=== PATIENT | male | born 1960 | race Caucasian/White ===

== ENCOUNTER → 2018-03-20 08:41 | Outpatient (CLI) | payer BC, SELFPAY ==
[2018-03-20 13:53] LABS: Alanine Aminotransferase 36 U/L (12-78); Albumin Level 3.4 gm/dL (3.4-5.0); Albumin/Globulin Ratio 1.1 (1.1-1.8); Alkaline Phosphatase 54 U/L (46-116); Anion Gap 14.1 mEq/L (5-15); Aspartate Amino Transferase 16 U/L (15-37); Bilirubin,Total 0.5 mg/dL (0.2-1.0); Blood Urea Nitrogen 12 mg/dL (7-18); C-Reactive Protein 0.8 mg/L (0.0-0.9); Calcium 8.6 mg/dL (8.5-10.1); Carbon Dioxide 27 mmol/L (21.0-32.0); Chloride 105 mmol/L (98-107); Creatinine,Serum 0.99 mg/dL (0.70-1.30); Estimated Glomerular Filt Rate 77 ml/min (>60); GFR (African American) 94 ML/MIN (>60); Globulin 3.1 gm/dl (1.3-3.2); Glucose 113 mg/dL (74-106); Potassium 4.1 mmoL/L (3.5-5.1); Sodium 142 mmol/L (136-145); Total Protein,Serum 6.5 gm/dL (6.4-8.2); Uric Acid 6.7 mg/dL (2.6-7.2)
[2018-03-20 14:36] LABS: Basophils % 0.7 % (0.1-2.0); Eosinophils # 0.2 K/mm3 (0.0-0.4); Eosinophils % 3.6 % (0.1-12.0); Hematocrit 44.6 % (42.0-52.0); Hemoglobin 14.2 g/dL (14.1-18.0); Lymphocytes # 1.6 K/mm3 (0.7-4.5); Mean Corpuscular HGB Conc 31.8 g/dL (31.8-35.4); Mean Corpuscular Hemoglobin 30.5 pg (27.0-31.2); Mean Corpuscular Volume 95.9 fl (80-94); Mean Platelet Volume 8.4 fl (7.4-10.4); Monocytes # 0.4 K/mm3 (0.1-1.0); Monocytes % 8.5 % (1.7-9.3); Neutrophils # 2.8 K/mm3 (1.8-7.8); Neutrophils % 55.3 % (37.0-80.0); Platelet Count 262 K/mm3 (142-424); Red Blood Count 4.65 M/mm3 (4.60-6.20); Red Cell Distribution Width 13.3 % (11.5-17.5)
[2018-03-20 15:29] LABS: Erythrocyte Sedimentation Rate 14 mm/hr (0-20)
[2018-03-22 17:13] LABS: RA Latex Turbid. 16.7 IU/mL (0.0-13.9)
== END ==
PROVIDERS: PCP Internal Medicine Adolescent Medicine; Visit Provider Internal Medicine Rheumatology
DX: E79.0 Hyperuricemia without signs of inflammatory arthritis and tophaceous disease (principal); M79.641 Pain in right hand
CPT/HCPCS: 36415; 80053; 84550; 85025; 85651; 86140; 86431

== ENCOUNTER 2018-04-30 08:00 | Outpatient (RCR) | payer BC, SELFPAY | END 2018-06-03 16:00 | disposition home or self-care (01) | LOC: PT.CARL 08:00 | PROVIDERS: Visit Provider Anesthesiology Pain Medicine | DX: M54.16 Radiculopathy, lumbar region (principal) | CPT/HCPCS: 97012; 97110; 97140; 97163 ==

== ENCOUNTER → 2018-09-04 13:22 | Outpatient (CLI) | payer BC, SELFPAY ==
--- NOTE | 2018-09-04 13:33 | XR_ITS ---
XR sacrum coccyx min 2V CLINICAL INDICATION: ITS.REASON: PAIN DUE TO TRAUMA,COCCYXDYNIA ORDERING PHYSICIAN: Patrick Marmolejo MD PATIENT AGE: 58 years Comparison: None FINDINGS: There is displacement of the second segment of the coccyx posteriorly x 5 mm. No other significant anomalies are evident. IMPRESSION: Posterior displacement of the second coccyx segment
== END ==
PROVIDERS: PCP Internal Medicine Adolescent Medicine; Visit Provider Internal Medicine Adolescent Medicine
DX: M53.3 Sacrococcygeal disorders, not elsewhere classified (principal); G89.11 Acute pain due to trauma
CPT/HCPCS: 72220

== ENCOUNTER → 2019-01-10 07:50 | Outpatient (CLI) | payer BC, SELFPAY ==
--- NOTE | 2019-01-10 08:03 | XR_ITS ---
PROCEDURE: XR CHEST 2V CLINICAL HISTORY: PERISTANT COUGH X 3 WEKKS Productive cough COMPARISON: No exams were available for comparison FINDINGS: There is mild cardiomegaly without failure. The lungs are clear without infiltrates, suspicious nodules, or pleural effusions. No acute bony abnormalities. IMPRESSION: The mild cardiomegaly otherwise negative Dictated by: Charly Lynn MD 01/10/2019 09:20 Electronically signed by Charly Lynn MD in [place] 01/10/2019 09:20
[2019-01-10 08:19] LABS: Hemoglobin A1C 6.1 % (0.0-7.0)
[2019-01-10 08:47] LABS: Alanine Aminotransferase 38 U/L (12-78); Albumin Level 3.5 gm/dL (3.4-5.0); Albumin/Globulin Ratio 1.2 (1.1-1.8); Alkaline Phosphatase 57 U/L (46-116); Anion Gap 8.9 mEq/L (5-15); Aspartate Amino Transferase 21 U/L (15-37); Bilirubin,Total 0.4 mg/dL (0.2-1.0); Blood Urea Nitrogen 10 mg/dL (7-18); Calcium 8.7 mg/dL (8.5-10.1); Carbon Dioxide 30 mmol/L (21.0-32.0); Chloride 104 mmol/L (98-107); Cholesterol 160 mg/dL (140-200); Creatinine,Serum 1.02 mg/dL (0.70-1.30); Estimated Glomerular Filt Rate 74 ml/min (>60); GFR (African American) 90 ML/MIN (>60); Glucose 131 mg/dL (74-106); HDL Cholesterol 40 mg/dL (27-67); LDL Cholesterol 78 mg/dL (0-130); Potassium 4.9 mmoL/L (3.5-5.1); Sodium 138 mmol/L (136-145); Thyroid Stimulating Hormone 2.46 uIU/ml (0.358-3.740); Total Protein,Serum 6.5 gm/dL (6.4-8.2); Triglycerides 212 mg/dL (30-200); VLDL Cholesterol 42 mg/dL (0-40)
[2019-01-11 18:12] LABS: Vitamin D 25 Hydroxy 35.1 ng/mL (30.0-100.0)
== END ==
PROVIDERS: Visit Provider Nurse Practitioner Family
DX: E78.5 Hyperlipidemia, unspecified (principal); E11.9 Type 2 diabetes mellitus without complications; E03.9 Hypothyroidism, unspecified; E55.9 Vitamin D deficiency, unspecified; I10 Essential (primary) hypertension; R05 Cough
CPT/HCPCS: 36415; 71046; 80053; 80061; 82652; 83036; 84443

== ENCOUNTER → 2019-04-24 10:28 | Outpatient (CLI) | payer BC, SELFPAY ==
[2019-04-24 14:08] LABS: Hemoglobin A1C 6.3 % (4.0-6.0)
[2019-04-24 14:12] LABS: Chloride 100 mmol/L (98-107); Potassium 4.4 mmoL/L (3.5-5.1); Sodium 138 mmol/L (136-145)
[2019-04-24 14:14] LABS: Alanine Aminotransferase 33 U/L (12-78); Aspartate Amino Transferase 30 U/L (17-59); Basophils # 0.1 K/mm3 (0-0.2); Basophils % 0.7 % (0.1-2.0); Bilirubin,Total 0.4 mg/dl (0.2-1.3); Blood Urea Nitrogen 8 mg/dl (9-20); Eosinophils # 0.2 K/mm3 (0.0-0.4); Eosinophils % 3.5 % (0.1-12.0); Estimated Glomerular Filt Rate 86 ml/min (>60); GFR (African American) 104 ML/MIN (>60); Hematocrit 41.8 % (42.0-52.0); Hemoglobin 13.9 g/dL (14.1-18.0); Lymphocytes # 1.5 K/mm3 (0.7-4.5); Lymphocytes % 22.5 % (10-50); Mean Corpuscular HGB Conc 33.1 g/dL (31.8-35.4); Mean Corpuscular Volume 93.6 fl (80-94); Mean Platelet Volume 8.5 fl (7.4-10.4); Monocytes # 0.4 K/mm3 (0.1-1.0); Monocytes % 5.7 % (1.7-9.3); Neutrophils # 4.5 K/mm3 (1.8-7.8); Neutrophils % 67.6 % (37.0-80.0); Platelet Count 319 K/mm3 (142-424); Red Blood Count 4.47 M/mm3 (4.60-6.20); Red Cell Distribution Width 12.7 % (11.5-17.5); White Blood Count 6.7 K/mm3 (4.8-10.8)
[2019-04-24 14:15] LABS: Albumin Level 3.9 g/dl (3.5-5.0); Albumin/Globulin Ratio 1.4 (1.1-1.8); Alkaline Phosphatase 54 U/L (38-126); Anion Gap 14.4 mEq/L (5-15); Calcium 8.7 mg/dl (8.4-10.2); Carbon Dioxide 28 mmol/L (22.0-30.0); Chol/HDL Ratio 4.4 (1-3.5); Cholesterol 168 mg/dl (140-200); Globulin 2.7 g/dL (1.3-3.2); Glucose 117 mg/dl (74-100); HDL Cholesterol 38 mg/dl (40-60); Total Protein,Serum 6.6 g/dl (6.3-8.2); Triglycerides 219 mg/dl (30-150); VLDL Cholesterol 44 mg/dL (0-40)
[2019-04-24 14:44] LABS: Thyroid Stimulating Hormone 1.84 uIU/mL (0.465-4.68)
[2019-04-24 14:59] LABS: Activated Partial Thrombo Time 28.8 seconds (23.6-34.0); INR 1.01 (0.9-1.1); Prothrombin Time 10.5 seconds (9.4-11.8)
== END ==
PROVIDERS: Visit Provider Nurse Practitioner Family
DX: Z00.00 Encounter for general adult medical examination without abnormal findings (principal); E78.5 Hyperlipidemia, unspecified; E11.9 Type 2 diabetes mellitus without complications; I10 Essential (primary) hypertension; R23.3 Spontaneous ecchymoses
CPT/HCPCS: 36415; 80053; 80061; 83036; 84443; 85025; 85610; 85730

== ENCOUNTER → 2019-09-18 09:48 | Outpatient (CLI) | payer BC, SELFPAY ==
[2019-09-18 11:30] LABS: Coronavirus 19 IgG Antibody Negative (Negative); Coronavirus 19 IgM Antibody Negative (Negative)
== END ==
PROVIDERS: Visit Provider Internal Medicine Gastroenterology
DX: Z01.818 Encounter for other preprocedural examination (principal); Z12.11 Encounter for screening for malignant neoplasm of colon
CPT/HCPCS: 36415; 86328

== ENCOUNTER 2019-09-19 08:23 | Day surgery (SDC) | payer BC, SELFPAY ==
[2019-09-19] VITALS (7 sets, daily range): BP systolic 117–160; BP diastolic 68–105; PULSE 53–66; RESP 16–18; TEMP 36.4–36.7; O2SAT 91–99; BMI 37.2
[2019-09-19 09:30] LABS: POC Glucose,Bedside 98 (70-110)
--- NOTE | 2019-09-19 09:58 | P.PN_ITS ---
[facility] Anesthesia Checklist - Patient Identification Patient Identification: Arm Band - Structural Data Admitted From: Home Planned Operative Procedure/s: colonoscopy Consent for Planned Operative Procedure(s) Verified: Yes Verified Documents: Surgical Consent, History and Physical - NPO Status Verified Time NPO: 00:00 - Additional verifications Anesthesia Reactions: No - Airway Assessment C-Spine Mobility Assessed: Yes (mp3) TMJ Mobility Assessed: Yes Dentition: Good Dentition - Neurological Assessment Level of Consciousness: Awake, Alert - Anesthesia Plan Anesthesia Risk discussed: Yes Anesthesia Plan: Verified ASA Class: III Anesthesia Type: MAC [facility] History I have reviewed the patient's past medical history: Yes Medical History: Reports:: Diabetes Mellitus Type 2, Hyperlipidemia, Hypertension, Lung Disease (omer-cpap) Denies:: Cancer, Diabetes Mellitus Type 1, Internal Pacemaker, MRSA, Seizures *Have you ever received a pneumonia vaccine?: Yes *Have you received a flu vaccine this season?: No Anesthesia experience/problems:: nac Laterality Cases: Left: Arthroscopy Shoulder, Right: Arthroscopy Knee Other Surgeries: No: Pacemaker Amputation: No Fractures: No - *Social History Last grade of school completed: High school graduate Smoking Status: Never smoker Alcohol Intake: current Alcohol Intake Frequency:: holidays/special occasions only Substance Use Type: denies use *Occupational Status:: other Housing: house Household Members: spouse *Travel in the last 8 weeks: None Family Hx:: Cancer, Coronary Artery Disease, Hypertension, Stroke
--- NOTE | 2019-09-19 10:27 | HMH.PROC ---
[facility] Procedure Note Procedure Note:: Colonoscopy Procedure Report: Colonoscopy with cold snare polypectomy Endoscopist: Andrwe Doll II, MD Referring physician: Patrick Marmolejo M.D. Date of Procedure: September 19, 2019 Equipment: Olympus 180 variable stiffness pediatric colonoscope Sedation: MAC sedation Indication: Mr. Garcia is a 59-year-old gentleman who is here for follow-up screening/surveillance colonoscopy. He does state that he had a colonoscopy 5 years ago and had a polyp removed (hyperplastic polyp). He was not fully prepped well at that time. He reports no abdominal pain, weight loss, change in his bowel habits or rectal bleeding. He reports no family history of colon cancer. His recent lab work was normal including normal hemoglobin 13.6, hematocrit 42.6 and ferritin 44.4. He had normal liver chemistries. Procedure: Prior to the procedure, a history and physical exam was performed, and patient's medications and allergies were reviewed. The risks, benefits and alternatives of the sedation and procedure were discussed with the patient. All questions were answered and informed consent was obtained. The patient was brought to the procedure room. Patient identification and proposed procedure were verified by the physician and the nurse. The patient was placed in a left lateral decubitus position and the scope was passed under direct vision. Throughout the procedure, the patient's blood pressure, pulse, and oxygen saturations were monitored continuously. The colonoscopy was accomplished without difficulty. The patient tolerated the procedure well. Findings: On digital rectal examination there was normal rectal tone. There were no external hemorrhoids. The colonoscope was introduced through the anal canal to the rectum and advanced to the cecum. The ileocecal valve and appendiceal orifice were identified. The scope was advanced a short distance into the ileum which appeared grossly normal. The scope was then withdrawn into the colon. There were 3 diminutive polyps (cecum x1 (4 mm), transverse x1 (3 mm) and rectum x1 (4 mm)) which were all removed via cold snare polypectomy. There were scattered diverticuli throughout the colon but more predominantly in the descending and sigmoid colon (LEFT colon). There were no other mucosal abnormalities. The rectum itself was normal. Upon retroflexion within the rectum there were grade 1-2 internal hemorrhoids. The preparation was excellent throughout with [place] Preparation Score of 9. The cecal time was 12 minutes. Impression: 1. Diminutive colonic polyps x3 2. Mild pandiverticulosis 3. Grade 1-2 internal hemorrhoids Plan: I will follow up the polyp pathology and recommend repeat colonoscopy again in 5-10 years based upon the polyp histology. I would encourage bulk fiber supplementation on a long-term daily maintenance basis.
== END 2019-09-19 11:25 | disposition home or self-care (01) ==
LOC: OUTP 08:26
PROVIDERS: PCP Internal Medicine Adolescent Medicine; Visit Provider Internal Medicine Gastroenterology
PROC: 0DJD8ZZ Inspection of Lower Intestinal Tract, Via Natural or Artificial Opening Endoscopic (ICD-10-PCS; CPT 45378; principal; 2019-09-19 09:30)
DX: Z12.11 Encounter for screening for malignant neoplasm of colon (principal); Z86.010 Personal history of colon polyps; K63.5 Polyp of colon; K57.30 Diverticulosis of large intestine without perforation or abscess without bleeding; K64.0 First degree hemorrhoids; E11.9 Type 2 diabetes mellitus without complications; I10 Essential (primary) hypertension; G47.33 Obstructive sleep apnea (adult) (pediatric); Z87.39 Personal history of other diseases of the musculoskeletal system and connective tissue; Z88.6 Allergy status to analgesic agent; Z79.899 Other long term (current) drug therapy
CPT/HCPCS: 45385; 82962

== ENCOUNTER → 2019-12-10 09:49 | Outpatient (CLI) | payer BC, SELFPAY ==
--- NOTE | 2019-12-10 | XR_ITS ---
PROCEDURE: XR HIP RT 2-3V W/PELVIS CLINICAL INDICATION: PAIN IN RT HIP COMPARISON: No exams were available for comparison FINDINGS: There are mild osteoarthritic changes of the right hip. Along the inferior aspect of the femoral neck there is a curvilinear area of calcification IMPRESSION: 1. No acute finding. 2. Mild osteoarthritis of the right hip with calcification inferior to the femoral neck on the abduction ule view which could be due to an old injury or heterotopic ossification. Dictated by: Charly Lynn MD 12/10/2019 17:17 Charly Lynn MD in [place] 12/10/2019 17:17
--- NOTE | 2019-12-10 | XR_ITS ---
PROCEDURE: XR LUMBAR SPINE MIN 4V CLINICAL INDICATION: LOW BACK PAIN COMPARISON: CR XR CHEST 2V from 01/10/2019 FINDINGS: There is normal alignment. Degenerative disc disease is present at T11-T12 T12-L1. There are small anterior osteophytes from L2-S1. No acute fracture or dislocation. There is wedging at T12 not significantly changed. Facet arthritic changes are present at the lumbosacral junction. Other findings:None. IMPRESSION: Degenerative changes as described above, no acute finding. Dictated by: Charly Lynn MD 12/10/2019 17:15 Charly Lynn MD in [place] 12/10/2019 17:15
--- NOTE | 2019-12-10 | XR_ITS ---
PROCEDURE: XR SHOULDER RT MIN 2V CLINICAL INDICATION: PAIN IN RT SHOULDER COMPARISON: No exams were available for comparison FINDINGS: No fracture or dislocation. No lytic or blastic change. There is normal mineralization. Moderate to severe osteoarthritic changes are present at the acromioclavicular joint and glenohumeral joint. There is severe subacromial stenosis with elevation of the right humeral head. With this degree of subacromial stenosis, would highly suspect a complete rotator cuff tear. This may be confirmed with MRI if clinically warranted. There is some calcification along the humeral head laterally which may indicate calcific tendinitis. Other findings:None. IMPRESSION: Moderate to severe osteoarthritis with severe subacromial stenosis as described above Dictated by: Charly Lynn MD 12/10/2019 17:19 Charly Lynn MD in [place] 12/10/2019 17:19
== END ==
PROVIDERS: PCP Nurse Practitioner Family; Visit Provider Nurse Practitioner Family
DX: M54.5 Low back pain (principal); M25.551 Pain in right hip; M25.511 Pain in right shoulder
CPT/HCPCS: 72110; 73030; 73502

== ENCOUNTER → 2019-12-23 14:02 | Outpatient (CLI) | payer BC, SELFPAY ==
--- NOTE | 2019-12-23 14:07 | CT_ITS ---
PROCEDURE: CT LUMBAR SPINE WO CON CLINICAL HISTORY: LOW BACK PAIN lbp s/p barn falling on him,, injury with pain COMPARISON: CR XR CHEST 2V from 01/10/2019 DX XR LUMBAR SPINE MIN 4V from 12/10/2019 TECHNIQUE: Axial images obtained with sagittal and coronal reformats. All CT scans at the facility use one or more dose reduction, viz: automated exposure control, ma/kV adjustment per patient size (including targeted exams where dose is matched to indication, i.e. head), or iterative reconstruction technique. FINDINGS: There is normal alignment. There is chronic mild wedge compression change of T12 similar to a prior lateral chest radiograph. T11-T12: Degenerate disc disease with mild bulging disc. T12-L1: Anterior osteophytes with mild degenerative disc disease. L1-L2: Minimal retrolisthesis of L1 2 mm with minimal bulging disc. L2-L3: Mild facet hypertrophic change. L3-L4: Minimal bulging disc with mild facet hypertrophic change with mild bilateral foraminal narrowing. L4-5: Broad-based bulging disc eccentric to the right along with facet ligamentum hypertrophy with canal stenosis bilateral lateral recess and foraminal narrowing greater on the right. L5-S1: Degenerative disc disease with bulging disc with facet and ligamentum hypertrophy. There is severe left-sided foraminal narrowing from endplate and facet hypertrophic changes with impingement upon the exiting L5 nerve root. There is moderate right foraminal narrowing. No acute fracture or dislocation is evident. Incidental note is made of mildly prominent left periaortic lymph node at 2.3 by 2 cm. IMPRESSION: 1. Multilevel lumbar spondylosis with degenerative disc disease, bulging disc, and facet and ligamentum hypertrophy with lateral recess and foraminal narrowing. Please see above for detailed description at each level. There is canal stenosis at L4-5 and there is severe left-sided foraminal narrowing at L5-S1 2. No acute fracture. 3. Enlarged left periaortic lymph node. Dictated by: Charly Lynn MD 12/24/2019 11:33 Charly Lynn MD in [place] 12/24/2019 11:33
== END ==
PROVIDERS: PCP Internal Medicine Adolescent Medicine; Visit Provider Nurse Practitioner Family
DX: M54.5 Low back pain (principal)
CPT/HCPCS: 72131

== ENCOUNTER → 2020-02-16 09:27 | Outpatient (CLI) | payer BC, SELFPAY ==
[2020-02-16 14:34] LABS: Blood Urea Nitrogen 5 mg/dl (9-20); Estimated Glomerular Filt Rate 98 ml/min (>60); GFR (African American) 119 ML/MIN (>60)
== END ==
PROVIDERS: Visit Provider Neurological Surgery
DX: Z01.818 Encounter for other preprocedural examination (principal)
CPT/HCPCS: 36415; 82565; 84520

== ENCOUNTER → 2020-02-23 12:47 | Outpatient (CLI) | payer BC, SELFPAY ==
--- NOTE | 2020-02-23 12:50 | MR_ITS ---
PROCEDURE: MR LUMBAR SPINE WO/W CON Referring Doctor: Jack Allen Patient Age:60Y CLINICAL INDICATION: LOW BACK PAIN. Accident October where barn fell on the patient; symptoms right leg-tingling and numbness. COMPARISON: DX XR LUMBAR SPINE MIN 4V from 12/10/[address] LUMBAR SPINE WO CON from 12/23/2019 TECHNIQUE: Precontrast standard multiplanar multiecho sequences are performed without contrast. 3-D MIP and myelographic images are also rendered and reviewed pre postcontrast axial T1 and T2 images performed following 27 mL ProHance FINDINGS: Lumbar vertebral bodies are intact with no compression fracture. Incidental note is made of a benign hemangioma measuring up to 16 mm, partially imaged at the inferior T11 vertebral body L5/S1 disc bulge most evident towards left foramen but of prominent facet hypertrophy most exuberant on the left but these features combine to yield a generous left foraminal and recess stenosis. Only mild foraminal encroachment on right L4/5-severe spinal stenosis due to a combination of prominent facet and ligament flavum hypertrophy along with diffuse spondylitic disc bulge but bilateral recess and foraminal stenosis most pronounced to the right takes bulge most evident to the right L3/4 bilateral facet hypertrophy. Right foraminal disc bulge a with broad-based protrusion at right foramen-yields prominent right foraminal and recess encroachment. The disc bulge continues lateral to the foramen possibly impinge upon the right ganglia. . L2/3-moderate facet hypertrophy on right more so than left L1/2, disc intact mild facet arthropathy/hypertrophy T12/L1 disc intact. Minimal facet hypertrophy Conus ends appropriately at L1 T 11/12 mild disc space narrowing mild disc bulge. Mild facet hypertrophy. Slight narrowing AP dimension of the neural foramen on the left 3D MR myelogram-nicely demonstrates severe spinal stenosis at L4/5 level.. . At L3/4 the prominent facet hypertrophy yields narrowing/tapering of the thecal sac but this feature as well as the rightward disc bulge/protrusion indents the thecal sac more so on right than left. I would also note that the undulating appearance of nerve roots seen on sagittal image also is reflection of the severe stenosis . Would note does have some lipomatosis of the spinal canal which also slightly indents thecal sac anteriorly and to the into the right at L4 level and to less degree L5. Non-specific and less likely to be symptomatic feature Last of all note the postcontrast images spine show no abnormal areas of enhancement. IMPRESSION: L4/5-severe spinal stenosis L4/5 due mainly to the prominent facet hypertrophy, but also the diffuse disc bulge slightly more evident to the right. Resulting pronounced spinal stenosis, along with bilateral foraminal encroachment most pronounced to the right L3/4. Broad-based disc protrusion to the right yields prominent encroachment upon right foramen and continues laterally..; also facet hypertrophy at this level which additionally contributes to right foraminal stenosis, and mild central canal stenosis. Both above features could give rise to right radicular symptoms Dictated by: Edwardo Galvez MD 02/26/2020 19:33 Edwardo Galvez MD in [place] 02/26/2020 19:33
== END ==
PROVIDERS: PCP Internal Medicine Adolescent Medicine; Visit Provider Neurological Surgery
DX: M54.5 Low back pain (principal)
CPT/HCPCS: 72158; 76376; A9576

== ENCOUNTER → 2020-03-19 08:16 | Outpatient (CLI) | payer BC, SELFPAY ==
--- NOTE | 2020-03-19 08:25 | XR_ITS ---
PROCEDURE: XR KNEE LT 3V CLINICAL INDICATION: OSTEOARTHRITIS Pain COMPARISON: No exams were available for comparison FINDINGS: There are moderate osteoarthritic changes of the medial compartment and patellofemoral joint. No acute fracture or dislocation is evident. Mild osteoarthritis noted of the lateral compartment. No lytic or blastic change. Other findings:None. IMPRESSION: Osteoarthritis Dictated by: Charly Lynn MD 03/19/2020 11:42 Charly Lynn MD in [place] 03/19/2020 11:42
--- NOTE | 2020-03-19 08:25 | XR_ITS ---
PROCEDURE: XR KNEE RT 3V CLINICAL INDICATION: OSTEOARTHRITIS COMPARISON: No exams were available for comparison FINDINGS: Moderate osteoarthritic changes are present at the medial compartment with mild osteoarthritis of the lateral compartment and patellofemoral joint. No fracture or dislocation. No lytic or blastic change. Other findings:None. IMPRESSION: Osteoarthritis Dictated by: Charly Lynn MD 03/19/2020 11:41 Charly Lynn MD in [place] 03/19/2020 11:41
== END ==
PROVIDERS: PCP Internal Medicine Adolescent Medicine; Visit Provider Anesthesiology Pain Medicine
DX: M17.0 Bilateral primary osteoarthritis of knee (principal)
CPT/HCPCS: 73562

== ENCOUNTER → 2020-05-17 07:47 | Outpatient (CLI) | payer BC, SELFPAY ==
[2020-05-19 09:31] LABS: Hep A Ab, IgM Negative (Negative); Hepatitis B Core Antibody IgM Negative (Negative); Hepatitis B Surface Antigen Negative (Negative)
[2020-05-19 11:20] LABS: Hepatitis C Antibody <0.1 s/co ratio (0.0-0.9)
[2020-05-21 14:00] LABS: QuantiFERON-TB Gold Plus Negative (Negative)
== END ==
PROVIDERS: Visit Provider Internal Medicine Rheumatology
DX: E79.0 Hyperuricemia without signs of inflammatory arthritis and tophaceous disease (principal); M25.50 Pain in unspecified joint; M51.36 Other intervertebral disc degeneration, lumbar region; Z68.41 Body mass index [BMI] 40.0-44.9, adult; Z79.899 Other long term (current) drug therapy
CPT/HCPCS: 36415; 80074; 86480

== ENCOUNTER → 2020-06-25 08:45 | Outpatient (CLI) | payer BC, SELFPAY ==
[2020-06-25 09:53] LABS: Blood Urea Nitrogen 11 mg/dl (9-20); Estimated Glomerular Filt Rate 98 ml/min (>60); GFR (African American) 119 ML/MIN (>60)
== END ==
PROVIDERS: Visit Provider Neurological Surgery
DX: M54.5 Low back pain (principal)
CPT/HCPCS: 36415; 82565; 84520

== ENCOUNTER → 2020-06-28 08:38 | Outpatient (CLI) | payer BC, SELFPAY ==
--- NOTE | 2020-06-28 08:41 | MR_ITS ---
PROCEDURE: MR LUMBAR SPINE WO/W CON CLINICAL INDICATION: LOW BACK PAIN Prior hx back surgery 04/18. Bilateral lbp. Intermittent rt leg pain, numbness, and tingling. COMPARISON: MR MR LUMBAR SPINE WO/W CON from 02/23/2020 TECHNIQUE: Standard multiplanar multiecho sequences are performed without and with contrast. 3-D MIP and myelographic images are also rendered and reviewed FINDINGS: There is normal alignment. The spinal cord ends at the L1 level. T12-L1: Minimal bulging disc anteriorly. Mild facet and ligamentum hypertrophy. L1-L2: Minimal anterior bulging disc. Mild facet and ligamentum hypertrophy. L2-L3: Mild facet and ligamentum hypertrophy as before. L3-L4: No change in the right lateral disc osteophyte complex with some mild impingement upon the exiting L3 nerve root. Small amount of fluid is present between the spinous processes at L3-L4 and posterior to the spinous processes extending into the soft tissues with some surrounding decrease in T 1 and T2 signal around the small linear area of fluid. The small fluid collection posterior to the L3-L4 spinous processes measures 2.6 cm in length and 0.9 cm and thickness. This region shows mild diffuse contrast enhancement. L4-5: Concentric bulging disc along with moderate facet and ligamentum hypertrophic change. Status post right-sided laminectomy. The bulging disc appears somewhat less prominent and there has been some improvement in the degree of canal stenosis and lateral recess and foraminal narrowing. There is mild anterior epidural enhancement and mild posterior disc enhancement as well as mild enhancement of the ligamentum flavum bilaterally at this level. Enhancing posterior soft tissues from the prior surgery is noted. L5-S1: Degenerative disc disease with moderate facet and ligamentum hypertrophic change. There is severe left-sided foraminal narrowing from the facet hypertrophy not significantly changed. There is mild diffuse subcutaneous edema. IMPRESSION: 1. Generalized lumbar spondylosis with bulging discs, facet ligamentum hypertrophy, lateral recess and foraminal narrowing as described above. Please see above for detailed description at each level. 2. No change right lateral disc osteophyte complex at L3-L4 with mild impingement upon the exiting L3 nerve root. There is a small amount fluid between the L3 and L4 spinous processes extending into the paraspinal soft tissues which may be due to postsurgical with seroma or hematoma 3. Postsurgical changes at L4-L5 with improvement and canal stenosis lateral recess and foraminal narrowing. There postsurgical changes at this level and within the posterior paraspinal soft tissues with some mild enhancement not uncommon for postsurgical changes. There is mild epidural and ligamentum flavum enhancement which may be post inflammatory from the surgery. Developing epidural fibrosis is also consideration. Infectious changes are not excluded at L3-L4 or L4-5. Correlation with patient's clinical status is needed. 4. No change in the severe left-sided foraminal narrowing at L5-S1. Dictated by: Charly Lynn MD 06/29/2020 12:09 Charly Lynn MD in [place] 06/29/2020 12:09
== END ==
PROVIDERS: PCP Internal Medicine Adolescent Medicine; Visit Provider Neurological Surgery
DX: M54.5 Low back pain (principal)
CPT/HCPCS: 72158; 76376; A9576

== ENCOUNTER → 2020-07-29 10:28 | Outpatient (CLI) | payer BC, SELFPAY ==
[2020-07-29 13:08] LABS: Basophils % 0.8 % (0.1-2.0); Eosinophils # 0.3 K/mm3 (0.0-0.4); Hematocrit 42.2 % (42.0-52.0); Hemoglobin 13.8 g/dL (14.1-18.0); Lymphocytes # 1.8 K/mm3 (0.7-4.5); Lymphocytes % 33.6 % (10-50); Mean Corpuscular HGB Conc 32.6 g/dL (31.8-35.4); Mean Corpuscular Hemoglobin 32.6 pg (27.0-31.2); Mean Platelet Volume 8.1 fl (7.4-10.4); Monocytes # 0.4 K/mm3 (0.1-1.0); Monocytes % 8.1 % (1.7-9.3); Neutrophils # 2.8 K/mm3 (1.8-7.8); Neutrophils % 52.5 % (37.0-80.0); Platelet Count 206 K/mm3 (142-424); Red Blood Count 4.22 M/mm3 (4.60-6.20); Red Cell Distribution Width 14.1 % (11.5-17.5); White Blood Count 5.4 K/mm3 (4.8-10.8)
[2020-07-29 13:48] LABS: Erythrocyte Sedimentation Rate 6 mm/hr (0-20)
[2020-07-30 11:16] LABS: C-Reactive Protein, Cardiac 4.05 mg/L (0.00-3.00)
[2020-08-04 10:43] LABS: Uric Acid 4.1 mg/dl (3.5-8.5)
== END ==
PROVIDERS: Internal Medicine Adolescent Medicine; Visit Provider Neurological Surgery
DX: Z76.89 Persons encountering health services in other specified circumstances (principal)
CPT/HCPCS: 36415; 84550; 85025; 85651; 86141

== ENCOUNTER → 2020-08-26 09:28 | Outpatient (CLI) | payer BC, SELFPAY ==
[2020-08-26 13:48] LABS: Basophils % 0.8 % (0.1-2.0); Eosinophils # 0.2 K/mm3 (0.0-0.4); Eosinophils % 3.2 % (0.1-12.0); Hematocrit 42.2 % (42.0-52.0); Hemoglobin 13.5 g/dL (14.1-18.0); Lymphocytes # 1.4 K/mm3 (0.7-4.5); Lymphocytes % 26.4 % (10-50); Mean Corpuscular HGB Conc 31.9 g/dL (31.8-35.4); Mean Corpuscular Hemoglobin 32.1 pg (27.0-31.2); Mean Corpuscular Volume 100.5 fl (80-94); Mean Platelet Volume 8.2 fl (7.4-10.4); Monocytes # 0.3 K/mm3 (0.1-1.0); Monocytes % 6.5 % (1.7-9.3); Neutrophils # 3.3 K/mm3 (1.8-7.8); Neutrophils % 63.1 % (37.0-80.0); Platelet Count 214 K/mm3 (142-424); Red Cell Distribution Width 12.5 % (11.5-17.5); White Blood Count 5.1 K/mm3 (4.8-10.8)
[2020-08-26 14:08] LABS: Alanine Aminotransferase 24 U/L (12-78); Albumin Level 3.9 g/dl (3.5-5.0); Albumin/Globulin Ratio 1.7 (1.1-1.8); Alkaline Phosphatase 62 U/L (38-126); Anion Gap 14.3 mEq/L (5-15); Aspartate Amino Transferase 27 U/L (17-59); Bilirubin,Total 0.6 mg/dl (0.2-1.3); Blood Urea Nitrogen 8 mg/dl (9-20); Calcium 8.7 mg/dl (8.4-10.2); Carbon Dioxide 25 mmol/L (22.0-30.0); Chloride 106 mmol/L (98-107); Estimated Glomerular Filt Rate 98 ml/min (>60); GFR (African American) 119 ML/MIN (>60); Globulin 2.3 g/dL (1.3-3.2); Glucose 100 mg/dl (74-100); Potassium 4.3 mmoL/L (3.5-5.1); Sodium 141 mmol/L (136-145); Total Protein,Serum 6.2 g/dl (6.3-8.2)
[2020-08-26 14:23] LABS: C-Reactive Protein 4.6 mg/L (0-4)
[2020-08-26 16:16] LABS: Erythrocyte Sedimentation Rate 8 mm/hr (0-20)
== END ==
PROVIDERS: Visit Provider Internal Medicine Rheumatology
DX: M06.9 Rheumatoid arthritis, unspecified (principal); E79.0 Hyperuricemia without signs of inflammatory arthritis and tophaceous disease; M51.36 Other intervertebral disc degeneration, lumbar region; Z68.1 Body mass index [BMI] 19.9 or less, adult; Z79.899 Other long term (current) drug therapy
CPT/HCPCS: 36415; 80053; 85025; 85651; 86140

== ENCOUNTER → 2020-12-28 08:07 | Outpatient (CLI) | payer BC, SELFPAY ==
[2020-12-28 08:10] LABS: Microscopic, Urine URINE MICROSCOPIC (MICROSCOPIC)
[2020-12-28 14:14] LABS: Basophils % 0.6 % (0.1-2.0); Eosinophils # 0.2 K/mm3 (0.0-0.4); Eosinophils % 4.1 % (0.1-12.0); Hematocrit 44.2 % (42.0-52.0); Hemoglobin 13.8 g/dL (14.1-18.0); Lymphocytes # 2.1 K/mm3 (0.7-4.5); Lymphocytes % 35.7 % (10-50); Mean Corpuscular HGB Conc 31.3 g/dL (31.8-35.4); Mean Corpuscular Hemoglobin 33.3 pg (27.0-31.2); Mean Corpuscular Volume 106.4 fl (80-94); Mean Platelet Volume 8.9 fl (7.4-10.4); Monocytes # 0.4 K/mm3 (0.1-1.0); Monocytes % 6.8 % (1.7-9.3); Neutrophils # 3.1 K/mm3 (1.8-7.8); Neutrophils % 52.8 % (37.0-80.0); Platelet Count 217 K/mm3 (142-424); Red Blood Count 4.15 M/mm3 (4.60-6.20); Red Cell Distribution Width 13.6 % (11.5-17.5); White Blood Count 5.8 K/mm3 (4.8-10.8)
[2020-12-28 14:17] LABS: Appearance,Urine CLEAR (Clear); Bilirubin,Urine Negative (Negative); Blood, Urine Negative (Negative); Color,Urine YELLOW (Yellow); Glucose,Urine (UA) Negative (Negative); Ketones,Urine Negative (Negative); Leukocyte Esterase,Urine Negative (Negative); Nitrate,Urine Negative (Negative); Protein,Urine Negative (Negative); Urobilinogen,Urine 0.2 EU/dl (0.2)
[2020-12-28 14:18] LABS: Alanine Aminotransferase 26 U/L (12-78); Albumin Level 3.6 g/dl (3.5-5.0); Albumin/Globulin Ratio 1.5 (1.1-1.8); Alkaline Phosphatase 50 U/L (38-126); Anion Gap 12.1 mEq/L (5-15); Aspartate Amino Transferase 30 U/L (17-59); Bilirubin,Total 0.3 mg/dl (0.2-1.3); Blood Urea Nitrogen 9 mg/dl (9-20); Calcium 8.6 mg/dl (8.4-10.2); Carbon Dioxide 26 mmol/L (22.0-30.0); Chloride 107 mmol/L (98-107); Estimated Glomerular Filt Rate 137 ml/min (>60); GFR (African American) 166 ML/MIN (>60); Globulin 2.4 g/dL (1.3-3.2); Glucose 99 mg/dl (74-100); Potassium 4.1 mmoL/L (3.5-5.1); Sodium 141 mmol/L (136-145)
== END ==
PROVIDERS: Visit Provider Internal Medicine Rheumatology
DX: M06.9 Rheumatoid arthritis, unspecified (principal); Z79.899 Other long term (current) drug therapy
CPT/HCPCS: 36415; 80053; 81001; 85025

== ENCOUNTER → 2021-01-11 07:19 | Outpatient (CLI) | payer BC, SELFPAY ==
--- NOTE | 2021-01-11 07:23 | MR_ITS ---
PROCEDURE: MR LUMBAR SPINE WO CON CLINICAL INDICATION: SPINAL STENOSIS Low back pain COMPARISON: MR MR LUMBAR SPINE WO/W CON from 06/28/2020 TECHNIQUE: Standard multiplanar multiecho sequences are performed without contrast. 3-D MIP and myelographic images are also rendered and reviewed FINDINGS: Normal alignment. The spinal cord ends at the L1 level. T12-L1: Circumferential bulging disc L1-L2: Mild concentric bulging disc. L2-L3: Concentric bulging disc with facet and ligamentum hypertrophy with mild right lateral recess narrowing L3-L4: Concentric bulging disc with. Right foraminal and lateral disc osteophyte complex with some mild impingement upon the exiting L3 nerve root not significantly changed.. Prominent facet and ligamentum hypertrophic change with bilateral foraminal narrowing right greater than left. Previously noted fluid collection between the spinous processes of L3 and L4 extending into the adjacent soft tissues is once again noted. Borderline canal stenosis. L4-5: Concentric bulging disc with facet and ligamentum hypertrophy with bilateral foraminal narrowing. Borderline canal stenosis. Fluid is present in the soft tissues. This is not significantly changed. Postsurgical changes in the right lamina region L5-S1: Concentric bulging disc with severe left-sided facet hypertrophic change impinging upon the left exiting L5 nerve root not significantly changed. IMPRESSION: Multilevel lumbar spondylosis with postsurgical changes. Please see above for detailed description. Overall no significant change from the previous exam. Dictated by: Charly Lynn MD 01/15/2021 09:05 Charly Lynn MD in [place] 01/15/2021 09:05
== END ==
PROVIDERS: PCP Internal Medicine Adolescent Medicine; Visit Provider Nurse Practitioner Family
DX: M48.062 Spinal stenosis, lumbar region with neurogenic claudication (principal)
CPT/HCPCS: 72148; 76376

== ENCOUNTER → 2021-01-12 18:24 | Outpatient (CLI) | payer BC, SELFPAY ==
[2021-01-12 18:56] LABS: Basophils % 0.9 % (0.1-2.0); Eosinophils # 0.1 K/mm3 (0.0-0.4); Eosinophils % 2.3 % (0.1-12.0); Lymphocytes # 1.6 K/mm3 (0.7-4.5); Mean Corpuscular HGB Conc 31.9 g/dL (31.8-35.4); Mean Corpuscular Volume 106.6 fl (80-94); Mean Platelet Volume 10.3 fl (7.4-10.4); Monocytes # 0.4 K/mm3 (0.1-1.0); Monocytes % 8.8 % (1.7-9.3); Neutrophils # 2.7 K/mm3 (1.8-7.8); Platelet Count 216 K/mm3 (142-424); Red Blood Count 4.41 M/mm3 (4.60-6.20); Red Cell Distribution Width 13.8 % (11.5-17.5); White Blood Count 4.9 K/mm3 (4.8-10.8)
[2021-01-12 19:02] LABS: Chloride 102 mmol/L (98-107); Potassium 4.3 mmoL/L (3.5-5.1); Sodium 137 mmol/L (136-145)
[2021-01-12 19:04] LABS: Blood Urea Nitrogen 8 mg/dl (9-20); Estimated Glomerular Filt Rate 98 ml/min (>60); GFR (African American) 119 ML/MIN (>60)
[2021-01-12 19:05] LABS: Alanine Aminotransferase 26 U/L (12-78); Albumin/Globulin Ratio 1.7 (1.1-1.8); Alkaline Phosphatase 51 U/L (38-126); Anion Gap 11.3 mEq/L (5-15); Aspartate Amino Transferase 31 U/L (17-59); Bilirubin,Total 0.4 mg/dl (0.2-1.3); Calcium 8.5 mg/dl (8.4-10.2); Carbon Dioxide 28 mmol/L (22.0-30.0); Chol/HDL Ratio 2.9 (1-3.5); Cholesterol 156 mg/dl (140-200); Globulin 2.4 g/dL (1.3-3.2); Glucose 106 mg/dl (74-100); HDL Cholesterol 54 mg/dl (40-60); Total Protein,Serum 6.4 g/dl (6.3-8.2); Triglycerides 123 mg/dl (30-150); VLDL Cholesterol 25 mg/dL (0-40)
[2021-01-12 19:16] LABS: Direct LDL Cholesterol 86.87 mg/dL (100-129)
[2021-01-12 19:36] LABS: Thyroid Stimulating Hormone 3.75 uIU/mL (0.465-4.68)
[2021-01-12 19:48] LABS: Uric Acid 3.6 mg/dl (3.5-8.5)
[2021-01-12 20:20] LABS: Prostate Specific Ag Screen 0.3 ng/ml (0.0-4.0)
[2021-01-12 23:35] LABS: Hemoglobin A1C 4.8 % (4.0-6.0)
== END ==
PROVIDERS: Visit Provider Nurse Practitioner Family
DX: E11.9 Type 2 diabetes mellitus without complications (principal); E03.8 Other specified hypothyroidism; M10.9 Gout, unspecified; N40.0 Benign prostatic hyperplasia without lower urinary tract symptoms; Z86.2 Personal history of diseases of the blood and blood-forming organs and certain disorders involving the immune mechanism; Z12.5 Encounter for screening for malignant neoplasm of prostate; Z79.84 Long term (current) use of oral hypoglycemic drugs
CPT/HCPCS: 80053; 80061; 83036; 84443; 84550; 85025; G0103

== ENCOUNTER → 2021-04-07 08:39 | Outpatient (CLI) | payer BC, SELFPAY ==
--- NOTE | 2021-04-07 08:42 | MR_ITS ---
FINAL REPORT CLINICAL HISTORY: POST LAMINECTOMY SYNDROME. ASSESSING FOR STENOSIS PRIOR TO SCS TRAIL. MID BACK PAIN WORSE ON LT SIDE. NO PRIOR. FINDINGS: Multiplanar MR imaging of the thoracic spine was performed without contrast. On the sagittal T2-weighted images, disc degeneration is seen throughout. There is a mass in the T11 vertebral body posteriorly measuring 18 mm in maximum dimension which does not have the appearance of a typical hemangioma, may represent atypical hemangioma or other neoplasm. There is a 4 mm mass in the T5 vertebral body with similar imaging characteristics. There is no evidence of fracture. The vertebral alignment is normal. The thoracic spinal cord has an unremarkable appearance without evidence of mass, edema or syrinx. There is no evidence of significant canal stenosis or cord compression. On the axial images, mild disc bulges and small osteophytes are seen at multiple levels. There is a small central T7-8 disc protrusion. There is no evidence of significant canal stenosis or cord compression. No paraspinous soft tissue abnormality is identified. IMPRESSION: Masses in the T5 and T 11 vertebral bodies, may represent atypical hemangiomas or other neoplasm. These could be further evaluated with follow-up MRI in 3-6 months or bone scan. Small central T7-8 disc protrusion. Reviewed, Interpreted and Dictated by Rl Oleary III, MD Transcribed by Britney Lemus Authenticated by Rl Oleary III, MD on 04/07/2021 01:48:[address] [facility]
== END ==
PROVIDERS: PCP Internal Medicine Adolescent Medicine; Visit Provider Anesthesiology Pain Medicine
DX: M96.1 Postlaminectomy syndrome, not elsewhere classified (principal)
CPT/HCPCS: 72146

== ENCOUNTER → 2021-04-20 08:51 | Outpatient (CLI) | payer BC, SELFPAY ==
--- NOTE | 2021-04-20 08:55 | NM_ITS ---
FINAL REPORT CLINICAL HISTORY: NEOPLASM OF BONE AND ARTICULAR CARTILAGE 9:05am 26.6mci tc mdp COMPARISON: MRI of the thoracic spine dated April 07, 2021 FINDINGS: Nuclear medicine limited bone scan. There is no evidence of abnormal uptake on limited bone scan. There is no abnormal activity corresponding to the signal abnormality in the thoracic vertebral bodies on recent MRI. IMPRESSION: No abnormal uptake. No abnormal activity corresponding disc signal abnormalities on recent MRI in the thoracic vertebral bodies. These lesions remain atypical, and a six-month follow-up MRI is recommended. Reviewed, Interpreted and Dictated by Efrain Pierce MD Transcribed by ENA Lewis Authenticated by Efrain Pierce MD on 04/20/2021 03:53:29 PM [facility]
[2021-04-20 09:42] LABS: Hemoglobin A1C 5.1 % (4.0-6.0)
== END ==
PROVIDERS: Anesthesiology Pain Medicine; PCP Internal Medicine Adolescent Medicine; Visit Provider Nurse Practitioner Family
DX: D48.0 Neoplasm of uncertain behavior of bone and articular cartilage (principal)
CPT/HCPCS: 36415; 78300; 83036; 87081; A9503

== ENCOUNTER → 2021-07-14 07:36 | Outpatient (CLI) | payer BC, SELFPAY ==
[2021-07-14 14:29] LABS: Basophils # 0.1 K/mm3 (0-0.2); Basophils % 1.1 % (0.1-2.0); Eosinophils # 0.2 K/mm3 (0.0-0.4); Eosinophils % 4.2 % (0.1-12.0); Hematocrit 38.5 % (42.0-52.0); Hemoglobin 12.6 g/dL (14.1-18.0); Lymphocytes # 2.3 K/mm3 (0.7-4.5); Lymphocytes % 40.3 % (10-50); Mean Corpuscular HGB Conc 32.8 g/dL (31.8-35.4); Mean Corpuscular Hemoglobin 35.1 pg (27.0-31.2); Mean Platelet Volume 9.9 fl (7.4-10.4); Monocytes # 0.5 K/mm3 (0.1-1.0); Neutrophils # 2.6 K/mm3 (1.8-7.8); Neutrophils % 45.4 % (37.0-80.0); Platelet Count 235 K/mm3 (142-424); Red Cell Distribution Width 12.9 % (11.5-17.5); White Blood Count 5.7 K/mm3 (4.8-10.8)
[2021-07-14 14:50] LABS: Chloride 108 mmol/L (98-107); Potassium 4.5 mmoL/L (3.5-5.1); Sodium 139 mmol/L (136-145)
[2021-07-14 14:53] LABS: Alanine Aminotransferase 25 U/L (12-78); Albumin Level 3.5 g/dl (3.5-5.0); Albumin/Globulin Ratio 1.6 (1.1-1.8); Alkaline Phosphatase 51 U/L (38-126); Anion Gap 10.5 mEq/L (5-15); Aspartate Amino Transferase 29 U/L (17-59); Bilirubin,Total 0.4 mg/dl (0.2-1.3); Blood Urea Nitrogen 14 mg/dl (9-20); Calcium 8.5 mg/dl (8.4-10.2); Carbon Dioxide 25 mmol/L (22.0-30.0); Estimated Glomerular Filt Rate 98 ml/min (>60); GFR (African American) 119 ML/MIN (>60); Globulin 2.2 g/dL (1.3-3.2); Glucose 107 mg/dl (74-100); Total Protein,Serum 5.7 g/dl (6.3-8.2)
[2021-07-14 15:35] LABS: Hemoglobin A1C 4.9 % (4.0-6.0)
[2021-07-14 17:17] LABS: Uric Acid 4.1 mg/dl (3.5-8.5)
== END ==
PROVIDERS: PCP Internal Medicine Adolescent Medicine; Visit Provider Internal Medicine Rheumatology
DX: E79.0 Hyperuricemia without signs of inflammatory arthritis and tophaceous disease (principal); M06.9 Rheumatoid arthritis, unspecified; M51.36 Other intervertebral disc degeneration, lumbar region; E11.9 Type 2 diabetes mellitus without complications; E66.9 Obesity, unspecified; Z79.84 Long term (current) use of oral hypoglycemic drugs; Z68.36 Body mass index [BMI] 36.0-36.9, adult; Z79.899 Other long term (current) drug therapy
CPT/HCPCS: 36415; 80053; 83036; 84550; 85025

== ENCOUNTER → 2021-07-19 08:46 | Outpatient (CLI) | payer BC, SELFPAY ==
--- NOTE | 2021-07-19 | CA_ITS ---
FINAL REPORT CLINICAL HISTORY: HT 6 WT 305 LLE EDEMA FOR 2 WEEKS FINDINGS: DUPLEX VENOUS SONOGRAPHY OF THE BILATERAL LOWER EXTREMITIES Multiple transverse and longitudinal scans were performed of the femoropopliteal deep venous systems, with augmentation and compression maneuvers. FINDINGS: Normal phasic flow was noted in the visualized deep venous systems. No intraluminal increased echogenicity is noted to suggest thrombus. There is normal compression and augmentation of the venous structures. No abnormal venous collaterals are seen. IMPRESSION: No evidence of deep venous thrombosis of the bilateral lower extremities. Reviewed, Interpreted and Dictated by Marcelina Hobbs MD Transcribed by Shree Villafuerte Authenticated by Marcelina Hobbs MD on 07/19/2021 11:53:[address] [facility]
== END ==
PROVIDERS: PCP Internal Medicine Adolescent Medicine; Visit Provider Nurse Practitioner Family
DX: M79.662 Pain in left lower leg (principal)
CPT/HCPCS: 93970

== ENCOUNTER 2021-10-17 11:00 | Outpatient (RCR) | payer BC, SELFPAY ==
--- NOTE | 2021-10-05 15:12 | HMH.PTOPWND ---
Rehab Outpt Wound Evaluation Rehab OP Wound Evaluation Start: 10/05/21 15:04 Freq: Status: Active Protocol: Document 10/05/21 15:04 OJ (Rec: 10/05/21 15:11 OJ [id number]) Electronically Signed By George Beltre, PT 10/05/21 15:04 Subjective/History History History Pt is 61 yowm who presents with c/o B LE edema with insidious onset of symptoms, L worse than R, x ~ 2 mos. He reports he had L3-5 PLIF performed ~ 1 mo ago, but the edema began well before that. He reports no increased pain with edema, but B feet are painful most of the time, with numbness and tingling as well . He reports hx of kidney dysfunction or heart trouble, only HTN for significant PMH. Subjective Subjective He reports pain 5/10 in B feet currently with signficant tingling/numbness. He reports palpation tenderness to B LE in gaitor area 2/4. 2+ pitting edema noted to L lower leg, 1 + pitting edema noted to R ankle. Lymphedema Eval Classification of Lymphedema Secondary Lymphedema Yes: Likely CVI. Stemmer's sign Stemmer's Sign no Stage of Lymphedema Lymphedema stages Stage I (Pitting edema, reduces w/ elevation, no fibrosis) Skin Changes Dry Skin Yes Redness Yes Other Changes Yes Pain Scale Pain Scale (0-10) 5 Affected Extremities Areas Affected by Lymphedema/Edema Right Lower Extremity,Left Lower Extremity Manual Lymphatic Drainage Treatment Area MLD Treatment Area Right Lower Extremity,Left Lower Extremity Wound Problems/Impairments Impairments Problems/Impairmments Palpation Tenderness,Impaired Walking,Impaired Standing, Increased Edema,Lymphedema Present,Subjective C/O Pain, Impaired Self Care/Self Management Prognosis Rehab Potential Good Clinical Impression Consistent with Diagnosis Yes Short Term Goals Number of Weeks 2 Decreased Palpation Tenderness Yes:
== END 2021-10-17 11:05 | disposition home or self-care (01) ==
LOC: PT 11:00
PROVIDERS: PCP Internal Medicine Adolescent Medicine; Visit Provider Internal Medicine Adolescent Medicine
DX: I89.0 Lymphedema, not elsewhere classified (principal); M79.662 Pain in left lower leg
CPT/HCPCS: 97140; 97162

== ENCOUNTER → 2021-10-17 12:03 | Outpatient (CLI) | payer BC, SELFPAY ==
[2021-10-17 12:19] LABS: Microscopic, Urine URINE MICROSCOPIC (MICROSCOPIC)
[2021-10-17 12:55] LABS: Appearance,Urine CLEAR (Clear); Bilirubin,Urine Negative (Negative); Blood, Urine Negative (Negative); Color,Urine YELLOW (Yellow); Glucose,Urine (UA) Negative (Negative); Ketones,Urine Negative (Negative); Leukocyte Esterase,Urine Negative (Negative); Nitrate,Urine Negative (Negative); Protein,Urine Negative (Negative); Urobilinogen,Urine 0.2 EU/dl (0.2)
[2021-10-17 13:01] LABS: Basophils # 0.1 K/mm3 (0-0.2); Basophils % 0.7 % (0.1-2.0); Eosinophils # 0.1 K/mm3 (0.0-0.4); Hematocrit 38.1 % (42.0-52.0); Hemoglobin 11.2 g/dL (14.1-18.0); Lymphocytes % 20.9 % (10-50); Mean Corpuscular HGB Conc 29.3 g/dL (31.8-35.4); Mean Corpuscular Hemoglobin 31.8 pg (27.0-31.2); Mean Corpuscular Volume 108.4 fl (80-94); Mean Platelet Volume 8.3 fl (7.4-10.4); Monocytes # 0.8 K/mm3 (0.1-1.0); Neutrophils # 6.6 K/mm3 (1.8-7.8); Neutrophils % 69.4 % (37.0-80.0); Platelet Count 306 K/mm3 (142-424); Red Blood Count 3.52 M/mm3 (4.60-6.20); Red Cell Distribution Width 14.4 % (11.5-17.5); White Blood Count 9.5 K/mm3 (4.8-10.8)
[2021-10-17 13:17] LABS: Alanine Aminotransferase 23 U/L (12-78); Albumin Level 3.7 g/dl (3.5-5.0); Albumin/Globulin Ratio 1.6 (1.1-1.8); Alkaline Phosphatase 74 U/L (38-126); Anion Gap 10.4 mEq/L (5-15); Aspartate Amino Transferase 26 U/L (17-59); Blood Urea Nitrogen 10 mg/dl (9-20); Calcium 8.4 mg/dl (8.4-10.2); Carbon Dioxide 25 mmol/L (22.0-30.0); Chloride 107 mmol/L (98-107); Estimated Glomerular Filt Rate 98 ml/min (>60); GFR (African American) 119 ML/MIN (>60); Globulin 2.3 g/dL (1.3-3.2); Glucose 64 mg/dl (74-100); Potassium 4.4 mmoL/L (3.5-5.1); Sodium 138 mmol/L (136-145); Uric Acid 3.3 mg/dl (3.5-8.5)
[2021-10-17 13:20] LABS: Bacteria,Urine Trace /lpf
[2021-10-17 13:21] LABS: Bilirubin,Total < 0.1 mg/dl (0.2-1.3)
[2021-10-17 13:22] LABS: C-Reactive Protein 2.7 mg/L (0-4)
--- NOTE | 2021-10-17 14:00 | XR_ITS ---
FINAL REPORT TECHNIQUE: Chest PA & Lateral CLINICAL HISTORY: DYSPNEA FINDINGS: Two views of the chest were performed. The heart size is normal. The mediastinum is within normal limits. There is no acute cardiopulmonary process. There are no pleural effusions. There is no pneumothorax. The bony thorax appears intact. IMPRESSION: No acute cardiopulmonary process. Reviewed, Interpreted and Dictated by Efrain Pierce MD Transcribed by Karolyn Gunter Authenticated and [facility]
[2021-10-17 15:16] LABS: Erythrocyte Sedimentation Rate 11 mm/hr (0-20)
[2021-10-20 18:09] LABS: QuantiFERON-TB Gold Plus Negative (Negative)
[2021-10-22 19:24] LABS: Hep A Ab, IgM Negative; Hepatitis B Core Antibody IgM Negative; Hepatitis B Surface Antigen Negative
[2021-10-22 19:25] LABS: Hepatitis C Antibody <0.1
== END ==
PROVIDERS: Nurse Practitioner Family; PCP Internal Medicine Adolescent Medicine; Visit Provider Nurse Practitioner Family
DX: R06.00 Dyspnea, unspecified (principal); M06.9 Rheumatoid arthritis, unspecified; E79.0 Hyperuricemia without signs of inflammatory arthritis and tophaceous disease; M51.36 Other intervertebral disc degeneration, lumbar region; R53.83 Other fatigue; E66.9 Obesity, unspecified; Z68.36 Body mass index [BMI] 36.0-36.9, adult
CPT/HCPCS: 36415; 71046; 80053; 80074; 81001; 84550; 85025; 85651; 86140; 86480; 93306

== ENCOUNTER 2023-03-29 10:00 | Outpatient (RCR) | payer BC, SELFPAY | END 2023-04-26 15:52 | disposition home or self-care (01) | LOC: PT 10:00 | PROVIDERS: PCP Internal Medicine Adolescent Medicine; Visit Provider Podiatrist Foot & Ankle Surgery | DX: M76.811 Anterior tibial syndrome, right leg (principal) | CPT/HCPCS: 20560; 97010; 97014; 97035; 97110; 97163; G0283 ==

== ENCOUNTER 2024-05-26 10:00 | Outpatient (RCR) | payer MEDICARE, SELFPAY | END 2024-05-26 23:59 | disposition home or self-care (01) | LOC: PT 10:00 | PROVIDERS: Visit Provider Orthopaedic Surgery | DX: Z96.652 Presence of left artificial knee joint (principal) | CPT/HCPCS: 97014; 97110; 97140; 97163; 97530; G0283 ==

== ENCOUNTER 2024-06-03 13:43 | Outpatient (RCR) | payer MEDICARE, SELFPAY | END 2024-06-10 11:10 | disposition home or self-care (01) | LOC: PT 13:43 | PROVIDERS: Visit Provider Orthopaedic Surgery | DX: Z96.652 Presence of left artificial knee joint (principal) | CPT/HCPCS: 97110 ==

== ENCOUNTER 2024-06-10 12:29 | Outpatient (CLI) | payer MEDICARE, SELFPAY ==
--- OUTSIDE RECORDS SUMMARY | 2024-06-10 12:31 | XMS_ITS | Data Portability ---
Author Organization [place] - Mark riley MD, Main Office Address [address], [address] [place] [address] Care Team Providers Care Acid Changer Name Role Phone BRENDA STEWART Primary Care Provider [phone] Assessment No assessment recorded. Plan of Treatment Reminders Order Date Submit Date Provider Last Modified By Organization Details Last Modified Time Details Appointments None recorded. Lab None recorded. Referral None recorded. Procedures nerve conduction study/EMG (PROC) 2017 018 MICHELLE Castellanos MD, [address], [address], [place], [address], 8 15:29:16 Surgeries None recorded. Imaging MRI, lumbar spine, w/o contrast 2017 018 [facility], [address], [address], [place], [address], 8 13:11:45 Medication Orders gabapentin 300 mg capsule 2017 018 [facility], [address] [place], [address], 8 12:40:27 Voltaren 1 % topical gel 2017 018 [facility], [address] [place], [address], 8 12:47:07 Patient TargetsNo targets recorded. Patient Instructions Encounter Date Encounter Id Patient Instructions Last Modified By Organization Details Last Modified Time 06/13/[id number] back care and preventing injuries: care instructions Not available 06/13/2017 12:40:21 getting back to normal after low back pain: care instructions Not available 06/13/2017 12:40:21 learning about relief for back pain Not available 06/13/2017 12:40:21 Finding has been discussed with the patient and his in detail. EMG/NCV of both legs. MRI scan of the lumbar spine. Discontinue Lyrica. Increase gabapentin to 300 mg 1 capsule twice a day and 2 capsules at bedtime. Voltaren gel to be applied to his right middle toe and right foot. I will see him back in follow-up. Not available 06/13/2017 12:52:33 Reason for Referral None Reported. Results Created Date Observation Date Name Description Value Unit Range Abnormal Flag Note LastModifiedBy Organization Detail LastModifiedTime 06/14/19 18 06/13/2017 nerve condu ction study /EMG (PROC ) No observ ation record ed. BARCODE Mark Castellanos MD [address] [facility] [address], [place], [address], 06/13/2017 15:29:16 06/28/19 18 06/26/2017 MRI, lumba r spine , w/o contr ast No observ ation record ed. [email or web address] [facility] [address] [facility] [address], [place], [address], 06/27/2017 15:02:31 07/19/19 18 07/17/2017 CT, abdom en, w/wo contr ast No observ ation record ed. [facility] [address] [facility] [address], [place], [address], 07/18/2017 12:00:36 Result Notes None recorded. Problems Name Problem SNOMED Code Status Onset Date Resolution Date Notes Provider Name and Address Organization Details Recorded Time Foot pain 29721192 Active 06/14/19 [place] - Mark Castellanos MD 06/13/2017 12:10:45 Problem Notes None recorded. Procedures Surgical History Date Name Laterality Status Provider Name and Address Organization Details Recorded Time 8 NCV/EMG completed Sam Castellanos MD 06/13/2017 15:21:41 Back Surgery completed Tamara Castellanos MD 06/13/2017 12:13:41 Knee Surgery completed Tamara Castellanos MD 06/13/2017 12:13:47 Imaging Results Imaging Date Name Status LastModified by Organiz ation Details LastModified Time 06/13/2017 nerve conduction study/EMG (PROC) completed MARC Castellanos MD [address], [place], [address], 06/13/2017 15:29:16 06/26/2017 MRI, lumbar spine, w/o contrast completed [email or web address] [facility] [address], [place], [address], 06/27/2017 15:02:31 07/17/2017 CT, abdomen, w/wo contrast completed [facility] [address], [place], [address], 07/18/2017 12:00:36 Procedure Notes None recorded. Medical Equipment None Reported. Allergies Allergen ID Allergen Name Allergen Category Reaction Reaction Severity Criticality Documentation Date Start Date Code Code System Note Provider Name and Address Organization Details Recorded Time 901 acetamino phen / oxycodone medicatio n Not available Not available Not available 06/13/2017 54925 3 RxNorm Not Available Not Available Not Available Medications Name Sig Start Date Stop Date Status Note LastModified by Organization Details LastModified Time Singulair 10 mg tablet Take 1 tablet every day by oral route. active Not Available Not Available No t Available losartan 50 mg tablet Take 1 tablet every day by oral route. active Not Available Not Available No t Available Glucophage 500 mg tablet Take 1 tablet twice a day by oral route. active Not Available Not Available No t Available Bisoprolol Fumarate-HC TZ 10 mg-6.25 mg tablet Take 1 tablet every day by oral route. active Not Available Not Available No t Available Synthroid 50 mcg tablet Take 1 tablet every day by oral route. active Not Available Not Available No t Available gabapentin 300 mg capsule 1 capsule twice a day and 2 capsules at bedtime active Not Available Not Available No t Available allopurinol 300 mg tablet Take 1 tablet every day by oral route. active Not Available Not Available No t Available Lodine 400 mg tablet Take 1 tablet twice a day by oral route. active Not Available Not Available No t Available Lyrica 300 mg capsule Take 1 capsule twice a day by oral route. 06/27 completed Not Available Not Available Not Available Vitamin D active Not Available Not July ilable Not Available Prilosec active Not Available Not Avai lable Not Available Voltaren 1 % topical gel APPLY 2 GRAM TO THE AFFECTED AREA(S) BY TOPICAL ROUTE 4 TIMES PER DAY 2017 active Not Available Not Available Not Avai lable Zyrtec 10 mg capsule Take by oral route. active Not Available Not Available No t Available Vitals Date Recorded Body height Body mass index (BMI) Body weight Heart rate Respiratory rate Systolic blood pressure Diastolic blood pressure Provider Name and Address Organization Details Last Updated DateTime 8 187.96 cm 39.8 kg/m2 891579. 63 g 82 /min 17 /min 132 mm[Hg] 77 mm[Hg] Mark Castellanos MD [address] [facility], [address], [address], [place] - Mark Castellanos MD 8 12:46:06 Social History Question Answer Notes LastModified by Organizat ion Details LastModified Time Tobacco Smoking Status Never Smoker Not Available [email or web address] 12/30/2019 03:34:29 What Is Your Level Of Alcohol Consumption? None [id number] Information not available 12/30/2019 Live Alone Or With Others? With Others [email or web address] Information not available 06/13/2017 What Was The Date Of Your Most Recent Tobacco Screening? 06/13/2017 [id number] Information not available 12/30/2019 Sex: Unknown Functional Status None recorded. Mental Status None recorded. Family History Relationship Description Onset Age of this Age Resolved Age Notes LastModified by Organization Details LastModified Time Father Hypertensive disorder [email or web address] Not available 2017 12:13:18 Father Family history of stroke [email or web address] Not available 2017 12:13:27 Medical History Condition Response Diabetes Y Hypertension Y Past Encounters Encounter ID Performer Location Encounter Start Date Encounter Closed Date Diagnosis/Indication Diagnosis SNOMED-CT Code Diagnosis ICD10 Code Diagnosis Note [id number] Mark Castellanos MD Main Office [address] [facility] [address] [place] [address] 06/13/2017 11:51:45 06/13/2017 13:09:32 Idiopathic peripheral neuropathy 26593791 G60.9 The patient is a 57-year-ol d white male who presented with right foot pain and numbness. He has finding on examinatio n suggestive of a peripheral neuropathy . CMT needed to be excluded. He is a borderline diabetic. Low back pain 859797997 M54.5 I cannot exclude superimpos ed lumbosacra l radiculopa thy [id number] Samgwendolyn Parks Main Office [address], [facility] [address] [place] [address] 06/13/2017 12:44:51 06/13/2017 14:45:21 Lumbar radiculopathy 817902208 M54.16 Mild chronic right L5 radiculopa thy. Health Concerns Section Related Observation LastModified by Organization Detai ls LastModified Time None Recorded Concern Status LastModified by Organization Details LastModified Time None Recorded Advance Directives Directive None Recorded Payers Encounter Date Sequence Insurance Name Policy Number Policy Daly Covered Member ID Daly Member ID Guarantor Name 06/13/2017 1 [place] [employer] [employer] ([facility]) [id number] Karolyn Garcia [id number] Kirit Garcia 06/13/2017 1 [place] ACCESS (O) [id number] Karolyn Garcia [id number] Kirit Garcia Notes Date Note Type Note Provider Name a [place] Address Organization Details Recorded Time 06/13/2017 text/html Mr. Garcia is a 57-year-old white male carranza. He is here today with his for consultation of a one-year history of right foot pain and numbness. He had 2 MRI scan of his right foot that was unremarkable. He has been to Dr. Mendoza, non morse intercept technician. He was seen by Dr. Dianne Nichols and he was given allopurinol for gout. He reported no improvement. More recently, he was seen by Dr. Tom, orthopedic surgeon, she suspected peripheral neuropathy versus Ucsnpbe-Pqriz-Yyzu h syndrome. Pain is localized to his right middle toe and the bottom of his right foot. Pain is worse at 3 PM after he was on the tractor for a while. He describes shooting pain. He also described tingling and numbness and hot sensation in the bottom of his right foot. He was given low-dose gabapentin 100 mg 2 tablets twice a day with marginal improvement. He was switched to Lyrica 300 mg twice a day with no improvement. He denies any weakness. He was noted to have weakness with dorsiflexion of his right foot. He had a history of diabetes. He has mild numbness in his left foot. He denies any significant low back pain. Mark Castellanos MD [address] [facility], [address] [address], [place], [address], [facility] - Mark Castellanos MD 06/13/2017 12:55:30
--- OUTSIDE RECORDS SUMMARY | 2024-06-10 12:31 | XMS_ITS | Continuity of Care Document ---
Author Organization [facility], SURGERY SCHEDULE Address [address] [place] [address] Care Team Providers Care Sole Leveler Machine Name Role Phone JING CID Commodity Management Specialist BRENDA STEWART Primary Care Provider KHANH FIELD Primary Care Provider TONY FROST Marketing Services Specialist CHELLY ROGERS Referring Provider [phone] Assessment Encounter Date Assessment Date Assessment LastModified by Organization Details LastModified Time 04/11/2024 04/11/2024 Pre op diagnosis : osteoarthritis LEFT knee Post op diagnosis: same Procedure: LEFT total knee arthroplasty, robotic assisted Surgeon: Gary First Asst:Rebeca Nava PA-C Second Asst: Quincy Yonug CSA Justification for surgical services manager: A surgical scrub technician was required for this case to assist with positioning of the patient, prepping, draping, retraction with protection of vital structures throughout the case, as well as suctioning, to keep the surgical field clear of blood and other debris. Additionally, the surgical scrub technician provided necessary services including wound closure, dressing application, as well as transfer of the patient from the operating table, onto a stretcher. Anesthesia: GETA, adductor canal and sciatic nerve blocks EBL: 50 cc Complications: none Abx: Ancef 3 g Implants: Denis Persona cementless PPS femoral component: 12 standard CR Denis persona cementless OsseoTi tibial baseplate: H tibial insert: 10 mm MC patellar button: none Pre-resection alignment: 10 to 123 degrees flexion 7 degrees varus Implant position: Femur: 3 degrees flexion, 1 degree varus, 4 degrees external rotation Tibia: 5 degrees posterior slope, neutral Releases: none Initial extension gap: 19 mm Gap Balanced flexion gap: 19 mm Final alignment: 1 to 123 degrees flexion 2 degrees varus Stability: 0- 1 mm lateral 20- mm 90- 1.5 mm lateral Patellar tracking: normal Lateral release: no patellar preparation: lateral facetectomy patella denervated: yes pre-reconstructed thickness: post-reconstructed thickness: Tourniquet time: not applicable Other intraoperative findings: none Indications: The patient has end-stage osteoarthritis of the above-mentioned knee. They have otherwise failed conservative measures and now presents for total knee arthroplasty. Risks, benefits, and alternatives have been explained in detail, and they have voiced their agreement. Procedure in detail: Patient identified in the preoperative holding and appropriate lower extremity was marked. Patient was transferred to operating theater, general anesthesia induced by attending anesthesia staff. Patient was given appropriate preop antibiotic prophylaxis as well as 1 g intravenous tranexamic acid. Tourniquet placed to the proximal aspect of the operative thigh. The operative leg prepped and draped in usual sterile fashion. Time-out was performed. Appropriate patient and operative extremity were confirmed. If a tourniquet was used, it was inflated to 250 mmHg at this point. Standard midline incision and medial parapatellar arthrotomy were performed. Standard medial release. Synovium, fat pad, and other soft tissues were resected. Osteophytes removed from the periphery of the femur as well as the intercondylar notch. Cruciates were resected. Next, we placed tracker pins within the distal femur, and proximal tibia. Registration points were captured, in preparation to use the NIMO robotic surgical scrub technician. Once intraoperative registration was complete, the digital surgical plan was adjusted appropriately, for adequate deformity correction, and balance. Next, the robot was used to set the distal femoral cut, which was completed using the robotic arm cut guide. Proximal tibia was exposed. Again, the robotic arm cut guide was used to place the tibial pins in the appropriate alignment and slope, and resection level. Standard tibial guide was then placed over the pins, and the proximal tibia was cut. Paddles were placed in extension, in order to check balance. Releases were performed, if appropriate. Knee was flexed up and epicondylar axis marked with a Bovie. Femur was sized . The [employer] Scientist was used to set femoral rotation. This was confirmed using the robotic arm, and templated femoral rotation software tool. Drill holes made through the robotic arm, and the appropriately sized four-in-one block placed in those holes. Anterior, posterior, and chamfer cuts were then made. Balance rechecked at 90 and 0 degrees, both of which were appropriate. Knee was flexed to 90 degrees. Laminar spreaders were placed. Meniscus and posterior condylar osteophytes were removed. The posterior capsule, collateral ligaments, and popliteus were then infiltrated with a pain cocktail Next the proximal tibia was exposed and sized. The guide pinned to appropriate amount of external rotation centered over the medial third of the tibial tubercle. Keel was drilled and punched. Peg holes were drilled. Trials were placed. Overhanging osteophytes were removed. Final coronal plane alignment, range of motion, as well as gapping throughout the range of motion with varus/valgus stress were tested and recorded on the NIMO. Next, patella was everted, measured, and inspected. It was found to have minimal chondrosis, so we elected to leave it unresurfaced. Tracking was assessed. Lateral release performed at this point if necessary. At this point, all trials were removed. Sclerotic bone perforated with a drill. The cementless tibial baseplate was then impacted with excellent circuferential bony contact. The final cementless femoral component was then impacted into place. Care was taken to ensure excellent circumferential bony contact, without evidence of intraoperative fracture. Base plate was irrigated. Final poly impacted into place. If resurfaced, the patellar button was cemented and clamped at this point. Knee was held in extension to complete cement curing. Following complete cement curing, the knee was tested for stability, throughout the range of motion, and this was recorded with the NIMO. Tracker pins were then removed. The wound was thoroughly irrigated with dilute Betadine lavage and normal saline. 1 g of vancomycin powder was then placed within the joint. The arthrotomy closed with #1 Stratafix. 2 g topical tranexamic acid then injected in the joint. Skin closed in layers with Vicryl, Stratafix, and Dermabond. Wound was covered with an Aquacel dressing. Next, drapes removed, patient carefully transferred to a stretcher. Operative extremity placed in a compression stocking as well as a Cryo/Cuff. The patient was then transferred to a stretcher, arisen from anesthesia without incident, and taken to PACU in stable condition. All instruments, sponge, needle counts correct at the end of the case. [email or web address] Not available 04/11/2024 16:10:06 Plan of Treatment Reminders Order Date Submit Date Provider Last Modified By Organization Details Last Modified Time Details Appointments RECHECK 2024 01:30P M REBECA NAVA PA-C Not available Not available Not available RECHECK 2024 11:00A M CHELLY ROGERS PA-C Not available Not available Not available RECHECK 2024 02:00P M TONY FROST MD Not available Not available Not available Lab None recorded . Referral None recorded . Procedures None recorded . Surgeries None recorded . Imaging None recorded . Medication Orders None recorded . Patient TargetsNo targets recorded. Patient InstructionsNo instructions recorded. Reason for Referral None Reported. Results Created Date Observation Date Name Description Value Unit Range Abnormal Flag Note LastModifiedBy Organization Detail LastModifiedTime 04/04/19 25 03/31/2024 elect vadim diogr am No observ ation record ed. BARCODE Not Available 2024 16:13:06 05/02/19 25 05/01/2024 XR, knee, [address] [facility] [address] Eda t Name: KIRIT villafana : [address]59 E[address] villafana 53 Orderi ng Provid er: REBECA NAVA EXAM DATE: 2024 EXAM: XR LT KNEE 3 VIEWS COMPAR PRESLEY: 02/28/19 24 HISTOR Y: Follow -up of prior surger yEva VAUGHAN GS: There has been interv al placem ent of a left knee total arthro plasty . There is no eviden ce of loosen ing. No fractu re is identi fied. Contra latera l knee: There are severe degene rative change s. IMPRES SHERI: 1. There is a left total knee arthro plasty in place withou t eviden ce of loosen ing. Interp reted By: Anastasiya tompkins MD Electr onical ly Signed By: Anastasiya tompkins MD on 05/02/19 25 9:[address] [facility] [address] , [place], [address], 05/01/2024 09:43:36 05/29/19 25 05/28/2024 XR, knee, 3 view [facility] [place] [address] [address] Patien t Name: KIRIT villafana : [address] 53 Orderi ng Provid er: REBECA HERNANDEZLEE ANN EXAM DATE: 2024 EXAM: XR LT KNEE 3 VIEWS COMPAR PRESLEY: 05/02/19 25 HISTOR Y: Follow -up of prior surger sonia VAUGHAN GS: Again seen is a left knee total arthro plasty . There is no eviden ce of loosen ing. No fractu re is identi fied. Contra latera l knee: There are severe degene rative change s. IMPRES SHERI: 1. There is a left total knee arthro plasty in place withou t eviden ce of loosen ing. Interp reted By: Anastasiya tompkins MD Electr onical ly Signed By: Anastasiya tompkins MD on 05/29/19 1:[address] [facility] [address] , [place], [address], 05/28/2024 14:02:15 Result Notes None recorded. Problems No Known Problems Procedures Surgical History Date Name Laterality Status Provider Name and Address Organization Details Recorded Time 04/11/19 Total knee arthroplasty completed Ankita Alicea [facility] 05/01/2024 08:55:00 04/01/19 25 PCM Visit completed Ankita Alicea [facility] 04/18/2024 09:34:52 03/31/19 25 EKG completed Noy Cornell [facility] 03/31/2024 10:56:15 03/26/19 25 PT Evaluation - Low Complexity completed MILKA FORDE, PT, DPT [address], [place], [phone], [facility] 03/26/2024 07:53:14 03/26/19 25 PT Therapeutic Exercise completed MILKA FORDE, PT, DPT [address] [place] [address], [phone], [facility] 03/26/2024 11:37:59 10/09/19 24 Lumbar Epidural Steroid Injection - Shukri completed FRANCISCO KENDRICK MD [address] [place] [address], [phone], [facility] 10/09/2023 16:41:54 06/29/19 24 Lumbar Epidural Steroid Injection - Shukri completed FRANCISCO KENDRICK MD [address] [place] [address], [phone], [facility] 06/29/2023 15:05:18 06/01/19 24 Joint Injection, Knee - Shukri completed FRANCISCO KENDRICK MD [address] [place] [address], [phone], [facility] 06/01/2023 14:04:44 03/05/19 24 Lumbar Epidural Steroid Injection - Shukri completed FRANCISCO KENDRICK MD [address] [place] [address], [phone], [facility] 03/05/2023 15:24:53 02/14/20 23 Joint Injection, Knee - Shukri completed FRANCISCO KENDRICK MD [address] [place] [address], [phone], [facility] 02/13/2023 16:36:13 12/15/19 23 Joint Injection, Knee - Shukri completed FRANCISCO KENDRICK MD [address] [place] [address], [phone], [facility] 12/14/2022 09:44:07 12/09/19 23 EKG completed TONY FROST MD [address] [place] [address], [phone], [facility] 12/08/2022 15:51:17 10/28/19 23 Joint Injection, Knee - Shukri completed FRANCISCO KENDRICK MD [address] [place] [address], [phone], [facility] 10/27/2022 15:15:34 08/27/19 22 Back Surgery completed Edyta Amador [facility] 12/08/2022 14:25:01 04/18/19 22 Stress Test - Nuclear Lexiscan completed TONY FROST MD [address] [place], [phone], [facility] 04/18/2021 14:45:48 04/04/19 22 EKG completed Kelsea Cunningham [facility] 04/04/2021 15:00:19 04/09/19 21 LAMINOTOMY (HEMILAMINECTOMY) , DECOMPRESSION OF NERVE ROOTS, PARTIAL FACECTOTOMY, FORAMINOTOMY AND/OR DISC REMOVAL, LUMBAR (SURG) completed Erinn Springer [facility] 04/21/2020 14:47:01 03/31/19 21 Echocardiogram completed TONY FROST MD [address] [place], [phone], [facility] 03/31/2020 16:29:29 Knee arthroscopy/surge ry completed [facility] 10/26/2016 10:56:59 Unlisted px hands/fingers completed [facility] 10/26/2016 10:56:55 Back Surgery completed [facility] 10/26/2016 10:56:48 Back Surgery completed Kelsea Octavio [facility] 04/04/2021 15:27:39 Imaging Results None recorded. Procedure Notes None recorded. Medical Equipment None Reported. Allergies Allergen ID Allergen Name Allergen Category Reaction Reaction Severity Criticality Documentation Date Start Date Code Code System Note Provider Name and Address Organization Details Recorded Time [id number] acetamino phen / oxycodone medicatio n itching Not available Not available 10/26/2016 09077 3 RxNorm Edyat Amador [facility] 14:21:12 Medications Name Sig Start Date Stop Date Status Note LastModified by Organization Details LastModified Time Compound Gentamyci n (120 mg/ 1000 mL normal saline) Thomas's Solution 120 mg in 1 liter of normal saline. Use as nasal lavage 1oz in each nostril BID? 2019 active Not Available Not Available Not Avai lable Compound Gentamyci n (120 mg/ 1000 mL normal saline) Thomas's Solution 120 mg in 1 liter of normal saline. Use as nasal lavage 1oz in each nostril BID??? 03/31 completed Not Available Not Available Not Available Prescript ion - New 03/31 completed Not Available Not Available Not Available Prescript ion - Prior Authoriza tion Request active Not Available Not Available Not Available Compound Rx Alternati ves Neuropath ic Pain Cream Apply 1-2 grams to the affected area 3-4 times daily 03/31 completed Not using - JW Not Available Not Available Not Available celecoxib 200 mg capsule TAKE 1 CAPSULE BY MOUTH DAILY NEEDED 03/31 completed Not Available Not Available Not Available cyclobenz aprine 10 mg tablet TAKE 1 TABLET 1 TIME EACH DAY AT BEDTIME NEEDED FOR BACK PAIN 03/31 completed Not Available Not Available Not Available amoxicill in 500 mg capsule 12/08 completed Not Available Not Available Not Available metformin 500 mg tablet TAKE 1 TABLET BY MOUTH TWICE DAILY 12/08 completed on hold till next A1C Not Available Not Available Not Available neomycin- polymyxin -hydrocor t 3.5 mg/mL-10, 000 unit/mL-1 % ear solution 03/31 completed Not Available Not Available Not Available Colace 100 mg capsule Take 1 capsule twice a day by oral route for 14 days, for constipa tion. 2024 active Not Available Not Available Not Avai lable ketoprofe n ER 200 mg 24 hr capsule,e xtended release TAKE ONE CAPSULE BY MOUTH EVERY DAY 02/28 completed Not Available Not Available Not Available ropinirol e 1 mg tablet TAKE 1 TABLET BY MOUTH AT BEDTIME 02/09 completed Not Available Not Available Not Available sulfasala zine 500 mg tablet take 2 tablet by oral route 2 times every day after meals active Not Available Not Available No t Available clindamyc in HCl 300 mg capsule 10/26 completed Not Available Not Available Not Available sildenafi l 50 mg tablet take 1-2 tablets by mouth once daily as needed approxim ately 1 hour before sexual activity active Not Available Not Available No t Available azithromy caden 250 mg tablet 02/17 completed Not Available Not Available Not Available ibuprofen 800 mg tablet TAKE ONE TABLET BY MOUTH THREE TIMES DAILY 11/27 completed Not Available Not Available Not Available tizanidin e 4 mg tablet TAKE 2 TABLETS BY MOUTH EVERY 8 HOURS 03/31 completed Not Available Not Available Not Available Claritin 10 mg tablet Take 1 tablet every day by oral route. 03/31 completed Not Available Not Available Not Available meloxicam 15 mg tablet Take 1 tablet every day by oral route, for inflamma tion. 2024 active Not Available Not Available Not Avai lable ondansetr on HCl 4 mg tablet Take 1 tablet every 8 hours by oral route as needed, for nausea. 2024 active Not Available Not Available Not Avai lable prednison e 20 mg tablet 02/17 completed Not Available Not Available Not Available bisoprolo l 5 mg-hydroc hlorothia zide 6.25 mg tablet 02/17 completed Not Available Not Available Not Available penicilli n V potassium 500 mg tablet 02/17 completed Not Available Not Available Not Available acetamino phen 300 mg-codein e 30 mg tablet 03/31 completed Not Available Not Available Not Available hydrocodo ne 10 mg-acetam inophen 325 mg tablet TAKE 1 TABLET BY MOUTH FOUR TIMES DAILY 04/18 completed Not Available Not Available Not Available omeprazol e 40 mg capsule,d elayed release TAKE ONE CAPSULE BY MOUTH EVERY DAY active Not Available Not Available No t Available aspirin 81 mg tablet,de layed release Take 1 tablet twice a day by oral route for 30 days, for preventi on of blood clots. 2024 active Not Available Not Available Not Avai lable tramadol 50 mg tablet 03/31 completed Not Available Not Available Not Available spironola ctone 25 mg tablet TAKE ONE TABLET BY MOUTH EVERY DAY in THE morning FOR blood pressure 12/08 completed Not Available Not Available Not Available levothyro xine 75 mcg tablet TAKE 1 TABLET by mouth ONCE DAILY ON AN EMPTY STOMACH 30 MINUTES BEFORE BREAKFAS T active Not Available Not Available No t Available bisoprolo l fumarate 5 mg tablet 03/31 completed Not Available Not Available Not Available prednison e 10 mg tablets in a dose pack Take 1 dose pk by oral route. 08/28 completed Not Available Not Available Not Available nortripty line 25 mg capsule 02/17 completed Not Available Not Available Not Available cefadroxi l 500 mg capsule Take 1 capsule twice a day by oral route for 7 days, for infectio n preventi on. 2024 active Not Available Not Available Not Avai lable meloxicam 7.5 mg tablet TAKE ONE TABLET BY MOUTH EVERY DAY NEEDED 12/08 completed Not Available Not Available Not Available sodium chloride 0.9 % irrigatio n solution 03/31 completed Not Available Not Available Not Available propranol ol 10 mg tablet TAKE ONE TABLET BY MOUTH TWICE DAILY active Not Available Not Available No t Available amoxicill in 875 mg tablet 04/04 completed Not Available Not Available Not Available doxazosin 8 mg tablet TAKE 1 TABLET BY MOUTH EVERY DAY AT BEDTIME 04/18 completed Not Available Not Available Not Available potassium chloride ER 20 mEq tablet,ex tended release(p art/cryst ) Take one tab by oral route every day with Bumex active Not Available Not Available No t Available prednisol one acetate 1 % eye drops,shaina pension 03/31 completed Not Available Not Available Not Available methocarb tamara 750 mg tablet 03/26 completed Not taking - JW Not Available Not Available Not Available oxycodone -acetamin ophen 10 mg-325 mg tablet TAKE 1 TABLET EVERY 6 HOURS BY ORAL ROUTE NEEDED FOR 30 DAYS. 10/11 completed Not Available Not Available Not Available tamsulosi n 0.4 mg capsule take 1 capsule by mouth once daily 1/2 hour followin g the same meal each day active Not Available Not Available No t Available gabapenti n 800 mg tablet Take 1 tablet 4 times a day by oral route for 30 days. 2024 active Pt is taking 2 tabs twice a day. Not Available Not Available Not Available amlodipin e 10 mg tablet TAKE ONE TABLET BY MOUTH EVERY DAY 01/16 completed Not Available Not Available Not Available doxycycli ne monohydra te 100 mg capsule TAKE 1 CAPSULE 2 TIMES EACH DAY FOR 10 DAYS. 04/18 completed Not Available Not Available Not Available dexametha sone 2 mg tablet TAKE 1 TABLET 3 TIMES A DAY BY ORAL ROUTE. 04/04 completed Not Available Not Available Not Available levothyro xine 50 mcg tablet TAKE 1 TABLET BY MOUTH ONCE DAILY 11/27 completed Not Available Not Available Not Available cephalexi n 500 mg capsule take 4 tablets one hour before dental procedur e. 2024 active Not Available Not Available Not Avai lable pantopraz ole 40 mg tablet,de layed release TAKE 1 TABLET BY MOUTH EVERY DAY 04/04 completed Not Available Not Available Not Available erythromy caden 5 mg/gram (0.5 %) eye ointment 02/28 completed Not Available Not Available Not Available indometha caden 50 mg capsule 10/26 completed Not Available Not Available Not Available gabapenti n 300 mg capsule 02/17 completed Not Available Not Available Not Available doxazosin 4 mg tablet TAKE 1 TABLET BY MOUTH EVERY DAY FOR BLOOD PRESSURE 04/04 completed Not Available Not Available Not Available bumetanid e 1 mg tablet Take 1 tablet every day by oral route in the morning. active Not Available Not Available No t Available etodolac 400 mg tablet active Not Available Not Available Not Available monteluka st 10 mg tablet TAKE ONE TABLET BY MOUTH EVERY DAY in THE evening active Not Available Not Available No t Available allopurin ol 300 mg tablet TAKE ONE TABLET BY MOUTH EVERY DAY active Not Available Not Available No t Available zinc 50 mg tablet Take 1 tablet every day by oral route. 12/08 completed Not Available Not Available Not Available hydralazi ne 50 mg tablet TAKE ONE TABLET BY MOUTH TWICE DAILY with food active Not Available Not Available No t Available mupirocin 2 % topical ointment 04/18 completed Not Available Not Available Not Available zolpidem 5 mg tablet Take 1 tablet by mouth At Night As Needed for Sleep. 03/31 completed Not taking - JW Not Available Not Available Not Available furosemid e 20 mg tablet Take 1 tablet every day by oral route in the morning. 02/28 completed Not Available Not Available Not Available azelastin e 137 mcg (0.1 %) nasal spray [place] 2 sprays twice a day by intranas al route. 03/31 completed Not Available Not Available Not Available zolpidem 10 mg tablet TAKE 1 TABLET BY MOUTH AT BEDTIME NEEDED 12/08 completed Not Available Not Available Not Available methylpre dnisolone 4 mg tablets in a dose pack take by oral route as directed per package instruct ions 01/26 completed Not Available Not Available Not Available Vitamin D2 1,250 mcg (50,000 unit) capsule Take on capsule by mouth once weekly active Not Available Not Available No t Available colchicin e 0.6 mg tablet TAKE 2 TABLETS BY MOUTH TODAY AND THEN 1 TABLET ONCE DAILY 03/31 completed Not Available Not Available Not Available Percocet 5 mg-325 mg tablet Take 1 tablet every 6 hours by oral route as needed. 2024 active Not Available Not Available Not Avai lable atropine 1 % eye drops 02/28 completed Not Available Not Available Not Available losartan 100 mg tablet TAKE ONE TABLET BY MOUTH EVERY DAY active Not Available Not Available No t Available fluoxetin e 20 mg capsule TAKE ONE CAPSULE BY MOUTH EVERY DAY in THE morning active Not Available Not Available No t Available nortripty line 50 mg capsule 03/31 completed Not Available Not Available Not Available spironola ctone 50 mg tablet Take 1 tablet every day by oral route in the morning. active Not Available Not Available No t Available diazepam 5 mg tablet Take 2 tablets as needed by oral route. 02/09 completed [facility]: [id number] Not Available Not Available Not Available amoxicill in 875 mg-potass ium clavulana te 125 mg tablet TAKE 1 TABLET BY ORAL ROUTE EVERY 12 HOURS FOR 10 DAYS FOR SINUS 04/04 completed Not Available Not Available Not Available cyclobenz aprine 5 mg tablet TAKE 1-2 TABLETS BY MOUTH TWICE DAILY NEEDED FOR MUSCLE SPASM 04/04 completed Not Available Not Available Not Available tadalafil 20 mg tablet Take 1 tablet by mouth every day as needed. active Not Available Not Available No t Available Lyrica 75 mg capsule Take 1 capsule every day by oral route. 2024 active Not Available Not Available Not Avai lable Lyrica 300 mg capsule 02/17 completed Not Available Not Available Not Available Requip active Not Available Not Availa ble Not Available Vitamin D 04/18 completed Not Available Not Available Not Available Keflex 03/31 completed Not Available Not Available Not Available Culturell e 1 tablet 4 days a week 04/18 completed Not Available Not Available Not Available Super B Complex-V itamin C 12/08 completed Not Available Not Available Not Available FeroSul 325 mg (65 mg iron) tablet TAKE ONE TABLET BY MOUTH EVERY DAY active Not Available Not Available No t Available Uloric 80 mg tablet 10/26 completed Not Available Not Available Not Available Nucynta 50 mg tablet 02/17 completed Not Available Not Available Not Available azelastin e 205.5 mcg (0.15 %) nasal spray 03/31 completed Not Available Not Available Not Available krill oil 1,000 mg-om3 130 mg-dha 40 mg-epa 80 mg-om6-li p-astax cap Take 1 capsule every day by oral route. 12/08 completed Not Available Not Available Not Available Zyrtec 10 mg capsule Take by oral route. 02/17 completed Not Available Not Available Not Available Dexilant 60 mg capsule, delayed release TAKE 1 CAPSULE BY MOUTH EVERY DAY 12/08 completed Not Available Not Available Not Available tranexami c acid 650 mg tablet Take 1 tablet 3 times a day by oral route for 3 days, for minimizi ng post operativ e bleeding . 2024 active Not Available Not Available Not Avai lable Suprep Bowel Prep Kit 17.5 gram-3.13 gram-1.6 gram oral solution 03/31 completed Not Available Not Available Not Available Humira(CF ) Pen 40 mg/0.4 mL subcutane ous kit 08/28 completed Not Available Not Available Not Available Ozempic 0.25 mg or 0.5 mg (2 mg/3 mL) subcutane ous pen injector pt is currenlt y taking 1 mgs weekly 03/26 completed done - JW Not Available Not Available Not Available Hadlima PushTouch 40 mg/0.8 mL subcutane ous auto-inje ctor Inject 0.8 mL every 2 weeks by subcutan eous route. 03/26 completed pt is currentl y taking weekly - not taking - JW Not Available Not Available Not Available Vitals None Recorded Social History Question Answer Notes LastModified by Organizat ion Details LastModified Time Tobacco Smoking Status Never Smoker Jessica longo [facility] 10/26/2016 10:55:42 What Is Your Level Of Alcohol Consumption? Moderate [email or web address] Information not available 10/26/2016 Are You Currently Employed? No [email or web address] Information not available 02/01/2024 What Was The Date Of Your Most Recent Tobacco Screening? 05/01/2024 [email or web address] Information not available 05/01/2024 What Is Your Relationship Status? [email or web address] Information not available 02/28/2023 Do You Use Any Illicit Or Recreational Drugs? No [email or web address] Information not available 02/28/2023 Has Tobacco Cessation Counseling Been Provided? No [email or web address] Information not available 04/18/2021 Do You Or Have You Ever Used Any Other Forms Of Tobacco Or Nicotine? No Information not available 02/28/2023 Sex: Male Functional Status None recorded. Mental Status None recorded. Family History Relationship Description Onset Age of this Age Resolved Age Notes LastModified by Organization Details LastModified Time Father Hypertensive disorder [email or web address] Not available 10/26 10:55:25 Father Family history of stroke [email or web address] Not available 10/26 10:55:33 Unspecified Relation Cerebrovascu lar accident [email or web address] Not available 09/2019 13:59:06 Medical History Condition Response Coronary Artery Disease N Other N Gout Y Atrial Fibrillation N Kidney Stones N Hyperthyroidism N Blood Transfusion N Heart Arrhythmia N Head Trauma/Injury N Emphysema N Sexually Transmitted Disease N Depression N COPD N Pneumonia N Peripheral Arterial Disease N Edema N Nervous Illness N Anxiety Disorder N Muscle, Joint, or Bone Problems Y Arthritis Y Hiatal hernia N Blood Clot N Acid Reflux (GERD) N Cancer N Stroke N Leg or Foot Ulcers N Neck Injury N Neurologic Disorder N Arrhythmia N Rheumatoid Arthritis Y Headaches N Fibromyalgia N Endocrine Disorder N Kidney Disease N Heart Problems N Heart Conditions N Implanted Cardiac Device N Black Lung N Migraines N Carpel Tunnel N Skin Problems N Meningitis N Ulcers N Rheumatic Fever N Bleeding Disorder N Tuberculosis N Genetic Disorder N AIDS/HIV N Asthma N Cardiac Disease N Peripheral Vascular Disease N Jaundice N Sleep Disorder Y Thyroid Disorder N GERD/Reflux N Hepatitis N Included as Review of Systems N Neuropathy N Pulmonary Embolism N Restless leg syndrome N Anxiety/Depression N Thyroid Disease N Hernia N Colon/Rectal Disorders N Glaucoma N Lung Disease N Hypothyroidism N Pacemaker N Measles Y Vascular Disease N Anesthesia Complications N Attempted Suicide N Varicose Veins N Hearing Loss N Serious Illness or Injuries N History of Blood Thinners N Radiation Therapy N Blood Thinners N Shortness of Breath N Alcohol Overuse/Alcohol Abuse N High Cholesterol N Liver Disease N Organ Transplant N Allergies/Hayfever N Thyroid Problems Y Anemia N Chest Pain N Immune System Disorder N Heart Attack (SC) N Mental Illness N Neurological Problems N Diabetes N Cardiomyopathy N Seizures/Epilepsy N Heart Murmur Y Congestive Heart Failure (CHF) N Hyperlipidemia N Epilepsy/Seizures N Reflux/GERD N Sleep Apnea Y Warfarin Management N Heart Disease N Hypertension Y Osteoporosis N Immunizations Vaccine Type Date Status Note Provider Nam e and Address Organization Details Recorded Time Influenza, recombinant, quadrivalent, PF [facility] COVID-19 vaccine, vector-nr, rS-Ad26, PF, 0.5 mL 1 [facility]:12:05 COVID-19 vaccine, vector-nr, rS-Ad26, PF, 0.5 mL 1 completed Karolyn Cartwright [facility] 02/28/2023 10:12:05 pneumococcal polysaccharide PPV23 0 completed Karolyn Cartwright [facility] 02/28/2023 10:12:05 Past Encounters Encounter ID Performer Location Encounter Start Date Encounter Closed Date Diagnosis/Indication Diagnosis SNOMED-CT Code Diagnosis ICD10 Code Diagnosis Note [id number] SHELLI NGUYEN PA-C [facility] [address] [place] [address] 03/26/2024 10:45:26 03/29/2024 05:07:09 Pre-surgery evaluation 026172488 Z01.818 Chronic conditions appear stable. Preoperati ve lab work reviewed with the patient. Any modifiable risk factors discussed. No indication for any additional labs or testing at this time. Continue with planned joint arthroplas ty. Discussed postoperat sammy plan for physical therapy. All questions answered to the best of my ability. Essential hypertension 68920802 I10 Currently managed with Bumex, hydralazin e, losartan, spironolac tone, propranolo l. Hold Bumex, spironolac tone, losartan the day of surgery. Hypothyroidism 86838520 E03.9 Controlled with current regimen of levothyrox ine Gastroesop hageal reflux disease without esophagitis 037281163 K21.9 On omeprazole daily, can continue throughout perioperat sammy course. Lower urin elke tract symptoms due to benign prostatic hypertrophy 6067646088 9101 N40.1 Continue with current regimen Aortic lucia ve regurgitation 93302050 I35.1 Last echo 1 year ago. Clinically asymptomat ic. Has follow-up withcardio logy Dr. Bennett 03/31/2024. Will defer to them for any further workup. [id number] JEN Harris MD [facility] [address] [place] [address] 03/26/2024 10:44:09 03/27/2024 04:24:53 Pain of left knee joint 9631392396 67508 M25.562 Osteoarthr itis of left knee joint [id number] 75868 M17.12 [id number] TONY FROST MD CARDIOLOG Y [address] [place] [address] 03/31/2024 10:42:25 03/31/2024 11:23:02 Essential hypertension 30199944 I10 Aortic lucia ve regurgitation 88358176 I35.1 Obesity 385495309 E66.9 Preoperati ve cardiovascular examination 384569737 Z01.810 He is planning to undergo LEFT TKA on 04/11/2024. Surgeon: Dr. Lopez nSurgery setting: ASCCurrent exercise level: Ambulatory High risk surgery: NoHistory of ischemic heart disease: NoHistory of CHF: NoHistory of TIA/stroke : NoAdvanced renal dysfunctio n (creatinin e >2): NoPreopera tive treatment with insulin: No ECHO 03/28/2023: Normal LV size with concentric LV remodeling . EF 60-65%. Mild LAE. Mild AI. EKG today: Sinus bradycardi a. Voltage criteria for LVH.Ventri cular Rate: 49bpm.QRS duration 90 and QTc 406ms. He has a low estimated risk for perioperat sammy Myocardial Infarction or Cardiac Arrest (0.6% *). Per current ACC/AHA recommenda tions, no further testing is required for patients that are at low risk for cardiovasc ular complicati ons. * Eloina sorensen al, Circulatio n. 2010Sep 20;124(4): 381-7. [id number] Ankita Alicea [facility] [address] [place] [address] 04/01/2024 12:06:12 04/14/2024 13:13:05 Osteoarthritis of knee [id number] M17.12 Peng was seen by Dr Jessica harris where surgical plan was discussed and finalized for left total knee arthroplas ty on 04/11/24. [id number] JEN Harris MD SURGERY SCHEDULE [address] [place] [address] 04/11/2024 09:16:10 04/11/2024 09:17:05 Health Concerns Section Related Observation LastModified by Organization Detai ls LastModified Time None Recorded Concern Status LastModified by Organization Details LastModified Time None Recorded Payers Encounter Date Sequence Insurance Name Policy Number Policy Daly Covered Member ID Daly Member ID Guarantor Name 04/11/2024 1 [facility] (MEDICARE REPLACEMENT/A DVANTAGE - PPO) [id number] Peng Garcia [id number] Kirit Garcia
--- OUTSIDE RECORDS SUMMARY | 2024-06-10 12:31 | XMS_ITS ---
Author Organization Unknown Medications Medication Instructions Effective Dates (start - stop) Status dexlansoprazole 60 MG Delaye d Release Oral Capsule [id number]:00:00.000+00:0 0 - Completed losartan potassium 100 MG Or al Tablet 8754-18-69A72:00:00.000+00:0 0 - Completed montelukast 10 MG Oral Tablet 17-10-18:00:00.000+00:0 0 - Completed spironolactone 25 MG Oral Tablet 4218-50-29O07:00:00.000+00:0 0 - Completed hydralazine hydrochloride 50 MG Oral Tablet 0847-44-53W38:00:00.000+00:0 0 - Completed gabapentin 800 MG Oral Tablet 16-09-25:00:00.000+00:0 0 - Completed sulfasalazine 500 MG Oral Tablet 0620-59-12Y01:00:00.000+00:0 0 - Completed amlodipine 10 MG Oral Tablet 04-05-09:00:00.000+00:0 0 - Completed ropinirole 1 MG Oral Tablet 2021:00:00.000+00:0 0 - Completed meloxicam 15 MG Oral Tablet 2021:00:00.000+00:0 0 - Completed amoxicillin 500 MG Oral Capsule 0916-59-90D80:00:00.000+00:0 0 - Completed {21 (methylprednisolone 4 MG Oral Tablet) } Pack [id number]:00:00.000+00:0 0 - Completed allopurinol 300 MG Oral Tablet 486-99-44Z16:00:00.000+00:0 0 - Completed 0.4 ML adalimumab 100 MG/ML Auto-Injector [Humira] 2858-64-31Z18:00:00.000+00:0 0 - Completed levothyroxine sodium 0.075 M G Oral Tablet [id number]:00:00.000+00:0 0 - Completed 24 HR ketoprofen 200 MG Exte nded Release Oral Capsule [id number]:00:00.000+00:0 0 - Completed ergocalciferol 1.25 MG Oral Capsule 2638-11-97V48:00:00.000+00:0 0 - Completed acetaminophen 325 MG / oxyco done hydrochloride 10 MG Oral Tablet [id number]:00:00.00 0+00:0 0 - Completed Patient Care team information Name Category Status Period Participants - - Proposed period not known -
--- NOTE | 2024-06-10 12:32 | MR_ITS ---
FINAL REPORT TECHNIQUE: Multiplanar and multisequence imaging of the lumbar spine was obtained without contrast. CLINICAL HISTORY: RADICULOPATHY-HAS SCREWS AND PLATES IN LOW BACK. hx back surgery 4 years ago. right sided low back pain and hip pain. COMPARISON: 01/11/2021 FINDINGS: There is normal alignment of the lumbar vertebral bodies. There has been interval posterior fusion from L3-L5. No lumbar fracture is identified. There is very mild compression deformity of T12 which is unchanged and chronic. The spinal cord ends at the level of L1. There is normal signal intensity within the substance of the distal spinal cord. There is an incompletely imaged T2 hyperintense lesion of the T11 vertebral body. No acute paraspinal abnormality is identified. L1-2: An annular disc bulge is present with degenerative endplate changes and facet osteoarthropathy. There is mild bilateral neuroforaminal narrowing, stable. L2-3: An annular disc bulge is present with degenerative endplate changes and facet osteoarthropathy. Mild central stenosis. There is moderate right and mild left neuroforaminal narrowing, progressed. L3-4: This level is fused. There is no central stenosis or foraminal narrowing. L4-5: This level is fused. There is no central stenosis. Evaluation of the foramina is limited by artifact. L5-S1: An annular disc bulge is present with degenerative endplate changes and facet osteoarthropathy. There is moderate to severe left and mild right neuroforaminal narrowing, unchanged. IMPRESSION: Interval postoperative fusion. Degenerative disc disease, progressed at L2-3. The other levels have not significantly changed. Incompletely imaged lesion of T11 which could represent atypical hemangioma but incompletely evaluated. If indicated, consider bone scan. Reviewed, Interpreted and Dictated by Marcelina Hobbs MD Transcribed by Britney Lemus Authenticated and [facility]
--- OUTSIDE RECORDS SUMMARY | 2024-06-10 12:32 | XMS_ITS | Data Portability ---
Author Organization LEE ANN Asif pate, FREDAS [place] CLOSED Address [address] [place] [address] Care Team Providers Care Wood Pile Driver Operator Name Role Phone JING CID Clinical Data Analyst BRENDA STEWART Primary Care Provider [phone] KHANH FIELD Primary Care Provider [phone] TONY FROST Examination Grader CHELLY ROGERS Referring Provider Assessment Encounter Date Assessment Date Assessment LastModified by Organization Details LastModified Time 03/31/2024 03/31/2024 Impression: 1. Hypertension: Chronic problem, stable. Stopped doxazosin due to complaints of lightheadedness Stopped amlodipine due to lower extremity swelling 2. Mild Aortic Insufficiency: Chronic problem, stable ECHO 03/28/2023 3. Obstructive sleep apnea on BiPAP 4. Type 2 Diabetes Plan: Mr Garcia appears to be stable from a cardiovascular standpoint. As noted below, he is planning to undergo left knee replacement on 04/11/2024. Surgical risk was reviewed. Medication changes: We discussed holding spironolactone, Bumex and hydralazine on the day of surgery. RTC: I will plan to see him back in the office in about 6 months, or sooner if needed. [email or web address] Not available 04/02/2024 20:28:24 04/11/2024 04/11/2024 Pre op diagnosis : osteoarthritis LEFT knee Post op diagnosis: same Procedure: LEFT total knee arthroplasty, robotic assisted Surgeon: Gary First Asst:Lawrence Nava PA-C Second Asst: Quincy Young CSA Justification for neurosurgical nurse: A surgical services director was required for this case to assist with positioning of the patient, prepping, draping, retraction with protection of vital structures throughout the case, as well as suctioning, to keep the surgical field clear of blood and other debris. Additionally, the surgical services director provided necessary services including wound closure, dressing [...] preparation to use the NIMO robotic surgical services director. Once intraoperative registration was complete, the digital [...] a Bovie. Femur was sized . The Heekya Third Hand was used to set femoral rotation. This [...] correct at the end of the case. [email or web address] Not available 04/11/2024 16:10:06 05/01/2024 05/01/2024 This is a 64-year-old gentleman prevents today for follow-up evaluation of knee OA and lumbar radiculopathy. He reports gabapentin continues to aid in pain relief overall with out side effects. Patient is now status post left TKA with Dr. Alexis [facility]: PSHx: Left L5-S1 foraminotomy (Jonathan, 2005), laminectomy (), L3-5 fusion ([place]), failed SCS trial, left TKA 04/17/2024, Dr. Vega 1. X-ray lumbar spine from 2020 demonstrated moderate disc space narrowing diffusely. No instability. 2. X-ray of bilateral feet show bilateral hammertoe, mild degeneration. 3. Bilateral knee x-ray demonstrates bilateral severe arthritis, left 4. Lumbar MRI performed 01/24/2023 demonstrates severe left L5-S1 foraminal narrowing. mild to moderate L2-3 spinal canal stenosis. There appears to be a facet cyst at right L2-3 facet joint protruding into the foramen with unclear impingement. The above image findings were discussed with the patient. Previous injection therapy has included: 10/09/2023 L1-2 ILESI with 50% x 4 weeks. no ongoing 06/29/2023 L1-2 ILESI with 75% ongoing 06/01/2023 bilateral IA injection of knees (triamcinolone) with minimal benefit 03/05/2023 L1-21 ILESI 50% benefit 02/13/2023 bilateral knee Zilretta injection 12/14/2022 bilateral tarsometatarsal joint complex injection with 50% pain relief. 10/27/2022 bilateral Zilretta injection with 80% benefit x 3 months Lumbar TFESI SCS trial less than 50% relief He is currently prescribed Gabapentin 800g QID He also has received hydrocodone from Dr. Willian Harding. LUCIO report was reviewed today and appropriate. Based upon the above I would consider the patient to beLow risk.Controlled substance agreement signed 09/27/2023. Urine drug screen appropriate 09/27/2023. Presentation is consistent with bilateral osteoarthritis of the knees and ankles, lumbar stenosis and spondylosis. I recommend: 1. Continue gabapentin 800mg QID. Risks reviewed 2. Continue PT per ortho 3. 3 month follow up I had an in-depth discussion with the patient regarding the risks of the procedure including bleeding, infection, damage to surrounding structures, paralysis and even . We discussed the potential adverse effects of corticosteroid injection including flushing of the face, lipodystrophy, skin discoloration, elevated blood glucose, increased blood pressure. Risks of frequent steroid administration include weight gain, hormonal changes, mood changes, osteoporosis. External records were reviewed and discussed as above, including imaging, clinical notes, and relevant labs. [email or web address] Not available 05/01/2024 12:06:59 Plan of Treatment Reminders Order Date Submit Date Provider Last Modified By Organization Details Last Modified Time Details Appointments RECHECK 2024 01:30P M LAWRENCE NAVA PA-C Not available Not available Not available RECHECK 2024 11:00A M CHELLY ROGERS PA-C Not available Not available Not available RECHECK 2024 02:00P M TONY FROST MD Not available Not available Not available Lab None recorded. Referral physical therapist referral - TKA protocol, AROM/PROM , extension exercises , prone hangs, gait training, quad/hams tring stretchin g/strengt hening, balance/p ropriocep tion. Wean from walker per therapist discretio n. 2024 025 [facility], [address], [place], [address], 05/01/2024 10:42:17 Procedures None recorded. Surgeries None recorded. Imaging None recorded. Medication Orders gabapenti n 800 mg tablet 2024 025 [facility], [address], [place], [address], 05/01/2024 12:11:48 Patient TargetsNo targets recorded. Patient Instructions Encounter Date Encounter Id Patient Instructions Last Modified By Organization Details Last Modified Time 03/31/2024 [id number] body mass index: care instructions [email or web address] Not available 04/02/2024 20:28:55 Reason for Referral Physical Therapist Referral for History of total knee arthroplasty L TKA 04/11/24 TKA protocol, AROM/PROM, extension exercises, prone hangs, gait training, quad/hamstring stretching/strengthening, balance/proprioception. Wean from walker per therapist discretion. Referring Physician: Lawrence Nava, Orthopedic Surgery, Encounter Date: 05/01/2024 Results Created Date Observation Date Name Description Value Unit Range Abnormal Flag Note LastModifiedBy Organization Detail LastModifiedTime 03/24/1903/24/2024 GLYCO HEMOG LOBIN A1C glyco HGB A1C 4.6 % 0.0-5. 6 normal Not Available [facility] [address] [place] [address], [address], 03/24/2024 11:47:00 03/24/19 25 03/24/2024 GLYCO HEMOG LOBIN A1C estimated avg. glucose 85 mg/dL _(dara c) normal A1c value s betwe en 5.7% to 6.4% indic ate predi abete s. Resul ts 6.5% or great er is diagn ostic of diabe isabela. Ameri can Diabe isabela Assoc iatio n (diab etes. org) Not Available [facility] [address] [place] [address], [phone], 03/24/2024 11:47:00 03/24/19 25 03/24/2024 COMPL ETE BLOOD COUNT white blood cells 7.7 10*3/ uL 3.8-10 .8 normal Not Available [facility] [address] [place] [address], [phone], 03/24/2024 11:50:32 03/24/19 25 03/24/2024 COMPL ETE BLOOD COUNT red blood cells 4.20 10*6/ uL 4.20-5 .80 normal Not Available [facility] [address] [place] [address], [address], 03/24/2024 11:50:32 03/24/19 25 03/24/2024 COMPL ETE BLOOD COUNT hemoglobin 14.3 g/dL 14.0-1 8.0 normal Not Available [facility] [address] [place] [address], [address], 03/24/2024 11:50:32 03/24/19 25 03/24/2024 COMPL ETE BLOOD COUNT hematocrit 43.6 % 40.0-5 2.0 normal Not Available [facility] [address] [place] [address], [address], 03/24/2024 11:50:32 03/24/19 25 03/24/2024 COMPL ETE BLOOD COUNT MCV 104 fL 80-100 high Not Available [facility] [address] [place] [address], [address], 03/24/2024 11:50:32 03/24/19 25 03/24/2024 COMPL ETE BLOOD COUNT MCH 34 pg 26-35 normal Not Available [facility] [address] [place] [address], [address], 03/24/2024 11:50:32 03/24/19 25 03/24/2024 COMPL ETE BLOOD COUNT MCHC 33 g/dL 32-36 normal Not Available [facility] [address] [place] [address], [address], 03/24/2024 11:50:32 03/24/19 25 03/24/2024 COMPL ETE BLOOD COUNT RDW 13.6 % 11.0-1 5.0 normal Not Available [facility] [address] [place] [address], [address], 03/24/2024 11:50:32 03/24/19 25 03/24/2024 COMPL ETE BLOOD COUNT MPV 8.4 fL 6.2-10 .5 normal Not Available [facility] [address] [place] [address], [address], 03/24/2024 11:50:32 03/24/19 25 03/24/2024 COMPL ETE BLOOD COUNT platelet count 180 10*3/ uL 150-40 0 normal Not Available [facility] [address] [place] [address], [address], 03/24/2024 11:50:32 03/24/19 25 03/24/2024 COMPL ETE BLOOD COUNT neutrophil,a bsolute 4.9 10*3/ uL 1.6-8. 4 normal Not Available [facility] [address] [place] [address], [address], 03/24/2024 11:50:32 03/24/19 25 03/24/2024 COMPL ETE BLOOD COUNT lymphocyte,a bsolute 1.8 10*3/ uL 0.4-5. 1 normal Not Available [facility] [address] [place] [address], [address], 03/24/2024 11:50:32 03/24/19 25 03/24/2024 COMPL ETE BLOOD COUNT monocyte,abs olute 1.0 10*3/ uL 0.0-1. 2 normal Not Available [facility] [address] [place] [address], [address], 03/24/2024 11:50:32 03/24/19 25 03/24/2024 COMPL ETE BLOOD COUNT eosinophil,a bsolute 0.1 10*3/ uL 0.0-0. 8 normal Not Available [facility] [address] [place] [address], [address], 03/24/2024 11:50:32 03/24/19 25 03/24/2024 COMPL ETE BLOOD COUNT basophil,abs olute 0.0 10*3/ uL 0.0-0. 3 normal Not Available [facility] [address] [place] [address], [address], 03/24/2024 11:50:32 03/24/19 25 03/24/2024 COMPL ETE BLOOD COUNT % neutrophils 63.0 % 42.0-7 8.0 normal Not Available [facility] [address] [place] [address], [address], 03/24/2024 11:50:32 03/24/19 25 03/24/2024 COMPL ETE BLOOD COUNT % lymphocytes 23.2 % 11.0-4 7.0 normal Not Available [facility] [address] [place] [address], [address], 03/24/2024 11:50:32 03/24/19 25 03/24/2024 COMPL ETE BLOOD COUNT % monocytes 12.5 % 0.0-11 .0 high Not Available [facility] [address] [place] [address], [address], 03/24/2024 11:50:32 03/24/19 25 03/24/2024 COMPL ETE BLOOD COUNT % eosinophils 0.8 % 0.0-7. 0 normal Not Available [facility] [address] [place] [address], [address], 03/24/2024 11:50:32 03/24/19 25 03/24/2024 COMPL ETE BLOOD COUNT % basophils 0.5 % 0.0-3. 0 normal Not Available [facility] [address] [place] [address], [address], 03/24/2024 11:50:32 03/24/19 25 03/24/2024 COMPL ETE BLOOD COUNT nucleated red cells 0.1 % 0.0-0. 9 normal Not Available [facility] [address] [place] [address], [address], 03/24/2024 11:50:32 03/24/19 25 03/24/2024 COMPL ETE BLOOD COUNT nucleated RBCs, absolute 0.01 10*3/ uL not estab. normal Not Available [facility] [address] [place] [address], [address], 03/24/2024 11:50:32 03/24/19 25 03/24/2024 BASIC METAB OLIC PANEL glucose 111 mg/dL 74-100 high Not Available [facility] [address] [place] [address], [address], 03/24/2024 12:05:27 03/24/19 25 03/24/2024 BASIC METAB OLIC PANEL blood urea nitrogen 20 mg/dL 6-20 normal Not Available [facility] [address] [place] [address], [address], 03/24/2024 12:05:27 03/24/19 25 03/24/2024 BASIC METAB OLIC PANEL creatinine 1.04 mg/dL 0.70-1 .28 normal Not Available [facility] [address] [place] [address], [address], 03/24/2024 12:05:27 03/24/19 25 03/24/2024 BASIC METAB OLIC PANEL BUN/creatini ne ratio 19 (calc ) 10-20 normal Not Available [facility] [address] [place] [address], [address], 03/24/2024 12:05:27 03/24/19 25 03/24/2024 BASIC METAB OLIC PANEL sodium 139 mmol/ L 136-14 5 normal Not Available [facility] [address] [place] [address], [address], 03/24/2024 12:05:27 03/24/19 25 03/24/2024 BASIC METAB OLIC PANEL potassium 4.9 mmol/ L 3.4-5. 0 normal Not Available [facility] [address] [place] [address], [address], 03/24/2024 12:05:27 03/24/19 25 03/24/2024 BASIC METAB OLIC PANEL chloride 103 mmol/ L 98-107 normal Not Available [facility] [address] [place] [address], [address], 03/24/2024 12:05:27 03/24/19 25 03/24/2024 BASIC METAB OLIC PANEL carbon dioxide 23 mmol/ L 22-31 normal Not Available [facility] [address] [place] [address], [address], 03/24/2024 12:05:27 03/24/19 25 03/24/2024 BASIC METAB OLIC PANEL anion gap 13 (calc ) 7-25 normal Not Available [facility] [address] [place] [address], [address], 03/24/2024 12:05:27 03/24/19 25 03/24/2024 BASIC METAB OLIC PANEL calcium 8.8 mg/dL 8.6-10 .2 normal Not Available [facility] [address] [place] [address], [address], 03/24/2024 12:05:27 03/24/19 25 03/24/2024 BASIC METAB OLIC PANEL GFR 80 >= 60 normal NOT E New calcu latio n for GFR (CKD- EPI 2020) is formu lated witho ut race adjus tment facto rs at the recom menda tion of the [facility] [place] [facility] of Nephr ology . This calcu latio n has not been valid ated in pregn ant women . For pedia tric patie nts refer to https ://kamryn delacruz.o rg/pr ofess ional s/KDO QI/gf r_cal culat orPed Not Available [facility] [address] [place], [address], 03/24/2024 12:05:27 03/24/19 25 03/24/2024 PTT (APTT ) PTT (APTT) 30.0 secon ds 21.9-2 9.9 high Not Available [facility] [address] [place] [address], [address], 03/24/2024 12:08:22 03/24/19 25 03/24/2024 PROTH ROMBI N TIME prothrombin time 9.9 secon ds 9.2-11 .0 normal Not Available [facility] [address] [place] [address], [address], 03/24/2024 12:08:23 03/24/19 25 03/24/2024 PROTH ROMBI N TIME INR 1.0 2.0-3. 0 low INR OF 2.0 TO 3.0 RECOM JHONNY D FOR: PROPH YLAXI S AND TREAT MENT OF VENOU S THROM BOSIS TREAT MENT OF PULMO NARY EMBOL ISM PREVE NTION OF SYSTE ANGELA EMBOL ISM TISSU E HEART VALVE S, VALVU LAR HEART DISEA SE ACUTE MYOCA RDIAL INFAR CTION , ATRIA L FIBRI LLATI ON INR OF 2.5 TO 3.5 RECOM JHONNY D FOR: RECUR RENT SYSTE ANGELA EMBOL ISM MECHA NICAL PROST HETIC VALVE S Not Available [facility] [address] [place] [address], [address], 03/24/2024 12:08:23 03/24/19 25 03/26/2024 MRSA CULTU RE SCREE N MRSA culture screen NO MRSA ISOLAT ED Not Available [facility] [address] [place], [address], 03/26/2024 14:38:48 03/24/19 25 03/27/2024 FRUCT OSAMI NE fructosamine 242 umol/ L 205-28 5 normal Not Available [facility] [place], [address], 03/27/2024 03:21:30 04/04/19 25 03/31/2024 elect vadim dela cruz am No observ ation record ed. BARCODE Not Available 2024 16:13:06 05/02/19 25 05/01/2024 XR, knee, 3 view [place] [address] [place] [address] [phone] Eda villafana Name: WHITNEY villafana : Eda villafana 53 Orderi ng Provid er: LAWRENCE NAVA EXAM DATE: 2024 EXAM: XR LT [...] Signed By: Anastasiya tompkins MD on 05/02/19 9:06 AM [email or web address] [facility] [address] , [place], [address], 05/01/2024 09:43:36 05/29/1905/28/2024 XR, knee, 3 view Melba garvin [facility] [address] [address] Eda villafana Name: WHITNEY villafana : Eda villafana 53 Orderi ng Provid er: LAWRENCE NAVA EXAM DATE: 2024 EXAM: XR LT KNEE 3 VIEWS COMPAR PRESLEY: 05/02/19 25 HISTOR Y: Follow -up of prior surger [email or web address] FINDCHAYA GS: Again seen is a left knee [...] Signed By: Anastasiya tompkins MD on 05/29/19 25 1:53 PM [email or web address] [facility] [place] [address] , [place], [address], 05/28/2024 14:02:15 Result Notes None recorded. Problems No Known Problems Procedures Surgical History Date Name Laterality Status Provider Name and Address Organization Details Recorded Time 04/11/19 25 Total knee arthroplasty completed Ankita Alicea [facility] 05/01/2024 08:55:00 04/01/19 25 PCM Visit completed Ankita Alicea [facility] 04/18/2024 09:34:52 03/31/19 25 EKG completed Noy Cornell [facility] 03/31/2024 10:56:15 03/26/19 25 PT Evaluation - Low Complexity completed MILKA FORDE, PT, DPT [facility] [place], [address], [facility] 03/26/2024 07:53:14 03/26/19 25 PT Therapeutic Exercise completed MILKA FORDE, PT, DPT [address] [place], [address], [facility] 03/26/2024 11:37:59 10/09/19 24 Lumbar Epidural Steroid Injection - Shukri completed FRANCISCO WATT MD [facility] [place], [address], [facility] 10/09/2023 16:41:54 06/29/19 24 Lumbar Epidural Steroid Injection - Shukri completed FRANCISCO WATT MD [address] [place] [address], [phone], [facility] 06/29/2023 15:05:18 06/01/19 24 Joint Injection, Knee - Shukri completed FRANCISCO WATT MD [address] [place], [address], [facility] 06/01/2023 14:04:44 03/05/19 24 Lumbar Epidural Steroid Injection - Shukri completed FRANCISCO WATT MD [address] [place], [address], [facility] 03/05/2023 15:24:53 02/14/20 23 Joint Injection, Knee - Shukri completed FRANCISCO WATT MD [address] [place], [address], [facility] 02/13/2023 16:36:13 12/15/19 23 Joint Injection, Knee - Shukri completed FRANCISCO WATT MD [address] [place], [address], [facility] 12/14/2022 09:44:07 12/09/19 23 EKG completed TONY FROST MD [address] [place], [address], [facility] 12/08/2022 15:51:17 10/28/19 23 Joint Injection, Knee - Shukri completed FRANCISCO WATT MD [address] [place], [address], [facility] 10/27/2022 15:15:34 08/27/19 22 Back Surgery completed Edyta Amador [facility] 12/08/2022 14:25:01 04/18/19 22 Stress Test - Nuclear Lexiscan completed TONY FROST MD [address] [place], [address], [facility] 04/18/2021 14:45:48 04/04/19 22 EKG completed Kelsea Cunningham [facility] 04/04/2021 15:00:19 04/09/19 21 LAMINOTOMY (HEMILAMINECTOMY) , DECOMPRESSION OF NERVE ROOTS, PARTIAL FACECTOTOMY, FORAMINOTOMY AND/OR DISC REMOVAL, LUMBAR (SURG) completed Erinn Springer [facility] 04/21/2020 14:47:01 03/31/19 21 Echocardiogram completed TONY FROST MD [address] [place] [address], [address], [facility] 03/31/2020 16:29:29 Knee arthroscopy/surge ry completed [facility] 10/26/2016 10:56:59 Unlisted px hands/fingers completed [facility] 10/26/2016 10:56:55 Back Surgery completed [facility] 10/26/2016 10:56:48 Back Surgery completed Kelsea Short [facility] 04/04/2021 15:27:39 Imaging Results Imaging Date Name Status LastModified by Organization Details LastModified Time 03/31/2024 electrocardiogram completed BARCODE Informa tion not available 04/04/2024 16:13:06 05/01/2024 XR, knee, 3 view completed [address] [facility] [address] , [place], [address], 05/01/2024 09:43:36 05/28/2024 XR, knee, 3 view completed [address] [facility] [place] [address] , [place], [address], 05/28/2024 14:02:15 Procedure Notes None recorded. Medical Equipment None Reported. Allergies Allergen ID Allergen Name Allergen Category Reaction Reaction Severity Criticality Documentation Date Start Date Code Code System Note Provider Name and Address Organization Details Recorded Time 856953 acetamino phen / oxycodone medicatio n itching Not available Not available 10/26/2016 34427 3 [facility] 14:21:12 Medications Name Sig Start Date Stop [...] e 137 mcg (0.1 %) nasal spray [place] 2 sprays twice a day by intranas [...] as needed by oral route. 02/09 completed [facility]: 0904-588 0-61 Not Available Not [...] Not Available Not Available Not Available Vitals Date Recorded Body height Body mass index (BMI) Body weight Oxygen saturation Oxygen saturation in Arterial blood by Pulse oximetry Heart rate Systolic blood pressure Diastolic blood pressure Provider Name and Address Organization Details Last Updated DateTime 5 187.96 cm 39 kg/m2 946916. 93 g 95 % 95 % 54 /min 122 mm[Hg] 70 mm[Hg] Noy Cornell [facility] 5 10:56:07 Date Recorded Body height Body mass index (BMI) Body weight Pain severity - 0-10 verbal numeric rating [Score] - Reported Systolic blood pressure Diastolic blood pressure Provider Name and Address Organization Details Last Updated DateTime 5 187.96 cm 38.9 kg/m2 723005. 49 g 4 125 mm[Hg] 70 mm[Hg] Ankita Alicea [facility] 5 08:54:33 Date Recorded Body height Body temperature Heart rate Oxygen saturation Oxygen saturation in Arterial blood by Pulse oximetry Systolic blood pressure Diastolic blood pressure Provider Name and Address Organization Details Last Updated DateTime 5 187.96 cm 97.3 [degF] 58 /min 95 % 95 % 126 mm[Hg] 68 mm[Hg] Elise Danny [facility] 5 11:15:55 Date Recorded Body height Body mass index (BMI) Body weight Pain severity - 0-10 verbal numeric rating [Score] - Reported Systolic blood pressure Diastolic blood pressure Provider Name and Address Organization Details Last Updated DateTime 5 187.96 cm 38.9 kg/m2 596594. 49 g 3 135 mm[Hg] 75 mm[Hg] Ankita Alicea [facility] 5 13:23:57 Social History Question Answer Notes LastModified by Organizat ion Details LastModified Time Tobacco Smoking Status Never Smoker Jessica Danny [facility] 10/26/2016 10:55:42 What Is Your Level Of Alcohol Consumption? Moderate [email or web address] Information not available 10/26/2016 Are You Currently Employed? No [email or web address] Information not available 02/01/2024 What Was The Date Of Your Most Recent Tobacco Screening? 05/01/2024 [email or web address] Information not available 05/01/2024 What Is Your Relationship Status? Information not available 02/28/2023 Do You Use Any Illicit Or Recreational Drugs? No [email or web address] Information not available 02/28/2023 Has Tobacco Cessation Counseling Been Provided? No [email or web address] Information not available 04/18/2021 Do You Or Have You Ever Used Any Other Forms Of Tobacco Or Nicotine? No [email or web address] Information not available 02/28/2023 Sex: Male Functional [...] N Blood Transfusion N Heart Arrhythmia N Emphysema N Head Trauma/Injury N Sexually Transmitted Disease N COPD N Depression N Pneumonia N Peripheral Arterial Disease N Nervous Illness N Edema N Anxiety Disorder N Muscle, Joint, or Bone Problems Y Hiatal hernia N Arthritis Y Blood Clot N Acid Reflux (GERD) N Cancer N Stroke N Neck Injury N Leg or Foot Ulcers N Neurologic Disorder N Rheumatoid Arthritis Y Arrhythmia N Fibromyalgia N Headaches N Kidney Disease N Endocrine Disorder N Heart Problems N Heart Conditions N Implanted Cardiac Device N Black Lung N Migraines N Carpel Tunnel N Skin Problems N Meningitis N Ulcers N Rheumatic Fever N Bleeding Disorder N Tuberculosis N Genetic Disorder N AIDS/HIV N Asthma N Cardiac Disease N Peripheral Vascular Disease N Jaundice N Thyroid Disorder N Sleep Disorder Y GERD/Reflux N Hepatitis N Neuropathy N Included as Review of Systems N Restless leg syndrome N Pulmonary Embolism N Anxiety/Depression N Thyroid Disease N Hernia N Colon/Rectal Disorders N Glaucoma N Hypothyroidism N Lung Disease N Pacemaker N Measles Y Vascular Disease N Anesthesia Complications N Varicose Veins N Attempted Suicide N Hearing Loss N Serious Illness or Injuries N History of Blood Thinners N Radiation Therapy N Blood Thinners N Shortness of Breath N Alcohol Overuse/Alcohol Abuse N High Cholesterol N Liver Disease N Organ Transplant N Allergies/Hayfever N Thyroid Problems Y Anemia N Chest Pain N Immune System Disorder N Heart Attack ([place]) N Mental Illness N Neurological Problems N Diabetes N Cardiomyopathy N Seizures/Epilepsy N Heart Murmur Y Congestive Heart Failure (CHF) N Hyperlipidemia N Epilepsy/Seizures N Reflux/GERD N Sleep Apnea Y Warfarin Management N Heart Disease N Hypertension Y Osteoporosis N Immunizations Vaccine Type Date Status Note Provider Nam e and Address Organization Details Recorded Time Influenza, recombinant, quadrivalent, PF 11/17/202 1 completed Karolyn Cartwright [facility] 02/28/2023 10:12:05 COVID-19 vaccine, vector-nr, rS-Ad26, PF, 0.5 mL 1 completed Karolyn Cartwright [facility] 02/28/2023 10:12:05 COVID-19 vaccine, vector-nr, rS-Ad26, PF, 0.5 mL 1 completed Karolyn Cartwright [facility], [facility] 02/28/2023 10:12:05 pneumococcal polysaccharide PPV23 0 completed Karolyn Chay [facility] 02/28/2023 10:12:05 Past Encounters Encounter ID Performer Location Encounter Start Date Encounter Closed Date Diagnosis/Indication Diagnosis SNOMED-CT Code Diagnosis ICD10 Code Diagnosis Note [id number] MD LEE ANN JOHNS E[facility] [address] [facility],[address] [place] [address] 10/26/2016 10:09:33 10/26/2016 13:15:51 Cellulitis of face 017414130 L03.211 right sided extending from right buccal cheek down over the mandible and all the way down into the neck almost to the clavicles; there is a 2 x 2 centimeter inflamed lymph node over the body of the right mandibletr eated in [place] [facility] from 10/22-10/24- taking Augmentin, Clindamyci n, Prednisone , Tylenol #3CT neck showed cellulitis , no obvious abscess; labs showed elevated WBC Dental abscess 113744975 K04.7 over right mandibular buccal and 1st molar(#29, #30) - is likely the source of infection/ cellulitis /facial pain Deviated nasal septum 12 0479289 J34.2 [id number] MD LEE ANN JOHNS E[facility] [address] [facility] [facility],[address] [place] [address] 11/09/2016 12:45:10 11/09/2016 15:35:32 Cellulitis of face 166214531 L03.211 right sided extending from right buccal cheek down over the mandible and all the way down into the neck almost to the clavicles; there is a 2 x 2 centimeter inflamed lymph node over the body of the right mandibletr eated in [facility] ER from 10/22-10/24- Augmentin, Clindamyci n, Prednisone , Tylenol #3CT neck showed cellulitis , no obvious abscess; labs showed elevated WBC 18,000 today's exam shows 90% resolution of the cellulitis with only minimal lymphadeni tis in the right jugular digastric area Dental abscess 234802810 K04.7 over right mandibular buccal and 1st molar(#29, #30) - is likely the source of infection/ cellulitis /facial pain - seen both oral surgery and an endodontis t for a possible root canal Deviated nasal septum 12 3340641 J34.2 Cervical lymphadenitis 8648624 I88.9 [id number] MD LEE ANN JOHNS ENT [address] [place] [address] 02/17/2019 12:44:02 02/20/2019 08:48:50 Cellulitis of face 559057190 L03.211 right sided extending from right buccal cheek down over the mandible and all the way down into the neck almost to the clavicles; there is a 2 x 2 centimeter inflamed lymph node over the body of the right mandibletr eated in [facility] ER from 10/22-10/24- Augmentin, Clindamyci n, Prednisone , Tylenol #3CT neck showed cellulitis , no obvious abscess; labs showed elevated WBC 18,000 today's exam shows 90% resolution of the cellulitis with only minimal lymphadeni tis in the right jugular digastric area- Resolved; did have a root canal performed Dental abscess 336735306 K04.7 over right mandibular buccal and 1st molar(#29, #30) - is likely the source of infection/ cellulitis /facial pain - seen both oral surgery and an endodontis t for a possible root canal - Resolved; did have a root canal performed Deviated nasal septum 12 0230592 J34.2 - To the right inferiorly Cervical lymphadenitis 6909680 I88.9 Chronic cough 55467732 R 05 Gastroesop hageal reflux disease without esophagitis 145411983 K21.9 - Currently taking Omeprazole 20mg daily Posterior rhinorrhea 758 01019 R09.82 [id number] MD LEE ANN JOHNS ENT [address] [place] [address] 03/27/2019 15:35:36 04/01/2019 16:13:41 Chronic cough 28567285 R05 Gastroesop hageal reflux disease without esophagitis 350939580 K21.9 - Currently taking Omeprazole 20mg daily Deviated nasal septum 12 3784785 J34.2 - To the right inferiorly Cellulitis of face 2001 L03.211 right sided extending from right buccal cheek down over the mandible and all the way down into the neck almost to the clavicles; there is a 2 x 2 centimeter inflamed lymph node over the body of the right mandibletr eated in [facility] ER from 10/22-10/24- Augmentin, Clindamyci n, Prednisone , Tylenol #3CT neck showed cellulitis , no obvious abscess; labs showed elevated WBC 18,000 today's exam shows 90% resolution of the cellulitis with only minimal lymphadeni tis in the right jugular digastric area- Resolved; did have a root canal performed Dental abscess 948712368 K04.7 over right mandibular buccal and 1st molar(#29, #30) - is likely the source of infection/ cellulitis /facial pain - seen both oral surgery and an endodontis t for a possible root canal - Resolved; did have a root canal performed Obstructiv e sleep apnea syndrome 18183036 G47.33 - BiPAP use for the past 4-5 years Vasomotor rhinitis 76592 03 J30.0 Xerostomia 93404735 R68. 2 [id number] RUDY MEJÍA MD [facility] [address] [place] [address] 02/03/2020 13:44:00 02/03/2020 14:46:30 Lumbar radiculopathy 224365446 M54.16 [id number] RDUY MEJÍA MD [facility] [address] [place] [address] 03/16/2020 15:15:21 03/19/2020 16:17:26 Lumbar radiculopathy 176594793 M54.16 [id number] TONY FROST MD CARDIOLOG Y [address] ,[address] [place] [address] 03/31/2020 13:27:44 03/31/2020 14:42:25 Essential hypertension 43199435 I10 Blood pressure 152/80 in the office today. No changes. Well contr olled type 2 diabetes mellitus 805988041 E11.9 Most recent A1c 5.5% Obstructiv e sleep apnea syndrome 27988133 G47.33 Advised to continue with BiPAP through the perioperat sammy period. He was advised to bring his device to his surgery in case he requires overnight admission. Preoperati ve cardiovascular examination 719582029 Z01.810 He has an estimated 0.32% risk for Perioperat sammy Myocardial Infarction or Cardiac Arrest. (Duvall et al, Circulatio n. 2010Sep 20;124(4): 381-7) No further preoperati ve testing is recommende d. Continue with current antihypert ensives and bring his BiPAP device in case he requires overnight admission. Aortic lucia ve regurgitation 86356668 I35.1 PLAN: Office follow-up in one year. Periodic Echo surveillan ce [id number] TONY FROST MD [facility] [address] [place] [address] 03/31/2020 14:42:01 04/01/2020 06:58:40 Aortic valve stenosis 11270325 I35.0 [id number] [facility] SURGERY SCHEDULE [address] [place] [address] 04/20/2020 16:44:12 04/20/2020 17:06:40 [id number] [facility] NE[facility]OSURG [facility] [address] [place] [address] 04/27/2020 14:31:35 04/27/2020 15:58:37 [id number] RUDY MEJÍA [facility] [address] [place] [address] 05/11/2020 14:36:53 05/13/2020 09:38:57 Lumbar spondylosis 366164905 M47.517 [id number] RUDY MEJÍA MD NEUROSURG [facility] [address] [place] [address] 06/17/2020 12:54:51 06/18/2020 12:59:41 Lumbar radiculopathy 655759375 M54.16 [id number] RUDY MEJÍA MD [facility] [address] [place] [address] 08/19/2020 12:53:46 08/23/2020 11:55:03 Postoperative care 593032219 Z48.89 Patient is a 60-year-ol d male status post right L4-L5 microlumba r foraminoto my on 04/09/20. Presents for another follow-up. The patient initially did very well from the surgery but very shortly after continued to have continued right radicular symptoms. Pain is diffuse across lumbar spine and down bilateral lower extremitie s on the posterior aspect of the thigh and leg going all way to the foot. Right side worse than left side.Patie nt is on gabapentin Percocet given to him by Dr. Watt. Patient has not done physical therapy postoperat ively. He has had 1 transforam inal injection at L4-5 which did not help. Has also trialed a Medrol Dosepak which did not help. Patient does receive Humira shots for arthritis but was told to hold off until he sees us because he did have lab work earlier this month that was suspicious for infection. Reviewed the case and imaging with Dr. mejía.Again we did not see anything on the imaging that should be causing the patient's symptoms. Patient does have rheumatoid arthritis and we do believe that this could be a huge factor in his pain. We would like to send him back to try a different injection what he had previously . Would like him to get an L4-L5 facet injection with Dr. Watt this time. We also gave him clearance to begin Humira injections back as well. We will be setting him up for the referral today and patient can follow up with us as needed after that. If he is doing well with injections we can discuss other treatment options at that time. AP/lateral /flexion /extension lumbar x-rays performed today at the [facility]? Do not show any instabilit y were signs of infectionL umbar MRI from 06/28/20[facility]. These are scanned into our PACS system? Does not show any acute process or stenosis. Not concerning for infection. [id number] TONY FROST MD CARDIOLOG Y [address],[facility] FLOOR [place] [address] 04/04/2021 14:55:15 04/04/2021 16:04:55 Aortic valve regurgitation 29225694 I35.1 Essential hypertension 22847740 I10 Medication adjustment as noted above Well contr olled type 2 diabetes mellitus 742721259 E11.9 Obstructiv e sleep apnea syndrome 34120516 G47.33 Advised to continue with BiPAP Obesity 399315541 E66.9 [id number] TONY FROST MD CARDIOLOG Y [address],[facility] FLOOR [place] [address] 04/18/2021 11:59:10 04/19/2021 15:27:09 Aortic valve regurgitation 77922559 I35.1 Essential hypertension 39822159 I10 Well contr olled type 2 diabetes mellitus 732664388 E11.9 Obstructiv e sleep apnea syndrome 13127845 G47.33 Obesity 218388204 E66.9 [id number] TONY FROST MD [facility] [address],[facility] FLOOR [place] [address] 04/18/2021 11:58:22 04/18/2021 14:52:32 [id number] FRANCISCO WATT MD PAIN MEDICINE [address] [place] [address] 10/11/2022 15:23:58 10/12/2022 04:33:15 Pain in both feet 8697469833 9071144 M79.671 M79.672 Pain of bi lateral knee joints 1103046842 34782 M25.561 M25.562 Lumbar post-laminectomy syndrome 478056758 M96.1 Bilateral osteoarthritis of knees 7384469290 38171 M17.0 [id number] FRANCISCO WATT MD [facility] [address] [facility], [address] [place] [address] 10/27/2022 13:59:03 11/02/2022 08:12:30 Bilateral osteoarthritis of knees 6535090670 30481 M17.0 [id number] CHELLY ROGERS PA-C PAIN MEDICINE [address] [place] [address] 1 11/27/2022 08:54:18 11/27/2022 11:27:11 Bilateral osteoarthritis of knees 9000489370 87362 M17.0 Lumbar post-laminectomy syndrome 740649846 M96.1 Pain in both feet 614012 6945 7149312 M79.671 M79.672 [id number] TONY FROST MD CARDIOLOG Y [address] [place] [place] [address] 12/08/2022 14:12:12 12/08/2022 15:13:17 Aortic valve regurgitation 85273068 I35.1 Essential hypertension 55852379 I10 Well contr olled type 2 diabetes mellitus 504181179 E11.9 Obstructiv e sleep apnea syndrome 42069396 G47.33 Obesity 393411455 E66.9 Edema of l ower extremity 489804574 R60.0 12/08/2022 : Discontinu e amlodipine . Continue furosemide 20 mg pending review of labwork. [id number] FRANCISCO WATT MD [facility] [address] [facility] [facility], [address] [place] [address] 12/14/2022 09:18:10 12/14/2022 14:42:00 Arthralgia of the ankle and/or foot 182484421 M25.579 [id number] CHELLY ROGERS PA-C PAIN MEDICINE [address] [place] [address] 1 01/16/2023 12:55:00 01/16/2023 14:59:43 Bilateral osteoarthritis of knees 1952821867 98589 M17.0 Lumbar post-laminectomy syndrome 449003988 M96.1 Pain in both feet 789651 1103 7472534 M79.671 M79.672 Osteoarthr itis of knee 609308333 M17.9 [id number] CHELLY ROGERS PA-C PAIN MEDICINE [address] [place] [address] 01/26/2023 09:41:03 01/26/2023 13:06:29 Bilateral osteoarthritis of knees 2662868461 40892 M17.0 Lumbar post-laminectomy syndrome 928383690 M96.1 Pain in both feet 305937 1874 7887391 M79.671 M79.672 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 65032635 M47.9 Lumbar radiculopathy 128 911559 M54.16 [id number] CHELLY ROGERS PA-C PAIN MEDICINE [address] [place] [address] 02/09/2023 10:48:03 02/09/2023 12:39:17 Bilateral osteoarthritis of knees 6058167022 35128 M17.0 Lumbar radiculopathy 128 994025 M54.16 Lumbar post-laminectomy syndrome 508710970 M96.1 Pain in both feet 485634 0165 2263058 M79.671 M79.672 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 Garcia is here today to discuss possible treatment options regarding bilateral knee osteoarthr itis. He has been under the care of Dr. Watt where he received bilateral knee injections with his last being on 02/13/2023 with no relief. The patient has end stage osteoarthr itis of bilateralT knees. The patient has failed >3 months of conservati ve measures including NSAIDs, activity modificati on, etc. The patient has pain daily, affecting his/her activities of daily living. We had a lengthy discussion today in regards to possible treatment options going forward. He has requested to see Dr. Jessica harris to discuss further recommenda tions going forward. There is no urgency to this. I had a lengthy discussion with him as well about exercise and low impact activity to work on weight loss in the interim. He is currently on Ozempic where he notes that he is lost some weight over the past month or so. He will need cardiac clearance before pursuing any type of surgical interventi on. He and his are aware of this. I will have him set up to see Dr. Jessica harris. All questions were answered to the best of my ability. [id number] TONY FROST MD CARDIOLOG Y [facility] [address] [place] [address],[address] [place] [address] 02/28/2023 13:36:38 02/28/2023 14:22:59 Aortic valve regurgitation 90477682 I35.1 Essential hypertension 95451647 I10 Well contr olled type 2 diabetes mellitus 954700876 E11.9 Obstructiv e sleep apnea syndrome 64546068 G47.33 Obesity 285868989 E66.9 Edema of l ower extremity 697950445 R60.0 12/08/2022 : Discontinu e amlodipine . Continue furosemide 20 mg pending review of labwork.02/28/2023: Edema has resolved. Blood pressure remained stable, 134/75 in office. [id number] FRANCISCO WATT MD [facility] [address] [address] [facility] [address] [address], [address] [place] [address] 03/05/2023 13:53:30 03/05/2023 15:40:01 Lumbar radiculopathy 747927947 M54.16 [id number] LUZMARIA LILLY DPM ORTHOPEDI [facility] [address] [place] [address] 03/09/2023 10:28:46 03/09/2023 11:12:25 Foot pain 64904414 M79.671 M79.672 Bilateral gastrocnemius muscle tightness 2463799164 6784551 R29.898 Tibialis a nterior tendinitis 668594984 M76.811 Patient presents today chronic bilateral foot pain of several years that has worsened over the past 1-2 weeks; right foot is worse than left. He states he was seen by Dr. Watt recently and received a shot in his back, which alleviated his pain. Patient has also tried custom orthotics with appropriat e shoes.-[facility] oming knee replacemen t with Dr. Alexis.Reviewed imaging and clinical exam findings with him. On clinical exam, he is classicall y symptomati c of tendinitis of his tibialis anterior.C onservativ e treatment options were considered today including walker boot, ankle brace and PT. 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 Recommende d PT for strengthen ing and ROM and ankle brace for during his work day.We discussed that that he has a significan t cavus foot, but his most important issue and pain are his bilateral knees-Refe rral for PT was sent on his behalf and patient was provided with an ankle brace in clinic today.All of his questions were answered today; he demonstrat ed understand ing of this and is agreeable to the plan.Jo w up in 8 weeks for recheck of tibialis anterior tendinitis . 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 12526761 M47.9 [id number] Mata Temple PAIN MEDICINE [address] [place] [address] 04/05/2023 10:38:15 04/06/2023 04:50:11 Bilateral osteoarthritis of knees 5312453141 42754 M17.0 Lumbar radiculopathy 128 497195 M54.16 Lumbar post-laminectomy syndrome 271956088 M96.1 Pain in both feet 717606 5214 2704400 M79.671 M79.672 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 He is continued to stay painful over calf and anterior extensor EHL and tibialis anterior. On exam patient has noted cavus foot with severe equinus and contractur e of the first MPJ. Patient has many comorbidit ies. Due to this we discussed soft tissue work versus osteotomie s. After lengthy discussion patient would like to proceed with gastroc lengthenin g and EHL lengthenin g in hopes of taking strain of the anterior ankle and calf muscle. I am in agreement that this should be low risk and could provide him with significan t relief, patient understand s that if this does not work he may require bone work due to his deformitie s. However I am in agreement that with his comorbidit ies I would proceed with soft tissue work first. Will see patient for surgery in a few weeks when he has 6 weeks to be off work. Bilateral gastrocnemius muscle tightness 8401670137 9501117 R29.898 Foot pain 04315422 M79.6 71 M79.672 Contractur e of joint of right foot 8621109543 73997 M24.574 [id number] FRANCISCO WATT MD [facility] [address] [place] [address], [address] [address] 06/01/2023 13:43:55 06/01/2023 16:21:43 Bilateral osteoarthritis of knees 6831023465 47867 M17.0 [id number] FRANCISCO WATT MD [facility] [facility] [facility], [address] [address] 06/29/2023 14:07:02 07/03/2023 15:43:06 Lumbar radiculopathy 753069433 M54.16 [id number] CHELLY ROGERS PA-C PAIN MEDICINE [address] [place] [address] 07/18/2023 10:31:40 07/18/2023 15:51:42 Bilateral osteoarthritis of knees 9531545825 16813 M17.0 Lumbar radiculopathy 128 455582 M54.16 Lumbar post-laminectomy syndrome 461811406 M96.1 Pain in both feet 454636 4175 3043687 M79.671 M79.672 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 38734714 M47.9 [id number] TONY FROST MD CARDIOLOG [address] ,[address] [place] [address] 08/29/2023 13:29:59 08/29/2023 14:20:20 Aortic valve regurgitation 23418392 I35.1 Essential hypertension 09803345 I10 Obesity 495713457 E66.9 [id number] CHELLY ROGERS PA-C PAIN MEDICINE [address] [place], [place] [address] 09/27/2023 10:36:23 09/27/2023 14:45:08 Bilateral osteoarthritis of knees 2340832718 09973 M17.0 Lumbar radiculopathy 128 129452 M54.16 Lumbar post-laminectomy syndrome 630159222 M96.1 Pain in both feet 614351 9562 1100970 M79.671 M79.672 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 Secondary diagnosis of popliteal cyst. Reviewed diagnosis of both knee OA and popliteal cyst Discussed anatomy and causes of popliteal cyst I believe most of his posterior knee pain is from his osteoarthr itis. 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 The patient has failed > 3 months of conservati ve measures including NSAIDs, activity modificati on, corticoste roid injections , etc. The patient has pain daily, affecting his/her activities of daily living, and interferin g with sleep. They wish to proceed with total knee arthroplas ty, which I believe to be reasonable . Per ACR/AAHKS guidelines , arthroplas ty in patients with moderate to severe arthritis should not be delayed simply to engage in additional nonoperati ve treatment options. We reviewed the risks, benefits, and alternativ es to knee replacemen t surgery. We discussed the risk of infection, fracture, neurovascu lar injury, chronic pain, stiffness, instabilit y, aseptic loosening, and component wear. We discussed the risk of medical complicati ons, including but not limited to, VTE, pulmonary complicati ons, cardiac complicati ons, and stroke. All questions were answered to the best of my ability. The patient expresses understand ing and awareness of PCM services, including but not limited to potential cost sharing responsibi lities; only one [facility] er can furnish and bill for PCM services during a calendar month, and the patient can stop these services at any time. The patient understand s and has verbally consented to accept PCM services and has been provided a copy of a written explanatio n of this service today. Surgery date: {{ 04-10-24 #}}Surgery location: {{[facility]* [facility]}}S pecial equipment: {{ [employer], press-fit# }}Pre-op clearance: {{PASS LC labs PCP Wilber Maravilla PA-C*}}Ot er medical clearance: {{none}}DV T prophylaxi s: ASA, TEDAdmissi on status: {{INPATIEN T OUTPATIE NT* NONE}} Discharge plan: {{no/SDS o vernight* 2 night > 2 night}} admissionP T: {{home health* SN F direct to outpatient [facility]}} Allergies: {{none* PC N other}}S kin testing: {{Yes No*} } [id number] CHELLY ROGERS PA-C PAIN MEDICINE [address] [place], [place] [address] 11/30/2023 13:37:45 11/30/2023 16:11:20 Lumbar radiculopathy 873441885 M54.16 Lumbar post-laminectomy syndrome 968274538 M96.1 Bilateral osteoarthritis of knees [id number] 73498 M17.0 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 Preoperati ve lab work reviewed with the patient. Any modifiable risk factors discussed. No indication for any additional labs or testing at this time. Continue with planned joint arthroplas ty. Discussed postoperat sammy plan for physical therapy. All questions answered to the best of my ability. Essential hypertension 72966788 I10 Currently managed with Bumex, hydralazin e, losartan, spironolac tone, propranolo l. Hold Bumex, spironolac tone, losartan the day of surgery. Hypothyroidism 56838116 E03.9 Controlled with current regimen of levothyrox ine Gastroesop hageal reflux disease without esophagitis 516142606 K21.9 On omeprazole daily, can continue throughout perioperat sammy course. Lower urin elke tract symptoms due to benign prostatic hypertrophy 5253590882 9101 N40.1 Continue with current regimen Aortic lucia ve regurgitation 27240933 I35.1 Last echo 1 year ago. Clinically asymptomat ic. Has follow-up withcardio logy Dr. Bennett 03/31/2024. Will defer to them for any further workup. [id number] JEN Harris MD PHYSICAL THERAPY / HAND THERAPY [facility] [address] [place] [address] 03/26/2024 10:44:09 03/27/2024 04:24:53 Pain of left knee joint 1594793621 85532 M25.562 Osteoarthr itis of left knee joint 0160861445 20294 M17.12 [id number] TONY FROST MD CARDIOLOG Y [address] [place] [address] 03/31/2024 10:42:25 03/31/2024 11:23:02 Essential hypertension 67059994 I10 Aortic lucia ve regurgitation 68105549 I35.1 Obesity 410358206 E66.9 Preoperati ve cardiovascular examination 252496528 Z01.810 He is planning to undergo LEFT [...] for cardiovasc ular complicati ons. * Eloina et al, Circulatio n. 2010Sep 20;124(4): 381-7. [id number] Ankita Alicea ORTHOPEDI [facility] [address] [place] [address] 04/01/2024 12:06:12 04/14/2024 13:13:05 Osteoarthritis of knee 607726000 M17.12 Peng was seen by Dr Jessica harris where surgical plan was discussed and finalized for left total knee arthroplas ty on 04/11/24. [id number] JEN Harris MD SURGERY SCHEDULE [address] [place] [address] 04/11/2024 09:16:10 04/11/2024 09:17:05 [id number] LAWRENCE NAVA PA-C ORTHOPEDI [address] [place] [address] 05/01/2024 08:50:19 05/01/2024 10:42:17 History of total knee arthroplasty 1243715140 105 Z96.659 Mr.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
== END 2024-06-10 23:59 | disposition home or self-care (01) ==
LOC: RAD 12:29
PROVIDERS: PCP Internal Medicine Adolescent Medicine; Visit Provider Anesthesiology
DX: M54.16 Radiculopathy, lumbar region (principal)
CPT/HCPCS: 72148

== ENCOUNTER 2024-09-15 12:02 | Outpatient (CLI) | payer MEDICARE, SELFPAY ==
--- OUTSIDE RECORDS SUMMARY | 2024-05-31 17:30 | XMS_ITS ---
Author Organization [facility] PE D JEANNETTE Address [address] [place] [address] Care Team Providers Care Avp Name Role Phone Patrick Marmolejo Primary Care Provider Migration, Provider Unavailable Unavailable Allergies Allergen (clinical drug ingredient) Drug/Non Drug Allergy documented on EMR Reaction Allergy Type Onset Date Status acetaminophen / oxycodone Percocet itch Drug Allergy Active Mustard Mustard swelling Allergy Active REASON FOR VISIT [facility] To [facility] Conversion Encounter Medications Medication SIG (Take, Route, Frequency, Duration) Notes Start Date End Date Status Singulair 10 MG 1 tab(s) orally once a day (in the evening); Duration: 30 days Active Synthroid 50 MCG 1 tab(s) orally once a day; Duration: 30 Active Losartan Potassium 100 MG 1 tab(s) orally once a day; Duration: 30 days Active Allopurinol 300 MG 1 tab(s) orally once a day; Duration: 90 days Active FeroSul 325 (65 Fe) MG TAKE 1 TABLET BY MOUTH ONCE DAILY; Duration: 30 Active metFORMIN HCl 500 MG 1 tab(s) orally twi ce a day; Duration: 30 Active rOPINIRole HCl 1 MG 1 tab(s) orally once a day; Duration: 30 day(s) Active Dexilant 60 MG TAKE 1 CAPSULE BY MOUTH EVERY DAY; Duration: 30 Active HUMIRA 40 MG/0.8 ML DIRECTED SUBCUTANEOUSLY EVERY WEEK *Please review for potential replacement for e-prescription and drug interaction check* 01/17/2021 Active amLODIPine Besylate 10 MG 1 tab(s) orally once a day; Duration: 30 Active Vitamin D (Ergocalciferol) 1.25 MG (95156 UT) TAKE 1 CAPSULE BY MOUTH ONCE A WEEK; Duration: 28 Active Krill Oil 100MG 1 PO QD *Please review and pick correct strength-formulat ion from [employer] options. If intended option is not shown, discontinue and re-order from Quick Search* Active Ambien 10 MG 1 tab(s) orally once a day (at bedtime)prn Active Culturelle Digestive Health - 1 cap(s) orally 4x weekly Active sulfaSALAzine 500 MG 2 tab(s) orally 2 times a day; Duration: 30 day(s) Active Super B-Complex - 1 tab(s) orally once a day; Duration: 30 day(s) Active Tamsulosin HCl 0.4 MG 1 cap(s) orally once a day; Duration: 30 Active Doxazosin Mesylate 8 MG 1 tab(s) orally once a day Active Vitamin B Complex QD *Please review and pick correct strength-formulat ion from [employer] options. If intended option is not shown, discontinue and re-order from Quick Search* Active Gabapentin 800 MG 1 tab(s) orally 4 times a day Active oxyCODONE-Acetaminop hen 10-325 MG 1 tab(s) orally 4 times a day Active Encounters Encounter Location Date Provider Diagnosis [facility] [place] [address] [facility] [address] [place] [address] 05/31/2024 Provider Migration Plan Of Treatment Medication Medication Name Sig Start Date Stop Date Notes Singulair 10 MG 1 tab(s) orally once a day (in the evening); Duration: 30 days Synthroid 50 MCG 1 tab(s) orally once a day; Duration: 30 Losartan Potassium 100 MG 1 tab(s) orally once a day; Duration: 30 days Allopurinol 300 MG 1 tab(s) orally once a day; Duration: 90 days FeroSul 325 (65 Fe) MG TAKE 1 TABLET BY MOUTH ONCE DAILY; Duration: 30 rOPINIRole HCl 1 MG 1 tab(s) orally once a day; Duration: 30 day(s) Dexilant 60 MG TAKE 1 CAPSULE BY MO UTH EVERY DAY; Duration: 30 HUMIRA 40 MG/0.8 ML DIRECTED SUBCUTANEOUSLY EVERY WEEK 01/17/2021 *Please review for potential replacement for e-prescription and drug interaction check* amLODIPine Besylate 10 MG 1 tab(s) orally once a day; Duration: 30 Vitamin D (Ergocalciferol) 1.25 MG (93709 UT) TAKE 1 CAPSULE BY MOUTH ONCE A WEEK; Duration: 28 Tamsulosin HCl 0.4 MG 1 cap(s) orally on ce a day; Duration: 30 Progress Notes * Kirit HULL LDOB:1960 (64 yo M)Acc No.[id number]:05/31/2024 Patient: Kirit WILKINSON Provider: Pascual Stovall :1960 A ge:64 Y S ex:Male Date:05/31/2024 Address:[address] [place] [address], [place], [id number] Pcp:Patrick Marmolejo Subjective: * Chief Complaints: * [facility] . [facility] * Medical History: * Medications: T aking oxyCODONE-Acetaminophen 10-325 MG Tablet 1 tab(s) orally 4 times a day , Taking Super B-Complex - Tablet 1 tab(s) orally once a day , Taking Gabapentin 800 MG Tablet 1 tab(s) orally 4 times a day , Taking Vitamin B Complex QD , Notes to Pharmacist: *Please review and pick correct strength-formulation from [facility]. If intended option is not shown, discontinue and re-order from Quick Search*, Taking Doxazosin Mesylate 8 MG Tablet 1 tab(s) orally once a day , Taking sulfaSALAzine 500 MG Tablet 2 tab(s) orally 2 times a day , Taking Culturelle Digestive Health - Capsule 1 cap(s) orally 4x weekly , Taking Ambien 10 MG Tablet 1 tab(s) orally once a day (at bedtime)prn , Taking Krill Oil 100MG CAPSULE 1 PO QD , Notes to Pharmacist: *Please review and pick correct strength-formulation from [facility]. If intended option is not shown, discontinue and re-order from Quick Search*, Taking metFORMIN HCl 500 MG Tablet 1 tab(s) orally twice a day * Allergies: P ercocet: itch - Side Effects, Mustard: swelling. Objective: * Vitals: Assessment: Plan: * Treatment: * * Electronic signature of Hema verdugo Migration on 09/15/2024 at 12:05 PM EDT Sign off status: Pending * Provider: Pascual medellin Migration Date: 0 05/31/2024 Generated for Mart chun/Staci/Jhon on: 0 09/15/2024 12:05 PM EDT
--- OUTSIDE RECORDS SUMMARY | 2024-09-15 12:04 | XMS_ITS | Data Portability ---
Author Organization LEE ANN FREDA HarmonS KENDRICK CLOSED Address [address] [facility] [facility] [address] [place] [address] Care Team Providers Care Adventure Education Teacher Name Role Phone JING CID Alum Operator BRENDA STEWART Primary Care Provider [phone] KHANH FIELD Primary Care Provider TONY FROST Architect CHELLY ROGERS Referring Provider JEN ROSA Orthopedic Surgeon [phone] Assessment Encounter Date Assessment Date Assessment LastModified by Organization Details LastModified Time 07/23/2024 07/23/2024 This is a 64-year-old gentleman prevents today for follow-up evaluation of knee OA and lumbar radiculopathy. He reports gabapentin continues to aid in pain relief overall with out side effects. He continues to work with orthopedics status post left TKA with Dr. Alexis and right knee pain. Right knee intra-articular injection was given today. They are pursuing gel injections. He endorses antalgic gait, limp and lumbosacral pain. Pao finger sign +, thigh thrust +, sacral thrust +, RANDALL + PMH: PSHx: Left L5-S1 foraminotomy (Jonathan, 2006), laminectomy (), L3-5 fusion ([place]), failed SCS trial, left TKA 04/17/2024, Dr. Rosa 1. X-ray lumbar spine from 2020 demonstrated [...] the patient. Previous injection therapy has included: 07/15/2024 right intra-articular knee injection (Ortho) 10/09/2023 L1-2 ILESI with 50% x 4 [...] screen appropriate 09/27/2023. Presentation is consistent with sacroiliitis, bilateral osteoarthritis of the knees and ankles, lumbar stenosis and spondylosis. I recommend: 1. Continue gabapentin 800mg QID. Risks reviewed 2. Bilateral SI joint injection 3. Discussed the value of rehabilitation including physical therapy and home exercise program focusing on SI joint rehabilitation and postoperative PT. This is encouraged. I had an in-depth discussion with the [...] including imaging, clinical notes, and relevant labs. [email or web address] Not available 07/23/2024 14:51:18 09/03/2024 09/03/2024 This is a 64-year-old gentleman prevents today for follow-up evaluation of knee OA, sacroiliitis and lumbar radiculopathy. Recent SI joint injection not provide benefit. He endorses ongoing low back pain, pain with standing and ambulation and transitioning from sitting to standing. He points to the right lumbosacral region as area of pain. He continues gabapentin with some efficacy. PMH: PSHx: Left L5-S1 foraminotomy (Jonathan, 2005), laminectomy (), L3-5 fusion ([place]), failed SCS trial, left TKA 04/17/2024, Dr. Rosa 1. X-ray lumbar spine from 2020 demonstrated [...] the patient. Previous injection therapy has included: 08/27/2024 right knee Synvisc injection (Ortho) 08/04/2024 bilateral SI joint injection with out relief 07/15/2024 right intra-articular knee injection (Ortho) 10/09/2023 L1-2 ILESI with 50% x 4 weeks. no ongoing 06/29/2023 L1-2 ILESI with 75% 06/01/2023 bilateral IA injection of knees (triamcinolone) [...] recommend: 1. Continue gabapentin 800mg QID. Risks reviewed. Refill not needed today 2. Update lumbar flexion-extension x-ray 3. Lumbar MRI 4. Unfortunately pain is persistent despite multiple attempts at pain relief, injection. I am hopeful that updating imaging may reveal new findings and direct toward additional workup, potential SANTA I had an in-depth discussion with the [...] notes, and relevant labs. [email or web address] Not available 09/03/2024 11:18:56 Plan of Treatment Reminders Order Date Submit Date Provider Last Modified By Organization Details Last Modified Time Details Appointments MRI 2024 03:20P M MRI Not available Not available Not available RECHEC K 2024 02:00P M TONY FROST MD Not available Not available Not available DERM VISIT 2024 10:40A M JOSE GHOSH NP Not available Not available Not available Lab None record ed. Referral None record ed. Procedures sacroi liac joint inject ion (PROC) 2024 025 [email or web address] [facility] Of Service Professional Charges, [address] [facility] [facility], [place], [address], 07/29/2024 11:49:08 Surgeries None record ed. Imaging XR, lumbos acral spine, 4 or more view 2024 025 [email or web address] [facility] [address] [place], [address], 09/03/2024 16:25:09 MRI, lumbar spine, w/o contra st 2024 025 [email or web address] [facility] [address] [place], [address], 09/10/2024 15:17:44 XR, hip, bilate ral, 2 view 2024 025 sarah [facility] [address] [place], [address], 07/23/2024 16:28:48 Medication Orders meloxi cam 15 mg tablet 2024 025 [facility], [address] [place] [address], [id number], 08/27/2024 10:58:16 gabape ntin 800 mg tablet 2024 025 [facility], [address] [place] [address], [address], 07/23/2024 14:52:08 Patient TargetsNo targets recorded. Patient InstructionsNo instructions recorded. Reason for Referral None Reported. Results Created Date Observation Date Name Description Value Unit Range Abnormal Flag Note LastModifiedBy Organization Detail LastModifiedTime 07/24/1907/23/2024 XR, joint , multi ple, 1 view [facility] [address] [place] [address] [phone] Eda villafana Name: WHITNEY villafana : 959 Eda villafana 53 Orderi [facility] ER er: REBECA HERNANDEZ EXAM DATE: 2024 EXAM: XR LONG LEG LEFT/ JOINT SURVEY COMPAR PRESLEY: 05/29/19 25 HISTOR Y: Follow -up of prior surger y. FINDIN GS: There is a left total knee arthro plasty in place. There is no eviden ce of loosen ing or compli cation . There is mild valgus angula tion. No fractu re is identi fied. There are mild degene rative change s in the left hip and mild degene rative change s in the ankle. IMPRES SHERI: 1. There is a left knee arthro plasty in place with mild valgus angula tion. Interp reted By: Anastasiya tompkins MD [facility] onical ly Signed By: Anastasiya tompkins MD on 025 1:58 PM [email or web address] [facility] [address] [place], [address], 07/23/2024 14:09:41 07/24/19 25 07/23/2024 XR, hip, bilat eral, 2 view [facility] [address] [facility] [place], [place] [id number] Patick t Name: WHITNEY villafana : 959 Eda villafana 53 Orderi ng Provid er: CHELLY MILLAY EXAM DATE: 2024 EXAM: XR EDDIE HIPS, 2 VWS COMPAR PRESLEY: None. HISTOR Y: Bilate ral hip pain. FINDIN GS: There are mild degene rative change s in both hips. There is mild margin al spurri ng. The joint space is minima lly narrow ed. There are mild degene rative change s in the SI joints . There is no acute fractu re. IMPRES SHERI: 1. There are mild degene rative change s in the hips and pelvis . Interp reted By: Anastasiya tompkins MD [facility] onical ly Signed By: Anastasiya tompkins MD on 025 3:06 PM MICHELLE [facility] [address] [place], [address], 07/24/2024 21:06:34 09/04/19 25 09/03/2024 XR, lumbo sacra l spine , 4 or more view [facility] [address] [facility] [place], [place] [id number] [phone] Patick t Name: WHITNEY villafana : 959 Eda villafana 54 Orderi ng Provid er: CHELLY MILLAY EXAM DATE: 2024 EXAM: XR LUMBAR SPINE AP/LAT /FLEX/ EXT CLINIC AL INFORM ATION: Back pain. IMAGES PROVID ED: AP, latera l and coned- down views of the lumbar spine with additi onal latera l views in flexio n and extens ion. COMPAR PRESLEY: 2022 FINDIN GS: Mild wedge compre ssion of T12. Previo us L3-L5 infrastructure solutions architect ior fixati on and interb xavi fusion . No hardwa re loosen ing or hardwa re fractu re is detect ed. Slight infrastructure solutions architect ior listhe sis of L2 relati ve to L3. No instab ility is seen on flexio n or extens ion. No radiog raphic eviden ce of injury is noted. IMPRES SHERI: 1. Uncomp licate d appear ing L3-L5 fusion 2. Mild malali gnment noted at L2-3. 3. Mild wedge compre ssion of T12. Stable Interp reted By: Armani Figueroa MD Electr onical ly Signed By: Armani Figueroa MD on 09/04/19 11:37 AM [email or web address] [facility] [address] [place], [address], 09/03/2024 12:19:36 Result Notes Documentation Provider Name and Address Organization Details Recorded Time Xr, Joint, Multiple, 1 View : [facility] [address] [place] [address] Patient Name: WHITNEY HULL Patient : 1960 Patient Ordering Provider: REBECA HERNANDEZ EXAM DATE: 07/23/2024 EXAM: XR LONG LEG LEFT/ JOINT SURVEY COMPARISON: 05/28/2024 HISTORY: Follow-up of prior surgery. FINDINGS: There is a left total knee arthroplasty in place. There is no evidence of loosening or complication. There is mild valgus angulation. No fracture is identified. There are mild degenerative changes in the left hip and mild degenerative changes in the ankle. IMPRESSION: 1. There is a left knee arthroplasty in place with mild valgus angulation. Interpreted By: Doc Schmitz MD CA HERNANDEZ PA-C [address] [place], [address], [facility] 07/23/2024 14:09:42 Xr, Hip, Bilateral, 2 View : [place] [address] [place] [address] Patient Name: WHITNEY HULL Patient : 1960 Patient Ordering Provider: CHELLY ROGERS EXAM DATE: 07/23/2024 EXAM: XR EDDIE HIPS, 2 VWS COMPARISON: None. HISTORY: Bilateral hip pain. FINDINGS: There are mild degenerative changes in both hips. There is mild marginal spurring. The joint space is minimally narrowed. There are mild degenerative changes in the SI joints. There is no acute fracture. IMPRESSION: 1. There are mild degenerative changes in the hips and pelvis. Interpreted By: Doc Schmitz MD LY ROGERS PA-C [address] [place], [address], [facility] 07/23/2024 15:47:18 Xr, Lumbosacral Spine, 4 Or More View : [address] [place] [address] Patient Name: WHITNEY HULL Patient : 1960 Patient Ordering Provider: CHELLY ROGERS EXAM DATE: 09/03/2024 EXAM: XR LUMBAR SPINE AP/LAT/FLEX/EXT CLINICAL INFORMATION: Back pain. IMAGES PROVIDED: AP, lateral and coned-down views of the lumbar spine with additional lateral views in flexion and extension. COMPARISON: 01/23/2023 FINDINGS: Mild wedge compression of T12. Previous L3-L5 posterior fixation and interbody fusion. No hardware loosening or hardware fracture is detected. Slight posterior listhesis of L2 relative to L3. No instability is seen on flexion or extension. No radiographic evidence of injury is noted. IMPRESSION: 1. Uncomplicated appearing L3-L5 fusion 2. Mild malalignment noted at L2-3. 3. Mild wedge compression of T12. Stable Interpreted By: Armani Figueroa MD LY ROGERS PA-C [address] [place] [address], [phone], [facility] 09/03/2024 12:19:36 Problems No Known Problems Procedures Surgical History Date Name Laterality Status Provider Name and Address Organization Details Recorded Time 09/02/19 25 Eye Surgery completed Heraclio Neely [facility] 09/03/2024 10:51:05 08/28/19 25 Synvisc One Injection completed GAURANG COBOS PA-C [address] [place] [address], [phone], [facility] 08/27/2024 10:54:41 08/05/19 25 Sacroiliac Joint Injection - Shukri completed FRANCISCO WATT MD [address] [place] [address], [address], [facility] 08/04/2024 15:32:16 07/24/19 25 Injection Joint/Bursa, Major completed Karolyn Cartwright [facility] 07/23/2024 14:22:59 04/11/19 25 Total knee arthroplasty completed Ankita Alicea [facility] 05/01/2024 08:55:00 04/01/19 25 PCM Visit completed Ankita Alicea [facility] 04/18/2024 09:34:52 03/31/19 25 EKG completed Noy Cornell [facility] 03/31/2024 10:56:15 03/26/19 25 PT Evaluation - Low Complexity completed MILKA FORDE, PT, DPT [address] [place], [address], [facility] 03/26/2024 07:53:14 03/26/19 25 PT Therapeutic Exercise completed MILKA FORDE, PT, DPT [address] [place], [address], [facility] 03/26/2024 11:37:59 10/09/19 24 Lumbar Epidural Steroid Injection - Shukri completed FRANCISCO WATT MD [address] [place] [address], [phone], [facility] 10/09/2023 16:41:54 06/29/19 24 Lumbar Epidural Steroid Injection - Shukri completed FRANCISCO WATT MD [address] [place], [address], [facility] 06/29/2023 15:05:18 06/01/19 24 Joint Injection, Knee - Shukri completed FRANCISCO WATT MD [address] [place], [address], [facility] 06/01/2023 14:04:44 03/05/19 24 Lumbar Epidural Steroid Injection - Shukri completed FRANCISCO WATT MD [facility] [place], [address], [facility] 03/05/2023 15:24:53 02/14/20 23 Joint Injection, Knee - Shukri completed FRANCISCO WATT MD [address] [place], [address], [facility] 02/13/2023 16:36:13 12/15/19 23 Joint Injection, Knee - Shukri completed FRANCISCO WATT MD [address] [place], [address], [facility] 12/14/2022 09:44:07 12/09/19 23 EKG completed TONY FROST MD [address] [place], [address], [facility] 12/08/2022 15:51:17 10/28/19 23 Joint Injection, Knee - Shukri completed FRANCISCO WATT MD [address] [place], [address], [facility] 10/27/2022 15:15:34 08/27/19 22 Back Surgery completed Edyta Amador [facility] 12/08/2022 14:25:01 04/18/19 22 Stress Test - Nuclear Lexiscan completed TONY FROST MD [address] [place], [address], [facility] 04/18/2021 14:45:48 04/04/19 22 EKG completed Kelsea Cunningham [facility] 04/04/2021 15:00:19 04/09/19 21 LAMINOTOMY (HEMILAMINECTOMY) , DECOMPRESSION OF NERVE ROOTS, PARTIAL FACECTOTOMY, FORAMINOTOMY AND/OR DISC REMOVAL, LUMBAR (SURG) completed Erinn Springer [facility] 04/21/2020 14:47:01 03/31/19 21 Echocardiogram completed TONY FROST MD [address] [place] [address], [phone] 03/31/2020 16:29:29 Knee arthroscopy/surge ry completed [facility] [place] 10/26/2016 10:56:59 Unlisted px hands/fingers completed [facility], [place] 10/26/2016 10:56:55 Back Surgery completed [facility], [place] 10/26/2016 10:56:48 Back Surgery completed Kelsea [facility] 04/04/2021 15:27:39 Imaging Results None recorded. Procedure Notes None recorded. Medical Equipment None Reported. Allergies Allergen ID Allergen Name Allergen Category Reaction Reaction Severity Criticality Documentation Date Start Date Code Code System Note Provider Name and Address Organization Details Recorded Time 765617 acetamino phen / oxycodone medicatio n itching Not available Not available 10/26/2016 05184 3 [facility] 14:[facility]12 Medications Name Sig Start Date Stop Date Status Note LastModified by Organization Details LastModified Time Compound Gentamyci n (120 mg/ 1000 mL normal saline) Thomas's Solution 120 mg in 1 liter of normal saline. Use as nasal lavage 1oz in each nostril BID 2019 active Not Available Not Available Not Avai lable Compound Gentamyci n (120 mg/ 1000 mL normal saline) Thomas's Solution 120 mg in 1 liter of normal saline. Use as nasal lavage 1oz in each nostril BID 03/31 completed Not Available Not Available Not [...] route for 14 days, for constipa tion. 07/23 completed Not Available Not Available Not Available ketoprofe n ER 200 mg 24 hr [...] completed Not Available Not Available Not Available trazodone 50 mg tablet Take 1 tablet every day by oral route. active Not Available Not Available No t Available sildenafi l 50 mg tablet take [...] Not Available tizanidin e 4 mg tablet Take 2 tablets every day by oral route at bedtime. active Not Available Not Available No t Available Claritin 10 mg tablet Take 1 tablet every day by oral route. 03/31 completed Not Available Not Available Not Available meloxicam 15 mg tablet Take 1 tablet every day by oral route with meal(s) for 30 days, for inflamma tion. 2024 active Not Available Not Available Not Avai lable ondansetr on HCl 4 mg tablet Take 1 tablet every 8 hours by oral route as needed, for nausea. 07/23 completed Not Available Not Available Not Available prednison e 20 mg tablet 02/17 completed [...] days, for preventi on of blood clots. 07/23 completed Not Available Not Available Not Available tramadol 50 mg tablet 03/31 completed Not [...] 7 days, for infectio n preventi on. 07/23 completed Not Available Not Available Not Available meloxicam 7.5 mg tablet TAKE ONE TABLET [...] tablets one hour before dental procedur e. 07/23 completed Not Available Not Available Not Available pantopraz ole 40 mg tablet,de layed release [...] e 137 mcg (0.1 %) nasal spray Pe Ell 2 sprays twice a day by intranas [...] 6 hours by oral route as needed. 07/23 completed Not Available Not Available Not Available atropine 1 % eye drops 02/28 completed [...] as needed by oral route. 02/09 completed [facility]: [id number] 0-61 Not Available Not Available Not [...] 1 capsule every day by oral route. 07/23 completed Not Available Not Available Not Available Lyrica 300 mg capsule 02/17 completed Not Available Not Available Not Available Requip active Not Available Not Availa ble Not Available Vitamin D 04/18 completed Not Available Not Available Not Available Keflex 03/31 completed Not Available Not Available Not Available Culturell e 1 tablet 4 days a week 04/18 completed Not Available Not Available Not Available Humira once every 2 wks active Not Available Not Available No t Available Super B Complex-V itamin C 12/08 [...] minimizi ng post operativ e bleeding . 07/23 completed Not Available Not Available Not Available Suprep Bowel Prep Kit 17.5 gram-3.13 gram-1.6 gram oral solution 03/31 completed Not Available Not Available Not Available magnesium 400 mg (as magnesium aspartate ,citrate, oxide) capsule Take 1 capsule every day by oral route. active Not Available Not Available No t Available Humira(CF ) Pen 40 mg/0.4 mL [...] JW Not Available Not Available Not Available One A Day Men Complete active Not Available Not Available Not Available Eye Health AREDS-2 active Not Available Not Available Not Available Vitals Date Recorded Body height Body mass index (BMI) Body weight Body temperature Heart rate Oxygen saturation Oxygen saturation in Arterial blood by Pulse oximetry Systolic And Diastolic Provider Name and Address Organization Details Last Updated DateTime 187.96 cm 39.7 kg/m2 447713. 44 g 98.1 [degF] 65 /min 92 % 92 % 128/74 mm[Hg] Kati Lares [facility] 14:31:36 Date Recorded Body height Body mass index (BMI) Body weight Provider Name and Address Organization Details Last Updated DateTime 07/23/2024 187.96 cm 38.5 kg/m2 837043.71 g Karolyn Cartwright [facility] 07/23/2024 13:54:06 Date Recorded Body height Body mass index (BMI) Body weight Provider Name and Address Organization Details Last Updated DateTime 08/27/2024 187.96 cm 39.7 kg/m2 938604.04 g Isaac Jackson [facility] 08/27/2024 10:26:16 Date Recorded Body height Body mass index (BMI) Body weight Oxygen saturation Oxygen saturation in Arterial blood by Pulse oximetry Heart rate Systolic And Diastolic Provider Name and Address Organization Details Last Updated DateTime 187.96 cm 39.7 kg/m2 867437. 04 g 94 % 94 % 54 /min 138/78 mm[Hg] Heraclio Chin [facility] 10:52:56 Social History Question Answer Notes LastModified by [employer] Details LastModified Time Tobacco Smoking Status Never Smoker Jessica Delgado [facility] 10/26/2016 10:55:42 What Was The Date Of Your Most Recent Tobacco Screening? 09/03/2024 [email or web address] Information not available 09/03/2024 What Is Your Relationship Status? Information not available 02/28/2023 Has Tobacco Cessation Counseling Been Provided? No [email or web address] Information not available 04/18/2021 Sex: Male Functional Status Question Answer Note LastModified by [employer] Details LastModified Time Do you use any illicit or recreational drugs? No Information not available 02/28/2023 Do you or have you ever used any other forms of tobacco or nicotine? No [email or web address] Information not available 02/28/2023 What is your level of alcohol consumption? Moderate [email or web address] Information not available 10/26/2016 Are you currently employed? No [email or web address] Information not available 02/01/2024 Mental Status None recorded. Family History Relationship [...] Disease N Hernia N Colon/Rectal Disorders N Hypothyroidism N Lung Disease N Glaucoma N Pacemaker N Measles Y Vascular Disease N Anesthesia Complications N Varicose Veins N Attempted Suicide N Hearing Loss N Serious Illness or Injuries N Radiation Therapy N History of Blood Thinners N Blood Thinners N Shortness of Breath N Alcohol Overuse/Alcohol Abuse N High Cholesterol N Liver Disease N Organ Transplant N Allergies/Hayfever N Thyroid Problems Y Anemia N Immune System Disorder N Chest Pain N Heart Attack (NH) N Mental Illness N Neurological Problems N Diabetes N Cardiomyopathy N Seizures/Epilepsy N Heart Murmur Y Congestive Heart Failure (CHF) N Hyperlipidemia N Epilepsy/Seizures N Reflux/GERD N Sleep Apnea Y Warfarin Management N Heart Disease N Hypertension Y Osteoporosis N Immunizations Vaccine Type Date Status Note Provider Nam e and Address Organization Details Recorded Time Influenza, recombinant, quadrivalent, PF 1 completed Karolyn Cartwright [facility] 02/28/2023 10:12:05 COVID-19 vaccine, vector-nr, rS-Ad26, PF, 0.5 mL 1 completed Karolyn Cartwright [facility] 02/28/2023 10:12:05 COVID-19 vaccine, vector-nr, rS-Ad26, PF, 0.5 mL 1 completed Karolyn Chay [facility] 02/28/2023 10:12:05 pneumococcal polysaccharide PPV23 0 completed Karolyn Chay [facility] 02/28/2023 10:12:05 Past Encounters Encounter ID Performer Location Encounter Start Date Encounter Closed Date Diagnosis/Indication Diagnosis SNOMED-CT Code Diagnosis ICD10 Code Diagnosis Note [id number] MD LEE ANN JOH[facility] [address] [place] [address] 10/26/2016 10:09:33 10/26/2016 13:15:51 Cellulitis of face [id number] L03.211 right sided extending from right buccal cheek down over the mandible and all the way down into the neck almost to the clavicles; there is a 2 x 2 centimeter inflamed lymph node over the body of the right mandibletr eated in [place] from 10/22-10/24- taking Augmentin, Clindamyci n, Prednisone , Tylenol #3CT neck showed cellulitis , no obvious abscess; labs showed elevated WBC Dental abscess [id number] K04.7 over right mandibular buccal and 1st molar(#29, #30) - is likely the source of infection/ cellulitis /facial pain Deviated nasal septum 12 [id number] J34.2 [id number] JING CID MD [facility] [address] [facility] [place] [address] 11/09/2016 12:45:10 11/09/2016 15:35:32 Cellulitis of face [id number] L03.211 right sided extending from right buccal cheek down over the mandible and all the way down into the neck almost to the clavicles; there is a 2 x 2 centimeter inflamed lymph node over the body of the right mandibletr eated in [place] from 10/22-10/24- Augmentin, Clindamyci n, Prednisone , Tylenol #3CT neck showed cellulitis , no obvious abscess; labs showed elevated WBC 18,000 today's exam shows 90% resolution of the cellulitis with only minimal lymphadeni tis in the right jugular digastric area Dental abscess [id number] K04.7 over right mandibular buccal and 1st molar(#29, #30) - is likely the source of infection/ cellulitis /facial pain - seen both oral surgery and an endodontis t for a possible root canal Deviated nasal septum 12 5797906 J34.2 Cervical lymphadenitis 3279570 I88.9 [id number] MD LEE ANN J[facility]NS [facility] [address] [address] [place] [address] 02/17/2019 12:44:02 02/20/2019 08:48:50 Cellulitis of face 101884768 L03.211 right sided extending from right buccal cheek down over the mandible and all the way down into the neck almost to the clavicles; there is a 2 x 2 centimeter inflamed lymph node over the body of the right mandibletr eated in [facility] from 10/22-10/24- Augmentin, Clindamyci n, Prednisone , Tylenol #3CT neck showed cellulitis , no obvious abscess; labs showed elevated WBC 18,000 today's exam shows 90% resolution of the cellulitis with only minimal lymphadeni tis in the right jugular digastric area- Resolved; did have a root canal performed Dental abscess 982847123 K04.7 over right mandibular buccal and 1st molar(#29, #30) - is likely the source of infection/ cellulitis /facial pain - seen both oral surgery and an endodontis t for a possible root canal - Resolved; did have a root canal performed Deviated nasal septum 12 0001412 J34.2 - To the right inferiorly Cervical lymphadenitis 9616786 I88.9 Chronic cough 77783629 R 05 Gastroesop hageal reflux disease without esophagitis 007111860 K21.9 - Currently taking Omeprazole 20mg daily Posterior rhinorrhea 758 85864 R09.82 [id number] MD LEE ANN JOHNS E[facility] [address] [place] [address] 03/27/2019 15:35:36 04/01/2019 16:13:41 Chronic cough 25724524 R05 Gastroesop hageal reflux disease without esophagitis 131907344 K21.9 - Currently taking Omeprazole 20mg daily Deviated nasal septum 12 4932574 J34.2 - To the right inferiorly Cellulitis of face 2001 L03.211 right sided extending from right buccal cheek down over the mandible and all the way down into the neck almost to the clavicles; there is a 2 x 2 centimeter inflamed lymph node over the body of the right mandibletr eated in [facility] from 10/22-10/24- Augmentin, Clindamyci n, Prednisone , Tylenol #3CT neck showed cellulitis , no obvious abscess; labs showed elevated WBC 18,000 today's exam shows 90% resolution of the cellulitis with only minimal lymphadeni tis in the right jugular digastric area- Resolved; did have a root canal performed Dental abscess 190502136 K04.7 over right mandibular buccal and 1st molar(#29, #30) - is likely the source of infection/ cellulitis /facial pain - seen both oral surgery and an endodontis t for a possible root canal - Resolved; did have a root canal performed Obstructiv e sleep apnea syndrome 15020661 G47.33 - BiPAP use for the past 4-5 years Vasomotor rhinitis 04004 03 J30.0 Xerostomia 08721674 R68. 2 [id number] HELEN HESTER PA-C [facility] CLOS[facility] [address] [place] [address] 02/03/2020 13:44:00 02/03/2020 14:46:30 Lumbar radiculopathy 242970041 M54.16 [id number] HELEN HESTER PA-C [facility] CL[facility] [address] [place] [address] 03/16/2020 15:15:21 03/19/2020 16:17:26 Lumbar radiculopathy 301781607 M54.16 [id number] TONY FROST MD CARDIOLOG Y [address] ,[address]LO[address] [place] [address] 03/31/2020 13:27:44 03/31/2020 14:42:25 Essential hypertension 52316280 I10 Blood pressure 152/80 in the office today. No changes. Well contr olled type 2 diabetes mellitus 257617175 E11.9 Most recent A1c 5.5% Obstructiv e sleep apnea syndrome 27766563 G47.33 Advised to continue with BiPAP through the perioperat sammy period. He was advised to bring his device to his surgery in case he requires overnight admission. Preoperati ve cardiovascular examination 023652806 Z01.810 He has an estimated 0.32% risk for Perioperat sammy Myocardial Infarction or Cardiac Arrest. (Duvall et al, Circulatio n. 2010Sep 20;124(4): 381-7) No further preoperati ve testing is recommende d. Continue with current antihypert ensives and bring his BiPAP device in case he requires overnight admission. Aortic lucia ve regurgitation 74372384 I35.1 PLAN: Office follow-up in one year. Periodic Echo surveillan ce [id number] TONY FROST MD ECHO VASCULAR LAB [address] [place] [address] 03/31/2020 14:42:01 04/01/2020 06:58:40 Aortic valve stenosis 17042385 I35.0 [id number] RUDY MEJÍA MD SURGERY SCHEDULE [address] [place] [address] 04/20/2020 16:44:12 04/20/2020 17:06:40 [id number] RUDY MEJÍA MD [facility] [address] [place] [address] 04/27/2020 14:31:35 04/27/2020 15:58:37 [id number] RUDY MEJÍA MD [facility] [address] [place] [address] 05/11/2020 14:36:53 05/13/2020 09:38:57 Lumbar spondylosis 270954317 M47.611 [id number] HELEN SIEGRIST, PA-C [facility] CL[facility] [address] [place] [address] 06/17/2020 12:54:51 06/18/2020 12:59:41 Lumbar radiculopathy 727351407 M54.16 [id number] JENNIE LYNCH PA-C [facility] CL[facility] [address] [place] [address] 08/19/2020 12:53:46 08/23/2020 11:55:03 Postoperative care 534887142 Z48.89 Patient is a 60-year-ol d male [...] /extension lumbar x-rays performed today at the [facility] Do not show any instabilit y were signs of infectionL umbar MRI from 06/28/20At [facility]. These are scanned into our PACS system Does not show any acute process or stenosis. Not concerning for infection. [id number] TONY FROST MD CARDIOLOG Y [address],[facility] FLOOR [place] [address] 04/04/2021 14:55:15 04/04/2021 16:04:55 Aortic valve regurgitation 92381119 I35.1 Essential hypertension 04306976 I10 Medication adjustment as noted above Well contr olled type 2 diabetes mellitus 857715570 E11.9 Obstructiv e sleep apnea syndrome 00665783 G47.33 Advised to continue with BiPAP Obesity 107498010 E66.9 [id number] TONY FROST MD CARDIOLOG Y [address],[facility] FLOOR [place] [address] 5 04/18/2021 11:59:10 04/19/2021 15:27:09 Aortic valve regurgitation 20217034 I35.1 Essential hypertension 92057613 I10 Well contr olled type 2 diabetes mellitus 590836179 E11.9 Obstructiv e sleep apnea syndrome 67522526 G47.33 Obesity 607338676 E66.9 [id number] TONY FROST MD [facility] [address] [place] [address] 5 04/18/2021 11:58:22 04/18/2021 14:52:32 [id number] FRANCISCO WATT MD PAIN MEDICINE CLOSED [address] [place] [address] 10/11/2022 15:23:58 10/12/2022 04:33:15 Pain in both feet 8353562179 9746403 M79.671 M79.672 Pain of bi lateral knee joints 0401905353 92387 M25.561 M25.562 Lumbar post-laminectomy syndrome 103144486 M96.1 Bilateral osteoarthritis of knees 9713190317 25831 M17.0 [id number] FRANCISCO WATT MD [facility] OF [facility] PROFESSIO NAL [facility]ARGES [address] [facility], [address] [place] [address] 10/27/2022 13:59:03 11/02/2022 08:12:30 Bilateral osteoarthritis of knees 0089918783 43304 M17.0 [id number] CHELLY ROGERS PA-C PAIN MEDICINE CLOSED [address] [place] [address] 11/27/2022 08:54:18 11/27/2022 11:27:11 Bilateral osteoarthritis of knees 2797303020 45559 M17.0 Lumbar post-laminectomy syndrome 425822630 M96.1 Pain in both feet 693532 9580 7306821 M79.671 M79.672 [id number] TONY FROST MD CARDIOLOG Y [address] [place] [address] 12/08/2022 14:12:12 12/08/2022 15:13:17 Aortic valve regurgitation 51858819 I35.1 Essential hypertension 57082771 I10 Well contr olled type 2 diabetes mellitus 819007275 E11.9 Obstructiv e sleep apnea syndrome 51033656 G47.33 Obesity 553584146 E66.9 Edema of l ower extremity 510542226 R60.0 12/08/2022 : Discontinu e amlodipine . Continue furosemide 20 mg pending review of labwork. [id number] FRANCISCO WATT MD [facility] OF [facility] PROF[address] N[address] [facility], [address] [place] [address] 12/14/2022 09:18:10 12/14/2022 14:42:00 Pain of joint of ankle and/or foot 684284709 M25.579 [id number] CHELLY ROGERS PA-C PAIN MEDICINE CLOSED [address] [place] [address] 01/16/2023 12:55:00 01/16/2023 14:59:43 Bilateral osteoarthritis of knees 9137614618 74551 M17.0 Lumbar post-laminectomy syndrome 312548938 M96.1 Pain in both feet 257866 0686 0261625 M79.671 M79.672 Osteoarthr itis of knee 815202886 M17.9 [id number] CHELLY ROGERS PA-C PAIN MEDICINE CLOSED [address] [place] [address] 01/26/2023 09:41:03 01/26/2023 13:06:29 Bilateral osteoarthritis of knees 9120616003 17188 M17.0 Lumbar post-laminectomy syndrome 875252206 M96.1 Pain in both feet 744871 5144 7853541 M79.671 M79.672 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 23509276 M47.9 Lumbar radiculopathy 128 363305 M54.16 [id number] CHELLY ROGERS PA-C PAIN MEDICINE CLOSED [address] [place] [address] 02/09/2023 10:48:03 02/09/2023 12:39:17 Bilateral osteoarthritis of knees 1127955397 65083 M17.0 Lumbar radiculopathy 128 435369 M54.16 Lumbar post-laminectomy syndrome 743291651 M96.1 Pain in both feet 996530 6599 7699970 M79.671 M79.672 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 Hull is here today to discuss possible treatment [...] answered to the best of my ability. [id number] TONY FROST MD CARDIOLOG Y [address] [place] [address] 02/28/2023 13:36:38 02/28/2023 14:22:59 Aortic valve regurgitation 86343225 I35.1 Essential hypertension 02243400 I10 Well contr olled type 2 diabetes mellitus 925225659 E11.9 Obstructiv e sleep apnea syndrome 78721011 G47.33 Obesity 144472282 E66.9 Edema of l ower extremity 418227047 R60.0 12/08/2022 : Discontinu e amlodipine . Continue furosemide 20 mg pending review of labwork.02/28/2023: Edema has resolved. Blood pressure remained stable, 134/75 in office. [id number] FRANCISCO WATT MD [facility] OF [facility] HOLLI NAL [address]ARG[address] [facility], [address] [place] [address] 03/05/2023 13:53:30 03/05/2023 15:40:01 Lumbar radiculopathy 140019917 M54.16 [id number] LUZMARIA LILLY DPM ORTHOPEDI CS [facility] CLOSED [address] [place] [address] 03/09/2023 10:28:46 03/09/2023 11:12:25 Foot pain 30947503 M79.671 M79.672 Bilateral gastrocnemius muscle tightness 5456294027 2983866 R29.898 Tibialis a nterior tendinitis 956878579 M76.811 Patient presents today chronic bilateral foot pain of several years that has worsened over the past 1-2 weeks; right foot is worse than left. He states he was seen by Dr. Watt recently and received a shot in his back, which alleviated his pain. Patient has also tried custom orthotics with appropriat e shoes.-[facility] replacemen t with Dr. JacobsenReviewed imaging and clinical exam findings with him. [...] for recheck of tibialis anterior tendinitis . 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 30278764 M47.9 [id number] CHELLY ROGERS PA-C PAIN MEDICINE CLOSED [address] [place] [address] 04/05/2023 10:38:15 04/06/2023 04:50:11 Bilateral osteoarthritis of knees 6194110341 12834 M17.0 Lumbar radiculopathy 128 422307 M54.16 Lumbar post-laminectomy syndrome 114142345 M96.1 Pain in both feet 838260 6653 8738860 M79.671 M79.672 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 Bilateral gastrocnemius muscle tightness 6776099155 5887234 R29.898 Foot pain 05531453 M79.6 71 M79.672 Contractur e of joint of right foot 6325325727 71518 M24.574 [id number] FRANCISCO WATT MD [facility] OF [facility] PROFESSIO NAL CHARGES [address] [place] [address], [address] [place] [address] 06/01/2023 13:43:55 06/01/2023 16:21:43 Bilateral osteoarthritis of knees 5175086539 61386 M17.0 [id number] FRANCISCO WATT MD [facility] [address] [facility] PROF[address] N[address]ARG[address] [facility], [address] [place] [address] 06/29/2023 14:07:02 07/03/2023 15:43:06 Lumbar radiculopathy 906550725 M54.16 [id number] CHELLY ROGERS PA-C PAIN MEDICINE CLOSED [address] [place] [address] 07/18/2023 10:31:40 07/18/2023 15:51:42 Bilateral osteoarthritis of knees 1734547690 65897 M17.0 Lumbar radiculopathy 128 582380 M54.16 Lumbar post-laminectomy syndrome 924423354 M96.1 Pain in both feet 474409 7334 4829007 M79.671 M79.672 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 92036600 M47.9 [id number] TONY FROST MD CARDIOLOG Y [address]LO[address] [place] [address] 08/29/2023 13:29:59 08/29/2023 14:20:20 Aortic valve regurgitation 42840015 I35.1 Essential hypertension 28924388 I10 Obesity 803177435 E66.9 [id number] CHELLY ROGERS PA-C PAIN MEDICINE CLOSED [address] [place] [address] 09/27/2023 10:36:23 09/27/2023 14:45:08 Bilateral osteoarthritis of knees 0475375708 94023 M17.0 Lumbar radiculopathy 128 625601 M54.16 Lumbar post-laminectomy syndrome 540786306 M96.1 Pain in both feet 181139 5206 6114724 M79.671 M79.672 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 52757711 M47.9 Long-term drug therapy 683736435 Z79.899 Synovial cyst of knee 24 0977636 M71.20 [id number] FRANCISCO WATT MD [facility] OF SERV[address] PROFESSIO NAL CHARGES [address] [facility], [address] [place] [address] 10/09/2023 15:40:17 10/10/2023 15:50:12 Lumbar radiculopathy 543851048 M54.16 [id number] ANGE CASEY MD ORTHOPEDI CS [facility] CLOSED [address] [place] [address] 10/25/2023 15:05:51 10/25/2023 16:24:28 Osteoarthritis of knee 209024786 M17.9 63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 The patient has failed > 3 [...] potential cost sharing responsibi lities; only one [facility] er can furnish and bill for PCM services during a calendar month, and the patient can stop these services at any time. The patient understand s and has verbally consented to accept PCM services and has been provided a copy of a written explanatio n of this service today. 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 Preoperati ve lab work reviewed with the patient. Any modifiable risk factors discussed. No indication for any additional labs or testing at this time. Continue with planned joint arthroplas ty. Discussed postoperat sammy plan for physical therapy. All questions answered to the best of my ability. Essential hypertension 80798741 I10 Currently managed with Bumex, hydralazin e, losartan, spironolac tone, propranolo l. Hold Bumex, spironolac tone, losartan the day of surgery. Hypothyroidism 29235240 E03.9 Controlled with current regimen of levothyrox ine Gastroesop hageal reflux disease without esophagitis 044229357 K21.9 On omeprazole daily, can continue throughout perioperat sammy course. Lower urin ekle tract symptoms due to benign prostatic hypertrophy 0035626393 9101 N40.1 Continue with current regimen Aortic lucia ve regurgitation 61275319 I35.1 Last echo 1 year ago. Clinically asymptomat ic. Has follow-up withcardio logy Dr. Bennett 03/31/2024. Will defer to them for any further workup. [id number] MILKA FORDE, PT, DPT PHYSICAL THERAPY / HAND THERAPY [facility] CLOSED [address] [place] [address] 03/26/2024 10:44:09 03/27/2024 04:24:53 Pain of left knee joint 9663130993 97117 M25.562 Osteoarthr itis of left knee joint 7815271530 74649 M17.12 [id number] TONY FROST MD CARDIOLOG Y [address] [place] [address] 03/31/2024 10:42:25 03/31/2024 11:23:02 Essential hypertension 76319763 I10 Aortic lucia ve regurgitation 87349767 I35.1 Obesity 060625920 E66.9 Preoperati ve cardiovascular examination 570779943 Z01.810 He is planning to undergo LEFT [...] et al, Circulatio n. 2010Sep 20;124(4): 381-7. [id number] JEN Harris MD ORTHOPEDI CS [facility] CLOSED [address] [address] 04/01/2024 12:06:12 04/14/2024 13:13:05 Osteoarthritis of knee 305021895 M17.12 Peng was seen by Dr Jessica harris where surgical plan was discussed and finalized for left total knee arthroplas ty on 04/11/24. [id number] JEN Harris MD SURGERY SCHEDULE [address] [place] [address] 04/11/2024 09:16:10 04/11/2024 09:17:05 [id number] REBECA HERNANDEZ PA-C [facility] [address] [place] [address] [place] [address] 05/01/2024 08:50:19 05/01/2024 10:42:17 History of total knee arthroplasty 7468776957 105 Z96.659 Mr. Hull is now 3 weeks s/p L TKA, [...] post op follow up with radiograph s. 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 Hull is now 6 weeks s/p L TKA. [...] post op follow up with radiograph s. [id number] REBECA HERNANDEZ PA-C ORTHOPEDI [address] [place] [address] 07/23/2024 13:29:06 07/23/2024 14:26:13 Osteoarthritis of right knee joint 3446574838 23590 M17.11 I discussed the risk and benefits of CSI to the patient which included the risk of elevated blood sugar, elevated blood pressure. We also discussed the risks of chondrotox ic effect of the medication with repeated injection as well as the risks of infection. The patient voiced understand ing of these risks and wished to proceed with the injection. Right knee CSI tolerated well. History of total knee arthroplasty 5721974747 105 Z96.659 Peng is now 3 months status post left TKA, doing fairly well at this time. He does have some occasional lateral knee pain near the distal IT band that causes him some discomfort when ambulating but otherwise very tolerable at this juncture. No functional restrictio ns. He has completed physical therapy. Continue with NSAIDs/Tyl enol for any residual pain or swelling. Dental prophylaxi s reviewed. Radiograph s obtained today reveal intact TKA implants in good positionin g andalignme nt. Physical exam reveals good ROM without pain and a well-heale d surgical incision.W e reviewed the expected progressio n of recovery and rehabilita tion. At this time,the patient is encouraged to continue all activities of daily living as comfortabl e. The patientsho uld continue maintainin g strength bilateral legs with HEP.Patien t will return to clinic in 1 year or sooner if symptoms warrant. 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 We discussed the importance of weight loss, and low-impact aerobic activity. We discussed judicious use of NSAIDs, if possible, or Tylenol. We discussed corticoste roid injections and viscosuppl ementation . We discussed bracing, physical therapy, activity modificati on, and use of assistive ambulatory devices. 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 09359191 M47.9 Health Concerns Section Related Observation LastModified by Organization Detai ls LastModified Time None Recorded Concern Status LastModified by Organization Details LastModified Time None Recorded Advance Directives Directive None Recorded Payers Insurance Date Sequence Insurance Name Policy Number Policy Daly Covered Member ID Daly Member ID Guarantor Name 08/22/2024 2 [place] Whitney Hull [id number] Whitney Hull 09/01/2024 1 [facility] (MEDICARE REPLACEMENT/A DVANTAGE - PPO) [id number] Peng Hull [id number] Whitney Hull 02/01/2024 1 [place] [id number] Karolyn Hull [id number] Whitney Hull Notes Date Note Type Note Provider Name and Address Organization Details Recorded Time 07/23/2024 text/html 07/23/24Patient is 14.5 weeks s/p L TKA. surgical date 04/11/24Pain is worse 2/10 pain level with walking.Currently taking no doses per day of narcotic.Ambulating with no assistive devicePT: HEP stationary foot pedal exercise mini bike Denies fevers, chills, or wound drainage.They do not request a refill of pain medicine. 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 Alleviating Factors:sitting; lying down; heat; PT/OT; rn acute care Aggravating Factors:standing; walking; getting out of bed; going from sit to stand; upstairs; downstairs; daytime Associated Symptoms:numbness;swell ing(toes) Previous Surgery:date: (04/11/24 Total Lt knee with Dr Jacobsen) Prior Imaging:none Previous Injections:helped temporarily; Bilateral tarsometatarsal joint complex injection 12/14/[address] Watt Previous PT:none (Starting PT soon) Work Related:yes Working:no Peng Hull is a 64 yo male here today for 3 mth med RF. Pt reports he still has some relief w/ the gabapentin. Pt states he is having increased pain in right hip. CHELLY ROGERS PA-C [address] [place], [address], [facility] 07/23/2024 14:52:03 08/27/2024 text/html 08/27/24Right KNEE injection synvisc one [id number] knee CSI 07/23/24Patient is 14.5 weeks s/p L TKA. surgical date 04/11/24Pain is worse 2/10 pain level with walking.Currently taking no doses per day of narcotic.Ambulating with no assistive devicePT: HEP stationary foot pedal exercise mini bike Denies fevers, chills, or wound drainage.They do not request a refill of pain medicine. 05/28/24 Patient is 6 weeks s/p L TKA. Surgery date 04/11/24Pain is improvingCurrently taking doses per day of narcotic.Ambulating with no assistive devicePT: outpatient Denies fevers, chills, or wound drainage.They request a refill of pain medicine. 0-2-65Kqpxpzb is 3 weeks s/p L TKA.Pain is improvingCurrently taking doses per day of narcotic.Ambulating with no assistive device[facility] Denies fevers, chills, or wound drainage.They request a refill of pain medicine. GAURANG COBOS PA-C [address] [place], [address], [facility] 08/27/2024 11:06:21 09/03/2024 text/html Injection follow upReported bypatient.Most recent procedures:joint injection (bilateral SI joint); date: (08/04/24) % of reliefpain relief 0% Duration of relief:ongoing Severity:same; worsening; current pain 7/10; average pain 7/10 Woundinjection site healed well; no fever; no bleeding CHELLY ROGERS PA-C [address] [place], [address], [facility] 09/03/2024 11:19:19
--- OUTSIDE RECORDS SUMMARY | 2024-09-15 12:04 | XMS_ITS | Continuity of Care Document ---
Author Organization [facility], ORTHOPEDICS [address] [place] [address] Care Team Providers Care Nutrition Intern Name Role Phone JING CID Record Filing Clerk BRENDA STEWART Primary Care Provider [phone] KHANH FIELD Primary Care Provider TONY FROST [place] Historian CHELLY ROGERS Referring Provider [phone] JEN ROSA Orthopedic Surgeon Assessment No assessment recorded. Plan of Treatment [...] record ed. Referral None record ed. Procedures None record ed. Surgeries None record ed. Imaging None record ed. Medication Orders meloxi cam 15 mg tablet 2024 07/ 025 [facility], [facility]5 [facility], [place], [address], 08/27/2024 10:58:16 Patient TargetsNo targets recorded. Patient InstructionsNo instructions recorded. Reason for Referral None Reported. Results Created Date Observation Date Name Description Value Unit Range Abnormal Flag Note LastModifiedBy Organization Detail LastModifiedTime 09/04/19 25 09/03/2024 XR, lumbo sacra l spine , 4 or more view [facility] [address] [place] [address] Eda villafana Name: KIRIT villafana : 95Cristin villafana 53 Orderi ng Provid er: CHELLY ROGERS EXAM DATE: 2024 EXAM: XR LUMBAR SPINE AP/LAT /FLEX/ EXT CLINIC AL INFORM ATION: Back pain. IMAGES PROVID ED: AP, latera l and coned- down views of the lumbar spine with additi onal latera l views in flexio n and extens ion. COMPAR PRESLEY: 2022 FINDIN GS: Mild wedge compre ssion of T12. 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 No hardwa re loosen ing or hardwa re fractu re is detect ed. Slight balloon seller ior listhe sis of L2 relati ve [...] Armani Figueroa MD on 09/04/19 11:37 AM [facility]iology [address] [place], [address], 09/03/2024 12:19:36 Result Notes None recorded. Problems No Known Problems Procedures Surgical History Date Name Laterality Status Provider Name and Address Organization Details Recorded Time 09/02/19 Eye Surgery completed Heraclio Neely [facility] 09/03/2024 10:51:05 08/28/19 25 Synvisc One Injection completed GAURANG COBOS PA-C [address] [place], [address], [facility] 08/27/2024 10:54:41 08/05/19 25 Sacroiliac Joint Injection - Shukri completed FRANCISCO KENDRICK MD [address] [place], [address], [facility] 08/04/2024 15:32:16 07/24/19 25 Injection Joint/Bursa, Major completed Karolyn Cadeon [facility] 07/23/2024 14:22:59 04/11/19 25 Total knee arthroplasty completed Ankita Alicea [facility] 05/01/2024 08:55:00 04/01/19 25 PCM Visit completed Ankita Alicea [facility] 04/18/2024 09:34:52 03/31/19 25 EKG completed Noy Cornell [facility] 03/31/2024 10:56:15 03/26/19 25 PT Evaluation - Low Complexity completed MILKA FORDE, PT, DPT [address] [place] [address], [address], [facility] 03/26/2024 07:53:14 03/26/19 25 PT Therapeutic Exercise completed MILKA FORDE, PT, DPT [address] [place] [address], [address], [facility] 03/26/2024 11:37:59 10/09/19 24 Lumbar Epidural Steroid Injection - Shukri completed FRANCISCO KENDRICK MD [address] [place] [address], [address], [facility] 10/09/2023 16:41:54 06/29/19 24 Lumbar Epidural Steroid Injection - Shukri completed FRANCISCO KENDRICK MD [address] [place] [address], [address], [facility] 06/29/2023 15:05:18 06/01/19 24 Joint Injection, Knee - Shukri completed FRANCISCO KENDRICK MD [address] [place] [address], [address], [facility] 06/01/2023 14:04:44 03/05/19 24 Lumbar Epidural Steroid Injection - Shukri completed FRANCISCO KENDRICK MD [address] [place] [address], [address], [facility] 03/05/2023 15:24:53 02/14/20 23 Joint Injection, Knee - Shukri completed FRANCISCO KENDRICK MD [address] [place], [address], [facility] 02/13/2023 16:36:13 12/15/19 23 Joint Injection, Knee - Shukri completed FRANCISCO KENDRICK MD [address] [place], [address], [facility] 12/14/2022 09:44:07 12/09/19 23 EKG completed TONY FROST MD [address] [place] [address] [place], [address], [facility] 12/08/2022 15:51:17 10/28/19 23 Joint Injection, Knee - Shukri completed FRANCISCO KENDRICK MD [address] [place], [address], [facility] 10/27/2022 15:15:34 08/27/19 22 Back Surgery completed Edyta Amador [facility] 12/08/2022 14:25:01 04/18/19 22 Stress Test - Nuclear Lexiscan completed TONY FROST MD [address] [place] [address], [phone], [facility] 04/18/2021 14:45:48 04/04/19 22 EKG completed Kelsea Cunningham [facility] 04/04/2021 15:00:19 04/09/19 21 LAMINOTOMY (HEMILAMINECTOMY) , DECOMPRESSION OF NERVE ROOTS, PARTIAL FACECTOTOMY, FORAMINOTOMY AND/OR DISC REMOVAL, LUMBAR (SURG) completed Erinn Springer [facility] 04/21/2020 14:47:01 03/31/19 21 Echocardiogram completed TONY FROST MD [address] [place] [address], [phone], [facility] 03/31/2020 16:29:29 Knee arthroscopy/surge ry completed [facility] 10/26/2016 10:56:59 Unlisted px hands/fingers completed [facility] 10/26/2016 10:56:55 Back Surgery completed Jessica Delgado [facility] 10/26/2016 10:56:48 Back Surgery completed Kelsea Octavio [facility] 04/04/2021 15:27:39 Imaging Results None recorded. Procedure Notes None recorded. Medical Equipment None Reported. Allergies Allergen ID Allergen Name Allergen Category Reaction Reaction Severity Criticality Documentation Date Start Date Code Code System Note Provider Name and Address Organization Details Recorded Time 258567 acetamino phen / oxycodone medicatio n itching Not available Not available 10/26/2016 36184 3 RxNorm Edyta Amador [facility] 14:21:12 Medications Name Sig Start Date Stop [...] e 137 mcg (0.1 %) nasal spray [place] 2 sprays twice a day by intranas [...] as needed by oral route. 02/[address] [facility]: 0904-588 0-61 Not Available Not [...] by oral route for 3 days, for minimjareti ng post operativ e bleeding . 07/23 [...] Updated DateTime 08/27/2024 187.96 cm 39.7 kg/m2 016060.04 g Isaac Jackson [facility] 08/27/2024 10:26:16 Social History Question Answer Notes LastModified by [employer] Details LastModified Time Tobacco Smoking Status [facility] 10/26/2016 10:55:42 What Was The Date Of Your Most Recent Tobacco Screening? 09/03/2024 [email or web address] Information not available 09/03/2024 What Is Your Relationship Status? [email or web address] Information not available 02/28/2023 Has Tobacco Cessation Counseling Been Provided? No [email or web address] Information not available 04/18/2021 Sex: Male Functional Status Question Answer Note LastModified by [employer] Details LastModified Time Do you use any illicit or recreational drugs? No [email or web address] Information not available 02/28/2023 Do you or have you ever used any other forms of tobacco or nicotine? No [email or web address] Information not available 02/28/2023 What is your level of alcohol consumption? Moderate [email or web address] Information not available 10/26/2016 Are you currently employed? No [email or web address] Information not available 02/01/2024 Mental Status None [...] N Immune System Disorder N Heart Attack ([place]) N Mental Illness N Neurological Problems N Diabetes N Cardiomyopathy N Seizures/Epilepsy N Heart Murmur Y Congestive Heart Failure (CHF) N Hyperlipidemia N Epilepsy/Seizures N Reflux/GERD N Sleep Apnea Y Warfarin Management N Heart Disease N Hypertension Y Osteoporosis N Immunizations Vaccine Type Date Status Note Provider Nam e and Address Organization Details Recorded Time Influenza, recombinant, quadrivalent, PF 1 completed Karolyn Cartwright [facility] 02/28/2023 10:12:05 COVID-19 vaccine, vector-nr, rS-Ad26, PF, 0.5 mL 1 completed Karolyn Chay [facility] 02/28/2023 10:12:05 COVID-19 vaccine, vector-nr, rS-Ad26, PF, 0.5 mL 1 completed Karolyn Chay [facility] 02/28/2023 10:12:05 pneumococcal polysaccharide PPV23 0 completed Karolyn Chay [facility] 02/28/2023 10:12:05 Past Encounters Encounter ID Performer Location Encounter Start Date Encounter Closed Date Diagnosis/Indication Diagnosis SNOMED-CT Code Diagnosis ICD10 Code Diagnosis Note [id number] FRANCISCO KENDRICK MD [facility] [address] [facility] [address] PROFESSIO NAL CHARGES [address] [facility], [address] [place] [address] 08/04/2024 14:10:26 08/08/2024 13:33:15 Inflammation of sacroiliac joint 27470359 M46.1 [id number] GAURANG COBOS PA-C ORTHOPEDI [address] [place] [address] 08/27/2024 10:22:05 08/27/2024 11:18:15 Osteoarthritis of right knee joint 2519487964 73336 M17.11 ASSESSMENT : DJD RIGHT knee PLAN: [...] is for viscosuppl ementation Follow up prn Health Concerns Section Related Observation LastModified by Organization Detai ls LastModified Time None Recorded Concern Status LastModified by Organization Details LastModified Time None Recorded Payers Encounter Date Sequence Insurance Name Policy Number Policy Daly Covered Member ID Dlay Member ID Guarantor Name 08/27/2024 1 [facility] (MEDICARE REPLACEMENT/A DVANTAGE - PPO) [id number] Peng Garcia [id number] Kirit Garcia Notes Date Note Type Note Provider Name and Address Organization Details Recorded Time 08/27/2024 text/html 08/27/24Right KNEE injection synvisc one 10-39-3837Nd knee CSI 07/23/24Patient is 14.5 weeks s/p [...] drainage.They request a refill of pain medicine. 0-3-70Ieqyipg is 3 weeks s/p L TKA.Pain is improvingCurrently taking doses per day of narcotic.Ambulating with no assistive devicePT[facility] Denies fevers, chills, or wound drainage.They request a refill of pain medicine. GAURANG COBOS PA-C [address] [place], [address], [facility] 08/27/2024 11:06:21
--- OUTSIDE RECORDS SUMMARY | 2024-09-15 12:04 | XMS_ITS | Continuity of Care Document ---
Author Organization [facility], [address] [facility] PROFESSIONAL CHARGES Address [address] [facility] [address] [place] [address] Care Team Providers Care Cylinder Checker Name Role Phone JING CID Luggage Maker [phone] BRENDA STEWART Primary Care Provider KHANH FIELD Primary Care Provider [phone] TONY FROST Communications Equipment Supervisor CHELLY ROGERS Referring Provider JEN ROSA Orthopedic Surgeon [phone] Assessment No assessment recorded. Plan of Treatment [...] ed. Imaging None record ed. Medication Orders None record ed. Patient TargetsNo targets recorded. Patient InstructionsNo instructions recorded. Reason for Referral None Reported. Results Created Date Observation Date Name Description Value Unit Range Abnormal Flag Note LastModifiedBy Organization Detail LastModifiedTime 07/24/19 25 07/23/2024 XR, joint , multi ple, 1 view [facility] [address] [place] [address] Eda villafana Name: KIRIT Mcgrath VICE Eda villafana : 959 Eda villafana 53 Orderi ng Provid er: REBECA HERNANDEZ EXAM DATE: 2024 EXAM: [...] tion. Interp reted By: Anastasiya tompkins MD Electr onical ly Signed By: Anastasiya tompkins MD on 025 1:58 PM [email or web address] [facility] Radiology [address] [place], [address], 07/23/2024 14:09:41 07/24/19 25 07/23/2024 XR, hip, bilat eral, 2 view [facility] [address] [place], [place] [id number] [phone] Eda villafana Name: KIRIT villafana : 959 Eda villafana 53 Orderi ng Provid er: CHELLY ROGERS EXAM DATE: 2024 EXAM: XR EDDIE HIPS, [...] . Interp reted By: Anastasiya tompkins MD Electr onical ly Signed By: Anastasiya tompkins MD on 025 3:06 PM MICHELLE [facility] Radiology [address] [place], [address], 07/24/2024 21:06:34 09/04/1909/03/2024 XR, lumbo sacra l spine , 4 or more view [facility] [address] [place] [address] Eda villafana Name: KIRIT villafana : 959 Eda villafana [...] compre ssion of T12. 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 No hardwa re loosen ing or hardwa re fractu re is detect ed. Slight estimator printing ior listhe sis of L2 relati ve [...] Armani Figueroa MD on 09/04/19 11:37 [email or web address] [address] [place], [address], 09/03/2024 12:19:36 Result Notes None recorded. Problems No Known Problems Procedures Surgical History Date Name Laterality Status Provider Name and Address Organization Details Recorded Time 09/02/19 Eye Surgery completed Heraclio Neely [facility] 09/03/2024 10:51:05 07/02/20 25 Synvisc One Injection completed GAURANG COBOS PA-C [address] [place], [address], [facility] 08/27/2024 10:54:41 08/05/19 25 Sacroiliac Joint Injection - Shukri completed FRANCISCO KENDRICK MD [address] [place] [address], [address], [facility] 08/04/2024 15:32:16 07/24/19 25 Injection Joint/Bursa, Major completed Karolyn Cartwright [facility] 07/23/2024 14:22:59 04/11/19 25 Total knee arthroplasty completed Ankita Alicea [facility] 05/01/2024 08:55:00 04/01/19 25 PCM Visit completed Ankita Alicea [facility] 04/18/2024 09:34:52 03/31/19 25 EKG completed Noy Cornell [facility] 03/31/2024 10:56:15 03/26/19 25 PT Evaluation - Low Complexity completed MILKA FORDE, PT, DPT [address] [place], [address], [facility] 03/26/2024 07:53:14 03/26/19 25 PT Therapeutic Exercise completed MILKA FORDE, PT, DPT [address] [place], [address], [facility] 03/26/2024 11:37:59 10/09/19 24 Lumbar Epidural Steroid Injection - Shukri completed FRANCISCO KENDRICK MD [address] [place], [address], [facility] 10/09/2023 16:41:54 06/29/19 24 Lumbar Epidural Steroid Injection - Shukri completed FRANCISCO KENDRICK MD [address] [place], [address], [facility] 06/29/2023 15:05:18 06/01/19 24 Joint Injection, Knee - Shukri completed FRANCISCO KENDRICK MD [address] [place] [address], [address], [facility] 06/01/2023 14:04:44 03/05/19 24 Lumbar Epidural Steroid Injection - Shukri completed FRANCISCO KENDRICK MD [address] [place] [address], [address], [facility] 03/05/2023 15:24:53 02/14/20 23 Joint Injection, Knee - Shukri completed FRANCISCO KENDRICK MD [address] [place] [address], [address], [facility] 02/13/2023 16:36:13 12/15/19 23 Joint Injection, Knee - Shukri completed FRANCISCO KENDRICK MD [address] [place] [address], [address], [facility] 12/14/2022 09:44:07 12/09/19 23 EKG completed TONY FROST MD [address] [place] [address], [address], [facility] 12/08/2022 15:51:17 10/28/19 23 Joint Injection, Knee - Shukri completed FRANCISCO KENDRICK MD [address] [place] [address], [address], [facility] 10/27/2022 15:15:34 08/27/19 22 Back Surgery completed Edyta Amador [facility] 12/08/2022 14:25:01 04/18/19 22 Stress Test - Nuclear Lexiscan completed TONY FROST MD [address] [place] [address], [address], [facility] 04/18/2021 14:45:48 04/04/19 22 EKG completed Kelsea Cunningham [facility] 04/04/2021 15:00:19 04/09/19 21 LAMINOTOMY (HEMILAMINECTOMY) , DECOMPRESSION OF NERVE ROOTS, PARTIAL FACECTOTOMY, FORAMINOTOMY AND/OR DISC REMOVAL, LUMBAR (SURG) completed Erinn Springer [facility] 04/21/2020 14:47:01 03/31/19 21 Echocardiogram completed TONY FROST MD [address] [place] [address], [address], [facility] 03/31/2020 16:29:29 Knee arthroscopy/surge ry completed [facility] [place] 10/26/2016 10:56:59 Unlisted px hands/fingers completed [facility] [place] 10/26/2016 10:56:55 Back Surgery completed [facility] [place] 10/26/2016 10:56:48 Back Surgery completed Kelsea Short [facility] 04/04/2021 15:27:39 Imaging Results None recorded. Procedure Notes None recorded. Medical Equipment None Reported. Allergies Allergen ID Allergen Name Allergen Category Reaction Reaction Severity Criticality Documentation Date Start Date Code Code System Note Provider Name and Address Organization Details Recorded Time 865561 acetamino phen / oxycodone medicatio n itching Not available Not available 10/26/2016 49118 3 RxNorm Edyta Amador [facility] 14:21:12 Medications Name Sig Start Date [...] e 137 mcg (0.1 %) nasal spray [place] 2 sprays twice a day by intranas [...] as needed by oral route. 02/09 completed [facility]: 0904-588 0-61 Not Available Not [...] Tobacco Smoking Status Never Smoker Jessica longo [facility] 10/26/2016 10:55:42 What Was The Date Of Your Most Recent Tobacco Screening? 09/03/2024 [email or web address] Information not available 09/03/2024 What Is Your Relationship Status? [email or web address] Information not available 02/28/2023 Has Tobacco Cessation Counseling Been Provided? No [email or web address] Information not available 04/18/2021 Sex: Male Functional Status Question Answer Note LastModified by Organizat ion Details LastModified Time Do you use any illicit or recreational drugs? No [email or web address] Information not available 02/28/2023 Do you or have you ever used any other forms of tobacco or nicotine? No [email or web address] Information not available 02/28/2023 What is your level of alcohol consumption? Moderate [email or web address] Information not available 10/26/2016 Are you currently employed? No [email or web address] Information not available 02/01/2024 Mental Status None [...] N Immune System Disorder N Heart Attack ([place]) N Mental Illness N Neurological Problems N Diabetes N Cardiomyopathy N Seizures/Epilepsy N Heart Murmur Y Congestive Heart Failure (CHF) N Hyperlipidemia N Epilepsy/Seizures N Reflux/GERD N Sleep Apnea Y Warfarin Management N Heart Disease N Hypertension Y Osteoporosis N Immunizations Vaccine Type Date Status Note Provider Chuck fonseca and Address Organization Details Recorded Time Influenza, recombinant, quadrivalent, PF 1 completed Karolynlanre Cartwright [facility] 02/28/2023 10:12:05 COVID-19 vaccine, vector-nr, rS-Ad26, PF, 0.5 mL 1 completed Karolyn Cartwright [facility] 02/28/2023 10:12:05 COVID-19 vaccine, vector-nr, rS-Ad26, PF, 0.5 mL 1 completed Karolyn Chay [facility] 02/28/2023 10:12:05 pneumococcal polysaccharide PPV23 0 completed Karolyn Chay [facility] 02/28/2023 10:12:05 Past Encounters Encounter ID Performer Location Encounter Start Date Encounter Closed Date Diagnosis/Indication Diagnosis SNOMED-CT Code Diagnosis ICD10 Code Diagnosis Note [id number] REBECA HERNANDEZ PA-C [facility] [address] [place] [address] 07/23/2024 13:29:06 07/23/2024 14:26:13 Osteoarthritis of right knee joint 1086431859 13496 M17.11 I discussed the risk and benefits [...] tolerated well. History of total knee arthroplasty 9367241165 105 Z96.659 Peng is now 3 months [...] 1 year or sooner if symptoms warrant. 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 63324116 M47.9 Bilateral sacroiliitis 3208685739 M46.1 [id number] FRANCISCO KENDRICK MD [facility] [facility] SERV[address] PROFESSIO NAL CHARGES [address] [facility], [address] [place] [address] 08/04/2024 14:10:26 08/08/2024 13:33:15 Inflammation of sacroiliac joint 07136584 M46.1 Health Concerns Section Related Observation LastModified by Organization Detai ls LastModified Time None Recorded Concern Status LastModified by Organization Details LastModified Time None Recorded Payers Encounter Date Sequence Insurance Name Policy Number Policy Daly Covered Member ID Daly Member ID Guarantor Name 08/04/2024 1 [facility] (MEDICARE REPLACEMENT/A DVANTAGE - PPO) [id number] Peng Garcia [id number] Kirit Garcia
--- OUTSIDE RECORDS SUMMARY | 2024-09-15 12:04 | XMS_ITS | Data Portability ---
Author Organization [facility] [employer], [employer] [facility] Address [address] [place] [address] Assessment Encounter Date Assessment Date Assessment LastModified by Organization Details LastModified Time 04/09/2024 04/09/2024 body mass [email or web address] Not available 03/29 19:51:23 Plan of Treatment Reminders Order Date Submit Date Provider Last Modified By Organization Details Last Modified Time Details Appointments ANNUAL EXAM 2024 11:00A Ashley Barraza APRN Not available Not available Not available Lab HbA1c (hemoglob in A1c), blood [address], [address], 04/09/2024 11:40:38 HbA1c (hemoglob in A1c), blood [address], [address], 12/14/2023 14:08:04 TSH + free T4, serum 2023 024 [facility] ([facility], [address] [place] [address], [id number], 01/01/2024 22:06:12 testoster one, free + total, serum 2023 024 [facility] ([facility], [address] [place] [address], [id number], 01/01/2024 22:06:12 Referral None recorded. Procedures None recorded. Surgeries None recorded. Imaging None recorded. Medication Orders Depo-Medr ol 80 mg/mL suspensio n for injection 2024 025 [email or web address] [facility], [address] [place] [address], [id number], 06/10/2024 15:14:34 neomycin- polymyxin -hydrocor t 3.5 mg-10,000 unit/mL-1 % ear drops,shaina p 2024 025 [facility], [address] [place] [address], [id number], 05/21/2024 15:44:33 cyclobenz aprine 10 mg tablet 2024 025 [facility], [address] [place] [address], [id number], 05/21/2024 15:44:31 azithromy caden 250 mg tablet 2024 025 [facility], [address] [place] [address], [id number], 04/09/2024 11:46:08 albuterol sulfate HFA 90 mcg/actua tion aerosol inhaler 2024 025 [facility], [address] [place] [address], [id number], 04/02/2024 12:53:42 triamcino lone acetonide 40 mg/mL suspensio n for injection 2024 025 [email or web address] Not available 04/09/2024 11:26:42 Ozempic 2 mg/dose (8 mg/3 mL) subcutane ous pen injector 2023 025 [facility], [address] [place] [address], [id number], 04/09/2024 11:46:08 Patient TargetsNo targets recorded. Patient InstructionsNo instructions recorded. Reason for Referral None Reported. Results Created Date Observation Date Name Description Value Unit Range Abnormal Flag Note LastModifiedBy Organization Detail LastModifiedTime 12/14/1912/14/2023 HbA1c (hemo globi n A1c), blood HbA1c 4.7 Not Available [address], [address], 12/14/2023 14:00:57 12/27/1912/28/2023 TSH+F REE T4 TSH 4.160 uIU/m L 0.450- 4.500 normal Not Available [facility] ([facility]) [address] [place], [address], 01/01/2024 22:06:12 12/27/19 24 12/28/2023 TSH+F REE T4 T4,free(dire ct) 1.06 NG/dL 0.82-1 .77 normal Not Available [facility] ([facility]) [address] [place], [address], 01/01/2024 22:06:12 12/27/19 24 12/28/2023 TESTO STERO NE,FR EE AND TOTAL testosterone 595 NG/dL 264-91 6 normal Adult male refer ence inter lucia is based on a popul ation of healt hy nonob marty males (BMI <30) betwe en 19 and 39 years old. Nya pantoja et.al . JCEM 2017, 102;1 161-1 173. PMID: 66978 103. Not Available [facility] ([facility]) [address] [place], [address], 01/01/2024 22:06:12 12/27/19 24 01/01/2024 TESTO STERO NE,FR EE AND TOTAL free testosterone (direct) 9.9 pg/mL 6.6-18 .1 Not Available [facility] ([facility]) [address] [facility], [place], [address], 01/01/2024 22:06:12 04/09/19 25 04/09/2024 HbA1c (hemo globi n A1c), blood HbA1c 4.8 Not Available [address], [place], [address], 04/09/2024 11:05:44 06/19/19 25 06/10/2024 XR, lumba r spine No observ ation record ed. [address] (Med Record) [address], [place], [address], 07/17/2024 16:58:16 06/19/19 25 06/10/2024 XR, lumba r spine No observ ation record ed. [address] (Med Record) [address], [place], [address], 07/17/2024 16:58:01 Result Notes None recorded. Problems Name Problem SNOMED Code Status Onset Date Resolution Date Notes Provider Name and Address Organization Details Recorded Time Erectile dysfunct ion 280095602 Active 2019 Problem Code: N52.9; Problem Code Type: ICD-10; Not Available [facility] 2 22:44:48 Hyperten sive disorder 59177196 Active 2019 Problem Code: I10; Problem Code Type: ICD-10; Not Available [facility] 2 22:44:47 Spinal stenosis of lumbar region 52414935 Active 2019 Problem Code: M48.062; Problem Code Type: ICD-10; Not Available [facility] 2 22:44:48 Hypothyr oidism 01501314 Active 2020 Not Available [facility] 2 22:44:47 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 839848674 Active 2020 Problem Code: E11.41; Problem Code Type: ICD-10; Not Available [facility] 2 22:44:47 Chronic gout without tophus 327462577 Active 2020 Problem Code: M1A.9XX0 ; Problem Code Type: ICD-10; Not Available [facility] 2 22:44:48 Iron deficien cy anemia 30197339 Active 2020 Problem Code: D50.9; Problem Code Type: ICD-10; Not Available [facility] 2 22:44:47 Vitamin D deficien cy 49824493 Active 2020 Problem Code: E55.9; Problem Code Type: ICD-10; Not Available [facility] 2 22:44:47 Body mass index 30+ - obesity 579962068 Completed 202012/01/2020 Problem Code: Z68.38; Problem Code Type: ICD-10; Not Available [facility] 2 22:44:49 Finding related to ability to pass urine 406889945 Active 2021 Not Available [facility] 2 22:44:48 [facility] hyperten arie 27314062 Active 2023 Nadja Barraza, DAT [address] [place], [address] , [facility]. 4 10:35:13 Benign prostati c hyperpla leila 992676798 Active 2023 Teresa Munson NP [address] [place], [address] , [employer] 4 09:25:16 Rheumato id arthriti s of multiple joints 039763482 Active 2024 Nadja Barraza, DAT [address] [place], [address] , [employer]. 5 13:13:20 Notes:*Problem Name: Encount er for general adult medical examination *ICD-10 Codes: Z00.00 *Problem Status: Chronic *Comments: [id number]: 'Z00.0'; *Problem Code: Z00.0 *Problem Code Type: ICD-10 *Note Date: 09/03/2020 Problem Notes None recorded. Procedures Surgical History Date Name Laterality Status Provider Name and Address Organization Details Recorded Time 3 Cerumen Removal completed Zara Espinosay [facility]. 01/19/2023 11:44:32 Imaging Results None recorded. Procedure Notes None recorded. Medical Equipment None Reported. Allergies Allergen ID Allergen Name Allergen Category Reaction Reaction Severity Criticality Documentation Date Start Date Code Code System Note Provider Name and Address Organization Details Recorded Time 55159 acetamino phen / oxycodone medicatio n Not available Not available Not available 11/01/2021 09010 3 RxNorm Jen Bean qing [facility] 3 10:55:10 Medications Name Sig Start Date Stop Date Status Note LastModified by Organization Details LastModified Time amantadine HCl 100 mg tablet 04/09 completed Not Available Not Available Not Available celecoxib 200 mg capsule take 1 capsule daily 01/06 completed Not Available Not Available Not Available cyclobenzap rine 10 mg tablet TAKE ONE TABLET BY MOUTH TWICE DAILY NEEDED FOR MUSCLE SPASMS active Not Available Not Available No t Available amoxicillin 500 mg capsule take 1 capsule (500 mg) by oral route 3 times per day active Not Available Not Available No t Available metformin 500 mg tablet take 1 tablet (500 mg) by oral route 2 times per day with morning andevenin g meals 09/22 completed Not Available Not Available Not Available ketoprofen ER 200 mg 24 hr capsule,ext ended release TAKE ONE CAPSULE BY MOUTH EVERY DAY 08/16 completed Not Available Not Available Not Available ropinirole 1 mg tablet Take 1 tablet by mouth every night at bedtime. active Not Available Not Available No t Available sulfasalazi ne 500 mg tablet TAKE TWO TABLETS BY MOUTH TWICE DAILY active Not Available Not Available No t Available trazodone 50 mg tablet TAKE ONE TABLET BY MOUTH AT BEDTIME active Not Available Not Available No t Available sildenafil 50 mg tablet TAKE ONE TO TWO TABLETS BY MOUTH EVERY DAY NEEDED approxima tely 1 hour prior to sexual activity active Not Available Not Available No t Available azithromyci n 250 mg tablet TAKE 2 TABLETS BY MOUTH ON DAY 1, THEN TAKE 1 TABLET DAILY ON DAYS 2-5 04/09 completed Not Available Not Available Not Available ibuprofen 800 mg tablet TAKE ONE TABLET BY MOUTH THREE TIMES DAILY active Not Available Not Available No t Available tizanidine 4 mg tablet take 1 to 2 tablets by mouth every night active Not Available Not Available No t Available hydrocodone 5 mg-acetamin ophen 325 mg tablet TAKE 1 TABLET EVERY 8 HOURS active Not Available Not Available No t Available meloxicam 15 mg tablet TAKE 1 TABLET 1 TIME EACH DAY FOR INFLAMMAT ION active Not Available Not Available No t Available ondansetron HCl 4 mg tablet Take 1 tabletby mouth every 8 hours as needed, for nausea. active Not Available Not Available No t Available prednisone 20 mg tablet Take 2 tablets every day by oral route with meal(s) for 7 days. 04/23 completed Not Available Not Available Not Available prednisone 5 mg tablet Take 4 tablets by mouth Daily for 3 days, THEN 3 tablets Daily for 3 days, THEN 2 tablets Daily for 3 days, THEN 1 tablet Daily for 3 days. 04/09 completed Not Available Not Available Not Available oxcarbazepi ne 300 mg tablet Take 1 tablet twice a day by oral route. 09/22 completed Not Available Not Available Not Available hydrocodone 10 mg-acetamin ophen 325 mg tablet take 1 tablet by oral route every 4 hours as needed for pain 09/03 completed Not Available Not Available Not Available omeprazole 40 mg capsule,del ayed release TAKE ONE CAPSULE BY MOUTH EVERY DAY active Not Available Not Available No t Available aspirin 81 mg tablet,amita yed release Take 1 tablet by mouth twice a day for 30 days, for preventio n of blood clots. active Not Available Not Available No t Available spironolact one 25 mg tablet TAKE ONE TABLET BY MOUTH EVERY DAY in THE morning FOR blood pressure 10/20 completed Not Available Not Available Not Available Depo-Medrol 80 mg/mL suspension for injection Take 1 mL by injection route. 2024 active Not Available Not Available Not Avai lable levothyroxi ne 75 mcg tablet TAKE 1 TABLET (75 MCG) BY ORAL ROUTE ONCE DAILY ON AN EMPTY STOMACH 30 MINUTES BEFORE BREAKFAST active Not Available Not Available No t Available prednisone 10 mg tablets in a dose pack take by MOUTH as directed ON pack FOR SIX DAYS active Not Available Not Available No t Available cefadroxil 500 mg capsule Take 1 capsule by mouth twice a day for 7 days, for infection preventio n. active Not Available Not Available No t Available meloxicam 7.5 mg tablet TAKE ONE TABLET BY MOUTH EVERY DAY NEEDED 08/16 completed Not Available Not Available Not Available oxycodone-a cetaminophe n 5 mg-325 mg tablet TAKE 1 TABLET EVERY 6 HOURS NEEDED active Not Available Not Available No t Available propranolol 10 mg tablet TAKE ONE TABLET BY MOUTH TWICE DAILY 04/09 completed Not Available Not Available Not Available doxazosin 8 mg tablet TAKE 1 TABLET BY MOUTH AT BEDTIME 09/22 completed Not Available Not Available Not Available potassium chloride ER 20 mEq tablet,exte nded release(par t/cryst) TAKE ONE TABLET BY MOUTH EVERY DAY with bumex active Not Available Not Available No t Available prednisolon e acetate 1 % eye drops,suspe nsion Instill 1 drop into both eyes four times a day active Not Available Not Available No t Available magnesium oxide 400 mg (241.3 mg magnesium) tablet TAKE ONE TABLET BY MOUTH NIGHTLY AT BEDTIME active Not Available Not Available No t Available methocarbam ol 750 mg tablet TAKE ONE TABLET BY MOUTH THREE TIMES DAILY 04/09 completed Not Available Not Available Not Available gentamicin 0.3 % eye drops instill ONE drop into LEFT eye EVERY 4 HOURS 08/16 completed Not Available Not Available Not Available oxycodone-a cetaminophe n 10 mg-325 mg tablet take 1 tablet by oral route every 4 hours as needed for pain 09/22 completed Not Available Not Available Not Available tamsulosin 0.4 mg capsule TAKE ONE CAPSULE BY MOUTH EVERY DAY take ONE-HALF hour following THE same MEAL each DAY active Not Available Not Available No t Available gabapentin 800 mg tablet TAKE ONE TABLET BY MOUTH FOUR times a DAY FOR 30 DAYS active Not Available Not Available No t Available amlodipine 10 mg tablet TAKE ONE TABLET BY MOUTH EVERY DAY 01/19 completed Not Available Not Available Not Available doxycycline monohydrate 100 mg capsule take 1 capsule (100 mg) by oral route 2 times per day for 10 days 09/22 completed Not Available Not Available Not Available triamcinolo ne acetonide 40 mg/mL suspension for injection Take 1 mL by injection route. 04/09 completed Not Available Not Available Not Available levothyroxi ne 50 mcg tablet take 1 tablet (50 mcg) by oral route once daily 09/13 completed Not Available Not Available Not Available hydrocodone 7.5 mg-acetamin ophen 325 mg tablet TAKE ONE TABLET BY MOUTH EVERY 6 HOURS NEEDED FOR PAIN 08/16 completed Not Available Not Available Not Available cephalexin 500 mg capsule TAKE FOUR CAPSULES BY MOUTH 1 hour before dental procedure active Not Available Not Available No t Available erythromyci n 5 mg/gram (0.5 %) eye ointment apply a 1/4 inch thin strip twice a day 3 days before but not day of surgery 01/19 completed Not Available Not Available Not Available ferrous sulfate 325 mg (65 mg iron) tablet TAKE ONE TABLET BY MOUTH EVERY DAY active Not Available Not Available No t Available neomycin-po lymyxin-dex ameth 3.5 mg/mL-10,00 0 unit/mL-0.1 % eye drops INSTILL 1 DROP INTO AFFECTED EYE(S) BY OPHTHALMI C ROUTE EVERY 3-4 HOURS 12/13 completed Not Available Not Available Not Available olopatadine 0.1 % eye drops INSTILL 1 DROP INTO AFFECTED EYE(S) BY OPHTHALMI C ROUTE 2 TIMES PER DAY AT AN INTERVAL OF 6 TO 8 HOURS 12/13 completed Not Available Not Available Not Available docusate sodium 100 mg capsule Take 1 capsule by mouth twice a day for 14 days, for constipat ion. active Not Available Not Available No t Available doxazosin 4 mg tablet take 1 tablet (4 mg) by oral route once daily for BP 01/06 completed Not Available Not Available Not Available bumetanide 1 mg tablet TAKE ONE TABLET BY MOUTH EVERY DAY IN THE MORNING 2024 active Not Available Not Available Not Avai lable etodolac 400 mg tablet TAKE ONE TABLET BY MOUTH TWICE DAILY with food active Not Available Not Available No t Available montelukast 10 mg tablet TAKE ONE TABLET BY MOUTH EVERY EVENING 2024 active Not Available Not Available Not Avai lable allopurinol 300 mg tablet TAKE ONE TABLET BY MOUTH ONCE DAILY active Not Available Not Available No t Available hydralazine 50 mg tablet TAKE ONE TABLET BY MOUTH TWICE DAILY WITH A MEAL active Not Available Not Available No t Available zolpidem 5 mg tablet Take 1 tablet by mouth At Night As Needed for Sleep. 08/16 completed Not Available Not Available Not Available furosemide 20 mg tablet Take 1 tablet every day by oral route in the morning. 01/19 completed Not Available Not Available Not Available zolpidem 10 mg tablet take 1 tablet (10 mg) by oral route once daily at bedtime 09/22 completed Not Available Not Available Not Available methylpredn isolone 4 mg tablets in a dose pack take by oral route as directed per package instructi ons 04/23 completed Not Available Not Available Not Available albuterol sulfate HFA 90 mcg/actuati on aerosol inhaler INHALE TWO PUFFS BY MOUTH FOUR TIMES DAILY active Not Available Not Available No t Available ferrous sulfate 325 mg (65 mg iron) tablet,amita yed release Take 1 tablet every day by oral route. 2023 active Not Available Not Available Not Avai lable Vitamin D2 1,250 mcg (50,000 unit) capsule Take one capsule by mouth once weekly active Not Available Not Available No t Available propranolol 20 mg tablet TAKE 1/2 TABLET BY MOUTH TWICE DAILY active Not Available Not Available No t Available Lactobacill us rhamnosus GG 10 billion cell capsule 4 weekly 09/22 completed Not Available Not Available Not Available atropine 1 % eye drops 08/16 completed Not Available Not Available Not Available losartan 100 mg tablet TAKE ONE TABLET BY MOUTH ONCE DAILY active Not Available Not Available No t Available neomycin 3.5 mg-polymyxi n 10,000 unit-hydroc ort 10 mg/mL eye drop,susp INSTILL 4 DROPS INTO AFFECTED EAR(S) BY OTIC ROUTE 3 TIMES PER DAY active Not Available Not Available No t Available fluoxetine 20 mg capsule TAKE ONE CAPSULE BY MOUTH EVERY MORNING active Not Available Not Available No t Available spironolact one 50 mg tablet TAKE ONE TABLET BY MOUTH EVERY DAY IN THE MORNING active Not Available Not Available No t Available diazepam 5 mg tablet Take one tab by oral route one hour before MRI 04/23 completed Not Available Not Available Not Available amoxicillin 875 mg-potassiu m clavulanate 125 mg tablet TAKE ONE TABLET BY MOUTH EVERY TWELVE HOURS with food for 10 days for sinus 04/09 completed Not Available Not Available Not Available neomycin-po lymyxin-hyd rocort 3.5 mg-10,000 unit/mL-1 % ear drops,susp INSTILL 4 DROPS INTO AFFECTED EAR(S) BY OTIC ROUTE 3 TIMES PER DAY 2024 active Not Available Not Available Not Avai lable tadalafil 20 mg tablet Take 1 tablet by mouth every day as needed. 08/16 completed Not Available Not Available Not Available pregabalin 75 mg capsule TAKE 1 CAPSULE 1 TIME EACH DAY active Not Available Not Available No t Available dexlansopra zole 60 mg capsule,bip hase delayed release TAKE ONE CAPSULE BY MOUTH EVERY DAY 08/16 completed Not Available Not Available Not Available tranexamic acid 650 mg tablet Take 1 tablet by mouth 3 times a day for 3 days, for minimizin g post operative bleeding. active Not Available Not Available No t Available krill oil 500 mg capsule 1 po daily 09/22 completed Not Available Not Available Not Available potassium chloride ER 20 mEq tablet,exte nded release Take one tab by oral route every day with Bumex 2022 active Not Available Not Available Not Avai lable Ozempic 0.25 mg or 0.5 mg (2 mg/1.5 mL) subcutaneou s pen injector Inject 0.25 mg every week by subcutane ous route. 01/19 completed Not Available Not Available Not Available Humira(CF) Pen 40 mg/0.4 mL subcutaneou s kit 12/13 completed Not Available Not Available Not Available Ozempic 1 mg/dose (4 mg/3 mL) subcutaneou s pen injector INJECT ONE MG SUBCUTANE OUSLY WEEKLY 04/09 completed Not Available Not Available Not Available Ozempic 2 mg/dose (8 mg/3 mL) subcutaneou s pen injector Inject 2 mg every week by subcutane ous route. 04/09 completed Not Available Not Available Not Available Ozempic 0.25 mg or 0.5 mg (2 mg/3 mL) subcutaneou s pen injector Inject 0.5 mg under the skin every week 08/16 completed Not Available Not Available Not Available Hadlima(CF) PushTouch 40 mg/0.4 mL subcutaneou s auto-inject or 04/09 completed Not Available Not Available Not Available Vitals Date Recorded Body height Body mass index (BMI) Body weight Body temperature Heart rate Oxygen saturation Oxygen saturation in Arterial blood by Pulse oximetry Systolic And Diastolic Provider Name and Address Organization Details Last Updated DateTime 5 185.42 cm 41.6 kg/m2 053929. 6 g 98 [degF] 60 /min 92 % 92 % 121/71 mm[Hg] [employer] 5 11:06:20 Date Recorded Body height Body mass index (BMI) Body weight Heart rate Oxygen saturation Oxygen saturation in Arterial blood by Pulse oximetry Systolic And Diastolic Systolic And Diastolic Systolic And Diastolic Provider Name and Address Organization Details Last Updated DateTime 5 185.42 cm 40.7 kg/m2 780815. 15 g 61 /min 94 % 94 % 149/65 mm[Hg] 142/75 mm[Hg] 118/68 mm[Hg] Portia James [facility] 5 11:36:03 Date Recorded Body height Body mass index (BMI) Body weight Body temperature Heart rate Oxygen saturation Oxygen saturation in Arterial blood by Pulse oximetry Systolic And Diastolic Systolic And Diastolic Systolic And Diastolic Provider Name and Address Organization Details Last Updated DateTime 5 185.42 cm 41.1 kg/m2 030638. 38 g 98.2 [degF] 66 /min 95 % 95 % 149/71 mm[Hg] 149/67 mm[Hg] 149/70 mm[Hg] [employer] 5 14:47:25 Date Recorded Body height Body mass index (BMI) Body weight Body temperature Heart rate Oxygen saturation Oxygen saturation in Arterial blood by Pulse oximetry Systolic And Diastolic Provider Name and Address Organization Details Last Updated DateTime 4 185.42 cm 40.2 kg/m2 941528. 67 g 97.7 [degF] 79 /min 89 % 89 % 111/66 mm[Hg] [employer] 4 14:00:37 Social History Question Answer Notes LastModified by Organizat ion Details LastModified Time Tobacco Smoking Status Never Smoker Maida longo, [facility] [employer] 05/02/2022 09:16:21 Is Your Home Air Conditioned? Yes Information not available 09/22/2022 Are You Blind Or Do You Have Difficulty Seeing? No Information n ot available 09/22/2022 What Is Your Level Of Caffeine Consumption? Occasional Information not available 09/22/2022 In The 14 Days Before Symptom Onset, Have You Had Close Contact With A Laboratory-confirm ed COVID-19 While That Case Was Ill? No Information n ot available 09/22/2022 In The 14 Days Before Symptom Onset, Have You Had Close Contact With A Person Who Is Under Investigation For COVID-19 While That Person Was Ill? No Information not available 09/22/2022 Have You Been To An Area Known To Be High Risk For COVID-19? No Information not available 09/22/2022 Are You Deaf Or Do You Have Serious Difficulty Hearing? No Information not available 09/22/2022 What Type Of Diet Are You Following? 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 Right Information n ot available 09/22/2022 What Was The Date Of Your Most Recent Tobacco Screening? 05/21/2024 Information not available 05/21/2024 Do You Have Any Pets? No Information not available 09/22/2022 What Is Your Relationship Status? Information not available 09/22/2022 Do You Use Your Seat Belt Or Car Seat Routinely? Yes Information not available 10/20/2022 Are You Passively Exposed To Smoke? No Information no t available 09/22/2022 Are There Any Smokers In Your House? No Information not available 09/22/2022 Do You Use Sunscreen Routinely? Yes Information not available 09/22/2022 Has Tobacco Cessation Counseling Been Provided? No [email or web address] Information not available 01/19/2023 On What Date Was Tobacco Cessation Counseling Provided? 04/09/2024 [email or web address] Information not available 04/09/2024 Have You Recently Traveled Abroad? No Information not available 09/22/2022 Do You Have Difficulty Walking Or Climbing Stairs? No Information not available 09/22/2022 Are You Currently In School? No Information not available 09/22/2022 Do You Have Any Dietary Restrictions? Yes Information not available 10/20/2022 Sex: Male Functional Status Question Answer Note LastModified by Organizat ion Details LastModified Time Do you use any illicit or recreational drugs? No Information not available 09/22/2022 Do you or have you ever used any other forms of tobacco or nicotine? Yes Information not available 05/21/2024 What is your level of alcohol consumption? None Information not available 09/22/2022 Are you currently employed? Yes Information not available 09/22/2022 Do you have transportation difficulties? No Information not available 09/22/2022 Are you able to walk? [employer]ORE[employer] Information not available 09/22/2022 Do you have difficulty doing errands alone? No Information not available 09/22/2022 Are you able to care for yourself? 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 No Information not available 09/22/2022 Mental Status Question Answer Note LastModified by Organization D etails LastModified Time Do you have difficulty concentrating, remembering or making decisions? No Information no t available 09/22/2022 Family History Relationship Description Onset Age of this Age Resolved Age Notes LastModified by Organization Details LastModified Time Unspecified Relation Family history of Hypertension [email or web address] Not available 08/2022 09:16:10 Medical History Condition Response Allergies (Food, seasonal, environmental ) Y Gout Y Emergency room visit since last appointm ent. N Hypothyroidism Y Acid Reflux (GERD) Y Rheumatoid Arthritis Y Hospitalizations N Diabetes Y Hypertension Y Immunizations Vaccine Type Date Status Note Provider Nam e and Address Organization Details Recorded Time COVID-19 vaccine,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
--- NOTE | 2024-09-15 12:05 | MR_ITS ---
FINAL REPORT TECHNIQUE: Multiplanar MR without contrast CLINICAL HISTORY: HARDWARE IN BACK AND LEFT KNEE THORACIC PAIN mid back pain worse on right side no injury / trauma COMPARISON: 04/07/2021 FINDINGS: Thoracic spinal cord shows a normal MR appearance. There is a stable lesion of the T11 vertebral body and a small lesion of the posterior T5 vertebral body compatible with atypical hemangiomas. No new bone lesions identified. No fracture or malalignment. There is a small to moderate central disc protrusion at T7-8 without central canal stenosis. Moderate annular disc bulge at T11-12 with borderline central canal stenosis is noted. There are a few other scattered levels of mild degenerative disease noted. 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 Stable [id number] degenerative disease without cord compression or high-grade central canal stenosis. Reviewed, Interpreted and Dictated by Linda Lisa MD Transcribed by Di Young Authenticated and [facility]
--- OUTSIDE RECORDS SUMMARY | 2024-09-15 12:05 | XMS_ITS | Encounter Summary ---
Author Organization [facility] Address [address] [place] [address] Care Team Providers Care News Operations Manager Name Role Phone BarrazaNadja manning DAT Primary Care Provider [phone] Encounter Details Date Type Department Care Team (Late st Contact Info) Description 05/11/2024 Results Follow-Up [facility] [address] [facility] [address] [place] [id number] Sigrid Barr APRN [address] [facility] [address] [place] [address] Social History Tobacco Use Types Packs/Day Years Used Date Smoking Tobacco: Never Passive Smoke Exposure: Past Smokeless Tobacco: Never Alcohol Use Standard Drinks/Week Comments Yes 5 (1 standard drink = 0.6 oz pur e alcohol) 30-40 cans beer week AUDIT-C Answer Date Recorded Q1: How often do you have a drink containing alcohol? 4 or more times a week 09/05/2021 Q2: How many drinks containi ng alcohol do you have on a typical day when you are drinking? 10 or more Q3: How often do you have si x or more drinks on one occasion? Weekly 09/05/2021 Sex and Gender Information Value Date Recorded Sex Assigned at Not on file Legal Sex Male 12:26 PM EDT Gender Identity Not on file Sexual Orientation Not on file documented as of this encounter Plan of Treatment Upcoming Encounters Date Type Department Care Team (Late st Contact Info) Description 09/24/2024 1:15 PM EDT Office Visit [facility] [address] [place] [phone] Sigrid Barr APRN [address] [place] [address] 10/28/2024 10:15 AM EDT Office Visit [facility] [address] [place] [phone] Eduardo Clark MD [address] [place] [address] documented as of this encounter Visit Diagnoses Not on filedocumented in this encounter Care Teams News Operations Manager Relationship Specialty Start Date End Date Nadja Barraza APRN [address] [place], [place] [id number] PCP - General Nurse Practitioner 01/28/24 documented as of this encounter
--- OUTSIDE RECORDS SUMMARY | 2024-09-15 12:05 | XMS_ITS | Continuity of Care Document ---
Author Organization [facility], PAIN MEDICINE [address] [place] [address] Care Team Providers Care Ultrasound Spec Name Role Phone JING CID Trading Analyst [phone] BRENDA STEWART Primary Care Provider KHANH FIELD Primary Care Provider TONY FROST Automation Test Developer CHELLY ROGERS Referring Provider JEN ROSA Orthopedic Surgeon Assessment Encounter Date Assessment Date Assessment LastModified by Organization Details LastModified Time 09/03/2024 09/03/2024 This is a 64-year-old gentleman [...] efficacy. PMH: PSHx: Left L5-S1 foraminotomy (Jonathan, 2006), [...] including imaging, clinical notes, and relevant labs. luiza Not available 09/03/2024 11:18:56 Plan of Treatment [...] record ed. Surgeries None record ed. Imaging XR, lumbos acral spine, 4 or more view 2024 025 [email or web address] [facility] [address] [place], [address], 09/03/2024 16:25:09 MRI, lumbar spine, w/o contra st 2024 025 [email or web address] [facility] [address] [place], [address], 09/10/2024 15:17:44 Medication Orders None record ed. Patient TargetsNo targets recorded. Patient InstructionsNo instructions recorded. Reason for Referral None Reported. Results Created Date Observation Date Name Description Value Unit Range Abnormal Flag Note LastModifiedBy Organization Detail LastModifiedTime 09/04/1909/03/2024 XR, lumbo sacra l spine , 4 or more view [facility] [address] [place] [address] [phone] Eda villafana Name: KIRIT villafana : 89 [...] compre ssion of T12. Previo us L3-L5 mechanical equipment test engineer ior fixati on and interb xavi fusion . No hardwa re loosen ing or hardwa re fractu re is detect ed. Slight mechanical equipment test engineer ior listhe sis of L2 relati ve [...] Armani Figueroa MD on 09/04/19 11:37 AM [facility] [address] [place], [address], 09/03/2024 12:19:36 Result Notes Documentation Provider Name and Address Organization Details Recorded Time Xr, Lumbosacral Spine, 4 Or More View : [facility] [address] [place] [address] Patient Name: KIRIT HULL Patient : 1960 Patient Ordering Provider: [...] By: Armani Figueroa MD LY ROGERS PA-C [address] [place] [address], [phone], [facility] [place] [facility] 09/03/2024 12:19:36 Problems No Known Problems Procedures Surgical History Date Name Laterality Status Provider Name and Address Organization Details Recorded Time 09/02/19 25 Eye Surgery completed Heraclio Ramírezgiancarlo [facility] 09/03/2024 10:51:05 08/28/19 25 Synvisc One Injection completed GAURANG COBOS PA-C [address] [place], [address], [facility] 08/27/2024 10:54:41 08/05/19 25 Sacroiliac Joint Injection - Shukri completed FRANCISCO KENDRICK MD [address] [place] [address], [address], [facility] 08/04/2024 15:32:16 07/24/19 25 Injection Joint/Bursa, Major completed Karolyn Cartwright [facility] 07/23/2024 14:22:59 04/11/19 25 Total knee arthroplasty completed Ankita Alicea [facility] 05/01/2024 08:55:00 04/01/19 25 PCM Visit completed Ankita Alicea [facility] 04/18/2024 09:34:52 03/31/19 25 EKG completed Noy Cornell [facility] 03/31/2024 10:56:15 03/26/19 25 PT Evaluation - Low Complexity completed MILKA FORDE, PT, DPT [address] [place], [address], [facility] 03/26/2024 07:53:14 03/26/19 25 PT Therapeutic Exercise completed MILKA FORDE, PT, DPT [address] [place], [address], [facility] 03/26/2024 11:37:59 10/09/19 24 Lumbar Epidural Steroid Injection - Shukri completed FRANCISCO KENDRICK MD [address] [place], [address], [facility] 10/09/2023 16:41:54 06/29/19 24 Lumbar Epidural Steroid Injection - Shukri completed FRANCISCO KENDRICK MD [address] [place], [address], [facility] [place] [facility] 06/29/2023 15:05:18 06/01/19 24 Joint Injection, Knee - Shukri completed FRANCISCO KENDRICK MD [address] [place], [address], [facility] 06/01/2023 14:04:44 03/05/19 24 Lumbar Epidural Steroid Injection - Shukri completed FRANCISCO KENDRICK MD [address] [place], [address], [facility] 03/05/2023 15:24:53 02/14/20 23 Joint Injection, Knee - Shukri completed FRANCISCO KENDRICK MD [address] [place], [address], [facility] 02/13/2023 16:36:13 12/15/19 23 Joint Injection, Knee - Shukri completed FRANCISCO KENDRICK MD [address] [place], [address], [facility] 12/14/2022 09:44:07 12/09/19 23 EKG completed TONY FROST MD [address] [place], [address], [facility] 12/08/2022 15:51:17 10/28/19 23 Joint Injection, Knee - [place] [address] [place] [address], [address], [facility] 10/27/2022 15:15:34 08/27/19 22 Back Surgery completed Edyta Amador [facility] 12/08/2022 14:25:01 04/18/19 22 Stress Test - Nuclear Lexiscan completed TONY FROST MD [address] [place], [address], [facility] 04/18/2021 14:45:48 04/04/19 22 EKG completed Kelsea Cunningham [facility] 04/04/2021 15:00:19 04/09/19 21 LAMINOTOMY (HEMILAMINECTOMY) , DECOMPRESSION OF NERVE ROOTS, PARTIAL FACECTOTOMY, FORAMINOTOMY AND/OR DISC REMOVAL, LUMBAR (SURG) completed Erinn Springer [facility] 04/21/2020 14:47:01 03/31/19 21 Echocardiogram completed TONY FROST MD [address] [place] [address], [address], [facility] [place] [facility] 03/31/2020 16:29:29 Knee arthroscopy/surge ry completed [facility] 10/26/2016 10:56:59 Unlisted px hands/fingers completed [facility] 10/26/2016 10:56:55 Back Surgery completed [facility] 10/26/2016 10:56:48 Back Surgery completed Kelsea Short [facility] 04/04/2021 15:27:39 Imaging Results None recorded. Procedure Notes None recorded. Medical Equipment None Reported. Allergies Allergen ID Allergen Name Allergen Category Reaction Reaction Severity Criticality Documentation Date Start Date Code Code System Note Provider Name and Address Organization Details Recorded Time 930374 acetamino phen / oxycodone medicatio n itching Not available Not available 10/26/2016 25236 3 RxNorm Edyta Amador [facility] 14:21:12 Medications Name Sig Start Date [...] e 137 mcg (0.1 %) nasal spray [place] 2 sprays twice a day by intranas [...] Details Last Updated DateTime 5 187.96 cm 39.7 kg/m2 019524. 04 g 94 % 94 % 54 /min 138/78 mm[Hg] Heraclio Neely [facility] 5 10:52:56 Social History Question Answer Notes LastModified by Organizat ion Details LastModified Time Tobacco Smoking Status Never Smoker Jessica Danny [facility] 10/26/2016 10:55:42 What Was The Date Of Your Most Recent Tobacco Screening? 09/03/2024 [email or web address] Information not available 09/03/2024 What Is Your Relationship Status? [email or web address] Information not available 02/28/2023 Has Tobacco Cessation Counseling Been Provided? No [email or web address] Information not available 04/18/2021 Sex: Male Functional Status Question Answer Note LastModified by [employer] Details LastModified Time Do you use any illicit or recreational drugs? No [email or web address] Information not available 02/28/2023 Do you or have you ever used any other forms of tobacco or nicotine? No [email or web address] Information not available 02/28/2023 What is your level of alcohol consumption? Moderate [email or web address] Information not available 10/26/2016 Are you currently employed? No [email or web address] Information not available 02/01/2024 Mental Status None [...] N Immune System Disorder N Heart Attack ([place]) N Mental Illness N Neurological Problems N Diabetes N Cardiomyopathy N Seizures/Epilepsy N Heart Murmur Y Congestive Heart Failure (CHF) N Hyperlipidemia N Epilepsy/Seizures N Reflux/GERD N Sleep Apnea Y Warfarin Management N Heart Disease N Hypertension Y Osteoporosis N Immunizations Vaccine Type Date Status Note Provider Nam e and Address Organization Details Recorded Time Influenza, recombinant, quadrivalent, PF 1 [facility] 10:12:05 COVID-19 vaccine, vector-nr, rS-Ad26, PF, 0.5 mL 1 completed Karolyn longo [facility] 02/28/2023 10:12:05 COVID-19 vaccine, vector-nr, rS-Ad26, PF, 0.5 mL 1 [facility]28[facility]23 10:12:05 pneumococcal polysaccharide PPV23 0 completed Karolyn Cartwright [facility] 02/28/2023 10:12:05 Past Encounters Encounter ID Performer Location Encounter Start Date Encounter Closed Date Diagnosis/Indication Diagnosis SNOMED-CT Code Diagnosis ICD10 Code Diagnosis Note [id number] FRANCISCO KENDRICK MD [facility] PROFESSIO NAL CHARGES [address] [facility], [address] [place] [address] 08/04/2024 14:10:26 08/08/2024 13:33:15 Inflammation of sacroiliac joint 19220189 M46.1 [id number] GAURANG COBOS PA-C [facility] [address] [place] [address] 08/27/2024 10:22:05 08/27/2024 11:18:15 Osteoarthritis of right knee joint 9443380826 05568 M17.11 ASSESSMENT : DJD RIGHT knee PLAN: [...] is for viscosuppl ementation Follow up prn [id number] CHELLY ROGERS PA-C PAIN MEDICINE [address] [place] [address] 09/03/2024 10:41:12 09/03/2024 16:25:09 Lumbar post-laminectomy syndrome 765728489 M96.1 Bilateral sacroiliitis 6845297686 M46.1 Lumbar radiculopathy 128 846229 M54.16 Bilateral osteoarthritis of knees 3523706910 52986 M17.0 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 57135236 M47.9 Health Concerns Section Related Observation LastModified by Organization Detai ls LastModified Time None Recorded Concern Status LastModified by Organization Details LastModified Time None Recorded Payers Encounter Date Sequence Insurance Name Policy Number Policy Daly Covered Member ID Daly Member ID Guarantor Name 09/03/2024 1 [facility] (MEDICARE REPLACEMENT/A DVANTAGE - PPO) [id number] Peng Hull [id number] Kirit Hull Notes Date Note Type Note Provider Name and Address Organization Details Recorded Time 09/03/2024 text/html Injection follow upReported bypatient.Most recent procedures:joint injection (bilateral SI joint); date: (08/04/24) % of reliefpain relief 0% Duration of relief:ongoing Severity:same; worsening; current pain 7/10; average pain 7/10 Woundinjection site healed well; no fever; no bleeding CHELLY ROGERS PA-C [address] [place], [address], [facility] 09/03/2024 11:19:19
--- OUTSIDE RECORDS SUMMARY | 2024-09-15 12:05 | XMS_ITS | Encounter Summary ---
Author Organization [facility] Address [address] [place] [address] Care Team Providers Care Skin Pass Operator Name Role Phone BarrazaNadja manning DAT Primary Care Provider [phone] Reason for Visit * Reason Comments Med Refill Encounter Details Date Type Department Care Team (Late Contact Info) Description 09/01/2024 Refill [facility] RHE[facility]OLOG[facility] [address] [address] Sigrid Barr APRN [address] [address] Social History Tobacco Use Types Packs/Day Years [...] Description 09/24/2024 1:15 PM EDT Office Visit [facility]OLOG[facility] [address] [facility] [address] [place] [address] Sigrid Barr APRN 330 [facility] [address] [place] [address] 10/28/2024 10:15 AM EDT Office Visit [facility] SLEEP MEDICINE [address] [place] [address] Eduardo Clark MD [address] [place] [address] documented as of this encounter Visit Diagnoses Not on filedocumented in this encounter Care Teams Skin Pass Operator Relationship Specialty Start Date End Date Nadja Barraza APRN [address] [place] [address] PCP - General Nurse Practitioner 01/28/24 documented as of this encounter
--- OUTSIDE RECORDS SUMMARY | 2024-09-15 12:05 | XMS_ITS ---
Author Organization Unknown Medications Medication Instructions Effective Dates (start - stop) Status acetaminophen 325 MG / oxyco done hydrochloride 10 MG Oral Tablet 8173-73-84H57:00:00.00 0+00:0 0 - Completed 24 HR ketoprofen 200 MG Exte nded Release Oral Capsule 6923-02-40X03:00:00.000+00:0 0 - Completed 0.4 ML adalimumab 100 MG/ML Auto-Injector [Humira] 4828-92-39F20:00:00.000+00:0 0 - Completed meloxicam 15 MG Oral Tablet 2021:00:00.000+00:0 0 - Completed amlodipine 10 MG Oral Tablet 04-05-09:00:00.000+00:0 0 - Completed spironolactone 25 MG Oral Tablet 6828-73-16S84:00:00.000+00:0 0 - Completed gabapentin 800 MG Oral Tablet 16-09-25:00:00.000+00:0 0 - Completed losartan potassium 100 MG Or al Tablet 0690-50-74G84:00:00.000+00:0 0 - Completed ergocalciferol 1.25 MG Oral Capsule 0962-49-43H74:00:00.000+00:0 0 - Completed sulfasalazine 500 MG Oral Tablet 1313-35-36A24:00:00.000+00:0 0 - Completed {21 (methylprednisolone 4 MG Oral Tablet) } Pack 7369-95-60E88:00:00.000+00:0 0 - Completed allopurinol 300 MG Oral Tablet 000-29-59A57:00:00.000+00:0 0 - Completed levothyroxine sodium 0.075 M G Oral Tablet 6809-41-68P03:00:00.000+00:0 0 - Completed ropinirole 1 MG Oral Tablet 2022 -08-10T00:00:00.000+00:0 0 - Completed dexlansoprazole 60 MG Delaye d Release Oral Capsule 0482-46-65F05:00:00.000+00:0 0 - Completed hydralazine hydrochloride 50 MG Oral Tablet 6289-43-98J46:00:00.000+00:0 0 - Completed montelukast 10 MG Oral Tablet 17-10-18:00:00.000+00:0 0 - Completed amoxicillin 500 MG Oral Capsule 3105-08-05M78:00:00.000+00:0 0 - Completed Patient Care team information Name Category Status Period Participants - - Proposed period not known -
--- OUTSIDE RECORDS SUMMARY | 2024-09-15 12:05 | XMS_ITS | Encounter Summary ---
[facility] Organization [facility] Address [address] [place] [address] Care Team Providers Care Potato Pancake Frier Name Role Phone BarrazaNadja manning DAT Primary Care Provider [phone] Encounter Details Date Type Department Care Team (Late Contact Info) Description 05/09/2024 Results Follow-Up [facility] RHEUMATOLOGY [address] [facility] [address] [place] [address] Usama Parks APRN [address] [phone] Social History Tobacco Use Types Packs/Day Years [...] Encounters Date Type Department Care Team (Late Contact Info) Description 09/24/2024 1:15 PM EDT Office Visit [facility] RHEUMATOLOGY [address] [place] [address] Sigrid Barr APRN 330 [facility] 100 [place], [place] [phone] 10/28/2024 10:15 AM EDT Office Visit [facility] SLEEP MEDICINE [address] [place] [address] Eduardo Clark MD [address] [place] [address] documented as of this encounter Visit Diagnoses Not on filedocumented in this encounter Care Teams Potato Pancake Frier Relationship Specialty Start Date End Date Nadja Barraza APRN [address] [place], [place] [phone] PCP - General Nurse Practitioner 01/28/24 documented as of this encounter
--- OUTSIDE RECORDS SUMMARY | 2024-09-15 12:05 | XMS_ITS | Continuity of Care Document ---
Author Organization [facility], ORTHOPEDICS [address] [place] [address] Care Team Providers Care Gluing Machine Operator Name Role Phone JING CID Clinical Appeals Reviewer BRENDA STEWART Primary Care Provider [phone] KHANH FIELD Primary Care Provider TONY FROST Professor Of Communication CHELLY ROGERS Referring Provider JEN ROSA Orthopedic Surgeon [phone] Assessment No assessment recorded. Plan of Treatment [...] XR, joint , multi ple, [facility] [address] [place] [address] Patick villafana Name: KIRITCK villafana : [phone] Eda villafana 53 Orderi [...] tompkins MD on 025 1:58 PM [email or web address] [facility] [address] [place], [address], 07/23/2024 14:09:41 07/24/19 25 07/23/2024 XR, hip, bilat eral, 2 view [facility] [address] [place], [place] [id number] [phone] Eda villafana Name: KIRIT villafana : [phone] [...] tompkins MD on 025 3:06 PM MICHELLE [facility] [address] [place], [address], 07/24/2024 21:06:34 09/04/1909/03/2024 XR, lumbo sacra l spine , 4 or more view [facility] [address] [place] [address] [phone] Eda villafana Name: KIRIT villafana : [phone] [...] compre ssion of T12. Previo us L3-L5 gyroscopic instrument tester ior fixati on and interb xavi fusion . No hardwa re loosen ing or hardwa re fractu re is detect ed. Slight gyroscopic instrument tester ior listhe sis of L2 relati ve [...] Armani Figueroa MD on 09/04/19 11:37 AM luiza [facility] [address] [place], [address], 09/03/2024 12:19:36 Result Notes Documentation Provider Name and Address Organization Details Recorded Time Xr, Joint, Multiple, 1 View : [facility] [address] [place] [address] Patient Name: KIRIT GARCIA Patient : 1960 Patient Ordering Provider: REBECA [...] By: Doc Schmitz MD CA HERNANDEZ PA-C [address] [place] [address], [phone], [facility] 07/23/2024 14:09:42 Xr, Hip, Bilateral, 2 View : [facility] [address] [facility] [place] [address] Patient Name: KIRIT GARCIA Patient : 1960 Patient Ordering Provider: CHELLY [...] By: Doc Schmitz MD LY ROGERS PA-C [address] [place] [address], [phone], [facility] 07/23/2024 15:47:18 Problems No Known Problems Procedures Surgical History Date Name Laterality Status Provider Name and Address Organization Details Recorded Time 09/02/19 25 Eye Surgery completed Heraclio Neely [facility] 09/03/2024 10:51:05 08/28/19 25 Synvisc One Injection completed GAURANG COBOS PA-C [address] [place], [address], [facility] 08/27/2024 10:54:41 08/05/19 25 Sacroiliac Joint Injection - Shukri completed FRANCISCO WATT MD [address] [place], [address], [facility] 08/04/2024 15:32:16 07/24/19 25 Injection Joint/Bursa, Major completed Karolyn Cartwright [facility] 07/23/2024 14:22:59 04/11/19 25 Total knee arthroplasty completed Ankita Alicea [facility] 05/01/2024 08:55:00 04/01/19 25 PCM Visit completed Ankita Alicea [facility] 04/18/2024 09:34:52 03/31/19 25 EKG completed Noy Cornell [facility] 03/31/2024 10:56:15 03/26/19 25 PT Evaluation - Low Complexity completed MILKA FORDE, PT, DPT [address] [place], [address], [facility] 03/26/2024 07:53:14 03/26/19 25 PT Therapeutic Exercise completed MILKA FORDE, PT, DPT [address] [place], [address], [facility] 03/26/2024 11:37:59 10/09/19 24 Lumbar Epidural Steroid Injection - Shukri completed FRANCISCO WATT MD [address] [place], [address], [facility] 10/09/2023 16:41:54 06/29/19 24 Lumbar Epidural Steroid Injection - Shukri completed FRANCISCO WATT MD [address] [place] [address], [phone], [facility] 06/29/2023 15:05:18 06/01/19 24 Joint Injection, Knee - Shukri completed FRANCISCO WATT MD [address] [place], [address], [facility] 06/01/2023 14:04:44 03/05/19 24 Lumbar Epidural Steroid Injection - Shukri completed FRANCISCO WATT MD [address] [place], [address], [facility] 03/05/2023 15:24:53 02/14/20 23 Joint Injection, Knee - Shukri completed FRANCISCO WATT MD [address] [place], [address], [facility] 02/13/2023 16:36:13 12/15/19 23 Joint Injection, Knee - Sh[place] [address] [place] [address], [address], [facility] 12/14/2022 09:44:07 12/09/19 23 EKG [place]OST [place] [address] [place] [address], [phone], [facility] 12/08/2022 15:51:17 10/28/19 23 Joint Injection, Knee - Shukri [place] [address] [place] [address], [address], [facility] 10/27/2022 15:15:34 08/27/19 22 Back Surgery completed Edyta Amador [facility] 12/08/2022 14:25:01 04/18/19 22 Stress Test - Nuclear Lexiscan completed TONY FROST MD [address] [place] [address], [address], [facility] 04/18/2021 14:45:48 04/04/19 22 EKG completed Kelsea Cunningham [facility] 04/04/2021 15:00:19 04/09/19 21 LAMINOTOMY (HEMILAMINECTOMY) , DECOMPRESSION OF NERVE ROOTS, PARTIAL FACECTOTOMY, FORAMINOTOMY AND/OR DISC REMOVAL, LUMBAR (SURG) completed Erinn Springer [facility] 04/21/2020 14:47:01 03/31/19 21 Echocardiogram [place] [address] [place] [address], [phone], [facility] 03/31/2020 16:29:29 Knee arthroscopy/surge ry completed [facility] 10/26/2016 10:56:59 Unlisted px hands/fingers completed [facility] 10/26/2016 10:56:55 Back Surgery completed [facility] 10/26/2016 10:56:48 Back Surgery completed Kelsea Short [facility] 04/04/2021 15:27:39 Imaging Results None recorded. Procedure Notes None recorded. Medical Equipment None Reported. Allergies Allergen ID Allergen Name Allergen Category Reaction Reaction Severity Criticality Documentation Date Start Date Code Code System Note Provider Name and Address Organization Details Recorded Time 765873 acetamino phen / oxycodone medicatio n itching Not available Not available 10/26/2016 06514 3 RxNorm Edyta Amador [facility] 14:21:12 Medications Name Sig Start Date Stop [...] completed Not Available Not Available Not Available Compound Rx Alternati ves Neuropath ic Pain Cream Apply 1-2 grams to the affected area 3-4 times daily 03/31 completed Not using - JW Not Available Not Available Not Available Compound Gentamyci n (120 mg/ 1000 mL normal saline) Thomas's Solution 120 mg in 1 liter of normal saline. Use as nasal lavage 1oz in each nostril BID 2019 active Not Available Not Available Not Avai lable Prescript ion - Prior Authoriza tion Request active Not Available Not Available Not Available celecoxib [...] e 137 mcg (0.1 %) nasal spray [place] 2 sprays twice a day by intranas [...] as needed by oral route. 02/09 completed [facility]: 0904-588 0-61 Not Available Not Available Not [...] Last Updated DateTime 187.96 cm 39.7 kg/m2 700389. 44 g 98.1 [degF] 65 /min 92 % 92 % 128/74 mm[Hg] Kati Lares [facility] 14:31:36 Date Recorded Body height Body mass index (BMI) Body weight Provider Name and Address Organization Details Last Updated DateTime 07/23/2024 187.96 cm 38.5 kg/m2 440097.71 g Karolyn Cartwright [facility] 07/23/2024 13:54:06 Social History Question Answer Notes LastModified by Organizat ion Details LastModified Time Tobacco Smoking Status Never [facility]oker [facility]/26/2016 10:55:42 What Was The Date Of Your Most Recent Tobacco Screening? 09/03/2024 [email or web address] Information not available 09/03/2024 What Is Your Relationship Status? [email or web address] Information not available 02/28/2023 Has Tobacco Cessation Counseling Been Provided? No [email or web address] Information not available 04/18/2021 Sex: Male Functional Status Question Answer Note LastModified by Organizat ion Details LastModified Time Do you use any illicit or recreational drugs? No [email or web address] Information not available 02/28/2023 Do you or have you ever used any other forms of tobacco or nicotine? No [email or web address] Information not available 02/28/2023 What is your level of alcohol consumption? Moderate [email or web address] Information not available 10/26/2016 Are you currently employed? No [email or web address] Information not available 02/01/2024 Mental Status None [...] N Immune System Disorder N Heart Attack ([place]) N Mental Illness N Neurological Problems N Diabetes N Cardiomyopathy N Seizures/Epilepsy N Heart Murmur Y Congestive Heart Failure (CHF) N Hyperlipidemia N Epilepsy/Seizures N Reflux/GERD N Sleep Apnea Y Warfarin Management N Heart Disease N Hypertension Y Osteoporosis N Immunizations Vaccine Type Date Status Note Provider Nam e and Address Organization Details Recorded Time Influenza, recombinant, quadrivalent, PF 1 completed Karolyn Cartwright [facility] 02/28/2023 10:12:05 COVID-19 vaccine, vector-nr, rS-Ad26, PF, 0.5 mL 1 completed Karolyn Cartwright [facility] 02/28/2023 10:12:05 COVID-19 vaccine, vector-nr, rS-Ad26, PF, 0.5 mL 1 completed Karolyn Cartwright [facility] 02/28/2023 10:12:05 pneumococcal polysaccharide PPV23 0 completed Karolyn Cartwright [facility] 02/28/2023 10:12:05 Past Encounters Encounter ID Performer Location Encounter Start Date Encounter Closed Date Diagnosis/Indication Diagnosis SNOMED-CT Code Diagnosis ICD10 Code Diagnosis Note [id number] REBECA HERNANDEZ PA-C ORTHOPEDI [address] [place] [address] 07/23/2024 13:29:06 07/23/2024 14:26:13 Osteoarthritis of right knee joint 0685841225 95195 M17.11 I discussed the risk and benefits [...] tolerated well. History of total knee arthroplasty 7256363996 105 Z96.659 Peng is now 3 months [...] 1 year or sooner if symptoms warrant. 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 Watt Previous PT:none (Starting PT soon) Work Related:yes Working:no Pneg Garcia is a 64 yo male here today for 3 mth med RF. Pt reports he still has some relief w/ the gabapentin. Pt states he is having increased pain in right hip. CHELLY ROGERS PA-C [address] [place], [address], [facility] 07/23/2024 14:52:03
--- OUTSIDE RECORDS SUMMARY | 2024-09-15 12:06 | XMS_ITS | Encounter Summary ---
Author Organization [employer] ([place], [place], [place]) Address [address] [place] [address] Care Team Providers Care Customer Operations Specialist Name Role Phone Unavailable Primary Care Provider Unavailabl e Encounter Details Date Type Department Care Team (Late st Contact Info) Description 04/09/2020 Transcribed Document [facility] Family [place] [address] ProviderSabine [place] [address] Social History Tobacco Use Types Packs/Day Years Used Date Smoking Tobacco: Never Assessed Sex and Gender Information Value Date Recorded Sex Assigned at Male 08/23/2021 8:49 PM CDT Legal Sex Male 8:49 PM CDT Gender Identity Male 08/23/2021 8:49 PM CDT Sexual Orientation Not on file documented as of this encounter Miscellaneous Notes * Cerner Conversion Note - Sabine Vivas MD - 04/09/2020 11:32 AM CABLE PULLER [facility] Main OR PACU Summary Primary Physician: RUDY DACOSTA MD-CHERYL Finalized Date/Time: 04/09/20 14:37:05 Pt. Name: CODI HULL/Sex: 1960 Male Med Rec #: [id number] Physician: RUDY DACOSTA MD-SN Financial #: [id number] Pt. Type: O Room/Bed: /7 Admit/Disch: 04/09/20 12:51:00 - Institution: [facility] Main OR PACU I Case Times Entry 1 In PACU I 04/09/20 12:37:00 Ready for PACU 04/09/20 13:55:00 Discharge Discharge from PACU 04/09/20 13:55:00 I Last Modified By: Conner Ley RN 04/09/20 14:01:23 Finalized By: Conner Ley RN Document Signatures Signed By: Conner Ley RN 04/09/20 14:02 Conner Ley RN 04/09/20 14:37 Electronically signed by [facility] Conversion Business Process Associate Cerner at 06/16/2022 7:18 PM CDT documented in this encounter Plan of Treatment Not on file documented as of this encounter Visit Diagnoses Not on filedocumented in this encounter
--- OUTSIDE RECORDS SUMMARY | 2024-09-15 12:06 | XMS_ITS | Encounter Summary ---
Author Organization [employer] ([place], [place], [place], [place]) Address [address] [place] [address] Care Team Providers Care Manager Mortgage Name Role Phone Unavailable Primary Care Provider Unavailabl e Encounter Details Date Type Department Care Team (Late st Contact Info) Description 04/09/[address] [facility] [address] [facility] [address] [place] [address] Rudy Dacosta Jr., MD [address] [place] [address] Social History Tobacco Use Types Packs/Day Years Used Date Smoking Tobacco: Never Assessed Sex and Gender Information Value Date Recorded Sex Assigned at Male 08/23/2021 8:49 PM CDT Legal Sex Male 8:49 PM CDT Gender Identity Male 08/23/2021 8:49 PM CDT Sexual Orientation Not on file documented as of this encounter Miscellaneous Notes * Cerner Conversion Note - Rudy Dacosta Jr., MD - 04/09/2020 1:41 PM EST Patient: CODI HULL Age: 60 Years Sex: Male : 1960 *Operation right L4-5 microlumbar foraminotomy Anesthesia Type General SUNIL BURLESON MD-ANS (Anesthesiologist of Record) *Preoperative Diagnosis LUMBAR RADICULOPATHY *Postoperative Diagnosis SEE MD POST OP NOTE *Surgeon(s) Primary Surgeon RUDY DACOSTA MD-SNU (Surgeon/Proceduralist, First) *Estimated Blood Loss <50 ml *Findings expected *Specimen(s) none Complications none Date of Service Date/Time of Service SN - Proc - Start Time: 04/09/20 11:32:00 (04/09/20 11:42:36) documented in this encounter Plan of Treatment Not on file documented as of this encounter Visit Diagnoses Not on filedocumented in this encounter
--- OUTSIDE RECORDS SUMMARY | 2024-09-15 12:06 | XMS_ITS | Clinical Summary ---
Author Organization Healthcare Address [address] [place] [address] Care Team Providers Care Senior C Software Developer Name Role Phone Unavailable Primary Care Provider Unavailabl e Social History Tobacco Use Types Packs/Day Years Used Date Smoking Tobacco: Never Assessed Sex and Gender Information Value Date Recorded Sex Assigned at Not on file Legal Sex Male 6:34 PM EDT Gender Identity Not on file Sexual Orientation Not on file Plan of Treatment Health Maintenance Due Date Last Done Comments [facility]-Depression Screening 1960 [facility]-/Child/Adol SDOH Screenings 1960 [facility]- SDOH Screenings 1977 [facility]-Adult SDOH Screenings 1977 CT Colonography 01/05/2004 Colonoscopy 01/05/2004 FIT-DNA 01/05/2004 FIT 01/05/2004 FOBT 01/05/2004 Sigmoidoscopy 01/05/2004 [facility]-Colorectal Cancer Screening 01/05/2004 [facility]-Zoster Vaccines (1 of 2) 2009 [facility]-Pneumococcal Vaccine: 50 + Years (2 of 2 - PCV) 08/25/2020 08/26/2019 [id number] Vaccine ( season) 2023 01/27/2021, 07/01/2020 [facility]-Influenza Vaccine (#1) 2024 01/12/2021 [facility]-DTaP,Tdap,and Td Vaccine s (2 - Td or Tdap) 06/23/2025 06/24/2015 [facility]-RSV Vaccine: 60+ Years o r (1 - 1-dose 75+ series) 2034 HPV Vaccines Aged Out No longer eligi ble based on patient's age to complete this topic [facility]-HIB Vaccines Aged Out No longer e ligible based on patient's age to complete this topic [facility]-Hepatitis A Vaccines Aged Out No longer eligible based on patient's age to complete this topic [facility]-IPV Vaccines Aged Out No longer e ligible based on patient's age to complete this topic [facility]-Rotavirus Vaccines Aged Out No lo nger eligible based on patient's age to complete this topic Insurance MIKA
--- OUTSIDE RECORDS SUMMARY | 2024-09-15 12:06 | XMS_ITS | Encounter Summary ---
Author Organization [employer] ([place], [place], [place], [place]) Address [address] [place] [address] Care Team Providers Care Lockstitch Collar Setter Name Role Phone Unavailable Primary Care Provider Unavailabl e Encounter Details Date Type Department Care Team (Late st Contact Info) Description 04/09/2020 Transcribed Document [facility] [address] [address] [facility] [address] [place] [id number] Jack Allen Jr., MD [address] [place], [place] [id number] Social History Tobacco Use Types Packs/Day Years Used Date Smoking Tobacco: Never Assessed Sex and Gender Information Value Date Recorded Sex Assigned at Male 08/23/2021 8:49 PM CDT Legal Sex Male 8:49 PM CDT Gender Identity Male 08/23/2021 8:49 PM CDT Sexual Orientation Not on file documented as of this encounter Miscellaneous Notes * Cerner Conversion Note - Jack Allen Jr., MD - 04/09/2020 1:45 PM EST DATE OF PROCEDURE: 04/09/2020 SURGEON: Jack Allen Jr, MD PREOPERATIVE DIAGNOSIS: Lumbar spondylosis with radiculopathy. POSTOPERATIVE DIAGNOSIS: Lumbar spondylosis with radiculopathy. PROCEDURE PERFORMED: Right L4-5 microlumbar foraminotomy. PICKUP DRIVER: Paola Zelaya PA-C. ANESTHESIA: General endotracheal. BLOOD LOSS: Less than 50 mL. COMPLICATIONS: None. SPECIMEN: None. CONDITION: Stable to PACU. INDICATION FOR PROCEDURE: Mr. Garcia is 60 years old. He is remotely status post lumbar surgery at [facility]. He has had progressive right lower extremity pain. He describes a classical L5 radiculopathy. He had severe lateral recess stenosis on the right. Compression of the L5 nerve root was noted. He failed conservative treatment. I thought he was a candidate for surgery. Indications, risks, and benefits were explained. I met with him prior to the operation and confirmed that his symptomatology persisted. I answered all questions, and consent was signed for this procedure. DESCRIPTION OF PROCEDURE: After informed consent was obtained, the patient was brought to the operating room and general endotracheal anesthesia was induced. He was carefully turned prone on the Maxx spine table using the chest, hip, and thigh pads. Arms were abducted and flexed. All pressure points were padded and protected, and he was secured to the bed with straps per routine. Lateral fluoroscopy was brought in. We marked the skin overlying the L4-5 disk space in the midline, this was just above the prior incision. The prior incision was about 2 inches long. I planned an incision about an inch and a half long. The back was prepped and draped in usual fashion. Prophylactic antibiotics were given. The skin incision was opened with scalpel, Bovie cautery used to dissect down the fascia, and a subperiosteal dissection was undertaken initially. I was at the L3-4 interlaminar space and dissected inferiorly. I confirmed we were right over the L4-5 disk space. Barrett retractors were placed. The microscope was brought in. A hemilaminotomy was started at the inferior aspect of the L4 lamina with a matchstick drill bit. It was completed with Kerrison punches. Mesial portion of facet was very deep and clearly had a deep osteophytic spur compressing the dorsal aspect of ligamentum flavum. Ligamentum flavum was reflected inferiorly and laterally resected with Kerrison punches. I came to the shoulder of the L5 nerve root, and it was flattened out from the overlying osteophyte and thickened ligamentum flavum. I dorsally decompressed it along the medial border of the pedicle. I found the disk space. There was a mild disk protrusion, but with the dorsal decompression, the nerve root was nice and free. I could easily advance the ball probe out the foramen. I was happy with the decompression. I was careful not to perform much of the facetectomy. I was careful to limit the facetectomy and certainly did not come across the pars interarticularis. Epidural hemostasis was obtained with bipolar cautery throughout. Bone edges were waxed. There was no CSF leakage. I elected to leave a piece of Gelfoam over the laminotomy site. Meticulous soft tissue hemostasis was obtained. The fascia was closed with running Vicryl suture. Nora's layer and the dermis were closed with interrupted Vicryl sutures and the skin closed with maty. Dressing was applied. The patient went to the recovery room in good condition. Paola Zelaya PA-C, assisted through the entire operation with tasks such as suctioning, soft tissue retraction, laminotomy/foraminotomy, wound closure. /[id number] Jack Allen Jr, MD RDO/AQ / RDO / MODL /[id number] documented in this encounter Plan of Treatment Not on file documented as of this encounter Visit Diagnoses Not on filedocumented in this encounter
--- OUTSIDE RECORDS SUMMARY | 2024-09-15 12:06 | XMS_ITS | Clinical Summary ---
[facility] Organization [facility] Address [address] [place] [address] Care Team Providers Care Corn Picker Name Role Phone Nadja Barraza APRN Primary Care Provider [phone] Allergies Active Allergy Reactions Criticality Noted Date Comments Ibuprofen Other (See Comments) 09/05/2021 Contraindicated Mustard Anaphylaxis High 02/14/2021 Medications montelukast (SINGULAIR) 10 MG tablet Take 1 tablet by mouth Every Night. Active vitamin D (ERGOCALCIFEROL) 03672 units capsule capsule Take 1 capsule by mouth Every 7 (Seven) Days. Sundays 018 Active gabapentin (NEURONTIN) 800 MG tablet Take 1 tablet by mouth 4 (Four) Times a Day. Active losartan (COZAAR) 100 MG tablet Take 1 tablet by mouth Daily. Active allopurinol (ZYLOPRIM) 300 MG tablet Take 1 tablet by mouth Daily. Active amLODIPine (NORVASC) 10 MG tablet Take 1 tablet by mouth Daily. Active tamsulosin (FLOMAX) 0.4 MG capsule 24 hr capsule Take 1 capsule by mouth Daily. Active ferrous sulfate 325 (65 FE) MG tablet Take 1 tablet by mouth Daily With Breakfast. Active spironolactone (ALDACTONE) 25 MG tablet Take 2 tablets by mouth Daily. 022 Active HYDRALAZINE HCL PO Take 50 mg by mouth 2 (Two) Times a Day. Active levothyroxine (SYNTHROID, LEVOTHROID) 75 MCG tablet Take 1 tablet by mouth Daily. Active propranolol (INDERAL) 10 MG tablet Take 1 tablet by mouth Every 12 (Twelve) Hours. Active sildenafil (VIAGRA) 50 MG tablet Take 1 tablet by mouth. Active doxazosin (CARDURA) 8 MG tablet Take 1 tablet by mouth Daily. Active potassium chloride (KLOR-CON M20) 20 MEQ CR tablet Take 1 tablet by mouth Daily. WITH FOOD Active omeprazole (priLOSEC) 40 MG capsule Take 1 capsule by mouth Daily. BEFORE A MEAL Active bumetanide (BUMEX) 1 MG tablet Take 1 tablet by mouth Daily. Active FLUoxetine (PROzac) 20 MG capsule Take 1 capsule by mouth Every Morning. Active rOPINIRole (REQUIP) 1 MG tablet Take 1 tablet by mouth every night at bedtime. 30 tablet 11 Active traZODone (DESYREL) 50 MG tabletIndications :Psychophysiologi dara insomnia Take 1 tablet by mouth Every Night. 30 tablet 2 Active Additional Information Patient not taking.Reported on 05/08/2024 Aspirin Low Dose 81 MG EC tablet Take 1 tablet by mouth twice a day for 30 days, for prevention of blood clots. Active cefadroxil (DURICEF) 500 MG capsule Take 1 capsule by mouth twice a day for 7 days, for infection prevention. Active HYDROcodone-aceta minophen (NORCO) 5-325 MG per tablet Active ondansetron (ZOFRAN) 4 MG tablet Take 1 tabletby mouth every 8 hours as needed, for nausea. Active oxyCODONE-acetami nophen (PERCOCET) 5-325 MG per tablet Take 1 tablet by mouth Every 6 (Six) Hours As Needed. Active sulfaSALAzine (AZULFIDINE) 500 MG tabletIndications :Rheumatoid arthritis involving multiple sites with positive rheumatoid factor Take 2 tablets by mouth 2 (Two) Times a Day. 360 tablet 1 Active etodolac (LODINE) 400 MG tabletIndications :Primary osteoarthritis involving multiple joints Take 1 tablet by mouth 2 (Two) Times a Day. WITH FOOD 180 tablet 1 025 Active tiZANidine (ZANAFLEX) 4 MG tablet Take 1-2 tablets by mouth Every Night. 60 tablet 3 Active Adalimumab (Humira, 2 Pen,) 40 MG/0.4ML Auto-injector Kit Inject 40 mg under the skin into the appropriate area as directed Every 14 (Fourteen) Days. 2 each 5 025 Active magnesium oxide (MAG-OX) 400 MG tablet TAKE ONE TABLET BY MOUTH NIGHTLY AT BEDTIME 90 tablet 025 Active magnesium oxide (MAG-OX) 400 MG tablet Take 1 tablet by mouth every night at bedtime. 90 tablet 1 025 2024 Discontinued Active Problems Problem Noted Date Diagnosed Date Primary osteoarthritis involving multiple joints 10/08/2023 Assessment & Plan (05/08/2024 3:08 PM EDT): Severe knee arthritis L>R per 10/18 films. Left knee replacement 04/11/24 Dr. Alexis He still struggles with posterior left knee pain s/p replacement with Dr. Alexis 04/11/24 Continue to follow up with ortho Previously on Percocet. He is now on [place] as needed. Continue etodolac Assessment & Plan (10/09/2023 12:37 PM EDT): Knees. Severe pain with standing or walking. He has had short acting steroids before. They could not get Zilretta through pain clinic. Severe knee arthritis L>R per 10/18 films. Large Dong's cyst behind left knee. He is having an ultrasound on this Sunday. Ordered by Dr Watt. His insurance will not cover a trial of gel injections. Insurance denied genicular block. This would cost 5000.00 Knee pain is severe and he has issues walking. Previously on Percocet, but new pain clinic does not prescribe these. He is unable to do knee replacements at present because his just had a stem cell transplant. Per Dr. Kim's last note patient was to be referred to pain management for medication management as patient used to take Percocet. Referral sent for Dr. Harding. We did discuss that I did not know if Dr. Harding will accept him as he still sees Dr. Watt for injections. Prednisone taper sent to assist in knee pain after ultrasound. Hyperuricemia 10/08/2023 Assessment & Plan (05/08/2024 3:09 PM EDT): No gout flares in interim. He is on allopurinol. Recheck uric acid Assessment & Plan (10/09/2023 12:38 PM EDT): 6.7 in 03/16 Uric acid normal 6.8 02/2019 Uric acid 4.1 07/14/21 No gout. Osteoarthritis of lumbar spine 10/08/2023 Assessment & Plan (05/06/2024 12:21 PM EDT): He has an injection today with Dr. Watt. Trial tizanidine as robaxin is not working. Assessment & Plan (10/09/2023 12:11 PM EDT): He has an injection today with Dr. Watt. Trial tizanidine as robaxin is not working. High risk medication use 10/08/2023 Assessment & Plan (05/08/2024 3:09 PM EDT): SSZ well tolerated and seems to be effective. QTB negative 10/08/23 Hepatitis panel neg 09/2022 CBC CMP, UA every 4 months- 09/2023 reviewed. Labs ordered today Would hold biologic for any infection or illness, Seek treatment and when well and illness is resolved you may restart medication. Assessment & Plan (10/08/2023 1:03 PM EDT): Humira/SSZ well tolerated and seems to be effective. QFN and Hep panel negative 10/18 COVID Vaccination UTD + booster. CBC CMP, UA every 4 months- 04/21 Would hold Humira for any infection or illness, Seek treatment and when well and illness is resolved you may restart medication. Fatigue 10/08/2023 Assessment & Plan (10/08/2023 1:03 PM EDT): Q TB and hepatitis panel with next lab draw Rheumatoid arthritis 10/05/2023 Assessment & Plan (05/08/2024 3:07 PM EDT): 09/13 RF IGM + 34 (25) IGG/IGA negative. 2016 CCP and Amarilis by IFA negative. Initially severe pain started R first mtp joint with thickening of the joint. Evaluated by Dr. Mendoza and Travis. Eval negative for gout. Subsequently developed MCP swelling and pain that improved with injection by Dr. Powers. Started on SSZ and Celebrex with some improvement. Based on recent XR findings with erosion and positive RF I think this is most consistent with RA. He has had am stiffness up to two hours as well as joint pain and swelling. Plan to avoid MTX/Arava in view of ETOH use. Foot films OA of R first mtp joint and bilateral heel spurs in 11/2019- OA of DIP, Narrowing of L 2nd and R 2nd and 3rd mcp consistent with inflammatory arthritis + small ulnar styloid erosion on L. S/p ketoprofen, meloxicam, naproxen, celebrex Hand films 02/17 - negative for erosions Humira biosimilar seems to take care of the inflammatory arthritis in his hands. He has been off Humira biosimilar since 03/29/2024 due to surgery. He has also been told his insurance will no longer cover it. We will look into another Humira biosimilar or Rinvoq. Continue SSZ. Continue etodolac 400mg bid with food. Check labs today Return to clinic 4 months Assessment & Plan (10/09/2023 12:01 PM EDT): 09/13 RF IGM + 34 (25) IGG/IGA negative. 2016 CCP and Amarilis by IFA negative. Initially severe pain started R first mtp joint with thickening of the joint. Evaluated by . Eval negative for gout. Subsequently developed MCP swelling and pain that improved with injection by Dr. Crain. Started on SSZ and Celebrex with some improvement. Based on recent XR findings with erosion and positive RF I think this is most consistent with RA. He has had am stiffness up to two hours as well as joint pain and swelling. Plan to avoid MTX/Arava in view of ETOH use. Foot films Oa of R first mtp join , bilateral heel spurs in 11/2019Oa of DIP , Narrowing of L 2nd and R 2nd and 3rd mcp consistent with inflammatory arthritis + small ulnar styloid erosion on L. S/p ketoprofen, meloxicam, naproxen, celebrex Hand films 02/17 - negative for erosions Humira biosimilar seems to take care of the inflammatory arthritis in his hands. Continue Humira biosimilar. He feels like this works for his inflammatory arthritis. We do have alternatives if he feels like this stops working. Continue SSZ. His pain is 10/10 today. A lot of pain is coming from his large Dong's cyst of the left knee. Continue etodolac 400mg bid with food. If BP is greater than 150/90 stop nsaid and see PCP for treatment. Foot pain 10/03/2023 S/P lumbar fusion 10/19/2021 Lumbar stenosis with neurogenic claudication 02/2021 Trigger finger of both hands 03/17/2021 Iron deficiency anemia 09/03/2020 Overview (05/08/2024): Problem Code: D50.9; Problem Code Type: ICD-10; Vitamin D deficiency 09/03/2020 Overview (05/08/2024): Problem Code: E55.9; Problem Code Type: ICD-10; Long-term current use of opiate analgesic 2020 Osteoarthritis of knee 03/20/2020 Chronic gout without tophus 03/03/2020 Overview (05/08/2024): Problem Code: M1A.9XX0; Problem Code Type: ICD-10; Hypothyroidism 03/03/2020 Mononeuropathy due to type 2 diabetes mellitus 0 03/03/2020 Overview (05/08/2024): Problem Code: E11.41; Problem Code Type: ICD-10; Erectile dysfunction 12/10/2019 Overview (05/08/2024): Problem Code: N52.9; Problem Code Type: ICD-10; Encounter for long-term (current) use of insulin 11/22/2019 Pain in joint involving ankle and foot 0 Lumbar post-laminectomy syndrome 05/15/2018 Degenerative disc disease, lumbar 10/23/2017 Assessment & Plan (05/08/2024 3:08 PM EDT): Severe of Lumbar spine. Saw Dr Manley who did not recommend surgery. Has had Epidurals with Dr Watt one of which caused him to be pain free in the leg and foot. HLA B27 negative. S/p Surgery Mar 2020 - Dr. Allen. Continues to have pain on opposite side. Per Dr. Allen he does not think he is a candidate for another surgery. Eval for infection negative. Spinal stimulator trial was not helpful Dismissed by Dr. Paris. Lumbar MRI 01/18 - mild diffuse curvature to the L of the L spine. Currently seeing Dr. Watt with [facility]. Continue Toledo per pain clinic He has had back injections He continues on gabapentin 800mg four times daily. Increase tizanidine to 4-8 mg nightly as needed Assessment & Plan (10/08/2023 1:02 PM EDT): Severe of Lumbar spine. Saw Dr Manley who did not recommend surgery. Has had Epidurals with Dr Watt one of which caused him to be pain free in the leg and foot. HLA B27 negative. S/p Surgery Mar 2020 - Dr. Allen. Continues to have pain on opposite side. Per Dr. Allen he does not think he is a candidate for another surgery. Eval for infection negative. Spinal stimulator trial was not helpful Dismissed by Dr. Paris. Lumbar MRI 01/18 - mild diffuse curvature to the L of the L spine. Currently seeing Dr. Watt with [facility]. They do not prescribe pain meds there, so he is no longer on Percocet. He has back injection pending. He continues on gabapentin 800mg four times daily. Continue methocarbamol. He has only been taking this at bedtime. Increase to three times daily as needed. Bulging lumbar disc 10/23/2017 Chronic pain disorder 09/27/2017 Diabetes mellitus 08/03/2017 Hypertensive disorder 08/03/2017 Sleep apnea 08/03/2017 Neuropathy 05/30/2017 Venous stasis 05/30/2017 Encounters Date Type Department Care Team Description 09/01/2024 Refill [facility] [address] [address] Sigrid Barr APRN from Last 3 Months Immunizations Immunization Administration Dates Next Due Flublok 18+yrs 01/12/2021 Pneumococcal Polysaccharide (PPSV23) 08/26/2019 Family History Medical History Relation Name Comments Cancer Father Gucci Hypertension Father Gucci Osteoarthritis Father Gucci Stroke Father Gucci Arthritis Mother Delmy Meme Bustillo's palsy Mother Delmy Valentine Aneurysm Sister NIR'S SYNDROME Son Tremor Son HAND Relation Name Status Comments Father Gucci Mother Delmy Meme Sister Son Social History Tobacco Use Types Packs/Day Years Used Date Smoking Tobacco: Never Passive Smoke Exposure: Past Smokeless Tobacco: Never Tobacco Cessation:Counseling Given: Not Answered Alcohol Use Standard Drinks/Week Comments Yes 5 [...] on file Sexual Orientation Not on file Last Filed Vital Signs Vital Sign Reading Time Taken Comments Blood Pressure 122/74 05/08/2024 2:33 PM EDT Pulse 54 05/08/2024 2:33 PM EDT Temperature 36.5 C (97.7 F) 05/08/2024 2:33 PM EDT Respiratory Rate 20 09/08/2021 11:35 AM EDT Oxygen Saturation 95% 10/25/2023 1:08 PM EDT Inhaled Oxygen Concentration - - Weight 143 kg (315 lb) 05/08/2024 2:33 PM EDT Height 188 cm (6' 2.02 ) 05/08/2024 2:33 PM EDT Body Mass Index 40.42 05/08/2024 2:33 PM EDT Plan of Treatment Upcoming Encounters Date Type Department Care Team (Late st Contact Info) Description 09/24/2024 1:15 PM EDT Office Visit [facility] [address] [place] [address] Sigrid Barr APRN [address] [place], [place] [id number] 10/28/2024 10:15 AM EDT Office Visit [facility] [address] [place] [address] Eduardo Clark MD [address] [place], [place] [id number] Health Maintenance Due Date Last Done Comments DIABETIC EYE EXAM 1969 DIABETIC FOOT EXAM 1969 URINE MICROALBUMIN-CREATININE RATIO (uACR) 1969 TDAP/TD VACCINES (1 - Tdap) 1978 COLOGUARD 01/05/2004 COLON CANCER SCREENING 5 YEA R SIGMOIDOSCOPY 01/05/2004 COLONOSCOPY 01/05/2004 COLORECTAL CANCER SCREENING 01/05/2004 CT COLONOGRAPHY 01/05/2004 FECAL OCCULT BLOOD TEST 01/05/2004 FIT Testing (1 year) 01/05/2004 ZOSTER VACCINE (1 of 2) 2009 ANNUAL WELLNESS VISIT 05/30/2017 HEPATITIS C SCREENING 05/30/2017 Pneumococcal Vaccine 50+ (2 of 2 - PCV) 08/25/2020 0 08/26/2019 HEMOGLOBIN A1C 03/05/2022 09/02/2021 COVID-19 Vaccine (3 season) 10/28/202303/2020, 07/01/2020 INFLUENZA VACCINE 11/26/2024 01/12/2021 Medical Devices Implanted Type Area Rural Health Consultant Device Identifier Shelf Expiration Date Model / Serial / Lot Kt Seal Hemos Abs Floseal Matrx Fast/Prep 10ml - [id number] Implanted:Qty : 3 on 09/05/2021 by Kirit Paris MD at [facility] Implant N/A: Spine Lumbar [employer]AMARR[employer] [id number] / / . Hemost Abs Surgifoam Sz100 8x12 10mm - [id number] Implanted:Qty : 1 on 09/05/2021 by Kriit Paris MD at [facility] Implant N/A: Spine Lumbar ETH[employer] J AND J 1973 / / . Orthoblend Dbm Maria Ines 5cc - [id number] - [id number] Implanted:Qty : 1 on 09/05/2021 by Kirit Paris MD at [facility] Implant N/A: Spine Lumbar [employer] [id number] 07/01/2023 [id number] / [id number] / . Spacr Vbs Capstone Ptc [id number] - [id number] Implanted:Qty : 2 on 09/05/2021 by Kirit Paris MD at [facility] Implant N/A: Spine Lumbar [employer] [id number] 11/15/2026 [id number] / / [id number] Spacr Vbs Capstone Ptc [id number] - [id number] Implanted:Qty : 2 on 09/05/2021 by Kirit Paris MD at [facility] Implant N/A: Spine Lumbar [employer] 06/28/2026 [id number] / / [id number] Scrw Bessy Solera Mas 6.5x55mm - [id number] Implanted:Qty : 6 on 09/05/2021 by Kirit Paris MD at [facility] Implant N/A: Spine Lumbar [employer] [id number] / / N/A Eliseo Solera Crv Cocr 5.5cm 70mm - [id number] Implanted:Qty : 2 on 09/05/2021 by Kirit Paris MD at [facility] Implant N/A: Spine Lumbar [employer] [id number] / / N/A Scrw St Solera Brkoff Ti 5.5mm - [id number] Implanted:Qty : 6 on 09/05/2021 by Kirit Paris MD at [facility] Implant N/A: Spine Lumbar [employer] [id number] / / N/A Procedures Procedure Name Priority Date/Time Associated Diagnosis Comments HEMOGLOBIN A1C Routine 09/02/2021 10:13 AM EDT from Last 3 Months or Most Recently Relevant to Health Maintenance Results * Hemoglobin A1c (09/02/2021 10:13 AM EDT) Hemoglobin A1C 4.90 4.80 - 5.60 % 09/02/2021 10:58 AM EDT LABORATORY Blood Venipuncture / Unknown 09/02/2021 10:13 AM EDT 09/02/2021 10:30 AM EDT Narrative LABORATORY - 09/02/2021 10:58 AM EDT Hemoglobin A1C Ranges: Increased Risk for Diabetes 5.7% to 6.4% Diabetes >= 6.5% Diabetic Goal < 7.0% us Cecille Yoo MD LAB BLOOD ORDERABLES [facility] LABORATORY
[address] [place] [address], from Last 3 Months or Most Recently Relevant to Health Maintenance Insurance [employer] PPO Advance Directives Documents on File Type Date Recorded Patient Price Checker Expl anation LIVING WILL - SCAN 09/02/2021 9:58 AM [facility], [facility], 08/31/2021 POWER OF TRAFFIC OFFICER - SCAN 09/02/2021 9:58 AM [facility] D[facility]ABLE [facility]ICAL, [facility], 08/31/2021 * CPR (Attempt to Resuscitate) (Latest Code Status on File) Date Activated Date Inactivated Comments 09/05/2021 12:03 PM 09/08/2021 3:23 PM Question Answer Comments Code Status (Patient has no pulse and is not breathing): CPR (Attempt to Resuscitate) Medical Interventions (Patie nt has pulse or is breathing): Full Care Teams Corn Picker Relationship Specialty Start Date End Date Nadja Barraza APRN [address] [place] [address] PCP - General Nurse Practitioner 01/28/24
--- OUTSIDE RECORDS SUMMARY | 2024-09-15 12:06 | XMS_ITS | Encounter Summary ---
Author Organization [facility] ([place], [place], [place], [place]) Address [address] [place] [address] Care Team Providers Care Public Safety Officer Name Role Phone Unavailable Primary Care Provider Unavailabl e Encounter Details Date Type Department Care Team (Late st Contact Info) Description 04/06/2020 Transcribed Document [facility] Family Medicine [facility] [place] [address] ProviderSabine [place] [address] Social History Tobacco Use Types Packs/Day Years Used Date Smoking Tobacco: Never Assessed Sex and Gender Information Value Date Recorded Sex Assigned at Male 08/23/2021 8:49 PM CDT Legal Sex Male 8:49 PM CDT Gender Identity Male 08/23/2021 8:49 PM CDT Sexual Orientation Not on file documented as of this encounter Miscellaneous Notes * Cerner Conversion Note - Sabine ProviderMD - 04/06/2020 11:05 AM ACRYLIC FABRICATOR PAT Adult Entered On: 04/06/2020 11:08 EST Performed On: 04/06/2020 11:05 EST by Scot Carlson Rn Vital Measurements Temperature Source : Temporal artery scanning Temperature, Fahrenheit : 97.9 Deg F Clinical Temperature, C : 36.6 Deg C Pulse Method : Pulse Oximetry Peripheral Pulse Rate : 63 bpm Respiratory Rate : 18 Breaths/Min Blood Pressure Location : Arm, left upper Systolic Blood Pressure : 147 mmHg (HI) Diastolic Blood Pressure : 86 mmHg Oxygen Saturation : 97 % Oxygen Therapy Mode : Room air Noy Daugherty Rn - 04/07/2020 13:51 EST Pain Assessment Pain Assessment : Initial assessment Pain Scale Goal : 3 Noy Daugherty Rn - 04/07/2020 13:51 EST Height and Weight, Clinical Dosing Height Source : Measured Height Entry Format : [place] Height, Feet : 6 ft(Converted to: 183 cm, 72 Inch) Height, Inches : 2 Inch(Converted to: 0 ft 2 Inch, 5.08 cm) Clinical Height : 187.96 cm Weight Source : Standing scale Weight Entry Format : [place] Clinical Dosing Weight : 134.55 kg Weight, Pounds : 296 lb Body Surface Area (BSA) : 2.57 m2 Body Mass Index : 38.1 kg/m2 (HI) [place] Body Weight : 81 kg Noy Daugherty Rn - 04/07/2020 13:51 EST Health Histories Smoking Status : Never (less than 100 in lifetime; none in last 30 days) Smokeless Tobacco Status : Never Implant/Device Type, Expanded Duty Dental Assistant and Model : NA Scot Carlson Rn - 04/06/2020 11:05 EST Social History (As Of: 04/06/2020 11:08:43 EST) Tobacco: Never (less than 100 in lifetime) Smoking Status. Never Smokeless Tobacco Status. None Smokeless Tobacco Use History. (Last Updated: 04/06/2020 11:05:33 EST by Scot Carlson Rn) Alcohol: Alcohol Use History Yes. Days/Week: 4. # Drinks/Day: 9. Total Drinks/Week: 36. Use in Last 12 Months: Yes. (Last Updated: 04/06/2020 11:05:33 EST by Scot Carlson, Rn) Substance Abuse: Drug Use Hx: No. Use in Last 12 Months: No. (Last Updated: 04/06/2020 11:05:33 EST by Scot Carlson, Rn) Infectious Disease History Has the patient ever been tested for COVID-19? : No, Screening today for COVID-19 Date of COVID-19 test known? : Yes Date of COVID-19 Test : 04/07/2020 EST Does patient have symptoms of COVID-19? : No COVID19 Screening : No Experiencing Infectious Disease Symptoms : No symptoms Physical contact outside [place] in the last 30 days : No Infectious Disease History : Mumps Tuberculosis Symptoms : None Noy Daugherty Rn - 04/07/2020 13:51 EST COVID19 PreProcedure Screening Is this an Emergent or Add on Procedure? : No Date PreProcedure COVID-19 test known? : Yes Date of PreProcedure COVID-19 : 04/07/2020 EST Noy Daugherty Rn - 04/07/2020 13:51 EST Anesthesia/Transfusion History Family History of Anesthesia Reaction : No prior transfusion(s) Blood Transfusion Acceptable to Patient : Yes Transfusion History : Prior anesthesia without reaction Family History of Anesthesia Reaction : None Scot Carlson Rn - 04/06/2020 11:05 EST Functional Assessment Functional ADL Evaluation Index EBN Bathing : Independent (2) Dressing : Independent (2) Toileting : Independent (2) Transferring Bed or Chair : Independent (2) Continence : Independent (2) Feeding : Independent (2) Scot Carlson Rn - 04/06/2020 11:05 EST ADL Index Score : 12 Scot Carlson Rn - 04/06/2020 11:05 EST Advance Directive Patient has Advance Directive *Q : No, patient refuses Advance Directive information Scot Carlson Rn - 04/06/2020 11:05 EST Spiritual/Cultural Needs Any Spiritual/Cultural Needs or Requests : No Scot Carlson Rn - 04/06/2020 11:05 EST [place] Suicide Severity Rating Scale (C-SSRS) CSSRS Past Month Wish to be : No CSSRS Past Month Suicidal Thoughts : No CSSRS Lifetime Suicide Behavior : No Suicide Severity Rating Score : 0 Suicide Severity Rating : No Additional Care Required at this time Scot Carlson Rn - 04/06/2020 11:05 EST Psychosocial History Currently in Unsafe Situation : No Scot Carlson Rn - 04/06/2020 11:05 EST General Info Preferred Name : Peng Mode of Arrival on Unit : Ambulatory Legal Guardian : Spouse Support Person/Patient Rock Climbing Team Member : Yes Support Person/Pt Rep Name : Karolyn Garcia - Support Person/Pt Rep Contact Information : [phone] Want Family/Rep/Phys Notified of Admit : Scot Nunez Rn - 04/06/2020 11:05 EST Emergency Contact #1 : Karolyn Garcia Emergency Contact #1 Emergency Contact #1 Relationship : Noy Daugherty Rn - 04/07/2020 13:54 EST Emergency Contact #2 : ` Emergency Contact #2 Phone Number : ` Emergency Contact #2 Relationship : ` Information Obtained From : Patient Primary Language : Bengali Communication Barrier : None Machine Mover Needed : No Scot Carlson Rn - 04/06/2020 11:05 EST Gilberto Scale Gil[place]to Sensory Perception : No impairment Gil[place]to Moisture : Occasionally moist [place]to Activity : Walks occasionally Gil[place]to Mobility : No limitation Gilberto Nutrition : Adequate Gilberto Friction and Shear : No apparent problem Gilberto Score : 20 Scot Carlson Rn - 04/06/2020 11:05 EST Sleep Apnea Risk Assmt BiPAP/CPAP Ordered for Home Use : Yes Hx of Obstructive Sleep Apnea Diagnosis : Yes BiPAP/CPAP Used at Home : Yes Age over 50 Years Old : Yes Gender Male : Yes Scot Carlson Rn - 04/06/2020 11:05 EST documented in this encounter Plan of Treatment Not on file documented as of this encounter Visit Diagnoses Not on filedocumented in this encounter
--- OUTSIDE RECORDS SUMMARY | 2024-09-15 12:06 | XMS_ITS | Encounter Summary ---
Author Organization [employer] ([place], [place], [place], [place]) Address [address] [place] [address] Care Team Providers Care Drone Software Development Engineer Name Role Phone Unavailable Primary Care Provider Unavailabl e Encounter Details Date Type Department Care Team (Late st Contact Info) Description 04/09/2020 Transcribed Document [facility] [place] [facility] [place] [address] ProviderSabine MD [facility] [place] [address] Social History Tobacco Use Types [...] Sabine Vivas MD - 04/09/2020 11:32 AM [employer] [facility] Main OR PostOp Summary Primary Physician: RUDY DACOSTA [facility] Finalized Date/Time: 04/09/20 15:23:28 Pt. Name: CODI HULL D.O.B./Sex: 1960 Male Med Rec #: [id number] Physician: RUDY DACOSTA [facility] Financial #: [id number] Pt. Type: O Room/Bed: / Admit/Disch: 04/09/20 12:51:00 - Institution: [facility] Main OR PostOp Case Times Entry 1 In PACU II 04/09/20 14:00:00 Ready for PACU II 04/09/20 14:40:00 Discharge Discharge from PACU 04/09/20 14:54:00 II Last Modified By: CECILIA GUTIERREZ RN 04/09/20 15:23:27 [facility] Main OR PostOp Case Times Audit 04/09/20 15:23:27 Wet Wash Assembler: [email or web address] Modifier: [email or web address] <+> 1 Ready for PACU II Discharge <+> 1 Discharge from PACU II Finalized By: CECILIA GUTIERREZ, RN Document Signatures Signed By: CECILIA GUTIERREZ RN 04/09/20 15:23 Electronically signed by Stephanie [facility] [place] Conversion Computer Technology Instructor Cerner at 06/16/2022 7:25 PM CDT documented in this encounter Plan of Treatment Not on file documented as of this encounter Visit Diagnoses Not on filedocumented in this encounter
--- OUTSIDE RECORDS SUMMARY | 2024-09-15 12:06 | XMS_ITS | Data Portability ---
Author Organization [facility] in Associates [facility], [facility] Address [address] [place] [address] Care Team Providers Care Local Coordinator Name Role Phone GAURANG NICHOLS Referring Provider [phone] BRENDA STEWART Primary Care Provider [phone] Assessment Encounter Date Assessment Date Assessment LastModified by Organization Details LastModified Time 05/11/2021 05/11/2021 This is a 61-year-old gentleman seen today for mid trial follow up. He had SCS trial placed 05/09/21. He really hasn't had much pain relief thus far. He denies paresthesia. He did have some migration of the right lead to inferior T9 under fluoro today. Reprogramming was performed by the [employer] membership sales representative. Dressing was appropriate and no evidence of erythema or drainage. He will follow up in 2 days for reevaluation and lead pull. bgish Not available 05/11/2021 10:11:18 05/13/2021 05/13/2021 This is a 61-year-old gentleman following up today after undergoing 5 days of dorsal column spinal cord stimulation. He estimates about 50% benefit but is unsure if he would like to proceed. He denies any complications of the trial. Injection therapy has included: 11/25/2020 RFA Bilateral L3-L5; 80% pain relief for 2-3 days 10/27/2020 #2LMBBBilateral L3-L5; 100% pain relief 09/09/2020 #1 LMBBBilateral L3-L5; 100% for 3 days 08/26/2020 IA Bilateral Knee Injection; 90% pain relief ongoing 06/03/2020 #3 TF-SANTA Right L4/5, L5/S1; 03-18-2020 #2 TF-SANTA Right L4/5, L5/S1 90% pain relief ongoing 2019 1. The patient had EMG nerve conduction study on the lower extremities on June 13, 2017 which is positive for mild chronic right L5 radiculopathy 2. MRI of the lumbar spine 01/11/2021 demonstrates multilevel spondylosis, postsurgical changes at right L4-5 consistent with laminectomy or microdiscectomy. He has severe left L5-S1 foraminal narrowing due to disc osteophyte complex. 3. Right knee x-rays from 03/19/2020 notes moderate osteoarthritic changes are present at the medial compartment with mild osteoarthritis of the lateral compartment and patellofemoral joint. No fracture or dislocation. No lytic or blastic changes. 4. Left knee x-rays from 03/19/2020 note moderate osteoarthritic changes of the my medial compartment and patellofemoral joint. No acute fracture or dislocation is evident. Mild osteoarthritis noted of the lateral compartment. No lytic or blastic change. Current medications include Percocet and gabapentin which do provide him some benefit. He denies any side effects from the medication. Previous UDS confirmation 01/19/2021 was appropriate. ORT score is 0 and risk assessment is low. Presentation is consistent with chronic low back pain and intermittent radiculopathy. We will not proceed with permanent implantation at this time. If he notices significant pain relief in retrospect we may consider implant. In the meantime he would like a second opinion from neurosurgery. I will refer him to Dr. Paris for evaluation. He may resume Mobic and Humira shots. bgish Not available 05/13/2021 15:15:11 07/04/2021 07/04/2021 Mr. Garcia is a 61-year-old male who presents today for follow-up visit and medication management. He has a history of generalized joint pain secondary to arthritis. He states that it affects his hands and his knees. He continues to follow with rheumatology, Dr. Nichols. He is prescribed Humira injections through the customer marketing assistant. His main complaint today is his chronic low back pain. He has a history of chronic low back pain that radiates bilaterally into the lower extremities. He states that this is been flared up for a few days. He does complain of some axial back pain that he describes as aching, throbbing across the low back that refers bilaterally into the hips. Dr. Watt did make a referral to see the neurosurgeon, Dr. Paris, for a second opinion to see if he is a surgical candidate. However, Dr. Paris's office continues to state that they do not have the referral. He states his pain is worse today compared to last visit. 05/09/2021 spinal cord stimulator trial 50% benefit 11/25/2020 RFA Bilateral L3-L5; 80% pain relief for 2-3 days 08/26/2020 IA Bilateral Knee Injection; 90% pain relief ongoing 06/03/2020 #3 TF-SANTA Right L4/5, L5/F2vwyy91% relief for 1 week 03-18-2020 #2 TF-SANTA Right L4/5, L5/S1: 90% pain relief 1. The patient had EMG nerve conduction study on the lower extremities on June 13, 2017 which is positive for mild chronic right L5 radiculopathy 2. MRI of the lumbar spine without contrast on June 26, 2017 noted small disc bulge with mild articular facet disease at L1-2 level with mild narrowing of the neuroforamina, small central disc bulge with mild articular facet disease at L2-3 level with minimal narrowing of the neuroforamina, small disc bulge with a superimposed posterior annular tear at L3-4 level with mild articular disease and mild foraminal narrowing and mild canal narrowing, concentric disc bulge with superimposed slightly right paracentral disc protrusion at L4-5 level with mild to moderate articular facet disease and mild foraminal narrowing with central canal narrowing mild to moderate, small disc bulge at L5-B1pqzfdiaacyvz erimposedleftpara centraldiscprotru sionwithmoderatea rticularfacetdise asewithseverenarr owingoftheleft neuroforaminaandm ildrightneurofora minalnarrowingwit hpostsurgicalchan gesfromaleftlamin otomy. 3. Right knee x-rays from 03/19/2020 notes moderate osteoarthritic changes are present at the medial compartment with mild osteoarthritis of the lateral compartment and patellofemoral joint. No fracture or dislocation. No lytic or blastic changes. 4. Left knee x-rays from 03/19/2020 note moderate osteoarthritic changes of the my medial compartment and patellofemoral joint. No acute fracture or dislocation is evident. Mild osteoarthritis noted of the lateral compartment. No lytic or blastic change. He is currently taking Percocet and Gabapentin with minimal relief. He denies any side effects with this medication. His Zechariah was reviewed and found to be appropriate. His current MME is 40. His last urine drug screen confirmation was 01/19/2021 and it was appropriate. There was no urine drug screen obtained today. The plan for today is medication management. He was given a refill of gabapentin 800 mg 4 times a day and Percocet 10/325 mg 4 times a day as needed for pain. His states that she has been unable to get any answers from the creasing machine operator on whether or not he needs to be weaned off of his controlled substances. I did discuss with him today that we will reach out to the [facility] in [place] to determine if he does need to be weaned off of his medications or if they can continue his controlled substances. He does continue to follow with Dr. Nichols, rheumatology, for his arthritic symptoms. He is prescribed Humira by his customer marketing assistant. I will send a new referral to Dr. Paris's office for a second opinion about his lumbar spine. Of note, the patient states that he will have to present to incarceration on 08/04/2021. Due to this, I cannot give him any refills of his medications or make a follow-up visit. He has been getting with this clinic so I will see him whenever he is out of incarceration. His ORT score is 0, his risk assessment level is low. Not available 07/04/2021 18:34:08 09/30/2021 09/30/2021 Mr. Garcia is a 61-year-old male who presents today for follow-up visit and medication management. He has a history of generalized joint pain secondary to arthritis. He states that it affects his hands and his knees. He continues to follow with rheumatology, Dr. Nichols. He is prescribed Humira injections through the customer marketing assistant. However, he had to stop it due to having surgery. He states he has not noticed any difference with stopping it. His main complaint that was his chronic low back pain. He has a chronic low back pain that radiates bilaterally into the lower extremities. He did have surgery with Dr. Paris on 09/05/2021. He had a lumbar fusion surgery. He states today that since his surgery he says an increase in numbness, electrical sensations, and burning in the left upper thigh and leg. He states he is not noticing as much in the right lower extremity. However, he states that he does have some pain though in the right leg. He will see Dr. Paris's office later today for an updated x-ray as well as an office visit. He has still been taking the gabapentin and Percocet. He states he is deriving some benefit from it. However, his pain is still severe. He states his pain today is worse compared to last visit due to the recent surgery. I did review the notes from his hospital admission for the surgery for his low back from Dr. Paris. He was admitted from 09/05/2020 till 09/08/2021. LUMBAR LAMINECTOMY WITH FUSION AND STEALTH GUIDANCE L3-5 05/09/2021 spinal cord stimulator trial 50% benefit 11/25/2020 RFA Bilateral L3-L5; 80% pain relief for 2-3 days 08/26/2020 IA Bilateral Knee Injection; 90% pain relief ongoing 06/03/2020 #3 TF-SANTA Right L4/5, L5/J5esyb97% relief for 1 week 03-18-2020 #2 TF-SANTA Right L4/5, L5/S1: 90% pain relief 1. The patient had EMG nerve conduction study on the lower extremities on June 13, 2017 which is positive for mild chronic right L5 radiculopathy 2. MRI of the lumbar spine without contrast on June 26, 2017 noted small disc bulge with mild articular facet disease at L1-2 level with mild narrowing of the neuroforamina, small central disc bulge with mild articular facet disease at L2-3 level with minimal narrowing of the neuroforamina, small disc bulge with a superimposed posterior annular tear at L3-4 level with mild articular disease and mild foraminal narrowing and mild canal narrowing, concentric disc bulge with superimposed slightly right paracentral disc protrusion at L4-5 level with mild to moderate articular facet disease and mild foraminal narrowing with central canal narrowing mild to moderate, small disc bulge at L5-K5skmedgkdqtbl erimposedleftpara centraldiscprotru sionwithmoderatea rticularfacetdise asewithseverenarr owingoftheleft neuroforaminaandm ildrightneurofora minalnarrowingwit hpostsurgicalchan gesfromaleftlamin otomy. 3. Right knee x-rays from 03/19/2020 notes moderate osteoarthritic changes are present at the medial compartment with mild osteoarthritis of the lateral compartment and patellofemoral joint. No fracture or dislocation. No lytic or blastic changes. 4. Left knee x-rays from 03/19/2020 note moderate osteoarthritic changes of the my medial compartment and patellofemoral joint. No acute fracture or dislocation is evident. Mild osteoarthritis noted of the lateral compartment. No lytic or blastic change. He is currently taking Percocet and Gabapentin with minimal relief. He states he potentially gets 20% relief for 1 hour with the Percocet. He denies any side effects with this medication. His Zechariah was reviewed and found to be appropriate. His current MME is 60. His last urine drug screen confirmation was 01/19/2021 and it was appropriate. There was no urine drug screen obtained today. His ORT score is 0, representing low risk. The plan for today is medication management. He did just lease picker a prescription for gabapentin so he will not need a refill of it. However, he does need a refill of Percocet 10/325 mg 4 times a day as needed for pain. Have been in contact with the patient's between the last visit and today. She states that he is going to be incarcerated. His today to present to there is going to be 10/20/2021. He is going to the [facility] in [place]. At this time, he has not weaned off of his medications due to his severe pain from his recent surgery. However, the [facility] correction did recommend that he was weaned off. They did notify me that with that he cannot be weaned off in the community that they would wean him or taper him in the facility. He does continue to follow with Dr. Nichols, rheumatology, for his arthritic symptoms. He is prescribed Humira by his customer marketing assistant. Of note, the patient states that he will have to present to incarceration on 10/20/2021. Due to this, he will not need a follow-up visit. He states that he will contact this clinic whenever he is ready for follow-up after he is out of incarceration. I have been in contact with the administrative health services with the [facility] in [place] to discuss his case as well as his medications. Not available 09/30/2021 12:29:40 Plan of Treatment Reminders Order Date Submit Date Provider Last Modified By Organization Details Last Modified Time Details Appointments None recorded. Lab None recorded. Referral neurologic al surgeon referral - Patient would like to see Dr Paris for second opinion to find out if he is a surgical candidate. Previous surgery with Dr Allen. 2021 022 thill Kirit Paris MD, [address], [address], [place], [address], 10:18:18 neurologic al surgeon referral - [facility] Dr. Paris 2021 022 [facility], [address], [address], [place], [address], 16:45:27 Procedures None recorded. Surgeries None recorded. Imaging None recorded. Medication Orders Percocet 10 mg-325 mg tablet 2021 [facility], [place], [address], 11:38:45 gabapentin 800 mg tablet 2021 022 [facility], [place], [address], 18:35:44 Percocet 10 mg-325 mg tablet 2021 022 [facility], [place], [address], 17:06:22 Patient TargetsNo targets recorded. Patient Instructions Encounter Date Encounter Id Patient Instructions Last Modified By Organization Details Last Modified Time 07/04/2021 [id number] Much of this encounter is an electronic informatics spec/valentine slation of spoken language to printed text. The electronic translation of spoken language may permit erroneous or at times nonsensical words or phrases to be inadvertently transcribed. Although I have reviewed the note for such errors, some may still exist. Not available 07/04/2021 18:33:24 09/30/2021 [id number] Much of this encounter is an electronic informatics spec/valentine slation of spoken language to printed text. The electronic translation of spoken language may permit erroneous or at times nonsensical words or phrases to be inadvertently transcribed. Although I have reviewed the note for such errors, some may still exist. Not available 09/30/2021 10:23:33 Reason for Referral Neurological Surgeon Referra l for Lumbar post-laminectomy syndrome [facility] Dr. Paris Referring Physician: Farhat Watt, Pain Management, Encounter Date: 05/13/2021 Neurological Surgeon Referra l for Lumbar post-laminectomy syndrome Patient would like to see Dr Paris for second opinion to find out if he is a surgical candidate. Pr Patient would like to see Dr Paris for second opinion to find out if he is a surgical candidate. Previous surgery with Dr Allen. Referring Physician: Teresa Fu, Pain Management, Encounter Date: 07/04/2021 Results Created Date Observation Date Name Description Value Unit Range Abnormal Flag Note LastModifiedBy Organization Detail LastModifiedTime 04/21/19 22 NM, bone scan, limit ed No observ ation record ed. [facility] (Scheduling) [address], [place], [id number], 04/21/2021 09:49:25 Result Notes None recorded. Problems Name Problem SNOMED Code Status Onset Date Resolution Date Notes Provider Name and Address Organization Details Recorded Time Diabetes mellitus 35488450 Completed 201709/10/2018 LEE ANN Das - [facility] 9 15:27:04 Hypertens sammy disorder 91804144 Completed 201709/10/2018 L[place] Das - [facility] 9 15:27:01 Sleep apnea 10346729 Completed 201709/10/2018 Elizabeth longo, [place] - [facility] 9 15:27:06 Lumbar radiculop athy 715834937 Active 2017 Farhat Watt MD [address] [place] [address], [address] , [place] - [facility] 8 14:13:42 Chronic pain syndrome 763436346 Completed 201711/11/2018 Elizabeth Cerda null, [place] - [facility] 9 13:25:26 Degenerat ion of lumbar intervert ebral disc 30375219 Active 2017 ALEX Domingo [address] [place], [address] , [facility] - [facility] 8 17:14:40 Lumbar post-lami nectomy syndrome 586343242 Active 2018 Farhat Watt MD [address] [place], [address] , [place] - [facility] 9 16:35:34 Pain in coccyx 73351566 Active 2018 TERESA FU NP [address] [place] [address], [address] , [facility] - [facility] 9 10:43:29 Long-term drug therapy Active 2019 TERESA FU NP [address] [place] [address], [address] , [place] [facility] 0 04:34:36 Pain of joint of ankle and/or foot 216864190 Active 2019 TERESA FU NP [address] [place] [address], [address] , [place] - [facility] 0 04:35:05 Osteoarth ritis of knee 863043526 Active 2020 TERESA FU NP [address] [place] [address], [address] , [place] - [facility] 1 07:46:36 Long-term current use of opiate analgesic drug 07869925973 4108 Active 2020 TERESA FU NP [address] [place], [address] , [facility] 1 16:34:00 Lumbar spondylos is 127682401 Active 2020 TERESA FU NP [address] [place], [address] , [facility] 1 15:02:50 Bilateral trigger fingers 48476695054 429398 Active 2021 TERESA FU NP [address] [place], [address] , [facility] 2 12:28:40 Problem Notes None recorded. Procedures Surgical History Date Name Laterality Status Provider Name and Address Organization Details Recorded Time 09/06/19 22 lumbar spinal fusion completed Itz Sheldon [place] [facility] 09/30/2021 10:39:15 05/10/19 22 SCS Trial completed Elizabeth Nashua [place] [facility] 05/09/2021 12:21:57 03/25/19 22 Trigger Point Injections completed Farhat Watt MD [address] [place], [address], [facility] 03/25/2021 17:21:25 11/26/19 21 Lumbar RFA (2 Level Bilateral) completed Elizabeth [place] [facility] 11/25/2020 15:01:41 10/28/19 21 Diagnostic Lumbar MBB (2 Level Bilateral) completed Elizabeth Prashant [place] - [facility] 10/27/2020 16:12:32 09/10/19 21 Diagnostic Lumbar MBB (2 Level Bilateral) completed Elizabeth [place] [facility] 09/09/2020 15:09:35 08/27/19 21 Knee Joint Injection Fluoro completed Elizabeth [place] [facility] 08/26/2020 16:04:55 06/04/19 21 Lumbar Transforaminal Epidural Steroid Injection (2 Levels Unilateral): completed Elizabeth [place]ua [place] - [facility] 06/03/2020 14:51:50 03/18/19 21 Lumbar Transforaminal Epidural Steroid Injection (2 Levels Unilateral): completed Elizabeth Cerda [place] [facility] 03/18/2020 16:18:13 02/12/20 20 Lumbar Transforaminal Epidural Steroid Injection (2 Levels Unilateral): completed Farhat Watt MD [address] [place] [address], [address], [facility] - [facility] 02/12/2020 16:37:42 06/26/19 20 Sacrococcygeal Joint Inj completed Elizabeth Cerda [place] - [facility] 06/26/2019 13:18:31 10/19/19 19 Sacrococcygeal Joint Inj completed Ciasha Morales [place] [facility] 10/18/2018 16:47:39 09/12/19 19 Sacrococcygeal Joint Inj completed Orestes Morales [place] - [facility] 09/11/2018 11:27:25 02/23/20 18 Lumbar Transforaminal Epidural Steroid Injection (2 Levels Unilateral): completed Joanna Fountain [place] [facility] 02/22/2018 14:03:25 12/28/19 18 Lumbar Transforaminal Epidural Steroid Injection (2 Levels Unilateral): completed Joanna Fountain [place] - [facility] 12/27/2017 15:49:02 09/01/19 18 Lumbar Transforaminal Epidural Steroid Injection (2 Levels Unilateral): completed Farhat Watt MD [address] [place] [address], [address], [facility] 08/31/2017 20:28:26 08/04/19 18 Trigger Point Injections completed Farhat Watt MD [address] [place] [address], [address], [facility] - [facility] 08/03/2017 11:57:09 Knee Surgery completed Orestes Morales [place] - [facility] 08/03/2017 10:56:48 Orthopedic Surgery completed Orestes Morales [place] [facility] 08/03/2017 10:56:48 Lumbar Spine Surgery completed Judit Ferguson [facility] 03/26/2018 09:27:29 Imaging Results None recorded. Procedure Notes None recorded. Medical Equipment None Reported. Allergies Allergen ID Allergen Name Allergen Category Reaction Reaction Severity Criticality Documentation Date Start Date Code Code System Note Provider Name and Address Organization Details Recorded Time 65674 acetamino phen / oxycodone medicatio n itching severe Not available 08/03/2017 34587 3 RxNorm Itz longo [facility] 2 15:45:32 Medications Name Sig Start Date Stop Date Status Note LastModified by Organization Details LastModified Time losartan 50 mg tablet active Not Available Not Available No t Available celecoxib 200 mg capsule TAKE 1 CAPSULE BY MOUTH DAILY NEEDED 03/31 completed Not Available Not Available Not Available cyclobenzap rine 10 mg tablet TAKE 1 TABLET 1 TIME EACH DAY AT BEDTIME NEEDED FOR BACK PAIN 03/31 completed Not Available Not Available Not Available amoxicillin 500 mg capsule active Not Available Not Available Not Available metformin 500 mg tablet TAKE 1 TABLET BY MOUTH TWICE DAILY 03/25 completed Not Available Not Available Not Available hydrocodone 7.5 mg-ibuprofe n 200 mg tablet active Not Available Not Available Not Available neomycin-po lymyxin-hyd rocort 3.5 mg/mL-10,00 0 unit/mL-1 % ear solution 2 DROPS IN EACH AFFECTED EAR(S) FOUR TIMES DAILY FOR 7 DAYS 05/17 completed Not Available Not Available Not Available Protonix 40 mg tablet,amita yed release Take 1 tablet every day by oral route. 2020 active Not Available Not Available Not Avai lable ketoprofen ER 200 mg 24 hr capsule,ext ended release TAKE 1 CAPSULE BY ORAL ROUTE EVERY DAY active Not Available Not Available No t Available doxycycline hyclate 100 mg capsule active Not Available Not Available N ot Available ropinirole 1 mg tablet TAKE 1 TABLET BY MOUTH AT BEDTIME active Not Available Not Available No t Available sulfasalazi ne 500 mg tablet TAKE 2 TABLETS BY ORAL ROUTE 2 TIMES EVERY DAY AFTER MEALS active Not Available Not Available No t Available clindamycin HCl 300 mg capsule 10/26 completed Not Available Not Available Not Available sildenafil 50 mg tablet take 1-2 tablets by mouth once daily as needed approxima tely 1 hour before sexual activity active Not Available Not Available No t Available azithromyci n 250 mg tablet 02/17 completed Not Available Not Available Not Available tizanidine 4 mg tablet TAKE 2 TABLETS BY MOUTH EVERY 8 HOURS 03/31 completed Not Available Not Available Not Available hydrocodone 5 mg-acetamin ophen 325 mg tablet active Not Available Not Available No t Available Claritin 10 mg tablet Take 1 tablet every day by oral route. 03/31 completed Not Available Not Available Not Available meloxicam 15 mg tablet TAKE 1 TABLET BY MOUTH EVERY DAY NEEDED FOR BACK PAIN active Not Available Not Available No t Available ondansetron HCl 4 mg tablet TAKE 1 TABLET BY MOUTH EVERY 8 HOURS NEEDED 07/04 completed Not Available Not Available Not Available prednisone 20 mg tablet 02/17 completed Not Available Not Available Not Available prednisone 5 mg tablet active Not Available Not Available Not Available bisoprolol 5 mg-hydrochl orothiazide 6.25 mg tablet 02/17 completed Not Available Not Available Not Available penicillin V potassium 500 mg tablet 02/17 completed Not Available Not Available Not Available Zyrtec 10 mg tablet Take 1 tablet every day by oral route. 04/29 completed Not Available Not Available Not Available acetaminoph en 300 mg-codeine 30 mg tablet 03/31 completed Not Available Not Available Not Available allopurinol 100 mg tablet active Not Available Not Available Not Available hydrocodone 10 mg-acetamin ophen 325 mg tablet Take 1 tablet 3 times a day by oral route as needed for 30 days. 07/14 completed Not Available Not Available Not Available omeprazole 40 mg capsule,del ayed release TAKE 1 CAPSULE BY MOUTH TWICE DAILY active Not Available Not Available No t Available tramadol 50 mg tablet 03/31 completed Not Available Not Available Not Available spironolact one 25 mg tablet TAKE ONE TABLET BY MOUTH EVERY DAY in THE morning FOR blood pressure active Not Available Not Available No t Available bisoprolol fumarate 10 mg tablet active Not Available Not Available No t Available levothyroxi ne 75 mcg tablet TAKE 1 TABLET by mouth ONCE DAILY ON AN EMPTY STOMACH 30 MINUTES BEFORE BREAKFAST active Not Available Not Available No t Available bisoprolol fumarate 5 mg tablet 03/31 completed Not Available Not Available Not Available nortriptyli ne 25 mg capsule 02/17 completed Not Available Not Available Not Available meloxicam 7.5 mg tablet TAKE ONE TABLET BY MOUTH EVERY DAY NEEDED active Not Available Not Available No t Available sodium chloride 0.9 % irrigation solution 03/31 completed Not Available Not Available Not Available propranolol 10 mg tablet TAKE ONE TABLET BY MOUTH TWICE DAILY active Not Available Not Available No t Available amoxicillin 875 mg tablet 07/14 completed Not Available Not Available Not Available doxazosin 8 mg tablet TAKE 1 TABLET BY MOUTH EVERY DAY AT BEDTIME active Not Available Not Available No t Available prednisolon e acetate 1 % eye drops,suspe nsion 03/31 completed Not Available Not Available Not Available oxycodone-a cetaminophe n 10 mg-325 mg tablet Take 1 tablet every 6 hours by oral route as needed for 30 days. active Not Available Not Available No t Available tamsulosin 0.4 mg capsule TAKE 1 CAPSULE BY MOUTH EVERY DAY active Not Available Not Available No t Available gabapentin 800 mg tablet TAKE ONE TABLET BY MOUTH FOUR TIMES DAILY active Not Available Not Available No t Available amlodipine 10 mg tablet TAKE 1 TABLET BY MOUTH EVERY DAY active Not Available Not Available No t Available doxycycline monohydrate 100 mg capsule TAKE 1 CAPSULE 2 TIMES EACH DAY FOR 10 DAYS. 09/30 completed Not Available Not Available Not Available dexamethaso ne 2 mg tablet Take 1 tablet 3 times a day by oral route. 07/14 completed Not Available Not Available Not Available levothyroxi ne 50 mcg tablet TAKE 1 TABLET BY MOUTH ONCE DAILY 07/04 completed Not Available Not Available Not Available cephalexin 500 mg capsule 03/07 completed Not Available Not Available Not Available erythromyci n 5 mg/gram (0.5 %) eye ointment 03/31 completed Not Available Not Available Not Available indomethaci n 50 mg capsule 10/26 completed Not Available Not Available Not Available gabapentin 300 mg capsule 02/17 completed Not Available Not Available Not Available doxazosin 4 mg tablet TAKE 1 TABLET BY MOUTH EVERY DAY FOR BLOOD PRESSURE 07/14 completed Not Available Not Available Not Available etodolac 400 mg tablet Take 1 tablet twice a day by oral route. 09/22 completed Not Available Not Available Not Available montelukast 10 mg tablet TAKE ONE TABLET BY MOUTH EVERY DAY in THE evening active Not Available Not Available No t Available morphine ER 15 mg tablet,exte nded release Take 1 tablet every 12 hours by oral route as directed for 30 days. 07/14 completed Not Available Not Available Not Available allopurinol 300 mg tablet TAKE ONE TABLET BY MOUTH EVERY DAY active Not Available Not Available No t Available hydralazine 50 mg tablet TAKE ONE TABLET BY MOUTH TWICE DAILY with food active Not Available Not Available No t Available mupirocin 2 % topical ointment APPLY A SMALL AMOUNT TO THE NOSTRILS 2 TIMES PER DAY FOR 5 DAYS PRIOR TO TRIAL active Not Available Not Available No t Available furosemide 20 mg tablet active Not Available Not Available Not Available gabapentin 100 mg capsule active Not Available Not Available Not Available azelastine 137 mcg (0.1 %) nasal spray [place] 2 sprays twice a day by intranasa l route. 03/31 completed Not Available Not Available Not Available zolpidem 10 mg tablet TAKE 1 TABLET BY MOUTH AT BEDTIME NEEDED active Not Available Not Available No t Available methylpredn isolone 4 mg tablets in a dose pack TAKE ACCORDING TO PACKAGE INSTRUCTI ONS active Not Available Not Available No t Available Vitamin D2 1,250 mcg (50,000 unit) capsule Take on capsule by mouth once weekly active Not Available Not Available No t Available colchicine 0.6 mg tablet TAKE 2 TABLETS BY MOUTH TODAY AND THEN 1 TABLET ONCE DAILY 03/31 completed Not Available Not Available Not Available indomethaci n ER 75 mg capsule,ext ended release active Not Available Not Available Not Available losartan 100 mg tablet TAKE ONE TABLET BY MOUTH EVERY DAY active Not Available Not Available No t Available Hibiclens 4 % topical liquid Apply by topical route in bath the night before and morning of procedure over lower and mid back 07/04 completed Not Available Not Available Not Available nortriptyli ne 50 mg capsule 03/31 completed Not Available Not Available Not Available doxepin 150 mg capsule 09/22 completed Not Available Not Available Not Available amoxicillin 875 mg-potassiu m clavulanate 125 mg tablet TAKE 1 TABLET BY ORAL ROUTE EVERY 12 HOURS FOR 10 DAYS FOR SINUS 03/25 completed Not Available Not Available Not Available Vitamin D 50,000 unit capsule 1 capsule every week by oral route. active Not Available Not Available No t Available cyclobenzap rine 5 mg tablet TAKE 1-2 TABLETS BY MOUTH TWICE DAILY NEEDED FOR MUSCLE SPASM active Not Available Not Available No t Available Lyrica 150 mg capsule active Not Available Not Available N ot Available Lyrica 300 mg capsule 02/17 completed Not Available Not Available Not Available chlorphenir amine 4 mg-phenylep hrine 10 mg tablet Take by oral route. active Not Available Not Available No t Available chlorhexidi ne gluconate 0.12 % mouthwash active Not Available Not Available No t Available vitamin B complex active Not Available Not Available Not Available zinc active Not Available Not Availa ble Not Available ferrous fumarate 07/14 completed Not Available Not Available Not Available Ambien prn 07/14 completed Not Available Not Available Not Available FeroSul 325 mg (65 mg iron) tablet TAKE ONE TABLET BY MOUTH EVERY DAY active Not Available Not Available No t Available diclofenac 1 % topical gel active Not Available Not Available Not Available dexlansopra zole 60 mg capsule,bip hase delayed release TAKE 1 CAPSULE BY MOUTH EVERY DAY active Not Available Not Available No t Available Uloric 80 mg tablet 10/26 completed Not Available Not Available Not Available Nucynta 50 mg tablet 02/17 completed Not Available Not Available Not Available azelastine 205.5 mcg (0.15 %) nasal spray 03/31 completed Not Available Not Available Not Available krill oil 1,000 mg-om3 130 mg-dha 40 mg-epa 80 mg-om6-lip- astax cap Take 1 capsule every day by oral route. active Not Available Not Available No t Available Zyrtec 10 mg capsule Take by oral route. 02/17 completed Not Available Not Available Not Available Probiotic active Not Available Not July ilable Not Available Suprep Bowel Prep Kit 17.5 gram-3.13 gram-1.6 gram oral solution 03/31 completed Not Available Not Available Not Available Hysingla ER 40 mg tablet, crush resistant, extended release 09/22 completed Not Available Not Available Not Available Zilretta 32 mg intra-artic ular suspension, extended release INJECT BOTH KNEES ONCE active Not Available Not Available No t Available Humira(CF) Pen 40 mg/0.4 mL subcutaneou s kit active Not Available Not Available Not Available Vitals Date Recorded Body height Provider Name an d Address Organization Details Last Updated DateTime 05/13/2021 187.96 cm Itz Pito [place] - [facility] 05/13/2021 14:39:25 Date Recorded Body height Body mass index (BMI) Body weight Provider Name and Address Organization Details Last Updated DateTime 07/04/2021 187.96 cm 37.2 kg/m2 652751.79 g Ana Kuo [facility] 07/04/2021 15:49:39 Date Recorded Body height Body mass index (BMI) Body weight Oxygen saturation Oxygen saturation in Arterial blood by Pulse oximetry Heart rate Systolic And Diastolic Provider Name and Address Organization Details Last Updated DateTime 187.96 cm 41.2 kg/m2 436757. 15 g 96 % 96 % 64 /min 119/59 mm[Hg] Itz Sheldon [facility] 2 10:30:39 Social History Question Answer Notes LastModified by Organizat ion Details LastModified Time Tobacco Smoking Status Never Smoker Orestes longo [facility] 08/03/2017 10:56:34 Do You Have An Advance Directive? No Information not available 09/30/2021 Are You Blind Or Do You Have Difficulty Seeing? No [email or web address] Information not available 08/03/2017 What Is Your Level Of Caffeine Consumption? Occasional [email or web address] Information not available 08/03/2017 How Much Tobacco Do You Chew? None [email or web address] Information not available 08/03/2017 In The 14 Days Before Symptom Onset, Have You Had Close Contact With A Laboratory-confir med COVID-19 While That Case Was Ill? No Information not available 09/30/2021 In The 14 Days Before Symptom Onset, Have You Had Close Contact With A Person Who Is Under Investigation For COVID-19 While That Person Was Ill? No Information not available 09/30/2021 Are You Deaf Or Do You Have Serious Difficulty Hearing? No [email or web address] Information not available 08/03/2017 What Type Of Diet Are You Following? REGULAR [email or web address] Information not available 08/03/2017 Which Illicit Or Recreational Drugs Have You Used? None Information not available 03/26/2018 Education 12 Information no t available 03/26/2018 What Is The Highest Grade Or Level Of School You Have Completed Or The Highest Degree You Have Received? [id number] Information not available 09/30/2021 How Many Times Per Week Do You Exercise? 1-2 Times Per Week Information not available 09/30/2021 Are There Any Guns Present In Your Home? Yes Information not available 08/03/2017 Hard Of Hearing Or Deaf In One Or Both Ears? No [email or web address] Information not available 08/03/2017 Legally Blind In One Or Both Eyes? No [email or web address] Information no t available 08/03/2017 Prescription Drug Abuse No Information not available 08/03/2017 Disability No [email or web address] Information no t available 08/03/2017 History Of Sexual Abuse No [email or web address] Information not available 03/26/2018 Marital Status [email or web address] Informatio n not available 08/03/2017 What Was The Date Of Your Most Recent Tobacco Screening? 09/30/2021 Information not available 09/30/2021 What Is Your Relationship Status? Information not available 09/30/2021 How Much Tobacco Do You Smoke? No [email or web address] Information not available 08/03/2017 General Stress Level Low Information not available 08/03/2017 Has Tobacco Cessation Counseling Been Provided? No Information not available 09/30/2021 How Many Years Have You Smoked Tobacco? 0 [email or web address] Information not available 03/26/2018 Have You Used IV Drugs? No [email or web address] Information not available 08/03/2017 Do You Have Difficulty Walking Or Climbing Stairs? Yes [email or web address] Information not available 08/03/2017 Sex: Unknown Functional Status Question Answer Note LastModified by Organizat ion Details LastModified Time Do you use any illicit or recreational drugs? No Information not available 09/30/2021 What is your level of alcohol consumption? None Information not available 08/03/2017 Do you or have you ever used smokeless tobacco? Never used [email or web address] tobacco Information not available 03/07/2019 Are you currently employed? Yes Information not available 09/30/2021 Are you able to walk? YESWOREST [email or web address] Information not available 08/03/2017 Do you have difficulty doing errands alone? No [email or web address] Information not available 08/03/2017 What is your occupation? [employer] [email or web address] Information not available 08/03/2017 Do you have difficulty dressing or bathing? No [email or web address] Information not available 08/03/2017 Do you or have you ever used e-cigarettes or vape? Never used electronic cigarettes Information not available 03/07/2019 What is your exercise level? Occasional [email or web address] Information not available 08/03/2017 Mental Status Question Answer Note LastModified by Organization D etails LastModified Time Do you have difficulty concentrating, remembering or making decisions? No [email or web address] Information no t available 08/03/2017 Family History Relationship Description Onset Age of this Age Resolved Age Notes LastModified by Organization Details LastModified Time Father Hypertensive disorder [email or web address] Not available 2018 14:54:54 Medical History Condition Response Bipolar Disease N Coronary Artery Disease N Seizure Disorder N Gout Y Atrial Fibrillation N Thyroid Disease Y Hernia N Head Trauma/Injury N COPD N Depression N Anxiety Disorder N Acid Reflux (GERD) Y Cancer N Skin Disorder N Stroke N High Cholesterol N Liver Disease N Rheumatoid Arthritis N Headaches N Fibromyalgia N Autoimmune Disease N Kidney Disease N Osteoarthritis N Neurosurgery N DVT N Peptic Ulcer Disease N Anemia N Heart Attack (PA) N Diabetes Y Cardiomyopathy N Bleeding Disorder N CHF N AIDS/HIV N Inflammatory Bowel Disease N Dementia N Asthma N Substance Abuse N Sleep Apnea Y Hepatitis N Heart Disease N Pulmonary Embolism N Chronic Low Back Pain N Hypertension Y Osteoporosis N Past Encounters Encounter ID Performer Location Encounter Start Date Encounter Closed Date Diagnosis/Indication Diagnosis SNOMED-CT Code Diagnosis ICD10 Code Diagnosis Note [id number] Farhat Watt MD [place] [address] [place] [address] 08/03/2017 10:31:16 08/03/2017 12:02:18 Peripheral nerve entrapment syndrome 80635241 G58.8 Deep peron eal neuropathy 351042567 G57.31 Superficia l peroneal neuropathy 122566319 G57.31 [id number] [place] [address] [place] [address] 08/31/2017 13:02:18 08/31/2017 14:23:05 Lumbar radiculopathy 766236935 M54.16 [id number] MD Asif Estrella [address] [place] [address] 09/27/2017 14:05:53 09/27/2017 16:08:58 Degeneration of lumbar intervertebral disc 53663734 M51.36 Chronic pain syndrome 37 4971817 G89.4 Lumbar radiculopathy 128 757460 M54.16 [id number] Farhat Watt MD [place] [address] [place] [address] 12/27/2017 15:24:01 12/27/2017 15:51:04 Lumbar radiculopathy 755555998 M54.16 [id number] MD [place] [address] [place] [address] 02/22/2018 13:13:43 02/22/2018 14:04:19 Lumbar radiculopathy 639521232 M54.16 [id number] MD Asif Estrella [address] [place] [address] 03/26/2018 14:37:54 03/26/2018 16:05:29 Chronic pain syndrome 587860459 G89.4 Lumbar radiculopathy 128 602279 M54.16 Degenerati on of lumbar intervertebral disc 65451697 M51.36 Long-term drug therapy 172351026 Z79.899 [id number] MD Asif Estrella [address] [place] [address] 05/15/2018 15:30:52 05/15/2018 16:31:30 Long-term drug therapy 633745381 Z79.899 The preliminar y urine drug screen is appropriat e for the class of medication s that the patient is being prescribed and based on their stratifica tion I will not send this sample for further quantitati ve LCMS testing. Lumbar radiculopathy 128 072990 M54.16 Lumbar post-laminectomy syndrome 366428360 M96.1 [id number] MD Asif Estrella [address] [place] [address] 06/13/2018 13:52:38 06/13/2018 14:44:31 Degeneration of lumbar intervertebral disc 88907642 M51.36 Lumbar radiculopathy 128 M54.16 Long-term drug therapy 570846348 Z79.899 do not send Chronic pain syndrome 37 9589043 G89.4 [id number] MD Asif Estrella [address] [place] [address] 08/16/2018 10:31:31 08/16/2018 11:25:40 Chronic pain syndrome 233348013 G89.4 Use of the medication does allow the patient to perform the activities of daily living and function without being in severe pain. Lumbar radiculopathy 128 M54.16 Degenerati on of lumbar intervertebral disc 92778970 M51.36 Long-term drug therapy 407885200 Z79.899 do not send [id number] MD Asif Estrella [address] [place] [address] 09/11/2018 09:51:58 09/11/2018 11:41:47 Chronic pain syndrome 992502787 G89.4 Use of the medication does allow the patient to perform the activities of daily living and function without being in severe pain. Lumbar radiculopathy 128 M54.16 Degenerati on of lumbar intervertebral disc 43549054 M51.36 Long-term drug therapy 113888067 Z79.899 Medication monitoring 39 6455161 Z79.899 Pain in coccyx 71003056 M53.3 [id number] MD [place] [address] [place] [address] 09/11/2018 10:44:44 09/11/2018 12:00:04 Pain in coccyx 26678316 M53.3 [id number] MD Asif Estrella [address] [place] [address] 10/18/2018 16:15:29 10/18/2018 16:43:53 Pain in coccyx 34005948 M53.3 [id number] MD Asif Estrella [address] [place] [address] 11/12/2018 15:58:06 11/12/2018 16:47:26 Pain in coccyx 26977971 M53.3 Lumbar radiculopathy 128 M54.16 Degenerati on of lumbar intervertebral disc 65466228 M51.36 A prescripti on for opioids was prescribed today given the failure of more conservati ve treatment options. The risks, benefits, and alternativ es were discussed in detail with the patient. Goals of improved activity and analgesia will continue to be monitored in subsequent encounters . There is no evidence of addiction or aberrancy to date. Long-term drug therapy 225365793 Z79.899 The preliminar y [place] urine drug screen is appropriat e for the class of medication (s) that the patient is being prescribed and based on their risk stratifica tion I will not send this sample for further quantitati ve LCMS testing. [id number] Farhat Watt MD [place] [address] [place] [address] 01/09/2019 15:24:52 01/09/2019 15:58:45 Degeneration of lumbar intervertebral disc 40753499 M51.36 A prescripti on for opioids was prescribed today given the failure of more conservati ve treatment options. The risks, benefits, and alternativ es were discussed in detail with the patient. Goals of improved activity and analgesia will continue to be monitored in subsequent encounters . There is no evidence of addiction or aberrancy to date. Lumbar radiculopathy 128 4.16 Long-term drug therapy 690897957 Z79.899 do not send [id number] Farhat Watt MD [place] [address] [place] [address] 03/07/2019 15:30:34 03/07/2019 16:06:45 Degeneration of lumbar intervertebral disc 32947241 M51.36 A prescripti on for opioids was prescribed today given the failure of more conservati ve treatment options. The risks, benefits, and alternativ es were discussed in detail with the patient. Goals of improved activity and analgesia will continue to be monitored in subsequent encounters . There is no evidence of addiction or aberrancy to date. Lumbar radiculopathy 128 M54.16 Long-term drug therapy 972974502 Z79.899 The preliminar y [place] urine drug screen is appropriat e for the class of medication (s) that the patient is being prescribed and based on their risk stratifica tion I will not send this sample for further quantitati ve LCMS testing. [id number] Farhat Watt MD [place] [address] [place] [address] 04/30/2019 15:19:19 04/30/2019 16:14:13 Lumbar radiculopathy 446496411 M54.16 Long-term drug therapy 661011837 Z79.899 Send for LCMS confirmati on of Opiates (Codeine, Hydrocodon e, Hydromorph one, Morphine, and Heroin) to confirm the quantitati ve level of drug and metabolite s, as the preliminar y [place] test for Opiates is negative, but the patient is prescribed these medication s and reports taking them within the last 48-72 hours. Send for LCMS confirmati on of Oxycodone and Oxymorphon e as these drugs are frequently not detected with [place] testing at 300ng/mL and these are frequently used and/or abused pain medication s in our community. Send for LCMS confirmati on of Synthetic Opioids (Fentanyl, Methadone, Tramadol, Tapentadol , and Buprenorph ine) as these drugs will not be detected in Opiate [place] testing and these are frequently used and/or abused pain medication s in our community. Pain in coccyx 72502161 M53.3 Lumbar post-laminectomy syndrome 471884084 M96.1 [id number] MD [place] [address] [place] [address] 06/11/2019 07:54:09 06/11/2019 09:47:20 Pain in coccyx 95675254 M53.3 Lumbar post-laminectomy syndrome 599686665 M96.1 Lumbar radiculopathy 128 773535 M54.16 Long-term drug therapy 252485783 Z79.899 no UDS due to Degenerati on of lumbar intervertebral disc 97852554 M51.36 [id number] MD Asif Estrella [address] [place] [address] 06/26/2019 12:52:12 06/26/2019 13:15:55 Pain in coccyx 66909334 M53.3 [id number] MD [place]in [place] [address] [place] [address] 07/11/2019 08:45:24 07/11/2019 09:36:41 Pain in coccyx 02851056 M53.3 Lumbar post-laminectomy syndrome 621042345 M96.1 Lumbar radiculopathy 128 605800 M54.16 Long-term drug therapy 438052262 Z79.899 no UDS due to Degenerati on of lumbar intervertebral disc 82012795 M51.36 [id number] Farhat Watt MD [place] [address] [place] [address] 09/23/2019 15:41:48 09/23/2019 16:29:12 Lumbar radiculopathy 540784479 M54.16 Use of the medication does allow the patient to perform the activities of daily living and function without being in severe pain. Degenerati on of lumbar intervertebral disc 11483993 M51.36 Long-term drug therapy 080465450 Z79.899 do not send Lumbar post-laminectomy syndrome 053341698 M96.1 [id number] Farhat Watt MD [place] [address] [place] [address] 11/21/2019 15:02:45 11/21/2019 16:07:52 Lumbar radiculopathy 978504862 M54.16 Use of the medication does allow the patient to perform the activities of daily living and function without being in severe pain. Degenerati on of lumbar intervertebral disc 51581932 M51.36 Long-term drug therapy 480067542 Z79.899 Lumbar post-laminectomy syndrome 964231569 M96.1 Pain of ashli int of ankle and/or foot 183732938 M79.671 [id number] Farhat Watt MD [place] [address] [place] [address] 01/21/2020 15:00:14 01/21/2020 16:34:53 Lumbar radiculopathy 019283301 M54.16 Use of the medication does allow the patient to perform the activities of daily living and function without being in severe pain. Pain of ashli int of ankle and/or foot 420145853 M79.671 Degenerati on of lumbar intervertebral disc 48224219 M51.36 Lumbar post-laminectomy syndrome 863164318 M96.1 Long-term drug therapy 462197317 Z79.899 [id number] Farhat Watt MD [place] [address] [place] [address] 02/12/2020 15:51:12 02/12/2020 16:16:38 Lumbar radiculopathy 286416404 M54.16 [id number] Farhat Watt MD [place] [address] [place] [address] 03/18/2020 15:42:47 03/18/2020 16:13:12 Lumbar radiculopathy 190472128 M54.16 Bilateral osteoarthritis of knees [id number] 26604 M17.0 [id number] MD Darin [place] [address] [place] [address] 03/19/2020 15:51:47 03/19/2020 16:09:51 Lumbar radiculopathy [id number] M54.16 A prescripti on for opioids was prescribed today given the failure of more conservati ve treatment options. The risks, benefits, and alternativ es were discussed in detail with the patient. Goals of improved activity and analgesia will continue to be monitored in subsequent encounters . There is no evidence of addiction or aberrancy to date. Pain of ashli int of ankle and/or foot 581022739 M79.671 Degenerati on of lumbar intervertebral disc 97095274 M51.36 Lumbar post-laminectomy syndrome 856577043 M96.1 Long-term drug therapy 997575127 Z79.899 Osteoarthr itis of knee 216656807 M17.0 [id number] MD Asif Estrella [address] [place] [address] 05/17/2020 15:41:00 05/17/2020 16:51:18 Lumbar radiculopathy 973586515 M54.16 . Osteoarthr itis of knee 481543661 M17.0 Pain of ashli int of ankle and/or foot 235809844 M79.671 Degenerati on of lumbar intervertebral disc 94761562 M51.36 Lumbar post-laminectomy syndrome 920730257 M96.1 Long-term current use of opiate analgesic drug [id number] 73886 Z79.891 Send for LCMS confirmati on of Opiates (Codeine, Hydrocodon e, Hydromorph one, Morphine, and Heroin) to confirm the quantitati ve level of drug and metabolite s, as the preliminar y IA test for Opiates is negative, but the patient is prescribed these medication s and reports taking them within the last 48-72 hours. Send for LCMS confirmati on of Oxycodone and Oxymorphon e as these drugs are frequently not detected with IA testing at 300ng/mL and these are frequently used and/or abused pain medication s in our community. Send for LCMS confirmati on of Synthetic Opioids (Fentanyl, Methadone, Tramadol, Tapentadol , and Buprenorph ine) as these drugs will not be detected in Opiate IA testing and these are frequently used and/or abused pain medication s in our community. Send for LCMS confirmati on of Gabapentin to confirm the quantitati ve level of this drug and its metabolite as it will not be detected in IA testing and the patient is currently prescribed Gabapentin . [id number] Farhat Watt MD [place] [address] [place] [address] 06/03/2020 14:08:45 06/03/2020 14:48:01 Lumbar radiculopathy 170438099 M54.16 [id number] Farhat Watt MD [place] [address] [place] [address] 06/17/2020 15:56:58 06/17/2020 16:48:23 Lumbar radiculopathy 606386449 M54.16 A prescripti on for opioids was prescribed today given the failure of more conservati ve treatment options. The risks, benefits, and alternativ es were discussed in detail with the patient. Goals of improved activity and analgesia will continue to be monitored in subsequent encounters . There is no evidence of addiction or aberrancy to date. Osteoarthr itis of knee 616937695 M17.0 Pain of ashli int of ankle and/or foot 706201061 M79.671 Degenerati on of lumbar intervertebral disc 60551850 M51.36 Lumbar post-laminectomy syndrome 816139444 M96.1 [id number] MD Darin [place] [address] [place] [address] 07/14/2020 15:39:39 07/15/2020 13:13:56 Lumbar radiculopathy 717341195 M54.16 A prescripti on for opioids was prescribed today given the failure of more conservati ve treatment options. The risks, benefits, and alternativ es were discussed in detail with the patient. Goals of improved activity and analgesia will continue to be monitored in subsequent encounters . There is no evidence of addiction or aberrancy to date. Osteoarthr itis of knee 922251191 M17.0 Pain of ashli int of ankle and/or foot 002033027 M79.671 Degenerati on of lumbar intervertebral disc 88008370 M51.36 Lumbar post-laminectomy syndrome 259727883 M96.1 [id number] MD Asif Estrella [address] [place] [address] 08/26/2020 15:00:10 08/26/2020 16:02:08 Bilateral osteoarthritis of knees [id number] 36049 M17.0 Lumbar radiculopathy 128 362277 M54.16 [id number] MD Darin [place]rella[place] [address] [place] [address] 09/09/2020 13:41:39 09/09/2020 15:05:47 Lumbar spondylosis 633952608 M47.266 [id number] MD Darin [place] [address] [place] [address] 09/13/2020 14:38:22 09/13/2020 15:27:00 Lumbar radiculopathy 976371754 M54.16 A prescripti on for opioids was prescribed today given the failure of more conservati ve treatment options. The risks, benefits, and alternativ es were discussed in detail with the patient. Goals of improved activity and analgesia will continue to be monitored in subsequent encounters . There is no evidence of addiction or aberrancy to date. Osteoarthr itis of knee 864178719 M17.0 Lumbar post-laminectomy syndrome 447146338 M96.1 Lumbar spondylosis 97159 0009 M47.256 [id number] Farhat Watt MD [place] [address] [place] [address] 10/27/2020 15:16:15 10/27/2020 16:01:01 Lumbar spondylosis 780463276 M47.010 [id number] Farhat Watt MD [place] [address] [place] [address] 11/19/2020 15:05:54 11/19/2020 16:34:41 Lumbar radiculopathy 707840285 M54.16 A prescripti on for opioids was prescribed today given the failure of more conservati ve treatment options. The risks, benefits, and alternativ es were discussed in detail with the patient. Goals of improved activity and analgesia will continue to be monitored in subsequent encounters . There is no evidence of addiction or aberrancy to date. Lumbar spondylosis 78516 0009 M47.896 Osteoarthr itis of knee 344787079 M17.0 Lumbar post-laminectomy syndrome 409972054 M96.1 [id number] Farhat Watt MD [place] [address] [place] [address] 11/25/2020 13:52:30 11/25/2020 14:58:13 Lumbar spondylosis 528827431 M47.414 [id number] Prince Amador MD [place] [address] [place] [address] 01/19/2021 10:52:26 01/19/2021 11:45:55 Lumbar radiculopathy 641384963 M54.16 A prescripti on for opioids was prescribed today given the failure of more conservati ve treatment options. The risks, benefits, and alternativ es were discussed in detail with the patient. Goals of improved activity and analgesia will continue to be monitored in subsequent encounters . There is no evidence of addiction or aberrancy to date. Lumbar spondylosis 59940 0009 M47.896 Lumbar post-laminectomy syndrome 282661202 M96.1 Long-term drug therapy 585837575 Z79.899 The urine sample is being sent for quantitati ve LCMS analysis of illicit drugs (Cocaine, Methamphet amine, Heroin, Fentanyl, THC, Synthetic Cannabinoi ds, Kratom, MDMA, PCP, and Synthetic Stimulants , Opiates (Codeine, Hydrocodon e, Hydromorph one, and Morphine), Oxycodone, Oxymorphon e, Methadone, Synthetic Opioids (Tramadol, Tapentadol , and Buprenorph ine), Benzodiaze pines (Alprazola m, Clonazepam , Lorazepam, Diazepam, Nordazepam , Oxazepam, and Temazepam) , Gabapentin , Pregabalin , Muscle Relaxants (Carisopro dol, Cyclobenza charlee, and Meprobamat e), Ketamine, Nalaxone, and Amphetamin e, as this patient is being prescribed opioid medication s at this practice. The purpose of this analysis is to confirm the patients stated medication usage and to establish baseline medication and metabolite quantities , and to evaluate for use of medication s that are not prescribed or reported by the patient. [id number] MD Asif Estrella [address] [place] [address] 03/25/2021 15:17:07 03/27/2021 09:29:18 Lumbar radiculopathy 885740348 M54.16 Lumbar spondylosis 39252 0009 M47.896 Bilateral trigger fingers [id number] 2632601 M65.30 Post-afshin ectomy syndrome 89976284 M96.1 [id number] MD Asif Estrella [address] [place] [address] 03/25/2021 15:18:24 03/27/2021 09:27:45 Osteoarthritis of joint of bilateral hands [id number] 44453 M19.041 M19.321 [id number] MD Asif Estrella [address] [place] [address] 05/09/2021 10:36:33 05/09/2021 12:16:13 Lumbar post-laminectomy syndrome 005000755 M96.1 [id number] MD Asif Estrella [address] [place] [address] 05/09/2021 11:54:01 05/09/2021 11:55:09 Lumbar post-laminectomy syndrome 076171065 M96.1 We are ordering the [employer] Force Flex brace ([id number] lumbar support back brace) for this patient who is scheduled to undergo SCS implant trial/surg tatyana, lumbar-sac ral brace was ordered to restrict lumbar mobility after the procedure, in order to decrease the chance of lead migration. It was emphasized to the patient that postoperat sammy activity restrictio ns are crucial to maintain lead position and functional ity of the SCS system. [id number] MD Asif Estrella [address] [place] [address] 05/11/2021 09:48:18 05/11/2021 10:37:24 Lumbar post-laminectomy syndrome 277714744 M96.1 Lumbar radiculopathy 128 565681 M54.16 [id number] MD Asif Estrella [address] [place] [address] 05/13/2021 14:25:52 05/13/2021 15:11:43 Lumbar post-laminectomy syndrome 122131260 M96.1 Lumbar radiculopathy 128 698386 M54.16 Lumbar spondylosis 30356 0009 M47.284 [id number] MD Asif Estrella [address] [place] [address] 07/04/2021 15:22:05 07/04/2021 16:19:53 Lumbar radiculopathy 131786767 M54.16 Lumbar post-laminectomy syndrome 947010488 M96.1 Osteoarthr itis of knee 281336481 M17.0 Long-term drug therapy 442780999 Z79.084 [id number] MD Asif Estrella [address] [place] [address] 09/30/2021 10:20:44 09/30/2021 11:17:28 Lumbar post-laminectomy syndrome 069011810 M96.1 Lumbar radiculopathy 128 765268 M54.16 Long-term drug therapy 259531486 Z79.899 Health Concerns Section Related Observation LastModified by Organization Detai ls LastModified Time None Recorded Concern Status LastModified by Organization Details LastModified Time None Recorded Advance Directives Directive N: Payers Insurance Date Sequence Insurance Name Policy Number Policy Daly Covered Member ID Adly Member ID Guarantor Name 09/26/2022 1 [place] [facility] [id number] Karolyn Ramirez [id number] Karolyn Notes Date Note Type Note Provider Name and Address Organization Details Recorded Time 05/11/2021 text/html Low back painReported bypatient.Severity:c urrent pain level: 5/10; average pain level: 7/10; worst pain level: 10/10 Associated Symptoms:no weakness; no numbness; no tingling; no swelling; no bowel incontinence; no urinary retention; no urinary incontinence Daily Activities:Living independently.; Able to bathe/groom without assistance.; 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 Farhat Watt MD [address] [place] [address], [phone] [facility] 05/11/2021 10:11:44 05/13/2021 text/html Low back painReported bypatient.Severity:c urrent pain level: 5/10; average pain level: 7/10; worst pain level: 10/10; Patient rates pain improvement from spinal cord stimulator as % Alleviating Factors:Patient rates activity improvement from spinal cord stimulator as %, and reduction in medication usage by %. 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 Sleep Qfsjungisah-34-50 % Pain Medication Changes-No change in pain medication utilization Signs of infection-None Patient wishes to schedule permanent implant-Unsure as of now. Patient is here today for SCS trial f/u & removal. Patient sates that since the meloxicam has been stopped his knee pain is worse so the pain seem worse a times. Patient is not sure about permanent placement just yet. Temperature: 97.9Bp: 152/79O2: 91 Farhat Watt MD [address] [place] [address], [phone], [facility] 05/13/2021 15:15:36 07/04/2021 text/html Follow-up (meds & injections)Reported bypatient.Improvemen t:Pain is getting worse. Pain Scores:Average pain- 8/10; Current pain- 8/10; Worst pain- 10/10 Recent Injections:Epidural steroid injection-; SI joint injection-; Joint injection: - Current Analgesics:Opioids- hydrocodone; Other adjunct medications- gabapentin; Reported pain relief- 20% for 1 hours; Last dose of Rombauer 07/04/2021 Pharmacy verified. Adverse Reactions:No nausea.; No vomiting.; No constipation.; No itching.; No sedation.; No respiratory depression.; No sexual dysfunction. 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 Physical Therapy:Denies Neuroflow:Not UtilizingFoot/AnkleR eported bypatient.Location:b ilateral; deep; dorsum; R>L Quality:aching; burning; gnawing; sharp; constant; worsening Severity:severe; pain level 5/10; worst pain 6/10 Duration:date of onset:2014 Timing:chronic; recurrent Context:cannot identify Alleviating Factors:lying down; position change; rest; limited weight bearing; pain medication Aggravating Factors:sitting (driving); standing; walking; lifting; carrying; twisting; bending/squatting; getting out of bed; going from sit to stand; Accelerating gas pedal Associated Symptoms:weakness(bi lateral feet);numbness(right 3rd digit);tingling(righ t 3rd digit);pain with motion Previous Surgery:none Prior Imaging:MRI (02/09/17 MRI Right Foot 06/2017 MRI LSP); EMG (Dr. Mark Castellanos) Previous Injections:Patient did have one injection with podiatry, Dr. Rudd which helped only a few days. Previous PT:none Work Related:no Working:regular dutyNotes: Hand/FingersReported bypatient.Hand Dominance:right Location:bilateral; 3rd Rt digit; R>L (left 2nd digit) Quality:aching; constant; worsening Severity:severe; pain level 6/10; worst pain 9/10 Duration:date of onset: Timing:chronic Context:overuse Alleviating Factors:Injections Aggravating Factors:carrying; pushing/pulling; gripping; grasping; squeezing; throwing Associated Symptoms:no swelling; no redness; no warmth; no ecchymosis; no buckling; no grinding; no instability; no radiation; no drainage; no fever; no chills; no weight loss; no change in bowel/bladder habits;weakness;numb ness(ten digits);tingling(ten digits);catching/loc nancy(right hand);popping/clicki ng(right hand) Previous Surgery:none Prior Imaging:none Previous Injections:TPI past injections Previous PT:none Working:noLow back painReported bypatient.Onset:date of onset: (2017) Location:bilateral paraspinal; midline spine; radiating down the bilateral lower extremities to the feet; R>L Context:started without cause Quality:aching; burning; gnawing; sharp; constant; worsening Functional Assessment-Severity: Pain Intensity2-The pain is moderate at the moment; current pain level: 6/10; average pain level: 8/10; worst pain level: 10/10 Alleviating Factors:rest; opioids; muscle relaxants; neuropathic medications Functional Assessment-Aggravati ng Factors:LIFTING; WALKING; SITTING; carrying; twisting; bending/squatting; pushing/pulling; weightbearing; getting out of bed; going from sit to stand; upstairs; downstairs; driving Timing:varies throughout the day; worse at nighttime Associated Symptoms:no swelling; no popping/clicking; no bowel incontinence; no urinary retention; no urinary incontinence; no perineal paresthesia/anesthes ia;weakness;numbness (right 3rd digit);tingling(righ t 3rd digit);pain radiating down lower extremities Prior Imaging:MRI (06/26/2017 MRI Lumbar); EMG (06/13/2017 EMG/NCV); 09/04/2018 Xray of Coccyx sacrum Previous Lumbar Surgery:lumbar decompression/discec aida:; Patient had back surgery 20 years ago L5/S1 leftside Previous Injections:lumbar TFESIs: ; SI joint injections: ; 06/03/2020 #3 TF-SANTA Right L4/5, L5/S1; 03-18-2020 #2 TF-SANTA Right L4/5, L5/S1 90% pain relief ongoing 02/12/2020 #1 Right TFESI L4/L5, L5/S1 100% pain relief 06-26-2019:#1 Sacrococcygeal Joint Injection: 100 pain relief, 5 days 10/18/2018: #2 Sacrococcygeal Joint Injection; 100% pain relief that is on going 09/11/2018 #1 Sacrococcygeal joint injection 70-80% pain relief 02/22/2018 #3 TFESI, Right L4/L5 L5/S1, 60% pain relief for 1 week 12/27/2017 #2 Right TFESI L4/5, L5/S1 30-40% pain relief 08/31/2017 RT TF-LESI L4/5, L5/S1: Patient states 90% pain relief for 1 week. 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 Medications History:NSAIDs: (Iilqacp-Hfrlltf-Skl imal); Neuropathics: (Neuropathics: Yibxcaujhv-Dbpmpck-X ffective Lyrica-Not Effective Nortripytline-not working); Opioid pain medications: (Tramadol-Not Effective Tylenol #3-Not Effective Rombauer-Not Effective) Prior Pain Management:noNotes: Patient is here today for foot/ankle,back and hand/finger pain. Updated med list with patient. patient states that his pain is getting worse. Pain scale is 8/10. The patient has had no recent hospitalization, ER visits, specialist appointments (neurology, orthopedics, surgery), or updated imaging since their last visit. TERESA FU NP [address] [place] [address], [phone], [facility] 07/04/2021 18:34:18 09/30/2021 text/html Follow-up (meds & injections)Reported bypatient.Improvemen t:Pain is getting worse. Pain Scores:Average pain- 8/10; Current pain- 8/10; Worst pain- 10/10 Recent Injections:None Current Analgesics:Opioids- oxycodone; Other adjunct medications- gabapentin; Reported pain relief- 20% for 1 hours; Last dose of Rombauer 09/30/2021 @ 830AM. Pharmacy verified. Adverse Reactions:No nausea.; No vomiting.; No constipation.; No itching.; No sedation.; No respiratory depression.; No sexual dysfunction. 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 Physical Therapy:Denies Neuroflow:Not UtilizingFoot/AnkleR eported bypatient.Location:b ilateral; deep; dorsum; R>L Quality:aching; burning; gnawing; stabbing; sharp; constant; worsening Duration:date of onset:2014 Timing:chronic; recurrent Context:cannot identify Alleviating Factors:lying down; position change; rest; limited weight bearing; pain medication Aggravating Factors:sitting (driving); standing; walking; lifting; carrying; twisting; bending/squatting; getting out of bed; going from sit to stand; Accelerating gas pedal Associated Symptoms:weakness(bi lateral feet);numbness(right 3rd digit);tingling(righ t 3rd digit);pain with motion Previous Surgery:none Prior Imaging:MRI (02/09/17 MRI Right Foot 06/2017 MRI LSP); EMG (Dr. Mark Castellanos) Previous Injections:Patient did have one injection with podiatry, Dr. Rudd which helped only a few days. Previous PT:none Work Related:no Working:regular dutyNotes: Hand/FingersReported bypatient.Hand Dominance:right Location:bilateral; 3rd Rt digit; R>L (left 2nd digit) Quality:aching; constant; worsening Duration:date of onset: Timing:chronic Context:overuse Alleviating Factors:Injections Aggravating Factors:carrying; pushing/pulling; gripping; grasping; squeezing; throwing Associated Symptoms:no swelling; no redness; no warmth; no ecchymosis; no buckling; no grinding; no instability; no radiation; no drainage; no fever; no chills; no weight loss; no change in bowel/bladder habits;weakness;numb ness(ten digits);tingling(ten digits);catching/loc nancy(right hand);popping/clicki ng(right hand) Previous Surgery:none Prior Imaging:none Previous Injections:TPI past injections Previous PT:none Working:noLow back painReported bypatient.Onset:date of onset: (2017) Location:bilateral paraspinal; midline spine; radiating down the bilateral lower extremities to the feet; R>L Context:started without cause Quality:aching; burning; gnawing; sharp; constant; worsening Alleviating Factors:rest; opioids; muscle relaxants; neuropathic medications Aggravating Factors:sitting; walking; lifting; carrying; twisting; bending/squatting; pushing/pulling; weightbearing; getting out of bed; going from sit to stand; upstairs; downstairs; driving Timing:varies throughout the day; worse at nighttime Associated Symptoms:no swelling; no popping/clicking; no bowel incontinence; no urinary retention; no urinary incontinence; no perineal paresthesia/anesthes ia;weakness;numbness (right 3rd digit);tingling(righ t 3rd digit);pain radiating down lower extremities(Bilatera l extremities L>R) Prior Imaging:MRI (06/26/2017 MRI Lumbar); EMG (06/13/2017 EMG/NCV); 09/04/2018 Xray of Coccyx sacrum Previous Lumbar Surgery:lumbar decompression/discec aida:; lumbar spinal fusion:; Patient had back surgery 20 years ago L5/S1 leftside Lumbar spinal fusion 09/05/2021 with 6 screws & 6 pins. Previous Injections:lumbar TFESIs: ; SI joint injections: ; 06/03/2020 #3 TF-SANTA Right L4/5, L5/S1; 1-21-2021 #2 TF-SANTA Right L4/5, L5/S1 90% pain relief ongoing 02/12/2020 #1 Right TFESI L4/L5, L5/S1 100% pain relief 06-26-2019:#1 Sacrococcygeal Joint Injection: 100 pain relief, 5 days 10/18/2018: #2 Sacrococcygeal Joint Injection; 100% pain relief that is on going 09/11/2018 #1 Sacrococcygeal joint injection 70-80% pain relief 02/22/2018 #3 TFESI, Right L4/L5 L5/S1, 60% pain relief for 1 week 12/27/2017 #2 Right TFESI L4/5, L5/S1 30-40% pain relief 08/31/2017 RT TF-LESI L4/5, L5/S1: Patient states 90% pain relief for 1 week. 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 Medications History:NSAIDs: (Wnfljru-Ywwpqqr-Smn imal); Neuropathics: (Neuropathics: Ldojgquzii-Pzxiitu-Y ffective Lyrica-Not Effective Nortripytline-not working); Opioid pain medications: (Tramadol-Not Effective Tylenol #3-Not Effective Rombauer-Not Effective) Prior Pain Management:noNotes: Patient is here for medication management f/u. Current pain score is 8/10. Patient recently has a a lumbar fusion 09/05/2021 with 6 screws and pins placed. Patient states his pain is worse due tingling pains in bilateral legs L>R. patient will go see Dr. Paris today 09/30/2021 @ 1PM. Last dose of Rombauer 09/30/2021 @ 830AM. Pharmacy verified. Rx in chart. TERESA FU NP [address] [place] [address], [phone], [facility] 09/30/2021 12:29:55
--- OUTSIDE RECORDS SUMMARY | 2024-09-15 12:06 | XMS_ITS | Encounter Summary ---
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 Name Role Phone Unavailable Primary Care Provider Unavailabl e Encounter Details Date Type Department Care Team (Late st Contact Info) Description 04/09/2020 Transcribed Document [facility] [place] [address] ProviderSabine MD [facility] [place] [address] Social History Tobacco Use Types Packs/Day Years Used Date Smoking Tobacco: Never Assessed Sex and Gender Information Value Date Recorded Sex Assigned at Male 08/23/2021 8:49 PM CDT Legal Sex Male 8:49 PM CDT Gender Identity Male 08/23/2021 8:49 PM CDT Sexual Orientation Not on file documented as of this encounter Miscellaneous Notes * Cerner Conversion Note - Sabine ProviderMD - 04/09/2020 2:13 PM [facility] [place] [address] CODI HULL :1960 Visit Time:04/09/2020 What to do next Instructions From Your Care Team Diet after Discharge: Resume usual diet as tolerated, Do not drink any alcoholic beverages, Drink at least 8-10 glasses of water per day_ Activity after Discharge: As tolerated, Rest and relax today, No strenuous activity Lifting Restrictions: No heavy lifting over 10 pounds change positions frequently Driving after Discharge: Do not drive until 24 hours after no longer taking pain medications Showering/Bathing: May shower after 24 hours but dressing needs to be covered with plastic wrap., No tub bathing, soaking or swimming Notify Provider of: signs of infection, fever greater then 101, severe pain, swelling and or yellow green drainage. Wound/Incision Care after Discharge: Keep operative site/wound site clean and dry, _ remove dressing in 3 days but cover incision with plastic for 1 week in shower. do not get incision wet for 1 week. Follow-Up Appointments Follow Up with RUDY DACOSTA When 04/27/2020 03:00 PM EST Renetta [id number] appt 05/11/20 @ 3:[address] Dacosta Where: [address] [place] [address] [place] [address]- [employer] (1) Medications What How Much When Instructions Next Dose acetaminophen-hydrocodone ([place] 10 mg-325 mg oral tablet) 1 Tablet(s) Oral Every 6 Hours as needed for for pain allopurinol (allopurinol 300 mg oral tablet) 1 Tablet(s) Oral Every Day amLODIPine (amLODIPine 10 mg oral tablet) 1 Tablet(s) Oral Every Day cholecalciferol (Vitamin D3 5000 units oral capsule) 1 Capsule(s) Oral Weekly with food dexlansoprazole (Dexilant 60 mg oral delayed release capsule) 1 Capsule(s) Oral Every Day doxazosin (doxazosin 8 mg oral tablet) 1 Tablet(s) Oral Every Day ferrous sulfate (ferrous sulfate 325 mg (65 mg elemental iron) oral tablet) 1 Tablet(s) Oral Every Day gabapentin (gabapentin 800 mg oral tablet) 2 Tablet(s) Oral Two Times A Day lactobacillus rhamnosus GG ([facility]) 1 Capsule(s) Oral Every Other Day levothyroxine (Synthroid 50 mcg (0.05 mg) oral tablet) 1 Tablet(s) Oral Every Day losartan (losartan 100 mg oral tablet) 1 Tablet(s) Oral Every Day metFORMIN (metFORMIN 500 mg oral tablet) 1 Tablet(s) Oral Two Times A Day montelukast (Singulair 10 mg oral tablet) 1 Tablet(s) Oral Every Day multivitamin (Vitamin B Complex oral capsule) 1 Capsule(s) Oral Every Day omega-3 polyunsaturated fatty acids ([employer] B[employer] Red Krill Oil 500 mg oral capsule) 1 Capsule(s) Oral Every Day sulfaSALAzine (sulfaSALAzine 500 mg oral delayed release tablet) 2 Tablet(s) Oral Two Times A Day tamsulosin (Flomax 0.4 mg oral capsule) 1 Capsule(s) Oral Every Day Take your medications faithfully. Do NOT skip medication. Do NOT stop taking medications without the direction of a physician. Carry a list of your medications with you at all times, and take this medication list with you to your first follow up visit. Report any side effects. Avoid herbal remedies unless discussed with your physician. As part of your treatment plan, your physician may have prescribed a limited course of a controlled substance. This medication may be given to help people with moderate or severe pain or for other medical conditions, but there are risks involved with treatment. Common side effects may include nausea, constipation, drowsiness, sweating, itching, dry mouth, and rash. More serious side effects may include cognitive and motor impairment, like problems with thinking, concentrating, alertness, and movement (e.g. slowed reflexes), and driving and operating heavy machinery can be dangerous. It is important for you to talk to your physician if you have these side effects or questions. These controlled substances can produce physical dependence and be habit-forming if taken for an extended period of time, which means that the body has gotten used to them and may experience withdrawal symptoms if they are abruptly stopped. Withdrawal symptoms can include runny nose, sweating, goose bumps, diarrhea, abdominal cramping, rapid heartbeat, difficulty sleeping, and nervousness. Please dispose of unused and medications per pharmacy guidance. Education Materials Outpatient Surgery, Adult, Care After These instructions provide you with information about caring for yourself after your procedure. Your health care provider may also give you more specific instructions. Your treatment has been planned according to current medical practices, but problems sometimes occur. Call your health care provider if you have any problems or questions after your procedure. What can I expect after the procedure? After the procedure, it is common to have: ??? Tenderness and numbness at the surgical site. ??? Swelling and bruising around the surgical site. ??? Nausea. Follow these instructions at home: For at least 24 hours after the procedure: ??? Have a responsible adult stay with you. It is important to have someone help care for you until you are awake and alert. ??? Rest as needed. ??? Do not: ? Participate in activities in which you could fall or become injured. ? Drive. ? Use heavy machinery. ? Drink alcohol. ? Take sleeping pills or medicines that cause drowsiness. ? Make important decisions or sign legal documents. ? Take care of children on your own. Activity ??? Return to your normal activities as told by your health care provider. Ask your health care provider what activities are safe for you. ??? Do not lift anything that is heavier than 10 lb (4.5 kg), or the limit that your health care provider tells you, until your health care provider says it is okay. ??? Do not play contact sports until your health care provider says it is okay. Incision care ??? Follow instructions from your health care provider about how to take care of an incision, if you have one. Make sure you: ? Wash your hands with soap and water before you change your bandage (dressing). If soap and water are not available, use hand development consultant. ? Change your dressing as told by your health care provider. ? Leave stitches (sutures), skin glue, or adhesive strips in place. These skin closures may need to stay in place for 2 weeks or longer. If adhesive strip edges start to loosen and curl up, you may trim the loose edges. Do not remove adhesive strips completely unless your health care provider tells you to do that. ??? Check your incision area every day for signs of infection. Check for: ? More redness, swelling, or pain. ? More fluid or blood. ? Warmth. ? Pus or a bad smell. Medicines ??? Take lzsz-toy-mzhexyj and prescription medicines only as told by your health care provider. ??? Do not drive or use heavy machinery while taking prescription pain medicines. Eating and drinking ??? Follow the diet recommended by your health care provider. ??? When you are hungry, begin eating light and bland foods such as toast. Gradually return to your regular diet. ??? If you vomit: ? Drink water, juice, or soup when you can drink without vomiting. ? Make sure you have little or no nausea before eating solid foods. General instructions ??? If you have sleep apnea, surgery and certain medicines can increase your risk for breathing problems. Follow instructions from your HCP about wearing your sleep device: ? Anytime you are sleeping, including during daytime naps. ? While taking prescription pain medicines, sleeping medicines, or medicines that make you drowsy. ??? Do not use any tobacco products, such as cigarettes, chewing tobacco, and e-cigarettes, for as long as possible. ??? If you smoke, do not smoke without supervision. ??? Keep all follow-up visits as told by your health care provider. This is important. Contact a health care provider if: ??? You have more redness, swelling, or pain around your incision. ??? You have more fluid or blood coming from your incision. ??? Your incision feels warm to the touch. ??? You have pus or a bad smell coming from your incision. ??? You have a fever. ??? You feel light-headed or you faint. ??? You develop a rash. ??? You keep feeling nauseous or keep vomiting. ??? You have very bad pain, even after taking the medicines your health care provider has prescribed or recommended. ??? You have constipation. Get help right away if: ??? You are unable to pass urine. ??? You have trouble breathing. Summary ??? Have a responsible adult stay with you for at least 24 hours after the procedure. ??? Nausea is common after a procedure. Make sure you have little or no nausea before eating solid foods. Follow the diet recommended by your health care provider. ??? Ask your health care provider what activities are safe for you. This information is not intended to replace advice given to you by your health care provider. Make sure you discuss any questions you have with your health care provider. Document Released: 06/04/2016 Document Revised: 05/13/2018 Document Reviewed: 06/04/2016 [employer] Patient Education ?? 2020 [employer] Emergency Awareness and Preventative Care STROKE is an EMERGENCY Every Minute Counts Act FAST and Check for these signs: FACE Does the face look uneven? ARM Does one arm drift down? SPEECH Does their speech sound strange? TIME Call at any sign of stroke Stroke Risk Factors Atrial Fibrillation (irregular heartbeat) Diabetes Family history of stroke Heart Disease Heavy alcohol use High Blood Pressure High Cholesterol Physical inactivity and obesity Smoking Cigarette Smoking The facts are clear, cigarette smoking will shorten your life. Smoking can cause many illnesses along the way. As a healthcare provider, we recommend that you stop smoking. Assistance with quitting is available by contacting 1-878-MEFPNOW. This is a free resource providing counseling, support, and referral. Or you may contact your personal physician. National Suicide Prevention Lifeline: The National Suicide Prevention Lifeline is a national network of local crisis centers that provides free and confidential emotional support to people in suicidal crisis or emotional distress 24 hours a day, 7 days a week. Don't Wait! Stop a Heart Attack Before it Starts What is a heart attack? A heart attack is damage or to a part of the heart from severely decreased or lack of blood flow to the heart. Over time, arteries can become narrow from the buildup of fat and cholesterol, which is called plaque. The plaque can rupture causing a blood clot to form. When the blood clot forms, the artery can become severely narrowed or completely blocked, causing a heart attack. Heart attack is the leading cause of in the [place]. 85% of muscle damage occurs within the first 2 hours. Delay in the recognition of heart attack symptoms increases the chances of . Know the early symptoms of a heart attack: Nausea Feeling of fullness in chest Jaw Pain Pain that travels down one or both arms Fatigue/being tired Anxiety Back Pain Chest pressure, squeezing, or discomfort Shortness of breath Sweating, or a cold sweat Feeling of impending doom There are unusual signs of a heart attack, too! Women, the elderly, and diabetics may present with atypical symptoms: Fainting/dizziness Weakness Confusion Risk Factors for a Heart Attack Some heart disease risk factors, such as age and family history, cannot be changed. Others, like smoking and lack of exercise, can be changed. Smoking High Cholesterol High Blood Pressure Family History Obesity Age Gender (Males are at higher risk) Lack of Exercise Diabetes Diet Stress Excessive Alcohol Intake If you or someone you know is experiencing the signs and symptoms of a heart attack, DON???T DELAY. Call immediately and seek help. If someone collapses, perform CPR! Do not attempt to drive if you are having symptoms of heart attack. Hands-Only CPR Why Hands-Only CPR? Hands-Only CPR has been shown to be as effective as conventional CPR for cardiac arrests that occur outside of a hospital. Survival depends on immediately receiving CPR from someone nearby. How do you perform Hands-Only CPR? There are two easy steps: Call 9-1-1 if you see a teen or adult collapse Push hard and fast in the center of the chest at a beat of 100 beats per minute. Save a life! 4 WAYS TO GET AHEAD OF SEPSIS SEPSIS is a MEDICAL EMERGENCY. Time matters! Infections put you and your family at risk for a life-threatening condition called sepsis. Sepsis is the body's extreme response to an infection. It is life-threatening, and without timely treatment, sepsis can rapidly lead to tissue damage, organ failure, and . Sepsis happens when an infection you already have-in your skin, lungs, urinary tract or somewhere else-triggers a chain reaction throughout your body. 1 PREVENT INFECTIONS Take good care of chronic conditions. Talk to your doctor about getting the recommended vaccines. 2 PRACTICE GOOD HYGIENE Wash your hands frequently. Keep cuts or open sores clean and covered until they are healed. 3 KNOW THE SYMPTOMS Confusion or disorientation Shortness of breath High heart rate Fever, shivering, or feeling very cold Extreme pain or discomfort Clammy or sweaty skin 4 ACT FAST Get medical care IMMEDIATELY if you suspect sepsis or if you have an infection that is not getting better or is getting worse. To learn more about sepsis and how to prevent infections, visit www.cdc.gov/sepsis. Test Results Laboratory or Other Results This Visit (last charted value for your 04/09/2020 visit) Hematology 04/07/2020 2:47 PM WBC: 6.7 K/uL -- Normal range between ( 3.6 and 9.5 ) RBC: 4.30 Million/uL -- Normal range between ( 4.20 and 5.70 ) Hct: 43.0 % -- Normal range between ( 40.1 and 51.0 ) Hgb: 13.8 g/dL -- Normal range between ( 13.7 and 17.5 ) Platelet Count: 235 K/uL -- Normal range between ( 163 and 369 ) MCH: 32.1 pg -- Normal range between ( 25.6 and 32.2 ) MCHC: 32.1 Gram/dL -- Normal range between ( 31.5 and 35.7 ) MCV: 100.0 fL -- Normal range between ( 79.0 and 94.8 ) Slide Review: No Eos %: 4.6 % -- Normal range between ( 0.0 and 7.0 ) Cotton #: 0.67 K/uL -- Normal range between ( 0.16 and 1.00 ) Eos #: 0.31 -- Normal range between ( 0.00 and 5.00 ) Cotton %: 10.0 % -- Normal range between ( 3.5 and 11.1 ) Baso %: 0.9 % -- Normal range between ( 0.0 and 2.0 ) Baso #: 0.06 -- Normal range between ( 0.00 and 2.00 ) RDW: 13.5 % -- Normal range between ( 11.7 and 14.9 ) Neut %: 53.8 % -- Normal range between ( 34.0 and 71.0 ) Neut #: 3.58 K/uL -- Normal range between ( 1.60 and 7.00 ) Lymph %: 30.7 % -- Normal range between ( 19.3 and 53.1 ) Lymph #: 2.05 K/uL -- Normal range between ( 1.00 and 3.50 ) MPV: 9.8 fL -- Normal range between ( 9.4 and 12.4 ) Urinalysis 04/07/2020 2:47 PM Urine Nitrite: Negative Urine Leukocyte Esterase: Negative Urine Appearance: Clear Urine Glucose Dipstick: Negative Urine Blood Dipstick: Negative Urine Urobilinogen Dipstick: 0.2 EU/dL Urine Protein Dipstick: Negative Urine Color: Yellow Urine Ketones Dipstick: Negative Urine pH Dipstick: 5.5 -- Normal range between ( 6.0 and 8.0 ) Urine Bilirubin Dipstick: Negative Urine Specific [place]: 1.009 -- Normal range between ( 1.005 and 1.030 ) Urine Type.: U CleanCatch Urine Culture if Indicated: Not Indicated Microbiology 04/07/2020 2:45 PM SARS-CoV-2 (COVID19 PCR): Negative General Chemistry 04/09/2020 12:41 PM Glucose POC2: 109 mg/dL -- Normal range between ( 70 and 110 ) Device Comment 1: Device Comment 1 04/07/2020 2:47 PM Creatinine Level: 0.90 mg/dL -- Normal range between ( 0.70 and 1.30 ) Sodium Level: 141 mmol/L -- Normal range between ( 136 and 146 ) Potassium Level: 4.4 mmol/L -- Normal range between ( 3.5 and 5.1 ) Chloride Level: 109 mmol/L -- Normal range between ( 102 and 112 ) Carbon Dioxide Level: 29 mmol/L -- Normal range between ( 21 and 32 ) Anion Gap: 7 -- Normal range between ( 9 and 20 ) Bilirubin Total: 0.4 mg/dL -- Normal range between ( 0.2 and 1.2 ) A/G Ratio: 1.2 -- Normal range between ( 1.1 and 2.5 ) ALT: 30 Units/Liter -- Normal range between ( 16 and 61 ) AST: 18 Units/Liter -- Normal range between ( 5 and 37 ) Globulin: 3.2 Gram/dL -- Normal range between ( 1.5 and 4.5 ) Alk Phos: 56 Units/Liter -- Normal range between ( 27 and 136 ) Bun/Creatinine: 8.9 -- Normal range between ( 8.0 and 20.0 ) Calcium Level: 9.0 mg/dL -- Normal range between ( 8.4 and 10.1 ) eGFR : >60 mL/min/1.73m2 eGFR NonAfrican: >60 mL/min/1.73m2 Glucose Level: 77 mg/dL -- Normal range between ( 74 and 106 ) Blood Urea Nitrogen: 8 mg/dL -- Normal range between ( 7 and 22 ) Protein Total: 6.9 Gram/dL -- Normal range between ( 6.4 and 8.2 ) Albumin Level: 3.7 Gram/dL -- Normal range between ( 3.4 and 5.0 ) Patient Name: CODI I have received this information and was given the opportunity to ask questions. Patient/Dance Critic Name: Patient/Dance Critic Signature: Relationship to Patient: Clinician/Hospital Dance Critic Signature: Date: Electronically signed by [facility] Conversion Rate Manager Meli at 06/16/2022 7:14 PM CDT documented in this encounter Plan of Treatment Not on file documented as of this encounter Visit Diagnoses Not on filedocumented in this encounter
--- OUTSIDE RECORDS SUMMARY | 2024-09-15 12:06 | XMS_ITS | Encounter Summary ---
Author Organization [email or web address] ([place], [place], [place], [place]) Address [address] [place] [address] Care Team Providers Care Structural Steel Detailer Name Role Phone Unavailable Primary Care Provider Unavailabl e Encounter Details Date Type Department Care Team (Late st Contact Info) Description 04/09/2020 Transcribed Document [facility] [place] [facility] [place] [address] ProviderSabine MD [facility] [place] [address] Social History Tobacco Use Types [...] Sabine Vivas MD - 04/09/2020 11:32 AM GROUP FITNESS ASSISTANT DEPARTMENT HEAD [facility] Main OR IntraOp Summary Primary Physician: RUDY DACOSTA MD-SNU Finalized Date/Time: 04/10/20 18:35:19 Pt. Name: CODI HULL D.O.B./Sex: 1960 Male Med Rec #: [id number] Physician: RUDY DACOSTA MD-SNU Financial #: [id number] Pt. Type: O Room/Bed: Admit/Disch: 04/09/20 12:51:00 - 04/09/20 14:54:00 Institution: [facility] IntraOp Case Attendance Entry 1 Entry 2 Entry 3 Case Attendee RUDY DACOSTA MD-SNU WASSON, SANDRA D, Savana Okeefe Rn Role Performed Surgeon/Proceduralist, User Experience Team Lead, First User Experience Team Lead, First First Time In 04/09/20 11:08:00 04/09/20 11:08:00 04/09/20 11:08:00 Time Out 04/09/20 12:35:00 04/09/20 12:35:00 04/09/20 12:35:00 Procedure Lumbar Lumbar Lumbar Microdiscectomy(Right) Microdiscectomy(Right) Microdiscectomy(Right) Other Attendee ORIENTEE Superficial Wound Closed By: Last Modified By: Nestor Prescott, Nestor Melgar, Nestor Melgar, SHIREEN 04/09/20 12:35:10 04/09/20 12:35:10 04/09/20 12:35:10 Entry 4 Entry 5 Entry 6 Case Attendee Nestor Prescott, HELEN CORDOVA PA LONG, PAULA R., ST Role Performed User Experience Team Lead, Second Physician delivery assistant Scrub, First Time In 04/09/20 11:08:00 04/09/20 11:08:00 04/09/20 11:08:00 Time Out 04/09/20 12:35:00 04/09/20 12:35:00 04/09/20 12:35:00 Procedure Lumbar Lumbar Lumbar Microdiscectomy(Right) Microdiscectomy(Right) Microdiscectomy(Right) Other Attendee Superficial Wound Closed By: Last Modified By: Nestor Prescott RN Byrd, Charlie D, RN Byrd, Charlie D, RN 04/09/20 12:35:10 04/09/20 12:35:10 04/09/20 12:35:10 Entry 7 Entry 8 Entry 9 Case Attendee SAI CHOWDARY, SOCIAL WORKER PSYCHIATRIC SUNIL BURLESON MD-ANS SCHNELLE, JENNIFER, GROUP FITNESS ASSISTANT DEPARTMENT HEAD Role Performed SOCIAL WORKER PSYCHIATRIC/Nurse Traffic Division Commanding Officer Anesthesiologist of Scrub, First Record Time In 04/09/20 11:08:00 04/09/20 11:08:00 04/09/20 11:27:00 Time Out 04/09/20 12:35:00 04/09/20 12:35:00 04/09/20 12:05:00 Procedure Lumbar Lumbar Lumbar Microdiscectomy(Right) Microdiscectomy(Right) Microdiscectomy(Right) Other Attendee ST LUNCH RELIEF Superficial Wound Closed By: Last Modified By: Nestor Prescott RN Byrd, Charlie D, RN Byrd, Charlie D, RN 04/09/20 12:35:10 04/09/20 12:35:10 04/09/20 12:35:10 Entry 10 Case Attendee LEONOR GARCIA Role Performed Heddle Machine Operator Time In 04/09/20 11:08:00 Time Out 04/09/20 12:35:00 Procedure Lumbar Microdiscectomy(Right) Other Attendee Superficial Wound Closed By: Last Modified By: Nestor Prescott RN 04/09/20 12:35:10 [facility] IntraOp Case Attendance Audit 04/09/20 12:35:10 Resource Center Teacher: [email or web address] Modifier: [email or web address] 1 <+> Time Out 1 <*> Procedure Lumbar Microdiscectomy(Right) 2 <+> Time Out 2 <*> Procedure Lumbar Microdiscectomy(Right) 3 <+> Time Out 3 <*> Procedure Lumbar Microdiscectomy(Right) 4 <+> Time Out 4 <*> Procedure Lumbar Microdiscectomy(Right) 5 <+> Time Out 5 <*> Procedure Lumbar Microdiscectomy(Right) 6 <+> Time Out 6 <*> Procedure Lumbar Microdiscectomy(Right) 7 <+> Time Out 7 <*> Procedure Lumbar Microdiscectomy(Right) 8 <+> Time Out 8 <*> Procedure Lumbar Microdiscectomy(Right) 9 <*> Procedure Lumbar Microdiscectomy(Right) 10 <+> Time Out 10 <*> Procedure Lumbar Microdiscectomy(Right) 04/09/20 12:05:19 Resource Center Teacher: [email or web address] Modifier: [email or web address] 1 <*> Procedure Lumbar Microdiscectomy(Right) 2 <*> Procedure Lumbar Microdiscectomy(Right) 3 <*> Procedure Lumbar Microdiscectomy(Right) 4 <*> Procedure Lumbar Microdiscectomy(Right) 5 <*> Procedure Lumbar Microdiscectomy(Right) 6 <*> Procedure Lumbar Microdiscectomy(Right) 7 <*> Procedure Lumbar Microdiscectomy(Right) 8 <*> Procedure Lumbar Microdiscectomy(Right) 9 <+> Time Out 9 <*> Procedure Lumbar Microdiscectomy(Right) 10 <+> Time In 10 <*> Procedure Lumbar Microdiscectomy(Right) 04/09/20 11:28:17 Resource Center Teacher: [email or web address] Modifier: [email or web address] <+> 9 Case Attendee <+> 9 Role Performed <+> 9 Time In <+> 9 Procedure <+> 9 Other Attendee <+> 10 Case Attendee <+> 10 Role Performed <+> 10 Procedure 04/09/20 11:17:35 Resource Center Teacher: [email or web address] Modifier: [email or web address] 1 <*> Procedure Lumbar Microdiscectomy(Right) 2 <*> Procedure Lumbar Microdiscectomy(Right) 3 <*> Procedure Lumbar Microdiscectomy(Right) 4 <+> Time In 4 <*> Procedure Lumbar Microdiscectomy(Right) 5 <+> Time In 5 <*> Procedure Lumbar Microdiscectomy(Right) 6 <+> Time In 6 <*> Procedure Lumbar Microdiscectomy(Right) 7 <+> Time In 7 <*> Procedure Lumbar Microdiscectomy(Right) 8 <+> Time In 8 <*> Procedure Lumbar Microdiscectomy(Right) 04/09/20 11:13:04 Resource Center Teacher: [email or web address] Modifier: [email or web address] 1 <+> Time In 1 <*> Procedure Lumbar Microdiscectomy(Right) 2 <+> Time In 2 <*> Procedure Lumbar Microdiscectomy(Right) 3 <+> Time In 3 <*> Procedure Lumbar Microdiscectomy(Right) <+> 4 Case Attendee <+> 4 Role Performed <+> 4 Procedure <+> 5 Case Attendee <+> 5 Role Performed <+> 5 Procedure <+> 6 Case Attendee <+> 6 Role Performed <+> 6 Procedure <+> 7 Case Attendee <+> 7 Role Performed <+> 7 Procedure <+> 8 Case Attendee <+> 8 Role Performed <+> 8 Procedure [facility] IntraOp Case Times Entry 1 Patient In Room Time 04/09/20 11:08:00 Out Room Time 04/09/20 12:35:00 Anesthesia Start Time 04/09/20 11:08:00 Stop Time 04/09/20 12:35:00 Surgery / Procedure Times Start Time 04/09/20 11:32:00 Stop Time 04/09/20 12:27:00 Last Modified By: Nestor Prescott RN 04/09/20 12:35:08 [facility] IntraOp Case Times Audit 04/09/20 12:35:08 Resource Center Teacher: [email or web address] Modifier: [email or web address] <+> 1 Out Room Time <+> 1 Stop Time 04/09/20 12:31:24 Resource Center Teacher: [email or web address] Modifier: [email or web address] <+> 1 Stop Time 04/09/20 11:34:23 Resource Center Teacher: [email or web address] Modifier: [email or web address] <+> 1 Start Time [facility] IntraOp Cautery Entry 1 Entry 2 ESU Identification Cautery Type Monopolar ESU BiPolar ESU Cautery Type Comments ID Number [id number] ID Type Hospital Number Hospital Number Cautery Settings Cut Setting 45 8 Coag Setting 45 45 Blend Setting Bipolar Setting Argon Setting Argon Bella ESU Grounding Pad Ground Pad Type Adult Grounding Pad Type Comment Grounding Pad Site Right thigh Grounding Pad Site Comment Grounding Pad CAROL SOLO RN Applied By Grounding Pad Site Warm, dry and intact Skin Condition Before Cautery Site Skin Condition Before Comment Grounding Pad Site Unchanged Skin Condition After Cautery Site Skin Condition After Comment Last Modified By: Nestor Prescott RN Byrd, Charlie D, RN 04/09/20 11:31:56 04/09/20 11:31:56 [facility] IntraOp Communication Entry 1 Communication To Family/Significant other Comment START Communication By Savana Cash Rn Date and Time 04/09/20 11:34:00 Last Modified By: Nestor Prescott RN 04/09/20 11:34:45 [facility] IntraOp Counts Verification Entry 1 Procedure Lumbar Microdiscectomy(Right) Count Info Count Type Sponge, Sharps, Miscellaneous Counts Verification Baseline/pre-procedure Sequence Count Results Not Applicable Counts Performed By Count Performed By LELA BASSETT ST (Scrub) Count Performed By CAROL SOLO RN (RN) Last Modified By: Nestor Prescott RN 04/09/20 11:13:20 [facility] IntraOp Counts Final Entry 1 Procedure Lumbar Microdiscectomy(Right) Final Count Info Count Type Sponge, Sharps, Miscellaneous Counts Verification Skin Closure/end of Sequence procedure Count Results Correct, surgeon notified Counts Performed By Count Performed By LELA BASSETT ST (Scrub) Count Performed By Nestor Prescott RN (RN) Last Modified By: Nestor Prescott RN 04/09/20 12:23:12 [facility] IntraOp Departure from OR Entry 1 Integumentary Assessment Integumentary WDL Assessment WDL Transfer/Handoff Transfer to PACU Phase I Handoff Method Phone call Post-op Transport Stretcher/Gurney Via Patient Transport SAI CHOWDARY, Accompanied by KACIE LEYVA MEGHAN, PA Last Modified By: Nestor Prescott RN 04/09/20 12:31:19 [facility] IntraOp Departure from OR Audit 04/09/20 12:31:19 Resource Center Teacher: ANAI Modifier: ANAI <+> 1 Patient Transport Accompanied by [facility] IntraOp Dressing and Packing Entry 1 Type Dressing Location OP SITE Wound Dressing Item Other Applied By HELEN HESTER, ENA Other Comments NEOSPORIN OINTMENT, COVADERM Last Modified By: Nestor Prescott RN 04/09/20 11:43:27 [facility] IntraOp Fire Risk Assessment Entry 1 Fire Info Surgical Site or 0- No Incision Above the Xyphoid Open O2 Source 0- No (Mask or Cannula) Available Ignition 1- Yes (ESU, Laser, Light Source) Fire Risk 1 Assessment Score Fire Score Fire Risk Yes Assessment Complete Fire Risk Savana Cash Rn Assessment Verified By Fire Risk 04/09/20 11:07:00 Assessment Verified Date/Time Fire Risk Standard Fire Yes Safety Precautions Followed Last Modified By: Nestor Prescott RN 04/09/20 11:13:41 [facility] IntraOp General Case Sanitary Landfill Supervisor 1 Case Information OR OR [facility] Case Level 1 Room Verified Yes Wound Class I - Clean Specialty SN Neurosurgery Anesthesia Type General ASA Class 3 Diagnosis Preop Diagnosis LUMBAR RADICULOPATHY Postop Same As Preop No Postop Diagnosis SEE MD POST OP NOTE Last Modified By: Nestor Prescott RN 04/09/20 11:43:48 [facility] IntraOp General Case Data Audit 04/09/20 11:43:48 Resource Center Teacher: ANAI Modifier: ANAI <+> 1 ASA Class [facility] IntraOp Intraoperative Assessment Entry 1 Handoff Reported to Savana Cash Rn Handoff Method Bedside/Face to face, Online nursing summary Valid History / Yes Physical in Chart Preoperative Yes Checklist Reviewed/Evaluated Allergies Reviewed Yes Patient is Latex No Sensitive Isolation Not applicable Precautions Noted Level of WDL Consciousness (WDL = Alert, Oriented to Person, Place, and Time) Skin Assessment No Verified Present Upon IVs Arrival to OR Last Modified By: Nestor Prescott RN 04/09/20 11:14:32 [facility] IntraOp Intraoperative Equipment Entry 1 Type Equipment Equipment Equipment Mukul Suction System ID Number [id number] Setting 200 MM HG Intraop Monitoring Electrocardiogram Five lead placement (ECG) Electrode Placement Blood Pressure Non-Invasive BP Device Source Antiembolic Devices Antiembolic Devices Sequential compression device, knee high Antiembolic Device Bilateral Location Antiembolic Device 10622 ID Number Scopes Photo/Video Documentation Photo No Video No Last Modified By: Nestor Prescott RN 04/09/20 11:38:41 [facility] IntraOp Medication Admin Entry 1 Entry 2 Entry 3 Medication/Irrigant Polysporin 15Gm thrombin 5000units SPNG SURGFOAM ointment - [id number] topical powder - [id number] Combo Med List Time Administered Route of TOPICAL TOPICAL TOPICAL Administration Dose Dose 1 5000 1 Unit of Measure pkt units pkt Volume Administered By HELEN HESTER PA OWEN, ROBERT D, MD-SNU RUDY DACOSTA MD-SNU Procedure Irrigation Irrigant Volume In Irrigant Volume Out Last Modified By: Nestor Prescott RN Byrd, Charlie D, RN Byrd, Charlie D, RN 04/09/20 11:39:44 04/09/20 11:39:44 04/09/20 11:39:44 [facility] IntraOp Patient Positioning Entry 1 Procedure Lumbar Microdiscectomy(Right) Body Position Prone Left Arm Position Secured on padded arm board Right Arm Position Secured on padded arm board Left Leg Position Elevated Right Leg Position Elevated Feet Uncrossed Yes Pressure Points Yes Checked Positioning Devices Maxx Table, Arm Board, Head Rest, Pad, Arm, Pad, Elbow, Pillows, Safety Strap, Thighs Device Position MAXX TABLE WITH CHEST, HIP AND THIGH PADS Positioned By RUDY DACOSTA MD-SNU, CAROL SOLO, RN, Savana Cash Rn, HELEN HESTER PA, SAI CHOWDARY, GORDON Position Verified Positioning Yes Verified by Anesthesia Positioning Yes Verified by Surgeon Last Modified By: Nestor Prescott RN 04/09/20 11:41:48 [facility] IntraOp Sign In Entry 1 Patient, Site, Yes Procedure Identified Surgical Consent Yes Confirmed Relevant Surgical Yes Documents Available Surgical Site N/A Marked by person performing procedure Anesthesia Machine Yes Check Completed Medication Checks Yes Completed Allergies Yes Airway Difficult Yes Airway/Aspiration Risk Difficult Yes Airway/Aspiration Intervention Equipment Available Blood Loss Risk Yes Blood Loss Yes Intervention Equipment Prepared and Ready Blood Identifiers Not applicable Verified Per Policy Hypothermia Risk Yes Warming Measures Yes Taken Last Modified By: Nestor Prescott RN 04/09/20 11:35:46 [facility] IntraOp Sign Out Entry 1 RN Confirmation Surgical Yes Procedure(s) Identified Instrument, Sponge Yes and Sharps Counts Correct/Documented Equipment Problems Yes Documented Specimen Labeled N/A Correctly Urinary Catheter N/A Documented in IView Turner Patient Yes Recovery Concerns Reviewed with Anesthesia Provider, Surgeon and RN Turner Patient Yes Management Concerns Reviewed with Anesthesia Provider, Surgeon and RN Safety Checklist Yes Elements Complete? RN Sign Out Nestor Prescott, RN Signature RN Sign Out 04/09/20 12:35:00 Signature Date/Time Plan of Care Outcome - Fire Risk OUTCOME STATEMENT: Goal met Patient is free from injury related to surgical fire Plan of Care Outcome - Pt Positioning OUTCOME STATEMENT: Goal met Absence of signs and symptoms of positioning injury. Plan of Care Outcome - Skin Prep OUTCOME STATEMENT: Goal met Intraoperative care is consistent with measures to prevent infection Plan of Care Outcome - Xray/Images OUTCOME STATEMENT: Goal met Absence of observable signs or symptoms of radiation injury Plan of Care Outcome - Counts OUTCOME STATEMENT: Goal met Absence of signs and symptoms of injury related to extraneous objects Last Modified By: Nestor Prescott RN 04/09/20 12:35:13 [facility] IntraOp Sign Out Audit 04/09/20 12:35:13 Resource Center Teacher: ANAI Modifier: [email or web address] <+> 1 RN Sign Out Signature Date/Time 04/09/20 12:31:35 Resource Center Teacher: [email or web address] Modifier: [email or web address] 1 <*> RN Sign Out Signature CAROL SOLO RN [facility] IntraOp Skin Prep Entry 1 Procedure Lumbar Microdiscectomy(Right) Prescribed Yes Pre-Surgical Prep Completed Prep Area OP SITE Intraop Prep Integumentary WDL Assessment WDL Prep Agents Chloraprep Prep by Savana Cash Rn Hair Removal Methods Clipper/Scissors Hair Removal Site OP SITE Hair Removal By RUDY DACOSTA MD-SNU Last Modified By: Nestor Prescott RN 04/09/20 11:35:23 [facility] IntraOp Surgical Procedures Entry 1 Procedure Lumbar Microdiscectomy Modifiers Right Additional (L4-5 RT MIRCRO Procedure FORAIMINOTOMY) Description Primary Procedure Yes Primary Surgeon RUDY DACOSTA MD-CHERYL Start 04/09/20 11:32:00 Stop 04/09/20 12:27:00 Anesthesia Type General Specialty SN Neurosurgery Wound Class I - Clean Last Modified By: Netsor Prescott RN 04/09/20 12:31:26 General Comments: ANCEF 3 GRAM IV PER ANESTHESIA [facility] Intra Surgical Procedures Audit 04/09/20 12:31:26 Resource Center Teacher: [email or web address] Modifier: [email or web address] 1 <*> Stop [facility] IntraOp Temp Regulation Devices Entry 1 Temp Regulation Temperature Forced Air Warming Regulation Device device Temperature 14261 Regulation Device Serial/Unit Number Temperature Upper body Regulation Site Temperature Device 43 C Setting Temperature SAI CHOWDARY P, SOCIAL WORKER PSYCHIATRIC Regulation Device Applied by Last Modified By: Nestor Prescott RN 04/09/20 11:42:20 [facility] IntraOP Time Out Entry 1 Procedure to be Lumbar Performed Microdiscectomy(Right) Time Out Time Out Pause Time 04/09/20 11:31:00 All activity Yes suspended (unless life threatening emergency) Team Verbally Correct patient Confirms Information identity, Consent form is present and accurate, Agreement on the procedure to be done, Correct patient position, Relevant images/results properly labeled/appropriately displayed, Confirm antibiotics have been administered, Confirm the skin prep has dried, Performed in location of procedure after prepped/draped Antibiotic Yes Prophylaxis Administered Or In Progress Within the Last 60 Minutes Beta Harmony N/A Administered Venous Yes Thromboembolism Prophylaxis Required Anticipated Critical Events Surgeon None expected Anesthesia Provider Patient specific concerns Nursing Assures Sterility of instruments Essential Imaging Yes Labeled and Displayed Last Modified By: Nestor Prescott RN 04/09/20 11:34:19 [facility] IntraOp X-Ray and Images Entry 1 X-Ray/Imaging Type Fluoroscopy Fluoroscopy Type C-Arm Site OP SITE Engineering Scientist Name LEONOR GARCIA Last Modified By: Nestor Prescott RN 04/09/20 11:34:58 Case Comments <None> Finalized By: JOSE BELLA Document Signatures Signed By: Nestor Prescott RN 04/09/20 12:35 JOSE BELLA 04/10/20 18:35 Unfinalized History Date/Time Username Reason for Unfinalizing Freetext Reason for Unfinalizing 04/10/20 18:35 [facility] Correct Billing documented in this encounter Plan of Treatment Not on file documented as of this encounter Visit Diagnoses Not on filedocumented in this encounter
--- OUTSIDE RECORDS SUMMARY | 2024-09-15 12:06 | XMS_ITS | Encounter Summary ---
Author Organization [employer] ([place], [place], [place], [place]) Address [address] [place] [address] Care Team Providers Care Director Home Name Role Phone Unavailable Primary Care Provider Unavailabl e Encounter Details Date Type Department Care Team (Late st Contact Info) Description 04/09/2020 Transcribed Document [facility] [place] On license of [facility] [place] [address] Sabine Vivas MD [facility] [place] [address] Social History Tobacco Use Types Packs/Day Years Used Date Smoking Tobacco: Never Assessed Sex and Gender Information Value Date Recorded Sex Assigned at Male 08/23/2021 8:49 PM CDT Legal Sex Male 8:49 PM CDT Gender Identity Male 08/23/2021 8:49 PM CDT Sexual Orientation Not on file documented as of this encounter Miscellaneous Notes * Cerner Conversion Note - Saibne Vivas MD - 04/09/2020 2:08 PM DEPARTMENT HEAD Patient Education Materials Follows: Outpatient Surgery, Adult, Care After These instructions [...] and water are not available, use hand bulldozer engineer. ? Change your dressing as told by [...] or a bad smell. Medicines ??? Take [id number]-[id number]-[id number] and prescription medicines only as told by [...] 06/04/2016 Document Revised: 05/13/2018 Document Reviewed: 06/04/2016 [employer] Patient Education ? 2020 [employer]. documented in this encounter Plan of Treatment Not on file documented as of this encounter Visit Diagnoses Not on filedocumented in this encounter
--- OUTSIDE RECORDS SUMMARY | 2024-09-15 12:06 | XMS_ITS | Patient Health Record ---
Author Organization [facility] Address [address] [place] [address] Care Team Providers Care Reagent Tender Helper Name Role Phone Patrick Marmolejo Primary Care Provider [phone] Migration, Provider Unavailable Unavailable Allergies Allergen (clinical drug ingredient) Drug/Non Drug Allergy documented on EMR Reaction Allergy Type Onset Date Status acetaminophen / oxycodone Percocet itch Drug Allergy Active Mustard Mustard swelling Allergy Active Medications Medication SIG (Take, Route, Frequency, Duration) Notes Start Date End Date Status Singulair 10 MG 1 tab(s) orally once a day (in the evening); Duration: 30 days Active Synthroid 50 MCG 1 tab(s) orally once a day; Duration: 30 Active Krill Oil 100MG 1 PO QD *Please review and pick correct strength-formulat ion from YellowHammer options. If intended option is not shown, discontinue and re-order from Quick Search* Active Ambien 10 MG 1 tab(s) orally once a day (at bedtime)prn Active Tamsulosin HCl 0.4 MG 1 cap(s) orally once a day; Duration: 30 Active Culturee Digestive Health - 1 cap(s) orally 4x weekly Active sulfaSALAzine 500 MG 2 tab(s) orally 2 times a day; Duration: 30 day(s) Active FeroSul 325 (65 Fe) MG TAKE 1 TABLET BY MOUTH ONCE DAILY; Duration: 30 Active Doxazosin Mesylate 8 MG 1 tab(s) orally once a day Active Vitamin B Complex QD *Please review and pick correct strength-formulat ion from YellowHammer options. If intended option is not shown, discontinue and re-order from Quick Search* Active HUMIRA 40 MG/0.8 ML DIRECTED SUBCUTANEOUSLY EVERY WEEK *Please review for potential replacement for e-prescription and drug interaction check* 01/17/2021 Active Gabapentin 800 MG 1 tab(s) orally 4 times a day Active Super B-Complex - 1 tab(s) orally once a day; Duration: 30 day(s) Active oxyCODONE-Acetaminop hen 10-325 MG 1 tab(s) orally 4 times a day Active metFORMIN HCl 500 MG 1 tab(s) orally twi ce a day; Duration: 30 Active Vitamin D (Ergocalciferol) 1.25 MG (85114 UT) TAKE 1 CAPSULE BY MOUTH ONCE A WEEK; Duration: 28 Active Losartan Potassium 100 MG 1 tab(s) orally once a day; Duration: 30 days Active Allopurinol 300 MG 1 tab(s) orally once a day; Duration: 90 days Active rOPINIRole HCl 1 MG 1 tab(s) orally once a day; Duration: 30 day(s) Active Dexilant 60 MG TAKE 1 CAPSULE BY MOUTH EVERY DAY; Duration: 30 Active amLODIPine Besylate 10 MG 1 tab(s) orally once a day; Duration: 30 Active Immunizations Vaccine Route Administration Date Status Comme nts Adacel (Tdap) IM Intramuscular 06/24/2015 Administered Covid Charles Unknown 07/01/2020 Administered Flublok IM Intramuscular 01/12/2021 Administered Pneumovax 23 IM Intramuscular 08/26/2019 Administered Problems Problem Type SNOMED Code ICD Code Onset Dates Problem Status W/U Status Risk Notes Problem Hypothyroidism (92408527) Other specified hypothyroidism (E03.8) Active confirmed Problem Pure hypercholesterolemia (744297950) Pure hypercholesterolemia (E78.0) Active confirmed Problem Obstructive sleep apnea syndrome (disorder) (09302067) Obstructive sleep apnea (adult) (pediatric) (G47.33) Active confirmed Problem Chronic pain (52337309) Other chronic pain (G89.29) Active confirmed Problem Allergic rhinitis (80748520) Other allergic rhinitis (J30.89) Active confirmed Problem Neuralgia (80135749) Neuralgia a nd neuritis, unspecified (M79.2) Active confirmed Problem Hypertension (80834890) HTN (hypertension) (I10) Active confirmed Problem Hyperlipidaemia (80726957) HLD (hyperlipidemia) (E78.5) Active confirmed Problem Allergic rhinitis (79131206) Allergic rhinitis (J30.9) Active confirmed Problem Hypothyroidism (82548742) Hypothyroidism (E03.9) Active confirmed Problem Gout (85828739) Gout (M10.9) Active confirmed Problem Vitamin D deficiency (09093972) Vitamin D deficiency (E55.9) Active confirmed Problem Hyperglycemia (92460332) Hyperglycemia (R73.9) Active confirmed Problem Gastroesophageal reflux disease (119209642) GERD without esophagitis (K21.9) Active confirmed Problem Restless legs syndrome (92938251) Restless leg syndrome (G25.81) Active confirmed Problem Type 2 diabetes mellitus (39568672) Type 2 diabetes mellitus (E11.9) Active confirmed Problem Pain in limb (55733306) Foot pain, right (M79.671) Active confirmed Problem Obese class II (338025360247262) BMI 37.0-37.9, adult (Z68.37) Active confirmed Problem History of anemia (318168776) History of anemia (Z86.2) Active confirmed Problem Obesity (392800418) Obesity due to excess calories, unspecified obesity severity (E66.09) Active confirmed Problem Obstructive sleep apnea syndrome (84312049) LATOSHA (obstructive sleep apnea) (G47.33) Active confirmed Problem Rheumatoid arthritis (31476218) Rheumatoid arthritis involving multiple sites with positive rheumatoid factor (M05.79) Active confirmed Problem Alcohol abuse (39048096) Alcohol consumption binge drinking (F10.10) Active confirmed Problem Benign prostatic hypertrophy without outflow obstruction (931230932) BPH loc w/o ur obs/LUTS (N40.0) Active confirmed Problem Allergic rhinitis caused by pollen (23462633) Seasonal allergic rhinitis due to pollen (J30.1) Active confirmed Problem Black's neuroma of right foot (754614557990428) Black's neuroma of right foot (G57.61) Active confirmed Problem Polyneuropathy due t o type 2 diabetes mellitus (657817984) Type 2 diabetes mellitus with diabetic neuropathy affecting both sides of body (E11.42) Active confirmed Problem Sciatica (70569807) Acute right- sided back pain with sciatica (M54.41) Active confirmed Problem Idiopathic gout (44729017) Idiopathic gout of multiple sites, unspecified chronicity (M10.09) Active confirmed Encounters Encounter Location Date Provider Diagnosis [facility] [address] [place] [address] 05/31/2024 Provider Migration Plan Of Treatment Pending Test Test Name Order Date N-CBC 08/12/2012 N-Thyroid Stimulating Hormone (TSH) 07/27 Microalbumin (In-House) 06/24/2015 N-CMP 08/12/2012 N-Lipid Panel 08/12/2012 H-CMP 12/23/2014 H-LIPID PANEL 12/23/2014 H-HGBA1C 12/23/2014 H-TSH 12/23/2014 H-URIC ACID 12/23/2014 C-TESTOSTERONE 05/10/2017 C-TESTOSTERONE, FREE 08/14/2011 C-CBC 01/09/2014 C-CMP 01/09/2014 C-CMP 05/29/2016 C-LIPID PANEL 01/09/2014 C-LIPID PANEL 05/29/2016 C-URIC ACID 05/29/2016 C-TSH 05/29/2016 C-TSH 01/09/2014 C-PSA 01/09/2014 C-VITAMIN B12 05/29/2016 C-VITAMIN D, 1,25-DIHYDROXY 05/29/2016 C-HGBA1C 01/09/2014 C-HGBA1C 05/29/2016 VENIPUNCT, ROUTINE* 12/24/2014 Uric Acid, Serum 05/01/2017 Future Test Test Name Order Date N-TSH (Thyroid Stimulating Hormone) 04/26 N-CMP 05/15/2011 N-Lipid Panel 05/15/2011 Insurance Providers Payer Name Payer Address Payer Phone Subscriber Number Group Number Insured Name Patient Relationship to Insured Coverage Start Date Coverage End Date [facility] [address] [place] [address] [id number] Kirit Garcia Self - patient is the insured Medications Administered Medication Instructions Date of Administration Dosage Notes Triamcinolone Acetonide 40mg Injection 11/20/2017 1 mL Triamcinolone Acetonide 40mg Injection 01/15/2019 1 mL Triamcinolone Acetonide 40mg Injection 04/24/2019 1 mL Kenalog 01/09/2014 60 mg Medical (General) History Medical History History ICD Code allergies gout HTN HLD Obesity Hypothyroidism GERD erectile dysfunction Colonoscopy July 2015 with h yperplastic polyp - repeated 09/14 with diminutive polyp NIDDM Neuroma R Foot Rheumatoid Arthritis followed by [facility] Surgical History Surgery Date(Month/Year) meniscus repair thumb-injury back 03/2020
--- OUTSIDE RECORDS SUMMARY | 2024-09-15 12:06 | XMS_ITS ---
Author Organization [facility] Address [address] [place] [address] Care Team Providers Care Talent Sourcing Specialist Name Role Phone Nadja Barraza APRN Primary Care Provider [phone] Rheumatology - External Fill Status:Enrolled (Active) Start date:10/05/2023 Enrollment date:10/05/2023 Current support & services provided:Benefits Investigation, Prior Authorization, External Pharmacy Dispensing Linked medications:Adalimumab (Active) Linked problems:Rheumatoid arthritis (Active) Overview Must fill at [facility] specialty Continued Care and Services Coordination
--- OUTSIDE RECORDS SUMMARY | 2024-09-15 12:06 | XMS_ITS | Encounter Summary ---
Author Organization [email or web address] ([place], [place], [place], [place]) Address [address] [place] [address] Care Team Providers Care Short Order Fry Cook Name Role Phone Unavailable Primary Care Provider Unavailabl e Encounter Details Date Type Department Care Team (Late st Contact Info) Description 04/09/2020 Transcribed Document [facility] [place] [facility] [place] [facility] [address] ProviderSabine [place] [address] Social History Tobacco Use Types [...] Conversion Note - Sabine ProviderMD - 04/09/2020 12:15 PM BRANCH MANAGER TRAINEE [facility] Main OR Preop Summary Primary Physician: RUDY DACOSTA MD-SNU Finalized Date/Time: 04/09/20 11:18:10 Pt. Name: CODI HULL/Sex: 1960 Male Med Rec #: [id number] Physician: RUDY DACOSTA MD-SNU Financial #: [id number] Pt. Type: P Room/Bed: / Admit/Disch: 03/22/20 13:50:00 - Institution: [facility] PreOp Case Times Entry 1 In Preop 04/09/20 09:01:00 Ready for Holding n/a Room Patient Ready for 04/09/20 09:59:00 Surgery Patient Out of Preop 04/09/20 11:06:00 Patient Out of n/a Holding Room Last Modified By: Alexandra Estevez RN 04/09/20 11:18:10 [facility] PreOp Case Times Audit 04/09/20 11:18:10 Postal Service Window Clerk: RAMEZALR Modifier: RAMEZALR <+> 1 Patient Out of Preop 04/09/20 10:30:05 Postal Service Window Clerk: RAMEZALR Modifier: RAMEZALR <+> 1 Patient Ready for Surgery Finalized By: Alexandra Estevez, RN Document Signatures Signed By: Alexandra Estevez RN 04/09/20 11:18 Electronically signed by Stephanie [facility] Conversion Implementation Analyst Cerner at 06/16/2022 7:24 PM CDT documented in this encounter Plan of Treatment Not on file documented as of this encounter Visit Diagnoses Not on filedocumented in this encounter
--- OUTSIDE RECORDS SUMMARY | 2024-09-15 12:07 | XMS_ITS | Referral Summary ---
Author Organization [email or web address] ([place], [place], [place], [place]) Address [address] [place] [address] Care Team Providers Care Resource Coordinator Name Role Phone Unavailable Primary Care Provider Unavailabl e Social History Tobacco Use Types Packs/Day Years Used Date Smoking Tobacco: Never Assessed Sex and Gender Information Value Date Recorded Sex Assigned at Male 08/23/2021 8:49 PM CDT Legal Sex Male 8:49 PM CDT Gender Identity Male 08/23/2021 8:49 PM CDT Sexual Orientation Not on file Plan of Treatment Not on file Insurance BLUE CROSS/BLUE SHIELD
--- OUTSIDE RECORDS SUMMARY | 2024-09-15 12:07 | XMS_ITS | Clinical Summary ---
Author Organization [employer] ([place], [place], [place], [place]) Address [address] [place] [address] Care Team Providers Care Director Transition Name Role Phone Unavailable Primary Care Provider [...]
--- OUTSIDE RECORDS SUMMARY | 2024-09-15 12:07 | XMS_ITS | Data Portability ---
Author Organization [place] - Mark riley MD, Main Office Address [address], [address] [place] [address] Care Team Providers Care Urgent Care Technician Name Role Phone BRENDA STEWART Primary Care Provider Assessment No assessment recorded. Plan of Treatment Reminders Order Date Submit Date Provider Last Modified By Organization Details Last Modified Time Details Appointments None recorded. Lab None recorded. Referral None recorded. Procedures nerve conduction study/EMG (PROC) 2017 018 MICHELLE Castellanos MD, [address], [address], [place], [address], 8 15:29:16 Surgeries None recorded. Imaging MRI, lumbar spine, w/o contrast 2017 018 [facility], [address], [address], [place], [address], 8 13:11:45 Medication Orders gabapentin 300 mg capsule 2017 018 [facility], [address] [place], [address], 8 12:40:27 Voltaren 1 % topical gel 2017 018 [facility], [address] [place], [address], 8 12:47:07 Patient TargetsNo targets recorded. Patient [...] record ed. BARCODE Mark Castellanos MD [address] [facility] [address], [place], [address], 06/13/2017 15:29:16 06/28/19 18 06/26/2017 MRI, lumba r spine , w/o contr ast No observ ation record ed. [email or web address] [facility] [address] [facility] [address], [place], [address], 06/27/2017 15:02:31 07/19/19 18 07/17/2017 CT, abdom en, w/wo contr ast No observ ation record ed. [facility] [address] [facility] [address], [place], [address], 07/18/2017 12:00:36 Result Notes None recorded. Problems Name Problem SNOMED Code Status Onset Date Resolution Date Notes Provider Name and Address Organization Details Recorded Time Foot pain 60113625 Active 06/14/19 [place] - Mark Castellanos MD 06/13/2017 12:10:45 Problem Notes None recorded. Procedures Surgical History Date Name Laterality Status Provider Name and Address Organization Details Recorded Time 8 NCV/EMG completed Sam Castellanos MD 06/13/2017 15:21:41 Back Surgery completed Tamara Castellanos MD 06/13/2017 12:13:41 Knee Surgery completed Tamara Castellanos MD 06/13/2017 12:13:47 Imaging Results None recorded. Procedure Notes None recorded. Medical Equipment None Reported. Allergies Allergen ID Allergen Name Allergen Category Reaction Reaction Severity Criticality Documentation Date Start Date Code Code System Note Provider Name and Address Organization Details Recorded Time 901 acetamino phen / oxycodone medicatio n Not available Not available Not available 06/13/2017 20334 3 RxNorm [place] MD 8 12:10:29 Medications Name Sig Start Date Stop Date [...] Body weight Heart rate Respiratory rate Systolic And Diastolic Provider Name and Address Organization Details Last Updated DateTime 8 187.96 cm 39.8 kg/m2 522187. 63 g 82 /min 17 /min 132/77 mm[Hg] Mark Castellanos MD [address], [address], [place], [address], [place] - Mark Castellanos MD 8 12:46:06 Social History Question Answer Notes LastModified by Organizat ion Details LastModified Time Tobacco Smoking Status Never Smoker Not Available [facility] 12/30/2019 03:34:29 Live Alone Or With Others? With Others [email or web address] Information not available 06/13/2017 What Was The Date Of Your Most Recent Tobacco Screening? 06/13/2017 [id number] Information not available 12/30/2019 Sex: Unknown Functional Status Question Answer Note LastModified by Organization D etails LastModified Time What is your level of alcohol consumption? None [id number] Information not available 12/30/2019 Mental Status None recorded. Family History Relationship [...] SNOMED-CT Code Diagnosis ICD10 Code Diagnosis Note 2074 Mark Castellanos MD Main Office [address], [address] [place] [address] 06/13/2017 11:51:45 06/13/2017 13:09:32 Idiopathic peripheral neuropathy 34700414 G60.9 The patient is a 57-year-ol d white male who presented with right foot pain and numbness. He has finding on examinatio n suggestive of a peripheral neuropathy . CMT needed to be excluded. He is a borderline diabetic. Low back pain 533392893 M54.5 I cannot exclude superimpos ed lumbosacra l radiculopa thy 2074 Mark Castellanos MD Main Office [address], [facility] [address] [place] [address] 06/13/2017 12:44:51 06/13/2017 14:45:21 Lumbar radiculopathy 043242133 M54.16 Mild chronic right L5 radiculopa thy. Health Concerns Section Related Observation LastModified by Organization Detai ls LastModified Time None Recorded Concern Status LastModified by Organization Details LastModified Time None Recorded Advance Directives Directive None Recorded Payers Insurance Date Sequence Insurance Name Policy Number Policy Daly Covered Member ID Daly Member ID Guarantor Name 06/13/2017 1 [employer] [id number] Karolyn Garcia [id number] Kirit Garcia Notes Date Note Type Note Provider Name a ms Address Organization Details Recorded Time 06/13/2017 text/html Mr. Garcia is a 57-year-old white male carranza. He is here today with his for consultation of a one-year history of right foot pain and numbness. He had 2 MRI scan of his right foot that was unremarkable. He has been to Dr. Mendoza, director of archives. He was seen by Dr. Dianne Nichols and he was given allopurinol for gout. He reported no improvement. More recently, he was seen by Dr. Tom, orthopedic surgeon, she suspected peripheral neuropathy versus Xuquuqv-Nvmgl-Anrn h syndrome. Pain is localized to his [...] significant low back pain. Mark Castellanos MD [address], [facility] [address], [place], [address], [facility] - Mark Castellanos MD 06/13/2017 12:55:30
--- OUTSIDE RECORDS SUMMARY | 2024-09-15 12:07 | XMS_ITS | Continuity of Care Document ---
Author Organization [facility], PAIN MEDICINE [address] [place] [address] Care Team Providers Care Review Trainer Name Role Phone JING CID House Shorer BRENDA STEWART Primary Care Provider KHANH FIELD Primary Care Provider TONY FROST Follow Up Manager CHELLY ROGERS Referring Provider [phone] JEN ROSA Orthopedic Surgeon Assessment Encounter Date [...] notes, and relevant labs. [email or web address] Not available 07/23/2024 14:51:18 Plan of Treatment Reminders Order Date Submit [...] liac joint inject ion (PROC) 2024 025 [email or web address] [facility] Professional Charges, [address] [facility] [address], [place], [address], 07/29/2024 11:49:08 Surgeries None record ed. Imaging XR, hip, bilate ral, 2 view 2024 025 sarah [facility] [address] [place], [address], 07/23/2024 16:28:48 Medication Orders gabape ntin 800 mg tablet 2024 025 [facility], [address] [place] [address], [address], 07/23/2024 14:52:08 Patient TargetsNo targets recorded. Patient InstructionsNo instructions recorded. Reason for Referral None Reported. Results Created Date Observation Date Name Description Value Unit Range Abnormal Flag Note LastModifiedBy Organization Detail LastModifiedTime 07/24/1907/23/2024 XR, joint , multi ple, 1 view [facility] [address] [place], [place] [id number] Patick t Name: KIRIT villafana : 89 Eda [...] tompkins MD on 025 1:58 PM [email or web address] [facility] [address] [place], [address], 07/23/2024 14:09:41 07/24/19 25 07/23/2024 XR, hip, bilat eral, 2 view [facility] [address] [place] [address] [phone] [id number] Eda villafana Name: KIRIT villafana : 89 [...] ly Signed By: Anastasiya tompkins MD on 3:06 PM MICHELLE [facility] [address] [place], [address], 07/24/2024 21:06:34 09/04/19 25 09/03/2024 XR, lumbo sacra l spine , 4 or more view [facility] [address] [place] [address] Eda villafana Name: KIRIT villafana : 958 Eda villafana 53 Jacques Raymundo er: CHELLY ROGERS EXAM DATE: 2024 EXAM: XR LUMBAR SPINE AP/LAT /FLEX/ EXT CLINIC AL INFORM ATION: Back pain. IMAGES PROVID ED: AP, latera l and coned- down views of the lumbar spine with additi onal latera l views in flexio n and extens ion. COMPAR PRESLEY: 2022 FINDIN GS: Mild wedge compre ssion of T12. Previo us L3-L5 dean of boys ior fixati on and interb xavi fusion . No hardwa re loosen ing or hardwa re fractu re is detect ed. Slight dean of boys ior listhe sis of L2 relati ve [...] Figueroa MD on 09/04/19 11:37 AM luiza [facility] [address] [place], [address], 09/03/2024 12:19:36 Result Notes Documentation Provider Name and Address Organization Details Recorded Time Xr, Joint, Multiple, 1 View : [facility] [address] [place] [address] Patient Name: KIRIT HULL Patient : 1960 [...] Doc Schmitz MD CA HERNANDEZ PA-C [address] [place], [address], [facility] 07/23/2024 14:09:42 Xr, Hip, Bilateral, 2 View : [facility] [address] [place] [address] Patient Name: KIRIT HULL Patient : 1960 [...] By: Doc Schmitz MD LY ROGERS PA-C [address] [place] [address], [phone] [place] [address] 07/23/2024 15:47:18 Problems No Known Problems Procedures Surgical History Date Name Laterality Status Provider Name and Address Organization Details Recorded Time 09/02/19 25 Eye Surgery completed Masoka Wilondja [facility] 09/03/2024 10:51:05 08/28/19 25 Synvisc One Injection completed GAURANG COBOS PA-C [address] [place], [address], [facility] 08/27/2024 10:54:41 08/05/19 25 Sacroiliac Joint Injection - Shukri completed FRANCISCO WATT MD [address] [place] [address], [address], [facility] 08/04/2024 15:32:16 07/24/19 25 Injection Joint/Bursa, Major completed Karolyn Cartwright [facility] 07/23/2024 14:22:59 04/11/19 25 Total knee arthroplasty completed Ankita Alicea [facility] 05/01/2024 08:55:00 04/01/19 25 PCM Visit completed Ankita Alicea [facility] 04/18/2024 09:34:52 03/31/19 25 EKG completed Noy Cornell [facility] 03/31/2024 10:56:15 03/26/19 25 PT Evaluation - Low Complexity completed MILKA FORDE, PT, DPT [address] [place] [address], [address], [facility] 03/26/2024 07:53:14 03/26/19 25 PT Therapeutic Exercise completed MILKA FORDE, PT, DPT [address] [place], [address], [facility] 03/26/2024 11:37:59 10/09/19 24 Lumbar Epidural Steroid Injection - Shukri completed FRANCISCO WATT MD [address] [place] [address], [address], [facility] 10/09/2023 16:41:54 06/29/19 24 Lumbar Epidural Steroid Injection - Shukri completed FRANCISCO WATT MD [address] [place] [address], [address], [facility] 06/29/2023 15:05:18 06/01/19 24 Joint Injection, Knee - Shukri completed FRANCISCO WATT MD [address] [place] [address], [address], [facility] 06/01/2023 14:04:44 03/05/19 24 Lumbar Epidural Steroid Injection - Shukri completed FRANCISCO WATT MD [address] [place] [address] [place], [address], [facility] 03/05/2023 15:24:53 02/14/20 23 Joint Injection, Knee - Shukri completed FRANCISCO WATT MD [address] [place], [address], [facility] 02/13/2023 16:36:13 12/15/19 23 Joint Injection, Knee - Shukri completed FRANCISCO WATT MD [address] [place], [address], [facility] 12/14/2022 09:44:07 12/09/19 23 EKG completed TONY FROST MD [address] [place] [address], [address], [facility] 12/08/2022 15:51:17 10/28/19 23 Joint Injection, Knee - Shukri completed FRANCISCO WATT MD [address] [place] [address], [address], [facility] 10/27/2022 15:15:34 08/27/19 22 Back Surgery completed Edyta Amador [facility] 12/08/2022 14:25:01 04/18/19 22 Stress Test - Nuclear [place] [address] [place] [address], [address], [facility] 04/18/2021 14:45:48 04/04/19 22 EKG completed Kelsea Cunningham [facility] 04/04/2021 15:00:19 04/09/19 21 LAMINOTOMY (HEMILAMINECTOMY) , DECOMPRESSION OF NERVE ROOTS, PARTIAL FACECTOTOMY, FORAMINOTOMY AND/OR DISC REMOVAL, LUMBAR (SURG) completed Erinn Springer [facility] 04/21/2020 14:47:01 03/31/19 21 Echocardiogram completed TONY FROST MD [address] [place] [address], [address], [facility] 03/31/2020 16:29:29 Knee arthroscopy/surge ry completed [facility] 10/26/2016 10:56:59 Unlisted px hands/fingers completed [facility] 10/26/2016 10:56:55 Back Surgery completed [facility] 10/26/2016 10:56:48 Back Surgery completed Kelsea Short [facility] 04/04/2021 15:27:39 Imaging Results None recorded. Procedure Notes None recorded. Medical Equipment None Reported. Allergies Allergen ID Allergen Name Allergen Category Reaction Reaction Severity Criticality Documentation Date Start Date Code Code System Note Provider Name and Address Organization Details Recorded Time 480170 acetamino phen / oxycodone medicatio n itching Not available Not available 10/26/2016 69260 3 RxNorm Edyta Amador [facility] 3 14:21:12 Medications Name Sig Start [...] e 137 mcg (0.1 %) nasal spray [place] 2 sprays twice a day by intranas [...] as needed by oral route. 02/09 completed [facility]: 0904-588 0-61 Not Available Not Available Not [...] Last Updated DateTime 187.96 cm 39.7 kg/m2 810011. 44 g 98.1 [degF] 65 /min 92 % 92 % 128/74 mm[Hg] Kati Lares [facility] 14:31:36 Date Recorded Body height Body mass index (BMI) Body weight Provider Name and Address Organization Details Last Updated DateTime 07/23/2024 187.96 cm 38.5 kg/m2 555268.71 g Karolyn Cartwright [facility] 07/23/2024 13:54:06 Social History Question Answer Notes LastModified by Organizat ion Details LastModified Time Tobacco Smoking Status [facility] 10/26/2016 10:55:42 What Was The Date Of Your Most Recent Tobacco Screening? 09/03/2024 sarah Information not available 09/03/2024 What Is Your Relationship Status? [email or web address] Information not available 02/28/2023 Has Tobacco Cessation Counseling Been Provided? No [email or web address] Information not available 04/18/2021 Sex: Male Functional Status Question Answer Note LastModified by Organizat ion Details LastModified Time Do you use any illicit or recreational drugs? No [email or web address] Information not available 02/28/2023 Do you or have you ever used any other forms of tobacco or nicotine? No [email or web address] Information not available 02/28/2023 What is your level of alcohol consumption? Moderate [email or web address] Information not available 10/26/2016 Are you currently employed? No [email or web address] Information not available 02/01/2024 Mental Status None recorded. Family History Relationship Description Onset Age of this Age Resolved Age Notes LastModified by Organization Details LastModified Time Father Hypertensive disorder [email or web address] Not available 10/26 10:55:25 Father Family history of stroke [email or web address] Not available 10/26 10:55:33 Unspecified Relation Cerebrovascu lar accident [email or web address] Not available 09/2019 13:59:06 Medical History Condition Response Coronary Artery Disease N Gout Y Other N Atrial Fibrillation N Kidney Stones N Hyperthyroidism [...] Disorder N Rheumatoid Arthritis Y Arrhythmia N Headaches N Fibromyalgia N Kidney Disease N Endocrine Disorder N [...] Disease N Hernia N Colon/Rectal Disorders N Lung Disease N Hypothyroidism N Glaucoma N Pacemaker N Measles Y [...] Disorder N Chest Pain N Heart Attack (AL) N Mental Illness N Neurological Problems N [...] quadrivalent, PF 1 completed Karolyn Cartwright [facility] 02/28/2023 10:12:05 COVID-19 vaccine, vector-nr, rS-Ad26, PF, 0.5 mL 1 [facility] 02/28/2023 10:12:05 COVID-19 vaccine, vector-nr, rS-Ad26, PF, 0.5 mL 1 completed Karolyn Cartwright [facility] 02/28/2023 10:12:05 pneumococcal polysaccharide PPV23 0 completed Karolyn Cartwright [facility] 02/28/2023 10:12:05 Past Encounters Encounter ID Performer Location Encounter Start Date Encounter Closed Date Diagnosis/Indication Diagnosis SNOMED-CT Code Diagnosis ICD10 Code Diagnosis Note [id number] REBECA HERNANDEZ PA-C ORTHOPEDI [address] [place] [address] 07/23/2024 13:29:06 07/23/2024 14:26:13 Osteoarthritis of right knee joint 8968949241 83147 M17.11 I discussed the risk and benefits [...] tolerated well. History of total knee arthroplasty 6836959786 105 Z96.659 Peng is now 3 months [...] 1 year or sooner if symptoms warrant. 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 CHELLY ROGERS PA-C [address] [place], [address], [facility] 07/23/2024 14:52:03
--- OUTSIDE RECORDS SUMMARY | 2024-09-15 12:07 | XMS_ITS | Encounter Summary ---
Author Organization [facility] yste Address [address] [place] [address] Care Team Providers Care Stock Chaser Name Role Phone BarrazaNadja manning DAT Primary Care Provider [phone] Reason for Visit * Reason Onset Date Comments Med Refill 01/28/2024 Encounter Details Date Type Department Care Team (Late st Contact Info) Description 01/28/2024 Refill [facility] RHEUMATOLOGY [address] [address] Dianne Nichols MD [address] [place] [address] Social History Tobacco Use Types Packs/Day Years Used Date Smoking Tobacco: Never Smokeless Tobacco: Never Alcohol Use Standard Drinks/Week [...] as of this encounter Miscellaneous Notes * Telephone Encounter - Daphnie Salazar RegSched Rep - 01/28/2024 2:50 PM EST Caller: Karolyn Garcia Relationship: Emergency Contact Best call back number: [phone] Requested Prescriptions: Requested Prescriptions Pending Prescriptions Disp Refills Adalimumab (Humira, 2 Pen,) 40 MG/0.4ML Auto-injector Kit 4 each 5 Sig: Inject 40 mg under the skin into the appropriate area as directed Every 14 (Fourteen) Days. Pharmacy where request should be sent: [facility] [address] [facility] [phone] [facility] [phone] FX Last office visit with prescribing clinician: Visit date not found Last telemedicine visit with prescribing clinician: Visit date not found Next office visit with prescribing clinician: Visit date not found Additional details provided by patient: STATES THAT PATIENT'S NEW INSURANCE WILL NO LONGER COVER HADLIMA INJECTION AND THEY HAVE ADVISED PATIENT GO BACK ON HUMIRA. PATIENT HAD ENOUGH HADLIMA LEFT FOR JANUARY, BUT WILL NEED HUMIRA REFILL SENT SO HE HAS SOME FOR FEBRUARY. Does the patient have less than a 3 day supply: [x] Yes [] No Would you like a call back once the refill request has been completed: [] Yes [x] No Naseem Flores Rep 01/28/24 14:50 EST DELETE AFTER READING TO PATIENT: ???Thank you for sharing this information with me. I will send a message to the clinical team. Please allow 48 hours for the clinical staff to follow up on this request.?? documented in this encounter Plan of Treatment Upcoming Encounters Date Type Department Care Team (Late st Contact Info) Description 09/24/2024 1:15 PM EDT Office Visit [facility] RHEUMATOLOGY [address] [address] Sigrid Barr APRN [address] [facility] [address] [place] [address] 10/28/2024 10:15 AM EDT Office Visit [facility] SLEEP MEDICINE [facility] [place] [address] Eduardo Clark MD [address] [place], [place] [id number] documented as of this encounter Visit Diagnoses Not on filedocumented in this encounter Care Teams Stock Chaser Relationship Specialty Start Date End Date Nadja Barraza APRN [address] [place] [address] PCP - General Nurse Practitioner 01/28/24 documented as of this encounter
== END 2024-09-15 23:59 | disposition home or self-care (01) ==
LOC: RAD 12:02
PROVIDERS: PCP Nurse Practitioner Family; Visit Provider Anesthesiology
DX: M51.34 Other intervertebral disc degeneration, thoracic region (principal); M89.9 Disorder of bone, unspecified
CPT/HCPCS: 72146